=== PATIENT | male | born 1965 | race Caucasian/White ===

== ENCOUNTER 2023-03-14 08:37 | Outpatient (OUT) | payer OTHER, SELFPAY ==
--- NOTE | 2023-03-14 09:05 | PM.CN ---
Consult Note: HPI Data of Consult Patient: known to practice within the last 3 years Consult date: 03/14/23 Requesting Physician: TONIO PAUL NP Primary Care Provider: Shaikh Anupam MD Consult Narrative Narrative: Patient is here for f/u of chronic right lumbar and right leg pain. Pain worse with walking or stairs. Pain does radiate to right leg at times. Previous lumbar fusion. He has seen pain management previously and had injections that did not benefit him. He would like medication management. He was taking tramadol, but feels it is not working for him and upsets his stomach. He has had percocet previously thyat helped. We can stop tramadol and start percocet. He has narcan at home . No new sensorimotor sx or bowel or bladder issues. Medication regimen assists patient to better complete ADLs. . OARRS reviewed. cc:: CC: TONIO PAUL NP Review of Systems ROS Status of ROS 10 or more systems reviewed and unremarkable except as noted in history and below Musculoskeletal Reports: back pain Exam Constitutional Documenting provider has reviewed patient's vital signs: yes Common normals: no apparent distress, average body habitus, oriented x3, no limitations, healthy appearing, alert and well nourished General appearance: cooperative, comfortable and well developed Orientation/consciousness: Yes awake, Yes oriented to person, Yes oriented to place and Yes oriented to time HENGA Common normals: normocephalic and moist oral mucous membranes Respiratory Common normals: normal respiratory effort, no retractions and no use of accessory muscles Effort & inspection: able to speak in complete sentences and symmetric chest movement Back & Pelvis Lumbar spine/lower back: normal to inspection, ROM limited, pain with ROM, paraspinal muscle tenderness and paraspinal muscle spasm Other: positive facet load pain right muscle strength 5/5 bilat LE with intact sensation Extremity Common normals: normal to inspection, full ROM, normal capillary refill and no pedal edema Assessment and Plan Assessment and Plan (1) Lumbar radiculopathy: (2) Muscle spasm: (3) Lumbar spondylosis: Plan stop tramadol start percocet
== END 2023-03-14 08:38 | disposition home or self-care (01) ==
PROVIDERS: PCP Internal Medicine; Visit Provider Nurse Practitioner
DX: M47.26 Other spondylosis with radiculopathy, lumbar region (principal); M62.838 Other muscle spasm
CPT/HCPCS: G0463

== ENCOUNTER 2023-06-11 09:50 | Outpatient (OUT) | payer OTHER, SELFPAY ==
--- NOTE | 2023-06-11 10:25 | PM.CN ---
Consult Note: HPI Data of Consult Patient: known to practice within the last 3 years Requesting Physician: Aida Montero NP Primary Care Provider: Shaikh Anupam MD Consult Narrative Reason for consult: f/u Narrative: Boby Lovelace a pleasant 58 year old male presents for evaluation and management of low back pain. Today rating pain 3/10 ache without radiculopathy. hx of lumbar fusion at l4-5 Unforunately patient continues to have low back pain unresponsive to medications and PT/HEP. Patient SANJU today 53%, worse from previous 42% and 31%. Patient would like to discuss medication regimen today. cc:: CC: Aida Montero NP Review of Systems ROS Status of ROS 10 or more systems reviewed and unremarkable except as noted in history and below Musculoskeletal Reports: back pain Meds Home Medications and Allergies Home Medications Medication Instructions Recorded Confirmed Type oxycodone-acetaminophen 5 mg-325 1 tab PO TID PRN pain #90 tabs 03/14/23 Rx mg tablet (Percocet) oxycodone-acetaminophen 5 mg-325 1 tab PO TID PRN pain #90 tabs 04/15/23 Rx mg tablet (Percocet) oxycodone-acetaminophen 5 mg-325 1 tab PO TID PRN pain #90 tabs 05/15/23 Rx mg tablet (Percocet) Exam Constitutional Documenting provider has reviewed patient's vital signs: yes Common normals: no apparent distress, oriented x3, healthy appearing, alert and well nourished General appearance: cooperative Orientation/consciousness: Yes awake, Yes oriented to person, Yes oriented to place and Yes oriented to time [facility] Common normals: normocephalic, hearing grossly normal bilaterally and moist oral mucous membranes Head and scalp: normocephalic Eye Common normals: PERRL Pupil: PERRL Neck & C-Spine Common normals: full ROM General: normal visual inspection Chest Common normals: inspection of chest normal Respiratory Common normals: normal respiratory effort, no retractions and no use of accessory muscles Effort & inspection: able to speak in complete sentences and symmetric chest movement Back & Pelvis Lumbar spine/lower back: normal to inspection, ROM limited, pain with ROM, paraspinal muscle tenderness and paraspinal muscle spasm Other: positive facet load pain right muscle strength 5/5 bilat LE with intact sensation Extremity Common normals: normal to inspection, full ROM, normal capillary refill and no pedal edema Neuro Common normals: oriented x3, CN's II-XII intact bilaterally, moves all extremities, no focal motor deficits, no sensory deficits noted and deep tendon reflexes 2+ bilaterally Sensorium/orientation: alert Motor exam: strength 5/5 throughout and no movement abnormalities noted Psych Common normals: mental status grossly normal, thought process normal, cooperative, affect normal, speech normal and activity/motor behavior normal Speech: normal speech Thought process: normal thought process Results Additional Findings Additional findings: I have checked an OARRS report on this patient today and there are no aberrancies noted in the prescribing history.?? A drug screen was completed and reviewed within the last year, and if there has not been a drug screen completed we ordered one today to monitor higher risk, state monitored pain medication use. As part of providing excellent, safe, comprehensive care, the following was completed at our patient's visit: 1. A medication reconciliation and review to ensure accurate knowledge of current/active medications, including asking our patients to inform us about any [id number] medications or herbal remedies/nutritional supplements/alternative remedies. 2. A review to specifically ensure our patients have had annual screening for: elevated body mass index (BMI), tobacco use, screening for depression, and screening for unhealthy alcohol use. When screening is concerning, patients are provided with education and the specific recommendation to discuss the concerning health issue and treatment options with their primary care provider. Assessment and Plan Assessment and Plan (1) Lumbar spondylosis: (2) Muscle spasm: (3) Chronic prescription opiate use: Assessment and Plan: Patients functional ability continues to worsen despite opioid therapy. Discussed weaning down on medications at todays visit. Plan stop mobic, patient has been using with ibuprofen TID. has hx of GERD and on prilosec decrease percocet 5/325 to BID-TID 80 tablets per month narcan previously discussed and prescribed educated on facet blocks and RFA, will think about these procedures f/u 2 months
== END 2023-06-11 09:51 | disposition home or self-care (01) ==
PROVIDERS: PCP Internal Medicine; Visit Provider Nurse Practitioner
DX: M47.816 Spondylosis without myelopathy or radiculopathy, lumbar region (principal); M62.838 Other muscle spasm; Z79.891 Long term (current) use of opiate analgesic
CPT/HCPCS: G0463

== ENCOUNTER 2023-08-14 10:05 | Outpatient (OUT) | payer OTHER, SELFPAY ==
--- NOTE | 2023-08-14 10:29 | P.CN_ITS ---
Consult Note: HPI Data of Consult Patient: known to practice within the last 3 years Requesting Physician: Aida Montero NP Primary Care Provider: Shaikh Anupam MD Consult Narrative Reason for consult: f/u Narrative: Boby Lovelace a pleasant 58 year old male presents for evaluation and management of low back pain. Today rating pain 3/10 ache without radiculopathy. hx of lumbar fusion at l4-5 Unfortunately patient continues to have low back pain unresponsive to medications and PT/HEP. Patient SANJU today 27% improved from previous 53%. Patient would like to discuss medication regimen today. cc:: CC: Aida Montero NP Review of Systems 2 ROS Status of ROS 10 or more systems reviewed and unremark able except as noted in history and below Musculoskeletal Reports: back pain Meds Home Medications and Allergies Home Medications Medication Instructions Recorded Confirmed Type oxycodone-acetaminophen 5 mg-325 1 tab PO TID PRN pain #90 tabs 03/14/23 Rx mg tablet (Percocet) oxycodone-acetaminophen 5 mg-325 1 tab PO TID PRN pain #90 tabs 04/15/23 Rx mg tablet (Percocet) oxycodone-acetaminophen 5 mg-325 1 tab PO TID PRN pain #90 tabs 05/15/23 Rx mg tablet (Percocet) atorvastatin 80 mg tablet 80 mg PO DAILY 06/11/23 06/11/23 History baclofen 10 mg tablet 10 mg PO TID 06/11/23 06/11/23 History dulaglutide 4.5 mg/0.5 mL 4.5 mg subcut QWEEK 06/11/23 06/11/23 History subcutaneous pen injector (Trulicity) ezetimibe 10 mg tablet 10 mg PO DAILY 06/11/23 06/11/23 History gabapentin 600 mg tablet 600 mg PO TID 06/11/23 06/11/23 History ibuprofen 800 mg tablet 800 mg PO TID 06/11/23 06/11/23 History insulin degludec 200 unit/mL (3 200 unit subcut DAILY 06/11/23 06/11/23 History mL) subcutaneous pen (Tresiba FlexTouch U-200 insulin) oxycodone-acetaminophen 5 mg-325 1 tab PO TID PRN pain 11/08/23 11/08/23 History mg tablet (Percocet) oxycodone-acetaminophen 5 mg-325 1 tab PO TID PRN pain #80 tabs 06/11/23 Rx mg tablet (Percocet) oxycodone-acetaminophen 5 mg-325 1 tab PO TID PRN pain #80 tabs 07/07/23 Rx mg tablet (Percocet) Allergies Allergy/AdvReac Type Severity Reaction Status Date / Time No Known Drug Allergies Allergy Verified 06/11/23 10:58 Exam Constitutional Documenting provider has reviewed patient's vital signs: yes Common normals: no apparent distress, oriented x3, healthy appearing, alert and well nourished General appearance: cooperative Orientation/consciousness: Yes awake, Yes oriented to person, Yes oriented to place and Yes oriented to time HENMT Common normals: normocephalic, hearing grossly normal bilaterally and moist oral mucous membranes Head and scalp: normocephalic Eye Common normals: PERRL Pupil: PERRL Neck & C-Spine Common normals: full ROM General: normal visual inspection Chest Common normals: inspection of chest normal Respiratory Common normals: normal respiratory effort, no retractions and no use of accessory muscles Effort & inspection: able to speak in complete sentences and symmetric chest movement Back & Pelvis Lumbar spine/lower back: normal to inspection, ROM limited, pain with ROM, paraspinal muscle tenderness and paraspinal muscle spasm Other: positive facet load pain right muscle strength 5/5 bilat LE with intact sensation Extremity Common normals: normal to inspection, full ROM, normal capillary refill and no pedal edema Neuro Common normals: oriented x3, CN's II-XII intact bilaterally, moves all extremities, no focal motor deficits, no sensory deficits noted and deep tendon reflexes 2+ bilaterally Sensorium/orientation: alert Motor exam: strength 5/5 throughout and no movement abnormalities noted Psych Common normals: mental status grossly normal, thought process normal, cooperative, affect normal, speech normal and activity/motor behavior normal Speech: normal speech Thought process: normal thought process Results Additional Findings Additional findings: I have checked an OARRS report on this patient today and there are no aberrancies noted in the prescribing history.?? A drug screen was completed and reviewed within the last year, and if there has not been a drug screen completed we ordered one today to monitor higher risk, state monitored pain medication use. As part of providing excellent, safe, comprehensive care, the following was completed at our patient's visit: 1. A medication reconciliation and review to ensure accurate knowledge of current/active medications, including asking our patients to inform us about any [id number] medications or herbal remedies/nutritional supplements/alternative remedies. 2. A review to specifically ensure our patients have had annual screening for: elevated body mass index (BMI), tobacco use, screening for depression, and screening for unhealthy alcohol use. When screening is concerning, patients are provided with education and the specific recommendation to discuss the concerning health issue and treatment options with their primary care provider. Assessment and Plan Assessment and Plan (1) Lumbar spondylosis: (2) Muscle spasm: (3) Chronic prescription opiate use: Assessment and Plan: I feel these medications are improving the patient's quality of life and allow them to tolerate activities of daily living as well as participate in recreational activity.? The patient does not report intolerable side effects. The patient is NOT opioid naive and non-pharmacologic and non-opioid treatment has failed to significantly relieve the patient's pain and improve functionality. The patient has a diagnosis that is related to a somatic or visceral pain etiology. ? ?? I reviewed with the patient the potential risks and side effects with the use of? opioid medications including but not limited to respiratory depression,? sedation, and even . I verified the patient has access to naloxone should? these effects occur. I advised the patient to avoid the use of any other? sedation substances including alcohol, THC, and benzodiazepines while? taking opioid medications due to the risk of compounding side effects and? detrimental outcomes. I reviewed the OPERATIONS MANAGER ASSISTANT, pain treatment agreement, urine? drug screen, and opioid start talking forms. The patient was advised to let? their family know they had Naloxone in case they would need to administer? the medication.? ?? A drug screen was completed within the last year, and no aberrancies were noted regarding their use of controlled substances. The patient understands they are subject to the terms and conditions of the pain contract that they have signed. ? ?? I have checked an OARRS report on this patient today and there are no aberrancies noted in the prescribing history.? Plan continue percocet 5/325 to BID-TID 80 tablets per month, SANJU significantly improved now 27% narcan previously discussed and prescribed educated on facet blocks and RFA at previous visit, declining f/u 3 months
== END 2023-08-14 10:06 | disposition home or self-care (01) ==
LOC: PM 10:05
PROVIDERS: PCP Internal Medicine; Visit Provider Nurse Practitioner
DX: E78.49 Other hyperlipidemia (principal); I10 Essential (primary) hypertension; E11.9 Type 2 diabetes mellitus without complications; M47.816 Spondylosis without myelopathy or radiculopathy, lumbar region; M62.838 Other muscle spasm; Z79.891 Long term (current) use of opiate analgesic
CPT/HCPCS: 36415; 80053; 80061; 82043; 82570; 83036; 85025; G0463

== ENCOUNTER 2023-08-14 10:43 | Outpatient (OUT) | payer OTHER, SELFPAY ==
--- OUTSIDE RECORDS SUMMARY | 2023-08-14 10:53 | XMS_ITS | CCD ---
Author Name Unknown Address [address] [facility] [address] [place] [address] Organization [facility] Care Team Providers Care [employer] Attendant Name Role Phone LAKSHMIPATHY ., NARENDRANATH Admitting Savita vailable LAKSHMIPATHY ., NARENDRANATH Attending Savita vailable FAWWAD, WHATLEY H Primary Care Unavailable LAKSHMIPATHY ., NARENDRANATH Consulting Savita vailable FAWWAD, WHATLEY H Primary Care Unavailable HALKER ., TONIO Attending Unavailable HALKER ., TONIO Admitting Unavailable LAKSHMIPATHY ., NARENDRANATH Consulting Savita vailable HALKER ., TONIO Admitting Unavailable FAWWAD, WHATLEY H Primary Care Unavailable HALKER ., TONIO Attending Unavailable FAWWAD, WHATLEY H Admitting Unavailable FAWWAD, WHATLEY H Attending Unavailable FAWWAD, WHATLEY H Consulting Unavailable FAWWAD, WHATLEY H Primary Care Unavailable LAKSHMIPATHY ., NARENDRANATH Admitting Savita vailable LAKSHMIPATHY ., NARENDRANATH Attending Savita vailable FAWWAD, WHATLEY H Primary Care Unavailable DR LUIS ARMANDO ZAYAS Consulting Unavailable LAKSHMIPATHY ., NARENDRANATH Consulting Savita vailable BEN ZUNIGA Consulting Unavailable FAWWAD, WHATLEY H Admitting Unavailable FAWWAD, WHATLEY H Attending Unavailable FAWWAD, WHATLEY H Primary Care Unavailable FAWWAD, WHATLEY H Consulting Unavailable LAKSHMIPATHY ., NARENDRANATH Admitting Savita vailable DR LUIS ARMANDO ZAYAS Consulting Unavailable FAWWAD, WHATLEY H Primary Care Unavailable LAKSHMIPATHY ., NARENDRANATH Attending Savita vailable LAKSHMIPATHY ., NARENDRANATH Consulting Savita vailable FAWWAD, WHATLEY Attending Unavailable Problems Active Problems Problem Classification Problem Date Documented Da te Episodic/Chronic Diabetes mellitus without complication (4 sources) Type 2 diabetes mellitus without complications; Translations: [TYPE 2 DM WITHOUT COMPLICATIONS] Onset: 11-11-2022 Chronic Disorders of lipid metabolism (1 source) Hyperlipidemia, unspecified; Translations: [HYPERLIPIDEMIA UNSPECIFIED] Onset: 11-17-2022 Chronic Other nervous system disorders (1 source) Other chronic pain; Translations: [OTHER CHRONIC PAIN] Onset: 11-09-2022 Chronic Other screening for suspected conditions (not mental disorders or infectious disease) (4 sources) Other specified abnormal findings of blood chemistry; Translations: [OTH SPEC ABNORMAL FINDINGS BLD CHEM] Onset: 11-19-2022 Episodic Spondylosis; intervertebral disc disorders; other back problems (6 sources) Spondylosis without myelopathy or radiculopathy, lumbar region; Translations: [Postlaminectomy syndrome, not elsewhere classified] Onset: 11-11-2022 Chronic Unclassified (2 sources) LOW BACK PAIN, UNSPECIFIED; Translations: [LOW BACK PAIN, UNSPECIFIED] Onset: 12-12-2022 Past or Other Problems Problem Classification Problem Date Documented Da te Episodic/Chronic Unclassified (1 source) LOW BACK PAIN, UNSPECIFIED; Translations: [LOW BACK PAIN, UNSPECIFIED] Onset: 12-06-2022 Results Test Name Value Interpretation Reference Range Facility MRI LSPINE WO W CONon 2022 MRI LSMIDWAY WO W CON EXAMINATION: MRI LSMIDWAY WO W CON HISTORY: Post-laminectomy syndrome ; chronic lumbar and bilateral leg pain COMPARISON: XR L-spine 11/11/2022 TECHNIQUE: Axial T1 and T2; Sagittal T1, T2, and STIR sequences. Images were performed before and after the administration of ml intravenous Dotarem contrast. FINDINGS: For the purposes of numbering, sagittal T2 image # 7 extends from the T11-T12 vertebral body superiorly to the S3 level inferiorly. PARASPINAL AREA: Normal with no visible mass. BONES: Posterior mechanical fusion L4-L5. CORD/CAUDA EQUINA: Normal caliber, contour, and signal intensity. LUMBAR DISC LEVELS: 12-L1: No significant disc/facet abnormality, spinal stenosis, or foraminal stenosis. L1-L2: No significant disc/facet abnormality, spinal stenosis, or foraminal stenosis. L2-L3: Early degenerative disc disease is present without focal protrusion or neural impingement. L3-L4: Early degenerative disc disease is present without focal protrusion or neural impingement. L4-L5: Moderate right, mild left foramen narrowing. No significant central canal narrowing. Intervertebral disc spacer with mild disc height reduction. Moderate left, mild right degenerative facet arthropathy. Posterior mechanical fusion L4-L5. L5-S1: Moderate right, mild-moderate left foramen narrowing. No significant central canal narrowing. Mild diffuse disc bulging without disc height reduction. Moderate degenerative facet arthropathy. IMPRESSION: 1. Posterior mechanical fusion L4-L5 and intervertebral disc spacer at L4-L5. 2. Moderate narrowing of the right neural foramen at L4-L5 and L5-S1. Mild or slightly greater left foramen narrowing at both levels. No significant central canal narrowing. Electronically authenticated by: LUIS ARMANDO ZAYAS Date: 2022-11-19 14:15 Normal [facility] US SINGLE QUAD RT UPPERon US SINGLE QUAD RT UPPER EXAM: US SINGLE QUAD RT UPPER HISTORY: . Blood chemistry abnormal . COMPARISON: None. TECHNIQUE: Grayscale and color imaging was performed FINDINGS: The pancreas is grossly unremarkable. The liver is normal in size. No masses are noted. Color-flow is noted in the portal and hepatic veins. The gallbladder appears normal with no stones or sludge identified. No gallbladder wall thickening is noted. Common bile duct measures 2 mm. Right kidney measures 9.5 x 5 x 5.8 cm. Color-flow is noted. No solid renal cortical masses or hydronephrosis is noted. No fluid is noted in the right upper quadrant. IMPRESSION: Normal ultrasound of the right upper quadrant. Electronically authenticated by: BEN ZUNIGA Date: 2022-11-19 09:51 Normal [facility] CBC AUTO DIFFon 11-11-2022 BASO # 0.0 103/ul Normal 0.0-0.1 [facility] Comment on above: Performed By: #### C BC #### [facility] [address] [address] [address] Irving Hale Basophils/100 WBC (Bld) 0.5 % Normal 0.2-2.0 [facility] Comment on above: Performed By: #### C BC #### [facility] [address] [address] [address] Irving Hale EO # 0.1 103/ul Normal 0.0-0.7 [facility] Comment on above: Performed By: #### C BC #### [facility] [address] [place] [address] Dr. Irving Hale Eosinophils/100 WBC (Bld) 1.9 % Normal 0.9-7.0 [facility] Comment on above: Performed By: #### C BC #### [facility] [address] [place] [address] Dr. Irving Hale Erythrocyte distribution width (RBC) [Ratio] 13.4 % Normal 11.0-15.0 [facility] Comment on above: Performed By: #### C BC #### [facility] [address] [place] [address] Dr. Irving Hale Hematocrit (Bld) [Volume fraction] 40.6 % Critically low 42.0-54.0 [facility] Comment on above: Performed By: #### C BC #### [facility] [address] [place] [address] Dr. Irving Hale Hemoglobin (Bld) [Mass/Vol] 13.6 g/dL Critically low 14.0-18.0 [facility] Comment on above: Performed By: #### C BC #### [facility] [address] [place] [address] Dr. Irving Hale IG # 0.01 10e3/ul Normal 0.00-0.03 [facility] Comment on above: Performed By: #### C BC #### [facility] [address] [place] [address] Dr. Irving Hale IG % 0.2 % Normal 0.0-0.5 [facility] Comment on above: Performed By: #### C BC #### [facility] [address] [place] [address] Dr. Irving Hale LYMPH # 2.1 103/ul Normal 1.2-3.8 [facility] Comment on above: Performed By: #### C BC #### [facility] [address] [place] [address] Dr. Irving Hale Lymphocytes/100 WBC (Bld) 32.9 % Normal 20.5-60.0 [facility] Comment on above: Performed By: #### C BC #### [facility] [address] [place] [address] Dr. Irving Hale MANUAL DIFF REQ NO Normal [facility] Comment on above: Performed By: #### C BC #### [facility] [address] [place] [address] Dr. Irving Hale MCH (RBC) [Entitic mass] 28.2 pg Normal 25.9-34.0 [facility] Comment on above: Performed By: #### C BC #### [facility] [address] [place] [address] Dr. Irving Hale MCHC (RBC) [Mass/Vol] 33.5 g/dL Normal 29.9-35.2 [facility] Comment on above: Performed By: #### C BC #### [facility] [address] [place] [address] Dr. Irving Hale MCV (RBC) [Entitic vol] 84.1 fL Normal 80.0-94.0 [facility] Comment on above: Performed By: #### C BC #### [facility] [address] [place] [address] Dr. Irving Hale MONO # 0.6 103/ul Normal 0.3-0.8 [facility] Comment on above: Performed By: #### C BC #### [facility] [address] [place] [address] Dr. Irving Hale Monocytes/100 WBC (Bld) 9.3 % Normal 1.7-12.0 [facility] Comment on above: Performed By: #### C BC #### [facility] [address] [place] [address] Dr. Irving Hale NEUT # 3.4 103/ul Normal 1.4-6.5 [facility] Comment on above: Performed By: #### C BC #### [facility] [address] [place] [address] Dr. Irving Hale Neutrophils/100 WBC (Bld) 55.2 % Normal 43.0-75.0 [facility] Comment on above: Performed By: #### C BC #### [facility] [address] [place] [address] Dr. Irving Hale Platelet mean volume (Bld) [Entitic vol] 9.1 fL Critically low 9.5-13.5 [facility] Comment on above: Performed By: #### C BC #### [facility] [address] [address] [address] Irving Hale PLT 302 103/ul Normal 150-450 [facility] Comment on above: Performed By: #### C BC #### [facility] [address] [place] [address] Dr. Irving Hale RBC 4.83 106/ul Normal 4.70-6.10 [facility] Comment on above: Performed By: #### C BC #### [facility] [address] [place] [address] Dr. Irving Hale WBC 6.2 103/ul Normal 4.0-11.0 [facility] Comment on above: Performed By: #### C BC #### [facility] [address] [place] [address] Dr. Irving Hale GLYCOHEMOGLOBIN A1Con 2022 ADA RECOMMENDATION SEE BELOW Normal [facility] Comment on above: Result Comment: ADA RECOMMENDED LIMIT 4.0 - 6.0 ADA THERAPEUTIC TARGET < 7.0 ACTION SUGGESTED > 7.0 Performed By: #### A 1C #### [facility] [address] [place] [address] Dr. Irving Hale Glucose [Mass/Vol] 143 mg/dL Normal [facility] Comment on above: Performed By: #### A 1C #### [facility] [address] [place] [address] Dr. Irving Hale HbA1c (Bld) [Mass fraction] 6.6 % Critically high 4.5-6.2 [facility] Comment on above: Performed By: #### A 1C #### [facility] [address] [place] [address] Dr. Irving Hale LIPID PROFILEon 11-11-2022 CHOL-HDL RATIO NORM SEE BELOW Normal [facility] Comment on above: Result Comment: 3.3 - 4.4 LOW RISK 4.4 - 7.1 AVERAGE RISK 7.1 - 11.0 MODERATE RISK >11.0 HIGH RISK Performed By: #### C MP, LIPID #### [facility] [address] [address] [address] Irving Hale Cholesterol [Mass/Vol] 124 mg/dL Normal <=200 [facility] Comment on above: Performed By: #### C MP, LIPID #### [facility] [address] [address] [address] Irving Hale Cholesterol in HDL [Mass/Vol] 41 mg/dL Normal 40-60 [facility] Comment on above: Performed By: #### C MP, LIPID #### [facility] [address] [address] [address] Irving Hale Cholesterol in LDL [Mass/Vol] 66.4 mg/dL Normal [facility] Comment on above: Performed By: #### C MP, LIPID #### [facility] [address] [address] [address] Irving Hale Cholesterol.total/Cho lesterol in HDL [Mass ratio] 3.0 {ratio} Normal [facility] Comment on above: Performed By: #### C MP, LIPID #### [facility] [address] [address] [address] Irving Hale HDL NORMAL > or = 60 mg/dl - LO W CARDIOVASCULAR RISK <40 mg/dl - HIGH CARDIOVASCULAR RISK Normal [facility] Comment on above: Performed By: #### C MP, LIPID #### [facility] [address] [address] [address] Irving Hale LDL CALC NORMAL SEE BELOW Normal [facility] Comment on above: Result Comment: <100 mg/dl OPTIMAL 100 - 129 mg/dl NEAR OR ABOVE OPTIMAL 130 - 159 mg/dl BORDERLINE HIGH 160 - 189 mg/dl HIGH >190 mg/dl VERY HIGH Performed By: #### C MP, LIPID #### [facility] [address] [address] [address] Irving Hale Triglyceride [Mass/Vol] 83 mg/dL Normal <=150 [facility] Comment on above: Performed By: #### C MP, LIPID #### [facility] [address] [address] [address] Irving Hale VLDL CALC 16.6 mg/dL Normal [facility] Comment on above: Performed By: #### C MP, LIPID #### [facility] [address] [address] [address] Irving Hale MICROALB CREAT RATIO RANDOMo n 11-11-2022 mALB <1.3 Normal <=30.0 [facility] Comment on above: Performed By: #### M CRR #### [facility] [address] [place] [address] Dr. Irving Hale MALB CR RATIO 8.4 mg/g Normal 0.0-29.9 [facility] Comment on above: Performed By: #### M CRR #### [facility] [address] [address] [address] Irving Hale MALB CR RATIO RANGE SEE BELOW Normal [facility] Comment on above: Result Comment: NO M ICROALBUMINURIA 0-29 MG/G CLINICAL MICROALBUMINURIA 30-300 MG/G MACROALBUMINURIA >300 MG/G Performed By: #### M CRR #### [facility] [address] [place] [address] Dr. Irving Hale URINE CREAT 155.10 mg/dL Normal 20.00-300.00 [facility] Comment on above: Performed By: #### M CRR #### [facility] [address] [place] [address] Dr. Irving Hale PROF 14(COMP METB)on 023 Albumin [Mass/Vol] 3.9 g/dL Normal 3.4-5.0 [facility] Comment on above: Performed By: #### C MP, LIPID #### [facility] [address] [place] [address] Dr. Irving Hale Albumin/Globulin [Mass ratio] 1.0 {ratio} Normal [facility] Comment on above: Performed By: #### C MP, LIPID #### [facility] [address] [address] [address] Irving Hale ALP [Catalytic activity/Vol] 96 U/L Normal 46-116 [facility] Comment on above: Performed By: #### C MP, LIPID #### [facility] [address] [address] [address] Irving Hale ALT [Catalytic activity/Vol] 95 U/L Critically high 16-63 [facility] Comment on above: Performed By: #### C MP, LIPID #### [facility] [address] [address] [address] Irving Hale Anion gap [Moles/Vol] 11.5 mmol/L Normal [facility] Comment on above: Performed By: #### C MP, LIPID #### [facility] [address] [place] [address] Dr. Irving Hale AST [Catalytic activity/Vol] 39 U/L Critically high 15-37 [facility] Comment on above: Performed By: #### C MP, LIPID #### [facility] [address] [place] [address] Dr. Irving Hale Bilirubin [Mass/Vol] 0.4 mg/dL Normal 0.2-1.0 [facility] Comment on above: Performed By: #### C MP, LIPID #### [facility] [address] [place] [address] Dr. Irving Hale Calcium [Mass/Vol] 10.4 mg/dL Critically high 8.5-10.1 [facility] Comment on above: Performed By: #### C MP, LIPID #### [facility] [address] [place] [address] Dr. Irving Hale Chloride [Moles/Vol] 103 mmol/L Normal 98-107 [facility] Comment on above: Performed By: #### C MP, LIPID #### [facility] [address] [address] [address] Irving Hale CO2 [Moles/Vol] 30.0 mmol/L Normal 21.0-32.0 [facility] Comment on above: Performed By: #### C MP, LIPID #### [facility] [address] [address] [address] Irving Hale Creatinine [Mass/Vol] 1.04 mg/dL Normal 0.70-1.30 [facility] Comment on above: Performed By: #### C MP, LIPID #### [facility] [address] [place] [address] Dr. Irving Hale EGFR-AF SWAZI >60 Normal >=60 [facility] Comment on above: Performed By: #### C MP, LIPID #### [facility] [address] [address] [address] Irving Hale EGFR-NON AF SWAZI >60 Normal >=60 [facility] Comment on above: Performed By: #### C MP, LIPID #### [facility] [address] [place] [address] Dr. Irving Hale Globulin (S) [Mass/Vol] 3.9 g/dL Normal [facility] Comment on above: Performed By: #### C MP, LIPID #### [facility] [address] [place] [address] Dr. Irving Hale Glucose [Mass/Vol] 123 mg/dL Critically high 74-106 [facility] Comment on above: Performed By: #### C MP, LIPID #### [facility] [address] [place] [address] Dr. Irving Hale Potassium [Moles/Vol] 4.5 mmol/L Normal 3.5-5.1 [facility] Comment on above: Performed By: #### C MP, LIPID #### [facility] [address] [address] [address] Irving Hale Protein [Mass/Vol] 7.8 g/dL Normal 6.4-8.2 [facility] Comment on above: Performed By: #### C MP, LIPID #### [facility] [address] [place] [address] Dr. Irving Hale Sodium [Moles/Vol] 140 mmol/L Normal 136-145 [facility] Comment on above: Performed By: #### C MP, LIPID #### [facility] [address] [address] [address] Irving Hale Urea nitrogen [Mass/Vol] 23.0 mg/dL Critically high 7.0-18.0 [facility] Comment on above: Performed By: #### C MP, LIPID #### [facility] [address] [address] [address] Irving Hale Urea nitrogen/Creatinine [Mass ratio] 22.1 mg/mg Normal [facility] Comment on above: Performed By: #### C MP, LIPID #### [facility] [address] [place], [place] [address] Dr. Irving Hale XR LSPINE MIN 4 VIEWSon 11-02 XR LSPINE MIN 4 VIEWS EXAMINATION: XR LSPINE MIN 4 VIEWS HISTORY: Post-laminectomy syndrome ; chronic low back pain radiating into right leg COMPARISON: No relevant comparison available. FINDINGS: BONES: Posterior mechanical fusion via bilateral pedicle screws and rods; no appreciable hardware fracture or loosening. No bone fracture spondylolisthesis. No change in alignment during flexion and extension. DISC SPACES: Moderate narrowing L4-L5, L5-S1. PARASPINOUS: Negative. No paraspinous abnormality is seen. OTHER: Negative. IMPRESSION: 1. L4-L5 posterior mechanical fusion without evidence of hardware failure. No change in alignment during flexion and extension. 2. No appreciable posterior decompression on today's radiographs. 3. Moderate degenerative disc disease L4-L5, L5-S1. Electronically authenticated by: LUIS ARMANDO ZAYAS Date: 2022-11-11 15:14 Normal [facility] Encounters Encounter Date Encounter Type Care Provider Facility Start: 07-23-2023 End: 07-23-2023 ambulatory SHAIKH ASTRID Not Available Start: 03-06-2023 ambulatory TONIO PAUL . Facili ty:[facility] Start: 12-06-2022 End: 12-07-2022 ambulatory SHAIKH Андрей RESENDIZ Facility:[facility] Start: 11-19-2022 End: 11-20-2022 ambulatory BEN ZUNIGA Facility:[facility] Start: 11-11-2022 End: 11-12-2022 ambulatory LYNNE MARTINI . Facility:[facility] Start: 11-05-2022 End: 11-06-2022 ambulatory LYNNE MARTINI . Facility: Payers Date Payer Category Payer Unknown [id number] 1965 Unknown [id number] 2.16.84 [id number] 1965 Unknown [id number] 2.16.84 [id number] 1965 Unknown [id number] 2.16.84 [id number] 1965 Unknown [id number] 2.16.84 [id number] 1965 Unknown [id number] 2.16.84 [id number] 1965 Unknown [id number] 2.16.84 [id number] 1965 Unknown [id number] 2.16.84 [id number] 1965 Unknown [id number] Consultation note 11-05-2022 Note Date & Type Note Facility 11-05-2022 Note CONSULTATION CONSULTATION DATE: 11/05/2022 TO: Dr. Resendiz CHIEF COMPLAINT: Includes bilateral lower back pain, worse on the right side. HISTORY OF PRESENT ILLNESS: Review of systems, past medical/surgical history were obtained and documented on the health questionnaire and is available upon request. Patient is a poor historian. He reports being followed by a physician some place in [place]. He is unsure of the physician's name, but apparently the physician does prescribe him his oxycodone. He does not have the physician's name, telephone number or address available immediately. Nevertheless, he reports the pain is generally increased with activity such as standing, walking and performing transitioning maneuvers. He feels most comfortable in the semi-recumbent position. He rates it 5-7/10 and describes it as sharp. He denies any change in bowel and bladder habits or new sensory motor changes in his lower extremities. EXAM: His examination is notable for the patient having no clinical radiculopathy or myelopathy involving his lower extremities. He did have pain with lumbar facet loading maneuvers, possibly at L5-S1. He had a fair amount of myofascial spasm of the lumbar paravertebral muscles. This was fair at best. It was mainly mild myofascial spasm, worse on the right side than the left side. He had nothing to suggest SI joint discomfort, but he did have some dysesthesia and hyperesthesia along the distribution of the lateral cutaneous branch of the iliohypogastric nerve occurring bilaterally, appeared to be more significant on the right than the left side. IMPRESSION: Our impression is patient with chronic pain secondary to post laminectomy syndrome. We have no information regarding the patient. We have informed him we cannot prescribe opioid medication until we can determine who he gets the medications from and where he gets the medications from. He is unable to provide any of this information. PLAN: We will obtain urine toxicology screen at today's visit. I have placed him on baclofen 10 mg pills, 1-2 pills up to t.i.d. p.r.n., given 120 pills to last him one month's time. I have also recommended aquatic therapy and to proceed with lumbar spine films, flexion/extension based, to evaluate the integrity of his fusion construct, as well as a lumbosacral MRI with and without contrast. He agrees to our outlined plan. We will await information regarding his physician in [place] and he is scheduled to return to our office in four weeks' time. As part of providing excellent, safe, comprehensive care, the following was completed at our patient's visit: 1. A medication reconciliation and review to ensure accurate knowledge of current/active medications, including asking our patients to inform us about any [id number] medications or herbal remedies/nutritional supplements/alternative remedies. 2. A review to specifically ensure our patients have had annual screening for: elevated body mass index (BMI, see intake chart for exact total), tobacco use, screening for depression, and screening for unhealthy alcohol use. When screening is concerning, patients are provided with education and the specific recommendation to discuss the concerning health issue and treatment options with their primary care provider. [facility] Summary Purpose Family History No Family History Records FoundNo Family History Records Found Advance Directives No Advanced Directives Records FoundNo Advanced Directives Records Found Additional Source Comments (unrecognized sect ion and content) No Status Records FoundNo Status Records Found INFORMATION SOURCE (unrecogn ized section and content) DATE CREATED AUTHOR 12/13/2022 [facility] DATE CREATED AUTHOR GLENN PHILLIP 07/24/2023 [facility] d[facility] Specialists EPIC FOR RECORDS PERTAINING TO PATIENTS WHO ARE OR HAVE BEEN ENROLLED IN A CHEMICAL DEPENDENCY/SUBSTANCEABUSE PROGRAM, SOME INFORMATION MAY BE OMITTED. This clinical summary was aggregated from multiple sources. Caution should be exercised in using it in the provision of clinical care. This summary normalizes information from multiple sources, and as a consequence, information in this document may materially change the coding, format and clinical context of patient data. In addition, data may be omitted in some cases. CLINICAL DECISIONS SHOULD BE BASED ON THE PRIMARY CLINICAL RECORDS. [facility] [employer] provides no warranty or guarantee of the accuracy or completeness of information in this document.
[2023-08-14 11:16] LABS: Basophils Absolute Auto 0.1 10^3/uL (0.0-0.1); Basophils Percent Auto 0.6 % (0.2-2.0); Eosinophils Absolute Auto 0.2 10^3/uL (0.0-0.7); Eosinophils Percent Auto 2.7 % (0.9-7.0); Hematocrit 41.2 % (42.0-54.0); Hemoglobin 13.6 g/dL (14.0-18.0); Immature Granulocytes Abs Auto 0.01 10^3/uL (0.00-0.03); Immature Granulocytes Pct Auto 0.1 % (0.0-0.5); Lymphocytes Absolute Auto 2.7 10^3/uL (1.2-3.8); Lymphocytes Percent Auto 34.1 % (20.5-60.0); Mean Corpuscular Hemoglobin 27.9 pg (25.9-34.0); Mean Corpuscular Volume 84.4 fL (80.0-94.0); Mean Platelet Volume 8.9 fL (9.5-13.5); Monocytes Absolute Auto 0.8 10^3/uL (0.3-0.8); Monocytes Percent Auto 9.8 % (1.7-12.0); Neutrophils Absolute Auto 4.2 10^3/uL (1.4-6.5); Neutrophils Percent Auto 52.7 % (43.0-75.0); Platelet Count 296 10^3/uL (150-450); Red Blood Count 4.88 10^6/uL (4.70-6.10); Red Cell Distribution Width 13.2 % (11.0-15.0)
[2023-08-14 11:33] LABS: Creatinine Urine Random 190.78 mg/dL (20.00-300.00); Microalbum Creatinine Ratio Ur 6.8 mg/g (0.0-29.9); Microalbumin Urine Random <1.3 mg/dL (<=30.0)
[2023-08-14 11:41] LABS: Estimated Average Glucose 154 mg/dL
[2023-08-14 12:09] LABS: Alanine Aminotransferase 68 U/L (16-63); Albumin Level 3.8 g/dL (3.4-5.0); Alkaline Phosphatase 101 U/L (46-116); Anion Gap 7.1; Aspartate Amino Transferase 32 U/L (15-37); BUN Creatinine Ratio 13.7; Bilirubin Total 0.4 mg/dL (0.2-1.0); Calcium 10.3 mg/dL (8.5-10.1); Carbon Dioxide 31.9 mmol/L (21.0-32.0); Chloride 103 mmol/L (98-107); Chol HDL Ratio 2.7; Cholesterol 107 mg/dL (<=200); Estimated GFR (African America >60 (>=60); Estimated GFR (Non-African Ame >60 (>=60); Globulin 3.7 g/dL; Glucose 113 mg/dL (74-106); HDL Cholesterol 40 mg/dL (40-60); Sodium 138 mmol/L (136-145); Total Protein 7.5 g/dL (6.4-8.2)
[2023-08-14 13:15] LABS: Triglycerides 99 mg/dL (<=150); VLDL CHOLESTEROL 19.8 mg/dL
== END 2023-08-14 10:44 | disposition home or self-care (01) ==
PROVIDERS: PCP Internal Medicine; Visit Provider Internal Medicine
DX: E78.49 Other hyperlipidemia (principal); I10 Essential (primary) hypertension; E11.9 Type 2 diabetes mellitus without complications
CPT/HCPCS: 36415; 80053; 80061; 82043; 82570; 83036; 85025

== ENCOUNTER 2023-11-13 09:37 | Outpatient (OUT) | payer OTHER, SELFPAY ==
--- OUTSIDE RECORDS SUMMARY | 2023-11-13 09:59 | XMS_ITS | CCD ---
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 Role Phone LAKSHMIPATHY ., NARENDRANATH Admitting [...] vailable FAWWAD, WHATLEY H Primary Care Unavailable ZIDR LUIS ARMANDO JACKSON Consulting Unavailable LAKSHMIPATHY ., NARENDRANATH Consulting Savita [...] Consulting Savita vailable FAWWAD, WHATLEY Attending Unavailable FAWWAD, WHATLEY Attending Unavailable Problems Active Problems [...] Name Value Interpretation Reference Range Facility MRI LSMARJORIE WO W CONon 2022 MRI [place] WO W CON EXAMINATION: MRI LSPINE WO W CON HISTORY: Post-laminectomy syndrome ; [...] ARMANDO ZAYAS Date: 2022-11-19 14:15 Normal [facility] US SINGLE QUAD RT UPPERon US [...] BEN ZUNIGA Date: 2022-11-19 09:51 Normal [facility] CBC AUTO DIFFon 11-11-2022 BASO # 0.0 103/ul Normal 0.0-0.1 [facility] Comment on above: Performed By: #### C BC #### [facility] [address] [address] [address] Irving Hale Basophils/100 WBC (Bld) 0.5 % Normal 0.2-2.0 [facility] Comment on above: Performed By: #### C BC #### [facility] [address] [address] [address] Irving Hale EO # 0.1 103/ul Normal 0.0-0.7 [facility] Comment on above: Performed By: #### C BC #### [facility] [address] [place] [address] Dr. Irving Hale Eosinophils/100 WBC (Bld) 1.9 % Normal 0.9-7.0 [facility] Comment on above: Performed By: #### C BC #### [facility] [address] [place] [address] Dr. Irving Hale Erythrocyte distribution width (RBC) [Ratio] 13.4 % Normal 11.0-15.0 [facility] Comment on above: Performed By: #### C BC #### [facility] [address] [place] [address] Dr. Irving Hale Hematocrit (Bld) [Volume fraction] 40.6 % Critically low 42.0-54.0 [facility] Comment on above: Performed By: #### C BC #### [facility] [address] [place] [address] Dr. Irving Hale Hemoglobin (Bld) [Mass/Vol] 13.6 g/dL Critically low 14.0-18.0 [facility] Comment on above: Performed By: #### C BC #### [facility] [address] [place] [address] Dr. Irving Hale IG # 0.01 10e3/ul Normal 0.00-0.03 [facility] Comment on above: Performed By: #### C BC #### [facility] [address] [place] [address] Dr. Irving Hale IG % 0.2 % Normal 0.0-0.5 [facility] Comment on above: Performed By: #### C BC #### [facility] [address] [place] [address] Dr. Irving Hale LYMPH # 2.1 103/ul Normal 1.2-3.8 [facility] Comment on above: Performed By: #### C BC #### [facility] [address] [place] [address] Dr. Irving Hale Lymphocytes/100 WBC (Bld) 32.9 % Normal 20.5-60.0 [facility] Comment on above: Performed By: #### C BC #### [facility] [address] [place] [address] Dr. Irving Hale MANUAL DIFF REQ NO Normal [facility] Comment on above: Performed By: #### C BC #### [facility] [address] [place] [address] Dr. Irving Hale MCH (RBC) [Entitic mass] 28.2 pg Normal 25.9-34.0 [facility] Comment on above: Performed By: #### C BC #### [facility] [address] [place] [address] Dr. Irving Hale MCHC (RBC) [Mass/Vol] 33.5 g/dL Normal 29.9-35.2 [facility] Comment on above: Performed By: #### C BC #### [facility] [address] [place] [address] Dr. Irving Hale MCV (RBC) [Entitic vol] 84.1 fL Normal 80.0-94.0 [facility] Comment on above: Performed By: #### C BC #### [facility] [address] [place] [address] Dr. Irving Hale MONO # 0.6 103/ul Normal 0.3-0.8 [facility] Comment on above: Performed By: #### C BC #### [facility] [address] [place] [address] Dr. Irving Hale Monocytes/100 WBC (Bld) 9.3 % Normal 1.7-12.0 [facility] Comment on above: Performed By: #### C BC #### [facility] [address] [place] [address] Dr. Irving Hale NEUT # 3.4 103/ul Normal 1.4-6.5 [facility] Comment on above: Performed By: #### C BC #### [facility] [address] [place] [address] Dr. Irving Hale Neutrophils/100 WBC (Bld) 55.2 % Normal 43.0-75.0 [facility] Comment on above: Performed By: #### C BC #### [facility] [address] [address] [address] Irving Hale Platelet mean volume (Bld) [Entitic vol] 9.1 fL Critically low 9.5-13.5 [facility] Comment on above: Performed By: #### C BC #### [facility] [address] [address] [address] Irving Hale PLT 302 103/ul Normal 150-450 [facility] Comment on above: Performed By: #### C BC #### [facility] [address] [address] [address] Irving Hale RBC 4.83 106/ul Normal 4.70-6.10 [facility] Comment on above: Performed By: #### C BC #### [facility] [address] [place] [address] Dr. Irving Hale WBC 6.2 103/ul Normal 4.0-11.0 [facility] Comment on above: Performed By: #### C BC #### [facility] [address] [address] [address] Irving Hale GLYCOHEMOGLOBIN A1Con 2022 ADA RECOMMENDATION SEE BELOW Normal [facility] Comment on above: Result Comment: ADA RECOMMENDED LIMIT 4.0 - 6.0 ADA THERAPEUTIC TARGET < 7.0 ACTION SUGGESTED > 7.0 Performed By: #### A 1C #### [facility] [address] [place] [address] Dr. Irving Hale Glucose [Mass/Vol] 143 mg/dL Normal [facility] Comment on above: Performed By: #### A 1C #### [facility] [address] [address] [address] Irving Hale HbA1c (Bld) [Mass fraction] 6.6 % Critically high 4.5-6.2 [facility] Comment on above: Performed By: #### A 1C #### [facility] [address] [place] [address] Dr. Irving Hale LIPID PROFILEon 11-11-2022 CHOL-HDL RATIO NORM SEE BELOW Normal [facility] Comment on above: Result Comment: 3.3 - 4.4 LOW RISK 4.4 - 7.1 AVERAGE RISK 7.1 - 11.0 MODERATE RISK >11.0 HIGH RISK Performed By: #### C MP, LIPID #### [facility] [address] [address] [address] Irving Hale Cholesterol [Mass/Vol] 124 mg/dL Normal <=200 [facility] Comment on above: Performed By: #### C MP, LIPID #### [facility] [address] [address] [address] Irving Hale Cholesterol in HDL [Mass/Vol] 41 mg/dL Normal 40-60 [facility] Comment on above: Performed By: #### C MP, LIPID #### [facility] [address] [address] [address] Irving Hale Cholesterol in LDL [Mass/Vol] 66.4 mg/dL Normal [facility] Comment on above: Performed By: #### C MP, LIPID #### [facility] [address] [address] [address] Irving Hale Cholesterol.total/Cho lesterol in HDL [Mass ratio] 3.0 {ratio} Normal [facility] Comment on above: Performed By: #### C MP, LIPID #### [facility] [address] [address] [address] Irving Hale HDL NORMAL > or = 60 mg/dl - LO W CARDIOVASCULAR RISK <40 mg/dl - HIGH CARDIOVASCULAR RISK Normal [facility] Comment on above: Performed By: #### C MP, LIPID #### [facility] [address] [address] [address] Irving Hale LDL CALC NORMAL SEE BELOW Normal [facility] Comment on above: Result Comment: <100 mg/dl OPTIMAL 100 - 129 mg/dl NEAR OR ABOVE OPTIMAL 130 - 159 mg/dl BORDERLINE HIGH 160 - 189 mg/dl HIGH >190 mg/dl VERY HIGH Performed By: #### C MP, LIPID #### [facility] [address] [address] [address] Irving Hale Triglyceride [Mass/Vol] 83 mg/dL Normal <=150 [facility] Comment on above: Performed By: #### C MP, LIPID #### [facility] [address] [address] [address] Irving Hale VLDL CALC 16.6 mg/dL Normal [facility] Comment on above: Performed By: #### C MP, LIPID #### [facility] [address] [place] [address] Dr. Irving Hale MICROALB CREAT RATIO RANDOMo n 11-11-2022 mALB <1.3 Normal <=30.0 [facility] Comment on above: Performed By: #### M CRR #### [facility] [address] [place] [address] Dr. Irving PHILLIPS CR RATIO 8.4 mg/g Normal 0.0-29.9 [facility] Comment on above: Performed By: #### M CRR #### [facility] [address] [place] [address] Dr. Irving Hale MALB CR RATIO RANGE SEE BELOW Normal [facility] Comment on above: Result Comment: NO M ICROALBUMINURIA 0-29 MG/G CLINICAL MICROALBUMINURIA 30-300 MG/G MACROALBUMINURIA >300 MG/G Performed By: #### M CRR #### [facility] [address] [place] [address] Dr. Irving Hale URINE CREAT 155.10 mg/dL Normal 20.00-300.00 [facility] Comment on above: Performed By: #### M CRR #### [facility] [address] [address] [address] Irving Hale PROF 14(COMP METB)on 023 Albumin [Mass/Vol] 3.9 g/dL Normal 3.4-5.0 [facility] Comment on above: Performed By: #### C MP, LIPID #### [facility] [address] [place] [address] Dr. Irving Hale Albumin/Globulin [Mass ratio] 1.0 {ratio} Normal [facility] Comment on above: Performed By: #### C MP, LIPID #### [facility] [address] [address] [address] Irving Hale ALP [Catalytic activity/Vol] 96 U/L Normal 46-116 [facility] Comment on above: Performed By: #### C MP, LIPID #### [facility] [address] [address] [address] Irving Hale ALT [Catalytic activity/Vol] 95 U/L Critically high 16-63 [facility] Comment on above: Performed By: #### C MP, LIPID #### [facility] [address] [address] [address] Irving Hale Anion gap [Moles/Vol] 11.5 mmol/L Normal [facility] Comment on above: Performed By: #### C MP, LIPID #### [facility] [address] [address] [address] Irving Hale AST [Catalytic activity/Vol] 39 U/L Critically high 15-37 [facility] Comment on above: Performed By: #### C MP, LIPID #### [facility] [address] [address] [address] Irving Hale Bilirubin [Mass/Vol] 0.4 mg/dL Normal 0.2-1.0 [facility] Comment on above: Performed By: #### C MP, LIPID #### [facility] [address] [address] [address] Irving Hale Calcium [Mass/Vol] 10.4 mg/dL Critically high 8.5-10.1 [facility] Comment on above: Performed By: #### C MP, LIPID #### [facility] [address] [address] [address] Irving Hale Chloride [Moles/Vol] 103 mmol/L Normal 98-107 [facility] Comment on above: Performed By: #### C MP, LIPID #### [facility] [address] [address] [address] Irving Hale CO2 [Moles/Vol] 30.0 mmol/L Normal 21.0-32.0 [facility] Comment on above: Performed By: #### C MP, LIPID #### [facility] [address] [address] [address] Irving Hale Creatinine [Mass/Vol] 1.04 mg/dL Normal 0.70-1.30 [facility] Comment on above: Performed By: #### C MP, LIPID #### [facility] [address] [address] [address] Irving Hale EGFR-AF SAUDI ARABIAN >60 Normal >=60 [facility] Comment on above: Performed By: #### C MP, LIPID #### [facility] [address] [address] [address] Irving Hale EGFR-NON AF SAUDI ARABIAN >60 Normal >=60 [facility] Comment on above: Performed By: #### C MP, LIPID #### [facility] [address] [place] [address] Dr. Irving Hale Globulin (S) [Mass/Vol] 3.9 g/dL Normal [facility] Comment on above: Performed By: #### C MP, LIPID #### [facility] [address] [place] [address] Dr. Irving Hale Glucose [Mass/Vol] 123 mg/dL Critically high 74-106 [facility] Comment on above: Performed By: #### C MP, LIPID #### [facility] [address] [place] [address] Dr. Irving Hale Potassium [Moles/Vol] 4.5 mmol/L Normal 3.5-5.1 [facility] Comment on above: Performed By: #### C MP, LIPID #### [facility] [address] [place] [address] Dr. Irving Hale Protein [Mass/Vol] 7.8 g/dL Normal 6.4-8.2 [facility] Comment on above: Performed By: #### C MP, LIPID #### [facility] [address] [place] [address] Dr. Irving Hale Sodium [Moles/Vol] 140 mmol/L Normal 136-145 [facility] Comment on above: Performed By: #### C MP, LIPID #### [facility] [address] [place], [place] [id number] Dr. Irving Hale Urea nitrogen [Mass/Vol] 23.0 mg/dL Critically high 7.0-18.0 [facility] Comment on above: Performed By: #### C MP, LIPID #### [facility] [address] [address] [address] Irving Hale Urea nitrogen/Creatinine [Mass ratio] 22.1 mg/mg Normal [facility] Comment on above: Performed By: #### C MP, LIPID #### [facility] [address] [address] [address] Irving Hale XR LSPINE MIN 4 [...] ARMANDO ZAYAS Date: 2022-11-11 15:14 Normal [facility] Encounters Encounter Date Encounter Type Care Provider Facility Start: 10-23-2023 End: 10-23-2023 ambulatory SHAIKH ASTRID Not Available Start: 07-23-2023 End: 07-23-2023 ambulatory SHAIKH ASTRID Not Available Start: 03-06-2023 ambulatory TONIO PAUL . Facili ty:[facility] Start: 12-06-2022 End: 12-07-2022 ambulatory SHAIKH Андрей RESENDIZ Facility:[facility] Start: 11-19-2022 End: 11-20-2022 ambulatory BEN ZUNIGA Facility:[facility] Start: 11-11-2022 End: 11-12-2022 ambulatory LYNNE MARTINI . Facility:[facility] Start: 11-05-2022 End: 11-06-2022 ambulatory LYNNE MARTINI . Facility:[facility] Payers Date Payer Category Payer Unknown [id number] 1965 Unknown [id number] 2.16.84 [id number] 1965 Unknown [id number] 2.16.84 [id number] 1965 Unknown [id number] 2.16.84 [id number] 1965 Unknown [id number] 2.16.84 [id number] 1965 Unknown [id number] 2.16.84 [id number] 1965 Unknown [id number] 2.16.84 [id number] 1965 Unknown [id number] 2.16.84 [id number] 1965 Unknown [id number] 2.16.84 [id number] 1965 Unknown [id number] Consultation note 11-05-2022 Note Date & Type [...] followed by a physician some place in [place]. He is unsure of the physician's name, [...] will await information regarding his physician in [place] and he is scheduled to return to our office in four weeks' time. As part of providing excellent, safe, comprehensive care, the following was completed at our patient's visit: 1. A medication reconciliation and review to ensure accurate knowledge of current/active medications, including asking our patients to inform us about any nweo-zyo-[id number] medications or herbal remedies/nutritional supplements/alternative remedies. 2. [...] options with their primary care provider. [facility] Summary Purpose Family History No Family History Records FoundNo Family History Records Found Advance Directives No Advanced Directives Records FoundNo Advanced Directives Records Found Additional Source Comments (unrecognized sect ion and content) No Status Records FoundNo Status Records Found INFORMATION SOURCE (unrecogn ized section and content) DATE CREATED AUTHOR 12/13/2022 [facility] DATE CREATED AUTHOR AUTHOR'S ORGANIZ ATION 10/24/2023 [facility] Specialists EPIC FOR RECORDS PERTAINING TO [...] BE BASED ON THE PRIMARY CLINICAL RECORDS. [employer] provides no warranty or guarantee of the accuracy or completeness of information in this document.
--- NOTE | 2023-11-13 10:01 | P.CN_ITS ---
Consult Note: HPI Data of Consult Patient: known to practice within the last 3 years Requesting Physician: Aida Montero NP Primary Care Provider: Shaikh Anupam MD Consult Narrative Reason for consult: f/u Narrative: Boby Lovelace a pleasant 58 year old male presents for evaluation and management of low back pain. Today rating pain 3/10 stabbing/ache without radiculopathy, increasing to moderate to severe spontaneously. hx of lumbar fusion at l4-5 Unfortunately patient continues to have low back pain unresponsive to conservative medications and PT/HEP. Patient SANJU today 50%, previously 27%. Patient does find significant improvement in low back pain with percocet 5-325mg TID PRN, patient denies side effects. cc:: CC: Aida Montero NP Review of Systems ROS Status of ROS 10 or more systems reviewed and unremark able except as noted in history and below Musculoskeletal Reports: back pain Meds Home Medications and Allergies Home Medications ?Medication ?Instructions ?Recorded ?Confirmed ?Type oxycodone-acetaminophen 5 mg-325 1 tab PO TID PRN pain #90 tabs 03/14/23 Rx mg tablet (Percocet) oxycodone-acetaminophen 5 mg-325 1 tab PO TID PRN pain #90 tabs 04/15/23 Rx mg tablet (Percocet) oxycodone-acetaminophen 5 mg-325 1 tab PO TID PRN pain #90 tabs 05/15/23 Rx mg tablet (Percocet) atorvastatin 80 mg tablet 80 mg PO DAILY 06/11/23 06/11/23 History baclofen 10 mg tablet 10 mg PO TID 06/11/23 06/11/23 History dulaglutide 4.5 mg/0.5 mL 4.5 mg subcut QWEEK 06/11/23 06/11/23 History subcutaneous pen injector (Trulicity) ezetimibe 10 mg tablet 10 mg PO DAILY 06/11/23 06/11/23 History gabapentin 600 mg tablet 600 mg PO TID 06/11/23 06/11/23 History ibuprofen 800 mg tablet 800 mg PO TID 06/11/23 06/11/23 History insulin degludec 200 unit/mL (3 200 unit subcut DAILY 06/11/23 06/11/23 History mL) subcutaneous pen (Tresiba FlexTouch U-200 insulin) oxycodone-acetaminophen 5 mg-325 1 tab PO TID PRN pain 06/11/23 06/11/23 History mg tablet (Percocet) oxycodone-acetaminophen 5 mg-325 1 tab PO TID PRN pain #80 tabs 06/11/23 Rx mg tablet (Percocet) oxycodone-acetaminophen 5 mg-325 1 tab PO TID PRN pain #80 tabs 07/07/23 Rx mg tablet (Percocet) oxycodone-acetaminophen 5 mg-325 1 tab PO TID PRN pain #80 tabs 08/14/23 Rx mg tablet (Percocet) oxycodone-acetaminophen 5 mg-325 1 tab PO TID PRN pain #80 tabs 09/10/23 Rx mg tablet (Percocet) oxycodone-acetaminophen 5 mg-325 1 tab PO TID PRN pain #80 tabs 09/11/23 Rx mg tablet (Percocet) oxycodone-acetaminophen 5 mg-325 1 tab PO TID PRN pain #80 tabs 10/06/23 Rx mg tablet (Percocet) Allergies Allergy/AdvReac Type Severity Reaction Status Date / Time No Known Drug Allergies Allergy Verified 06/11/23 10:58 Exam Constitutional Documenting provider has reviewed patient's vital signs: yes Common normals: no apparent distress, oriented x3, healthy appearing, alert and well nourished General appearance: cooperative Orientation/consciousness: Yes awake, Yes oriented to person, Yes oriented to place and Yes oriented to time [facility] Common normals: normocephalic, hearing grossly normal bilaterally and moist oral mucous membranes Head and scalp: normocephalic Eye Common normals: PERRL Pupil: PERRL Neck & C-Spine Common normals: full ROM General: normal visual inspection Chest Common normals: inspection of chest normal Respiratory Common normals: normal respiratory effort, no retractions and no use of accessory muscles Effort & inspection: able to speak in complete sentences and symmetric chest movement Back & Pelvis Lumbar spine/lower back: normal to inspection, ROM limited, pain with ROM, paraspinal muscle tenderness and paraspinal muscle spasm Other: positive facet load pain right muscle strength 5/5 bilat LE with intact sensation Extremity Common normals: normal to inspection, full ROM, normal capillary refill and no pedal edema Neuro Common normals: oriented x3, CN's II-XII intact bilaterally, moves all extremities, no focal motor deficits, no sensory deficits noted and deep tendon reflexes 2+ bilaterally Sensorium/orientation: alert Motor exam: strength 5/5 throughout and no movement abnormalities noted Psych Common normals: mental status grossly normal, thought process normal, cooperative, affect normal, speech normal and activity/motor behavior normal Speech: normal speech Thought process: normal thought process Results Additional Findings Additional findings: If on a controlled substance or opioids, I have checked an [place]AR[place] report on this patient and there are no aberrancies noted in the prescribing history.??If on a controlled substance or opioid a drug screen was completed and reviewed within the last year, and if there has not been a drug screen completed we ordered one today to monitor higher risk, state monitored pain medication use. As part of providing excellent, safe, comprehensive care, the following was completed at our patient's visit: 1. A medication reconciliation and review to ensure accurate knowledge of current/active medications, including asking our patients to inform us about any [id number] medications or herbal remedies/nutritional supplements/alternative remedies. 2. A review to specifically ensure our patients have had annual screening for screening for depression, screening for tobacco use, and screening for unhealthy alcohol use. For concerning screenings had a discussion with the patient, provided patient education, and recommended follow-up with primary care provider when appropriate. If patient noted with a risk of falling, they received education on strength, gait, and balance training to prevent future risk of falling. Assessment and Plan Assessment and Plan (1) Lumbar spondylosis: (2) Muscle spasm: (3) Chronic prescription opiate use: Assessment and Plan: I feel these medications are improving the patient's quality of life and allow them to tolerate activities of daily living as well as participate in recreational activity.? The patient does not report intolerable side effects. The patient is NOT opioid naive and non-pharmacologic and non-opioid treatment has failed to significantly relieve the patient's pain and improve functionality. The patient has a diagnosis that is related to a somatic or visceral pain etiology. ? ?? I reviewed with the patient the potential risks and side effects with the use of? opioid medications including but not limited to respiratory depression,? sedation, and even . I verified the patient has access to naloxone should? these effects occur. I advised the patient to avoid the use of any other? sedation substances including alcohol, THC, and benzodiazepines while? taking opioid medications due to the risk of compounding side effects and? detrimental outcomes. I reviewed the [employer], pain treatment agreement, urine? drug screen, and opioid start talking forms. The patient was advised to let? their family know they had Naloxone in case they would need to administer? the medication.? ?? A drug screen was completed within the last year, and no aberrancies were noted regarding their use of controlled substances. The patient understands they are subject to the terms and conditions of the pain contract that they have signed. ? ?? I have checked an OAR[place] report on this patient today and there are no aberrancies noted in the prescribing history.? Plan update UDS today continue percocet 5/325 to BID-TID 80 tablets per month narcan previously discussed and prescribed educated on facet blocks and RFA at previous visit, declining at this time as pain is well controlled with medication regimen f/u 3 months
== END 2023-11-13 09:38 | disposition home or self-care (01) ==
PROVIDERS: PCP Internal Medicine; Visit Provider Nurse Practitioner
DX: E11.9 Type 2 diabetes mellitus without complications (principal); M47.816 Spondylosis without myelopathy or radiculopathy, lumbar region; M62.838 Other muscle spasm; Z79.891 Long term (current) use of opiate analgesic
CPT/HCPCS: 36415; 83036; G0463

== ENCOUNTER 2023-11-13 10:13 | Outpatient (OUT) | payer OTHER, SELFPAY ==
[2023-11-13 11:36] LABS: Estimated Average Glucose 134 mg/dL; Glycohemoglobin A1C 6.3 % (4.5-6.2)
== END 2023-11-13 10:14 | disposition home or self-care (01) ==
LOC: LAB 10:16
PROVIDERS: PCP Internal Medicine; Visit Provider Internal Medicine
DX: E11.9 Type 2 diabetes mellitus without complications (principal)
CPT/HCPCS: 36415; 83036

== ENCOUNTER 2024-02-12 10:01 | Outpatient (OUT) | payer OTHER, SELFPAY ==
--- NOTE | 2024-02-12 10:07 | PM.CN ---
Consult Note: HPI Data of Consult Patient: known to practice within the last 3 years Requesting Physician: Aida Montero NP Primary Care Provider: Shaikh Anupam MD Consult Narrative Reason for consult: f/u Narrative: Boby Lovelace a pleasant 58 year old male presents for evaluation and management of low back pain. Today rating pain 3/10 stabbing/ache without radiculopathy, increasing to moderate to severe spontaneously. hx of lumbar fusion at l4-5 Unfortunately patient continues to have low back pain unresponsive to conservative medications and PT/HEP. Patient SANJU today 38%, previously 50%. Patient does find significant improvement in low back pain with percocet 5-325mg TID PRN, patient denies side effects. Utilizes baclofen 10mg TID PRN with benefit cc:: CC: Aida Montero NP Review of Systems ROS Status of ROS 10 or more systems reviewed and unremarkable except as noted in history and below Musculoskeletal Reports: back pain Meds Home Medications and Allergies Home Medications ?Medication ?Instructions ?Recorded ?Confirmed ?Type atorvastatin 80 mg tablet 80 mg PO DAILY 06/11/23 06/11/23 History baclofen 10 mg tablet 10 mg PO TID 06/11/23 06/11/23 History dulaglutide 4.5 mg/0.5 mL 4.5 mg subcut QWEEK 06/11/23 06/11/23 History subcutaneous pen injector (Trulicity) ezetimibe 10 mg tablet 10 mg PO DAILY 06/11/23 06/11/23 History gabapentin 600 mg tablet 600 mg PO TID 06/11/23 06/11/23 History ibuprofen 800 mg tablet 800 mg PO TID 06/11/23 06/11/23 History insulin degludec 200 unit/mL (3 200 unit subcut DAILY 06/11/23 06/11/23 History mL) subcutaneous pen (Tresiba FlexTouch U-200 insulin) oxycodone-acetaminophen 5 mg-325 1 tab PO TID PRN pain #80 tabs 11/13/23 Rx mg tablet (Percocet) oxycodone-acetaminophen 5 mg-325 1 tab PO TID PRN pain #80 tabs 12/08/23 Rx mg tablet (Percocet) oxycodone-acetaminophen 5 mg-325 1 tab PO TID PRN pain #80 tabs 01/06/24 Rx mg tablet (Percocet) oxycodone-acetaminophen 5 mg-325 1 tab PO TID PRN pain #80 tabs 02/03/24 Rx mg tablet (Percocet) Allergies Allergy/AdvReac Type Severity Reaction Status Date / Time No Known Drug Allergies Allergy Verified 06/11/23 10:58 Exam Constitutional Documenting provider has reviewed patient's vital signs: yes Common normals: no apparent distress, oriented x3, healthy appearing, alert and well nourished General appearance: cooperative Orientation/consciousness: Yes awake, Yes oriented to person, Yes oriented to place and Yes oriented to time [facility] Common normals: normocephalic, hearing grossly normal bilaterally and moist oral mucous membranes Head and scalp: normocephalic Eye Common normals: PERRL Pupil: PERRL Neck & C-Spine Common normals: full ROM General: normal visual inspection Chest Common normals: inspection of chest normal Respiratory Common normals: normal respiratory effort, no retractions and no use of accessory muscles Effort & inspection: able to speak in complete sentences and symmetric chest movement Back & Pelvis Lumbar spine/lower back: normal to inspection, ROM limited, pain with ROM, paraspinal muscle tenderness and paraspinal muscle spasm Other: positive facet load pain right muscle strength 5/5 bilat LE with intact sensation Extremity Common normals: normal to inspection, full ROM, normal capillary refill and no pedal edema Neuro Common normals: oriented x3, CN's II-XII intact bilaterally, moves all extremities, no focal motor deficits, no sensory deficits noted and deep tendon reflexes 2+ bilaterally Sensorium/orientation: alert Motor exam: strength 5/5 throughout and no movement abnormalities noted Psych Common normals: mental status grossly normal, thought process normal, cooperative, affect normal, speech normal and activity/motor behavior normal Speech: normal speech Thought process: normal thought process Results Additional Findings Additional findings: If on a controlled substance or opioids, I have checked an [place]AR[place] report on this patient and there are no aberrancies noted in the prescribing history.??If on a controlled substance or opioid a drug screen was completed and reviewed within the last year, and if there has not been a drug screen completed we ordered one today to monitor higher risk, state monitored pain medication use. As part of providing excellent, safe, comprehensive care, the following was completed at our patient's visit: 1. A medication reconciliation and review to ensure accurate knowledge of current/active medications, including asking our patients to inform us about any [id number] medications or herbal remedies/nutritional supplements/alternative remedies. 2. A review to specifically ensure our patients have had annual screening for screening for depression, screening for tobacco use, and screening for unhealthy alcohol use. For concerning screenings had a discussion with the patient, provided patient education, and recommended follow-up with primary care provider when appropriate. If patient noted with a risk of falling, they received education on strength, gait, and balance training to prevent future risk of falling. Assessment and Plan Assessment and Plan (1) Lumbar spondylosis: (2) Muscle spasm: (3) Chronic prescription opiate use: Assessment and Plan: I feel these medications are improving the patient's quality of life and allow them to tolerate activities of daily living as well as participate in recreational activity.? The patient does not report intolerable side effects. The patient is NOT opioid naive and non-pharmacologic and non-opioid treatment has failed to significantly relieve the patient's pain and improve functionality. The patient has a diagnosis that is related to a somatic or visceral pain etiology. ? ?? I reviewed with the patient the potential risks and side effects with the use of? opioid medications including but not limited to respiratory depression,? sedation, and even . I verified the patient has access to naloxone should? these effects occur. I advised the patient to avoid the use of any other? sedation substances including alcohol, THC, and benzodiazepines while? taking opioid medications due to the risk of compounding side effects and? detrimental outcomes. I reviewed the [employer], pain treatment agreement, urine? drug screen, and opioid start talking forms. The patient was advised to let? their family know they had Naloxone in case they would need to administer? the medication.? ?? A drug screen was completed within the last year, and no aberrancies were noted regarding their use of controlled substances. The patient understands they are subject to the terms and conditions of the pain contract that they have signed. ? ?? I have checked an [place]ARRS report on this patient today and there are no aberrancies noted in the prescribing history.? Plan continue percocet 5/325 to BID-TID 80 tablets per month narcan previously discussed and prescribed educated on facet blocks and RFA at previous visit, declining at this time as pain is well controlled with medication regimen f/u 3 months, sooner if needed
== END 2024-02-12 10:02 | disposition home or self-care (01) ==
LOC: PM 10:01
PROVIDERS: PCP Internal Medicine; Visit Provider Nurse Practitioner
DX: M47.816 Spondylosis without myelopathy or radiculopathy, lumbar region (principal); M62.838 Other muscle spasm; Z79.899 Other long term (current) drug therapy
CPT/HCPCS: G0463

== ENCOUNTER 2024-02-16 14:37 | Outpatient (OUT) | payer OTHER, SELFPAY ==
[2024-02-16 16:18] LABS: Estimated Average Glucose 143 mg/dL; Glycohemoglobin A1C 6.6 % (4.5-6.2)
[2024-02-16 16:28] LABS: Basophils Percent Auto 0.5 % (0.2-2.0); Eosinophils Absolute Auto 0.2 10^3/uL (0.0-0.7); Eosinophils Percent Auto 2.2 % (0.9-7.0); Hemoglobin 12.9 g/dL (14.0-18.0); Immature Granulocytes Abs Auto 0.01 10^3/uL (0.00-0.03); Immature Granulocytes Pct Auto 0.1 % (0.0-0.5); Lymphocytes Absolute Auto 2.4 10^3/uL (1.2-3.8); Lymphocytes Percent Auto 32.1 % (20.5-60.0); Mean Corpuscular HGB Conc 33.1 g/dL (29.9-35.2); Mean Corpuscular Hemoglobin 27.8 pg (25.9-34.0); Mean Corpuscular Volume 84.1 fL (80.0-94.0); Mean Platelet Volume 9.7 fL (9.5-13.5); Monocytes Absolute Auto 0.8 10^3/uL (0.3-0.8); Monocytes Percent Auto 10.1 % (1.7-12.0); Neutrophils Absolute Auto 4.1 10^3/uL (1.4-6.5); Platelet Count 298 10^3/uL (150-450); Red Blood Count 4.64 10^6/uL (4.70-6.10); Red Cell Distribution Width 13.2 % (11.0-15.0); White Blood Count 7.4 10^3/uL (4.0-11.0)
[2024-02-16 16:39] LABS: Alanine Aminotransferase 49 U/L (16-63); Albumin Globulin Ratio 1.1; Albumin Level 3.7 g/dL (3.4-5.0); Alkaline Phosphatase 93 U/L (46-116); Anion Gap 9.6; Aspartate Amino Transferase 18 U/L (15-37); BUN Creatinine Ratio 20.8; Bilirubin Total 0.3 mg/dL (0.2-1.0); Calcium 10.3 mg/dL (8.5-10.1); Carbon Dioxide 30.6 mmol/L (21.0-32.0); Chloride 103 mmol/L (98-107); Cholesterol 124 mg/dL (<=200); Estimated GFR (African America >60 (>=60); Estimated GFR (Non-African Ame >60 (>=60); Globulin 3.5 g/dL; Glucose 112 mg/dL (74-106); HDL Cholesterol 42 mg/dL (40-60); LDL Cholesterol Calculated 52.8 mg/dL; Potassium 4.2 mmol/L (3.5-5.1); Sodium 139 mmol/L (136-145); Total Protein 7.2 g/dL (6.4-8.2); Triglycerides 146 mg/dL (<=150); VLDL CHOLESTEROL 29.2 mg/dL
== END 2024-02-16 14:38 | disposition home or self-care (01) ==
LOC: LAB 14:38
PROVIDERS: PCP Internal Medicine; Visit Provider Internal Medicine
DX: E78.49 Other hyperlipidemia (principal); E11.9 Type 2 diabetes mellitus without complications; Z79.4 Long term (current) use of insulin
CPT/HCPCS: 36415; 80053; 80061; 83036; 85025

== ENCOUNTER 2024-05-12 09:25 | Outpatient (OUT) | payer OTHER, SELFPAY ==
--- OUTSIDE RECORDS SUMMARY | 2024-05-12 09:35 | XMS_ITS | CCD ---
Author Organization [facility] Care Team Providers Care Security And Compliance Analyst Name Role Phone LAKSHMIPATHY ., NARENDRANATH Admitting Savita vailable LAKSHMIPATHY ., NARENDRANATH Attending Savita vailable FAWWAD, SANTANA H Primary Care Unavailable LAKSHMIPATHY ., NARENDRANATH Consulting Savita vailable FAWWAD, SANTANA H Primary Care Unavailable HALKER ., TONIO Attending Unavailable HALKER ., TONIO Admitting Unavailable LAKSHMIPATHY ., NARENDRANATH Consulting Savita vailable HALKER ., TONIO Admitting Unavailable FAWWAD, SANTANA H Primary Care Unavailable HALKER ., TONIO Attending Unavailable FAWWAD, SANTANA H Admitting Unavailable FAWWAD, SANTANA H Attending Unavailable FAWWAD, SANTANA H Consulting Unavailable FAWWAD, SANTANA H Primary Care Unavailable LAKSHMIPATHY ., NARENDRANATH Admitting Savita vailable LAKSHMIPATHY ., NARENDRANATH Attending Savita vailable FAWWAD, SANTANA H Primary Care Unavailable DR LUIS ARMANDO ZAYAS Consulting Unavailable LAKSHMIPATHY ., NARENDRANATH Consulting Savita vailable BEN ZUNIGA Consulting Unavailable FAWWAD, SANTANA H Admitting Unavailable FAWWAD, SANTANA H Attending Unavailable FAWWAD, SANTANA H Primary Care Unavailable FAWWAD, SANTANA H Consulting Unavailable LAKSHMIPATHY ., NARENDRANATH Admitting Savita vailable DR LUIS ARMANDO ZAYAS Consulting Unavailable FAWWAD, SANTANA H Primary Care Unavailable LAKSHMIPATHY ., NARENDRANATH Attending Savita vailable LAKSHMIPATHY ., NARENDRANATH Consulting Savita vailable Anupam BAIN, Santana Unavailable Buddy Harvey MD Primary Care Provider Nicole Robb NP Unavailable SHAIKH BO Attending Unavailable SHAIKH BO Attending Unavailable SHAIKH BO Attending Unavailable NICOLE ROBB Attending Unavailabl e Allergies Allergy Classification Reported Allergen(s) Allergy Type Date of Onset Reaction(s) Facility (3 sources) Penicillins Propensity to adverse reactions 3 Rash [facility] Medications Current Medications Medication Drug Class(es) Dates Sig (Normalized) Sig (Original) acetaminophen 325 mg / oxyCODONE hydrochloride 5 mg oral tablet (3 sources) Opioid Agonist take 1 tablet by mouth every eight hours as needed for pain oxyCODONE-acetaminoph en (Percocet) 5-325 MG tablet Take 1 tablet by mouth every 8 (eight) hours if needed for severe pain Active atorvastatin 80 mg oral tablet (3 sources) HMG-CoA Reductase Inhibitor Start: 01-26-2024 End: 07-24-2024 take 1 tablet by mouth once daily atorvastatin (Lipitor) 80 MG tablet Indications: Other hyperlipidemia (CMS/[facility]) Take 1 tablet (80 mg) by mouth Daily 90 tablet 1 01/26/2024 07/24/2024 Active dulaglutide (Trulicity) 4.5 MG/0.5ML solution pen-injector (3 sources) Start: 03-04-2024 End: 08-19-2024 inject 4.5 mg by subcutaneous injection every week dulaglutide (Trulicity) 4.5 MG/0.5ML solution pen-injector Indications: Type 2 diabetes mellitus without complication, without long-term current use of insulin (CMS/[facility]) Inject 4.5 mg under the skin 1 (one) time per week 6 mL 1 03/04/2024 08/19/2024 Active esomeprazole 20 mg delayed release oral capsule (3 sources) Proton Pump Inhibitor Start: 01-26-2024 End: 07-24-2024 take 1 capsule by mouth before mealtime esomeprazole (NexIUM) [address] capsule Indications: Gastroesophageal reflux disease without esophagitis Take 1 capsule (20 mg) by mouth in the morning. Take before meals. 90 capsule 1 01/26/2024 07/24/2024 Active ezetimibe 10 mg oral tablet (3 sources) Dietary Cholesterol Absorption Inhibitor Start: 01-26-2024 End: 07-24-2024 take 1 tablet by mouth once daily ezetimibe (Zetia) 10 MG tablet Indications: Other hyperlipidemia (CMS/HCC) Take 1 tablet (10 mg) by mouth Daily 90 tablet 1 01/26/2024 07/24/2024 Active ibuprofen 600 mg oral tablet (3 sources) Nonsteroidal Anti-inflammatory Drug Start: 04-12-2024 take 1 tablet by mouth in the morning, then take 1 tablet by mouth in the evening, then take 1 tablet by mouth at bedtime ibuprofen 600 MG tablet Indications: Chronic right-sided low back pain with right-sided sciatica Take 1 tablet (600 mg) by mouth in the morning and 1 tablet (600 mg) in the evening and 1 tablet (600 mg) before bedtime. 90 tablet 04/12/2024 Active 3 ml insulin degludec 200 unt/ml pen injector (3 sources) Insulin Analog Start: 10-23-2023 insulin degludec (Tresiba FlexTouch) 200 UNIT/ML injection Indications: Type 2 diabetes mellitus without complication, without long-term current use of insulin (CMS/HCC) Inject 36 Units under the skin at bedtime 16.2 mL 1 10/23/2023 Active Completed/Discontinued Medications Medication Drug Class(es) Dates Sig (Normalized) Sig (Original) 0.5 ml dulaglutide 3 mg/ml auto-injector (3 sources) GLP-1 Receptor Agonist Start: 01-26-2024 End: 05-04-2024 inject 1.5 mg by subcutaneous injection every week dulaglutide (Trulicity) 1.5 MG/0.5ML solution pen-injector Indications: Type 2 diabetes mellitus without complication, without long-term current use of insulin (CMS/HCC) Inject 1.5 mg under the skin 1 (one) time per week 12 pen 01/26/2024 05/04/2024 Discontinued (Therapy completed) Problems Active Problems Problem Classification Problem Date Documented Da te Episodic/Chronic Diabetes mellitus without complication (9 sources) Type 2 diabetes mellitus without complications; Translations: [Type 2 diabetes mellitus without complication] Onset: 11-11-2022 Chronic Disorders of lipid metabolism (6 sources) Hyperlipidemia, unspecified; Translations: [Hyperlipidemia] Onset: 11-17-2022 07-23-2023 Chronic Other nervous system disorders (1 source) Other chronic pain; Translations: [OTHER CHRONIC PAIN] Onset: 11-09-2022 Chronic Other nervous system disorders (3 sources) Chronic pain syndrome; Translations: [Chronic pain syndrome] Onset: 10-23-2023 10-23-2023 Chronic Other skin disorders (2 sources) Disorder of pigmentation, unspecified; Translations: [Dyschromia, unspecified] 05-04-2024 Episodic Spondylosis; intervertebral disc disorders; other back problems (12 sources) Spondylosis without myelopathy or radiculopathy, lumbar region; Translations: [Postlaminectomy syndrome, not elsewhere classified] Onset: 07-21-2013 Chronic Unclassified (2 sources) LOW BACK PAIN, UNSPECIFIED; Translations: [LOW BACK PAIN, UNSPECIFIED] Onset: 12-12-2022 Past or Other Problems Problem Classification Problem Date Documented Da te Episodic/Chronic Essential hypertension (6 sources) Essential hypertension; Translations: [Essential (primary) hypertension] Onset: 07-23-2023 Resolved: 07-23-2023 07-23-2023 Chronic Mood disorders (3 sources) Mood disorders Onset: 07-23-2023 07-23-2023 Other screening for suspected conditions (not mental disorders or infectious disease) (7 sources) Other specified abnormal findings of blood chemistry; Translations: [Patient encounter status] Onset: 11-19-2022 Episodic Spondylosis; intervertebral disc disorders; other back problems (6 sources) Chronic low back pain; Translations: [Lumbago with sciatica, right side] Onset: 07-23-2023 07-23-2023 Episodic Unclassified (1 source) LOW BACK PAIN, UNSPECIFIED; Translations: [LOW BACK PAIN, UNSPECIFIED] Onset: 12-06-2022 Results Test Name Value Interpretation Reference Range Facility MRI LSPINE WO W CONon 2022 MRI LSPINE WO W CON EXAMINATION: MRI LSPINE WO [...] ARMANDO ZAYAS Date: 2022-11-19 14:15 Normal [facility] US SINGLE QUAD RT UPPERon US [...] BEN ZUNIGA Date: 2022-11-19 09:51 Normal [facility] CBC AUTO DIFFon 11-11-2022 BASO # 0.0 103/ul Normal 0.0-0.1 [facility] Comment on above: Performed By: #### C BC #### [facility] [address] [address] [address] Irving Hale Basophils/100 WBC (Bld) 0.5 % Normal 0.2-2.0 [facility] Comment on above: Performed By: #### C BC #### [facility] [address] [place] [address] Dr. Irving Hale EO # 0.1 103/ul Normal 0.0-0.7 [facility] Comment on above: Performed By: #### C BC #### [facility] [address] [place] [address] Dr. Irving Hale Eosinophils/100 WBC (Bld) 1.9 % Normal 0.9-7.0 [facility] Comment on above: Performed By: #### C BC #### [facility] [address] [place] [address] Dr. Irving Hale Erythrocyte distribution width (RBC) [Ratio] 13.4 % Normal 11.0-15.0 [facility] Comment on above: Performed By: #### C BC #### [facility] [address] [place] [address] Dr. Irving Hale Hematocrit (Bld) [Volume fraction] 40.6 % Critically low 42.0-54.0 [facility] Comment on above: Performed By: #### C BC #### [facility] [address] [place] [address] Dr. Irving Hale Hemoglobin (Bld) [Mass/Vol] 13.6 g/dL Critically low 14.0-18.0 [facility] Comment on above: Performed By: #### C BC #### [facility] [address] [place] [address] Dr. Irving Hale IG # 0.01 10e3/ul Normal 0.00-0.03 [facility] Comment on above: Performed By: #### C BC #### [facility] [address] [place] [address] Dr. Irving Hale IG % 0.2 % Normal 0.0-0.5 [facility] Comment on above: Performed By: #### C BC #### [facility] [address] [place] [address] Dr. Irving Hale LYMPH # 2.1 103/ul Normal 1.2-3.8 [facility] Comment on above: Performed By: #### C BC #### [facility] [address] [place] [address] Dr. Irving Hale Lymphocytes/100 WBC (Bld) 32.9 % Normal 20.5-60.0 [facility] Comment on above: Performed By: #### C BC #### [facility] [address] [place] [address] Dr. Irving Hale MANUAL DIFF REQ NO Normal [facility] Comment on above: Performed By: #### C BC #### [facility] [address] [place] [address] Dr. Irving Hale MCH (RBC) [Entitic mass] 28.2 pg Normal 25.9-34.0 [facility] Comment on above: Performed By: #### C BC #### [facility] [address] [place] [address] Dr. Irving Hale MCHC (RBC) [Mass/Vol] 33.5 g/dL Normal 29.9-35.2 [facility] Comment on above: Performed By: #### C BC #### [facility] [address] [place] [address] Dr. Irving Hale MCV (RBC) [Entitic vol] 84.1 fL Normal 80.0-94.0 [facility] Comment on above: Performed By: #### C BC #### [facility] [address] [place] [address] Dr. Irving Hale MONO # 0.6 103/ul Normal 0.3-0.8 [facility] Comment on above: Performed By: #### C BC #### [facility] [address] [place] [address] Dr. Irving Hale Monocytes/100 WBC (Bld) 9.3 % Normal 1.7-12.0 [facility] Comment on above: Performed By: #### C BC #### [facility] [address] [address] [address] Irving Hale NEUT # 3.4 103/ul Normal 1.4-6.5 [facility] Comment on above: Performed By: #### C BC #### [facility] [address] [place] [address] Dr. Irving Hale Neutrophils/100 WBC (Bld) 55.2 % Normal 43.0-75.0 [facility] Comment on above: Performed By: #### C BC #### [facility] [address] [place] [address] Dr. Irving Hale Platelet mean volume (Bld) [Entitic vol] 9.1 fL Critically low 9.5-13.5 [facility] Comment on above: Performed By: #### C BC #### [facility] [address] [place] [address] Dr. Irving Hale PLT 302 103/ul Normal 150-450 [facility] Comment on above: Performed By: #### C BC #### [facility] [address] [place] [address] Dr. Irving Hale RBC 4.83 106/ul Normal 4.70-6.10 [facility] Comment on above: Performed By: #### C BC #### [facility] [address] [place] [address] Dr. Irving Hale WBC 6.2 103/ul Normal 4.0-11.0 [facility] Comment on above: Performed By: #### C BC #### [facility] [address] [place] [address] Dr. Irving Hale GLYCOHEMOGLOBIN A1Con 2022 ADA RECOMMENDATION SEE BELOW Normal [facility] Comment on above: Result Comment: ADA RECOMMENDED LIMIT 4.0 - 6.0 ADA THERAPEUTIC TARGET < 7.0 ACTION SUGGESTED > 7.0 Performed By: #### A 1C #### [facility] [address] [place] [address] Dr. Irving Hale Glucose [Mass/Vol] 143 mg/dL Normal [facility] Comment on above: Performed By: #### A 1C #### [facility] [address] [address] [address] Irving Hale HbA1c (Bld) [Mass fraction] 6.6 % Critically high 4.5-6.2 [facility] Comment on above: Performed By: #### A 1C #### [facility] [address] [place] [address] Dr. Irving Hale LIPID PROFILEon 11-11-2022 CHOL-HDL RATIO NORM SEE BELOW Normal [facility] Comment on above: Result Comment: 3.3 - 4.4 LOW RISK 4.4 - 7.1 AVERAGE RISK 7.1 - 11.0 MODERATE RISK >11.0 HIGH RISK Performed By: #### C MP, LIPID #### [facility] [address] [place] [address] Dr. Irving Hale Cholesterol [Mass/Vol] 124 mg/dL Normal <=200 [facility] Comment on above: Performed By: #### C MP, LIPID #### [facility] [address] [place] [address] Dr. Irving Hale Cholesterol in HDL [Mass/Vol] 41 mg/dL Normal 40-60 [facility] Comment on above: Performed By: #### C MP, LIPID #### [facility] [address] [place] [address] Dr. Irving Hale Cholesterol in LDL [Mass/Vol] 66.4 mg/dL Normal [facility] Comment on above: Performed By: #### C MP, LIPID #### [facility] [address] [place] [address] Dr. Irving Hale Cholesterol.total/Cho lesterol in HDL [Mass ratio] 3.0 {ratio} Normal [facility] Comment on above: Performed By: #### C MP, LIPID #### [facility] [address] [place] [address] Dr. Irving Hale HDL NORMAL > or = 60 mg/dl - LO W CARDIOVASCULAR RISK <40 mg/dl - HIGH CARDIOVASCULAR RISK Normal [facility] Comment on above: Performed By: #### C MP, LIPID #### [facility] [address] [address] [address] Irving Hale LDL CALC NORMAL SEE BELOW Normal [facility] Comment on above: Result Comment: <100 mg/dl OPTIMAL 100 - 129 mg/dl NEAR OR ABOVE OPTIMAL 130 - 159 mg/dl BORDERLINE HIGH 160 - 189 mg/dl HIGH >190 mg/dl VERY HIGH Performed By: #### C MP, LIPID #### [facility] [address] [address] [address] Irving Hale Triglyceride [Mass/Vol] 83 mg/dL Normal <=150 [facility] Comment on above: Performed By: #### C MP, LIPID #### [facility] [address] [address] [address] Irving Hale VLDL CALC 16.6 mg/dL Normal [facility] Comment on above: Performed By: #### C MP, LIPID #### [facility] [address] [place] [address] Dr. Irving Hale MICROALB CREAT RATIO RANDOMo n 11-11-2022 mALB <1.3 Normal <=30.0 [facility] Comment on above: Performed By: #### M CRR #### [facility] [address] [address] [address] Irving PHILLIPS CR RATIO 8.4 mg/g Normal 0.0-29.9 [facility] Comment on above: Performed By: #### M CRR #### [facility] [address] [place] [address] Dr. Irving Hale MALB CR RATIO RANGE SEE BELOW Normal [facility] Comment on above: Result Comment: NO M ICROALBUMINURIA 0-29 MG/G CLINICAL MICROALBUMINURIA 30-300 MG/G MACROALBUMINURIA >300 MG/G Performed By: #### M CRR #### [facility] [address] [place] [address] Dr. Irving Hale URINE CREAT 155.10 mg/dL Normal 20.00-300.[address] [facility] Comment on above: Performed By: #### M CRR #### [facility] [address] [place] [address] Dr. Irving Hale PROF 14(COMP METB)on 023 Albumin [Mass/Vol] 3.9 g/dL Normal 3.4-5.0 [facility] Comment on above: Performed By: #### C MP, LIPID #### [facility] [address] [place] [address] Dr. Irving Hale Albumin/Globulin [Mass ratio] 1.0 {ratio} Normal [facility] Comment on above: Performed By: #### C MP, LIPID #### [facility] [address] [address] [address] Irving Hale ALP [Catalytic activity/Vol] 96 U/L Normal 46-116 [facility] Comment on above: Performed By: #### C MP, LIPID #### [facility] [address] [place] [address] Dr. Irving Hale ALT [Catalytic activity/Vol] 95 U/L Critically high 16-63 [facility] Comment on above: Performed By: #### C MP, LIPID #### [facility] [address] [place] [address] Dr. Irving Hale Anion gap [Moles/Vol] 11.5 mmol/L Normal [facility] Comment on above: Performed By: #### C MP, LIPID #### [facility] [address] [place] [address] Dr. Irving Hale AST [Catalytic activity/Vol] 39 U/L Critically high 15-37 [facility] Comment on above: Performed By: #### C MP, LIPID #### [facility] [address] [address] [address] Irving Hale Bilirubin [Mass/Vol] 0.4 mg/dL Normal 0.2-1.0 [facility] Comment on above: Performed By: #### C MP, LIPID #### [facility] [address] [address] [address] Irving Hale Calcium [Mass/Vol] 10.4 mg/dL Critically high 8.5-10.1 [facility] Comment on above: Performed By: #### C MP, LIPID #### [facility] [address] [address] [address] Irving Hale Chloride [Moles/Vol] 103 mmol/L Normal 98-107 [facility] Comment on above: Performed By: #### C MP, LIPID #### [facility] [address] [place] [address] Dr. Irving Hale CO2 [Moles/Vol] 30.0 mmol/L Normal 21.0-32.0 [facility] Comment on above: Performed By: #### C MP, LIPID #### [facility] [address] [place] [address] Dr. Irving Hale Creatinine [Mass/Vol] 1.04 mg/dL Normal 0.70-1.30 [facility] Comment on above: Performed By: #### C MP, LIPID #### [facility] [address] [place] [address] Dr. Irving Hale EGFR-AF BARBADIAN >60 Normal >=60 [facility] Comment on above: Performed By: #### C MP, LIPID #### [facility] [address] [place] [address] Dr. Irving Hale EGFR-NON AF BARBADIAN >60 Normal >=60 [facility] Comment on above: Performed By: #### C MP, LIPID #### [facility] [address] [place] [address] Dr. Irving Hale Globulin (S) [Mass/Vol] 3.9 g/dL Normal [facility] Comment on above: Performed By: #### C MP, LIPID #### [facility] [address] [place] [address] Dr. Irving Hale Glucose [Mass/Vol] 123 mg/dL Critically high 74-[address] [facility] Comment on above: Performed By: #### C MP, LIPID #### [facility] [address] [place] [address] Dr. Irving Hale Potassium [Moles/Vol] 4.5 mmol/L Normal 3.5-5.1 [facility] Comment on above: Performed By: #### C MP, LIPID #### [facility] [address] [place] [address] Dr. Irving Hale Protein [Mass/Vol] 7.8 g/dL Normal 6.4-8.2 [facility] Comment on above: Performed By: #### C MP, LIPID #### [facility] [address] [address] [address] Irving Hale Sodium [Moles/Vol] 140 mmol/L Normal 136-145 [facility] Comment on above: Performed By: #### C MP, LIPID #### [facility] [address] [address] [address] Irving Hale Urea nitrogen [Mass/Vol] 23.0 mg/dL Critically high 7.0-18.0 [facility] Comment on above: Performed By: #### C MP, LIPID #### [facility] [address] [place] [address] Dr. Irving Hale Urea nitrogen/Creatinine [Mass ratio] 22.1 mg/mg Normal [facility] Comment on above: Performed By: #### C MP, LIPID #### [facility] [address] [place] [address] Dr. Irving Hale XR LSPINE MIN 4 [...] LUIS ARMANDO ZAYAS Date: 2022-11-11 15:14 Normal [facility] Vital Signs Date Time Vital Sign Value Performing Clinician Mathieu bynum 05-04-2024 08:54-0400 Body height 172.7 cm Nicole Robb NP Work Phone: [facility] 05-04-2024 08:54-0400 Body mass index (BMI) [Ratio] 27.55 kg/m2 Nicole Vidalpatrick SURGICAL TECH Work Phone: [facility] 05-04-2024 08:54-0400 Body temperature 97.5 [degF] Nicole Vidalpatrick SURGICAL TECH Work Phone: [facility] 05-04-2024 08:54-0400 Body weight 82.19 kg Nicole Vidalpatrick SURGICAL TECH Work Phone: [facility] 05-04-2024 08:54-0400 Diastolic blood pressure 68 mm[Hg] Nicole Vidalpatrick SURGICAL TECH Work Phone: [facility] 05-04-2024 08:54-0400 Heart rate 67 /min Nicole Vidalpatrick SURGICAL TECH Work Phone: [facility] 05-04-2024 08:54-0400 Respiratory rate 16 /min Nicole Vidalpatrick SURGICAL TECH Work Phone: [facility] 05-04-2024 08:54-0400 SaO2% (BldA) [Mass fraction] 94 % Nicole Vidalpatrick SURGICAL TECH Work Phone: [facility] 05-04-2024 08:54-0400 Systolic blood pressure 118 mm[Hg] Nicole Vidalpatrick SURGICAL TECH Work Phone: [facility] Healthcare Encounters Encounter Date Encounter Type Care Provider Facility Start: 05-04-2024 End: 05-04-2024 Bamboo flowsheet Nicole Weinsteinzpatrick SURGICAL TECH Work Phone: [facility] Start: 05-04-2024 End: 05-04-2024 Bamboo flowsheet Nicole Weinsteinzpatrick SURGICAL TECH Work Phone: [facility] Start: 05-04-2024 End: 05-04-2024 Office outpatient visit 15 minutes Nicole Duboistrick SURGICAL TECH Work Phone: [facility] Comment on above: Type 2 diabetes clemente itus without complication, with long-term current use of insulin (CMS/HCC) (Primary Dx); Other hyperlipidemia (CMS/HCC); Pigmented skin lesion of uncertain behavior of head Start: 05-04-2024 End: 05-04-2024 ambulatory NICOLE ROBB Not Available Start: 01-26-2024 End: 01-26-2024 ambulatory SANTANA FAWWAD Not Available Start: 10-23-2023 End: 10-23-2023 ambulatory SANTANA FAWWAD Not Available Start: 07-23-2023 Patient encounter procedure Kaylie kinney Cezar SURGICAL TECH Work Phone: [facility] Start: 07-23-2023 End: 07-23-2023 ambulatory SANTANA FAWWAD Not Available Start: 03-06-2023 ambulatory TONIO APUL . Facili ty:[facility] Start: 12-06-2022 End: 12-07-2022 ambulatory SHAIKH Андрей FAMarkellWANithya Facility:[facility] Start: 11-19-2022 End: 11-20-2022 ambulatory BEN ZUNIGA Facility:[facility] Start: 11-11-2022 End: 11-12-2022 ambulatory NARENDRANATH LAKSHMIPATHY . Facility:[facility] Start: 11-05-2022 End: 11-06-2022 ambulatory NARENDRANATH LAKSHMIPATHY . Facility: Procedures Date Procedure Procedure Detail Performing Clinician Start: 08-04-2022 Colonoscopy Nicole coronado SURGICAL TECH Work Phone: Plan of Treatment Date Care Activity Detail Author Start: 08-04-2032 Screening for malign ant neoplasm of colon [facility] Start: 08-25-2026 Screening for malign ant neoplasm of colon FIT-DNA [facility] Start: 08-25-2024 Hemoglobin A1c measurement Diabetes: Hemoglobin A1C [facility] Start: 08-14-2024 Urine screening for protein Diabetes: Urine Protein Screening [facility] Start: 08-10-2024 End: 08-10-2024 Patient encounter procedure 08/10/2024 9:30 AM EST Office Visit [facility] [address] [phone] Nicole Robb NP [address] [place] [address] [facility] Start: 08-04-2024 End: 05-04-2025 CBC W Auto Differential panel - Blood CBC and differential Lab Routine Type 2 diabetes mellitus without complication, with long-term current use of insulin ([facility]) Expected: 08/04/2024 (Approximate), Expires: 05/04/2025 [facility] Comment on above: Expected: 08/04/2024 (Approximate), Expires: 05/04/2025 Start: 08-04-2024 End: 05-04-2025 Comprehensive metabolic 2000 panel - Serum or Plasma Comprehensive metabolic panel Lab Routine Type 2 diabetes mellitus without complication, with long-term current use of insulin ([facility]) Expected: 08/04/2024 (Approximate), Expires: 05/04/2025 [facility] Comment on above: Expected: 08/04/2024 (Approximate), Expires: 05/04/2025 Start: 08-04-2024 End: 05-04-2025 Hemoglobin A1c/Hemoglobin.total in Blood Hemoglobin A1c Lab Routine Type 2 diabetes mellitus without complication, with long-term current use of insulin ([facility]) Expected: 08/04/2024 (Approximate), Expires: 05/04/2025 [facility] Work Phone: Comment on above: Expected: 08/04/2024 (Approximate), Expires: 05/04/2025 Start: 07-23-2024 Medicare Annual Well ness (AWV) Medicare Annual Wellness (AWV) [facility] Start: 05-04-2024 End: 05-04-2024 Patient encounter procedure 05/04/2024 9:00 AM EDT Office Visit [facility] [address] [place] [id number] Nicole Robb NP [address] [place] [address] Arrived [facility] Comment on above: Arrived Start: 04-04-2024 Influenza vaccination Influenza Vacc ine (#1) [facility] Start: 1975 Glaucoma screening Diabetes: R etinopathy Screening [facility] Start: 1965 Screening for malign ant neoplasm of colon [facility] Payers Date Payer Category Payer Unknown [employer] [id number] 2022-Present [address] [place] [address] [id number] 2020 Unknown [id number] 1965 Unknown [id number] 1965 Unknown [id number] 1965 Unknown [id number] 1965 Unknown [id number] 1965 Unknown [id number] 1965 Unknown [id number] 1965 Unknown [id number] 1965 Unknown [id number] 9 1965 Unknown [id number] 9 1965 Unknown [id number] 9 1965 Unknown [id number] 9 Social History Date Type Detail Facility Start: 07-23-2023 Tobacco smoking status NHIS Never smoked tobacco [facility] Start: 07-23-2023 Tobacco use and exposure Smokeless tobacco non-user [facility] Start: 01-26-2024 End: 05-04-2024 Alcoholic beverage intake Ex-drinker (finding) [facility] Start: 01-26-2024 End: 05-04-2024 History of Social function [facility] Start: 01-26-2024 End: 05-04-2024 Tobacco use panel [facility] Start: 07-23-2023 Alcohol Comment OCCASSIONALLY [facility] Start: 1965 Sex assigned at Not on file [facility] NEGATED: Highlighted rowStart: NINF History of tobacco use Passive smoker [facility] Medical Equipment Procedure Code Equipment Code Equipment Origin al Text Equipment Identifier Dates Inject 1 each un liza the skin Daily [id number] Start: 01-26-2024 End: 07-24-2024 History of Present illness Narrative 05-04-2024 Nicole Robb NP - 05/04/2024 4:31 PM Jackson Robb, BASILIO - 05/04/2024 4:31 PM Jackson Robb, BASILIO - 05/04/2024 9:00 AM EDT Note Date & Type Note Facility 05-04-2024 History of Presen t illness Narrative Associated Problem(s): Other hyperlipidemia (CMS/HCC) Currently taking Atorvastatin 80mg Most recent Lipid Panel done 02/2024- WNL Denies any myalgias. Continue current regimen. Associated Problem(s): Type 2 diabetes mellitus without complication, with long-term current use of insulin (CMS/HCC) Most recent labs: hemoglobin A1C 6.6% Average FSBS range from 115-118 No episode of hypoglycemia No medication adverse effects reported by the patient. Patient educated on lifestyle modifications, dietary restrictions, signs and symptoms of hypoglycemia/hyperglycemia and importance of eating regular consistent meals. Stressed upon importance of checking blood glucose at home and bring blood glucose log to appointments. All questions, concerns answered and addressed. Encouraged to call office if persistent hypoglycemia/hyperglycemia on home glucose monitoring noted. DM Eye Exam: never done- Referral sent today Images from the original note were not included. Subjective Patient ID: Nicholas Lovelace is a 59 y.o. male who presents for Follow-up and Back Pain. Specialists: Pain Management: HPI DMII: Most recent labs: hemoglobin A1C 6.6% Average FSBS range from 115-118 No episode of hypoglycemia No medication adverse effects reported by the patient. Patient educated on lifestyle modifications, dietary restrictions, signs and symptoms of hypoglycemia/hyperglycemia and importance of eating regular consistent meals. Stressed upon importance of checking blood glucose at home and bring blood glucose log to appointments. All questions, concerns answered and addressed. Encouraged to call office if persistent hypoglycemia/hyperglycemia on home glucose monitoring noted. DM Eye Exam: never done- Referral sent today HLD: Currently taking Atorvastatin 80mg Most recent Lipid Panel 02/2024 -WNL Denies any myalgias. Continue current regimen. Component Ref Range & Units 2 mo ago (02/16/24) 2 mo ago (02/16/24) 2 mo ago (02/16/24) 8 mo ago (08/14/23) 8 mo ago (08/14/23) 8 mo ago (08/14/23) 8 mo ago (08/14/23) TRIGLYCERIDES <=150 mg/dL 146 139 R 32.1 R 99 VC, CM 138 R 34.1 R 190.78 R CHOLESTEROL <=200 mg/dL 124 4.2 R 0.1 R 107 4.0 R 0.1 R HDL CHOLESTEROL 40 - 60 mg/dL 42 9.6 R 4.1 R 40 CM 7.1 R 4.2 R Comment: > or =60 mg/dl - LOW CARDIOVASCULAR RISK <40 mg/dl - HIGH CARDIOVASCULAR RISK LDL CHOLESTEROL CALCULATED mg/dL 52.8 112 High R 2.4 R 48.0 VC, CM 113 High R 2.7 R Comment: <100 mg/dl OPTIMAL 100-129 mg/dl NEAR OR ABOVE OPTIMAL 130-159 mg/dl BORDERLINE HIGH 160-189 mg/dl HIGH >190 mg/dl VERY HIGH VLDL CHOLESTEROL mg/dL 29.2 0.3 R 0.8 R 19.8 VC, CM 0.4 R 0.8 R CHOL HDL RATIO 3.0 18 R 0.01 R 2.7 CM 32 R 0.01 R Comment: 3.3 - 4.4 LOW RISK 4.4 - 7.1 AVERAGE RISK 7.1 - 11.0 MODERATE RISK >11.0 HIGH RISK ALANINE AMINOTRANSFERASE 49 R 68 High R ALKALINE PHOSPHATASE 93 R 101 R TOTAL PROTEIN 7.2 R 7.5 R ALBUMIN LEVEL 3.7 R 3.8 R ALBUMIN GLOBULIN RATIO 1.1 1.0 Resulting Agency [facility] Review of Systems Constitutional: Negative for activity change, appetite change, chills, diaphoresis, fatigue, fever and unexpected weight change. HENT: Negative for congestion, ear pain, rhinorrhea, sinus pressure, sinus pain, sneezing, sore throat, trouble swallowing and voice change. Eyes: Negative for visual disturbance. Respiratory: Negative for cough, chest tightness, shortness of breath and wheezing. Cardiovascular: Negative for chest pain, palpitations and leg swelling. Gastrointestinal: Negative for abdominal distention, abdominal pain, blood in stool, constipation, diarrhea and vomiting. Genitourinary: Negative for decreased urine volume, dysuria, flank pain, frequency, hematuria and urgency. Musculoskeletal: Negative for arthralgias, gait problem, joint swelling and myalgias. Skin: Negative for rash. Lesion of unknown behavior noted to forehead Neurological: Negative for dizziness, tremors, syncope, weakness, light-headedness and headaches. Psychiatric/Behavioral: Negative for decreased concentration and suicidal ideas. The patient is not nervous/anxious. Hematological: Does not bruise/bleed easily. Endocrine: Negative for cold intolerance, heat intolerance, polydipsia, polyphagia and polyuria. Objective Physical Exam Vitals reviewed. Constitutional: Appearance: Normal appearance. HENT: Head: Normocephalic and atraumatic. Right Ear: Tympanic membrane normal. Left Ear: Tympanic membrane normal. Nose: Nose normal. Mouth/Throat: Mouth: Mucous membranes are moist. Pharynx: Oropharynx is clear. Eyes: Pupils: Pupils are equal, round, and reactive to light. Cardiovascular: Rate and Rhythm: Normal rate and regular rhythm. Pulses: Normal pulses. Heart sounds: Normal heart sounds. Pulmonary: Effort: Pulmonary effort is normal. Breath sounds: Normal breath sounds. Abdominal: General: Abdomen is flat. Bowel sounds are normal. Palpations: Abdomen is soft. Musculoskeletal: General: Normal range of motion. Cervical back: Normal range of motion. Skin: General: Skin is warm and dry. Capillary Refill: Capillary refill takes less than 2 seconds. Neurological: General: No focal deficit present. Mental Status: He is alert and oriented to person, place, and time. Psychiatric: Mood and Affect: Mood normal. Behavior: Behavior normal. Assessment/Plan Problem List Items Addressed This Visit Other hyperlipidemia ([facility]) Currently taking Atorvastatin 80mg Most recent Lipid Panel done 02/2024- WNL Denies any myalgias. Continue current regimen. Type 2 diabetes mellitus without complication, with long-term current use of insulin ([facility]) - Primary Most recent labs: hemoglobin A1C 6.6% Average FSBS range from 115-118 No episode of hypoglycemia No medication adverse effects reported by the patient. Patient educated on lifestyle modifications, dietary restrictions, signs and symptoms of hypoglycemia/hyperglycemia and importance of eating regular consistent meals. Stressed upon importance of checking blood glucose at home and bring blood glucose log to appointments. All questions, concerns answered and addressed. Encouraged to call office if persistent hypoglycemia/hyperglycemia on home glucose monitoring noted. DM Eye Exam: never done- Referral sent today Relevant Orders Ambulatory referral to Ophthalmology Hemoglobin A1c Comprehensive metabolic panel CBC and differential Other Visit Diagnoses Pigmented skin lesion of uncertain behavior of head Relevant Orders Ambulatory referral to Dermatology documented in this encounter [facility] Instructions 05-04-2024 Patient Instructions Note Date & Type Note Facility 05-04-2024 Instructions Nicole Robb NP - 05/04/2024 9:00 AM EDT Repeat labs in 3 months Education: Check blood sugars daily, notify if <70 or >200. Take medications (pills or insulin) as directed. Monitor for s/s of hypoglycemia (sweaty, dizziness, nausea, vomiting, or shakiness). Watch for increase in thirst, urination, or appetite. Inspect feet frequently monitoring for open wounds , and also recommend yearly eye exam. Pt should attempt to remain as physically active as chronic conditions allow, as well as trying to follow a diet low in carbohydrates, and simple sugars. Referral sent to Dermatology- they will call you! documented in this encounter [facility] Consultation note 11-05-2022 Note Date & Type Note Facility 11-05-2022 Note CONSULTATION CONSULTATION DATE: 11/05/2022 TO: Dr. Bo CHIEF COMPLAINT: Includes bilateral lower back pain, worse on the right side. HISTORY OF PRESENT ILLNESS: Review of systems, past medical/surgical history were obtained and documented on the health questionnaire and is available upon request. Patient is a poor historian. He reports being followed by a physician some place in [place]. He is unsure of the physician's name, [...] will await information regarding his physician in [place] and he is scheduled to return to our office in four weeks' time. As part of providing excellent, safe, comprehensive care, the following was completed at our patient's visit: 1. A medication reconciliation and review to ensure accurate knowledge of current/active medications, including asking our patients to inform us about any wkkx-exy-hthgoid medications or herbal remedies/nutritional supplements/alternative remedies. 2. [...] options with their primary care provider. [facility] Evaluation note Note Date & Type Note Facility Evaluation note Diagnosis Type 2 diabetes mellitus without complication, with long-term current use of insulin (CMS/HCC)- Primary Other hyperlipidemia (CMS/HCC) Pigmented skin lesion of uncertain behavior of head documented in this encounter [facility] Reason for referral (narrative) Consultation (Routine) - Pending Review Note Date & Type Note Facility Reason for referral (narrati ve) Specialty Diagnoses / Procedures Referred By Stuart t Referred To Contact Dermatology Diagnoses Pigmented skin lesion of uncertain behavior of head Procedures NE OFFICE/OUTPATIENT NEW HIGH MDM 60 MINUTES Nicole Robb, BASILIO [address] [place] [address] Opal Zhong, DECK ENGINE OPERATOR-CURING MACHINE OPERATOR [address] [place] [address] Referral ID Status Reason Start Date Expiration Date Visits Requested Visits Authorized [id number] Pending Review Specialty Services Required 05/04/2024 10/31/2024 1 1 * Consultation (Routine) - Authorized Specialty Diagnoses / Procedures Referred By Stuart zamora Referred To Contact Ophthalmology Diagnoses Type 2 diabetes mellitus without complication, with long-term current use of insulin ([facility]) Procedures NE OFFICE/OUTPATIENT NEW HIGH MDM 60 MINUTES Nicole Robb NP [address] [place] [address] Maggie Shukla MD [address] [place] [address] Referral ID Status Reason Start Date Expiration Date Visits Requested Visits Authorized [id number] Authorized Specialty Services Required 05/04/2024 10/31/2024 1 1 [facility] Summary Purpose Family History No Family History Records FoundNo Family History Records Found Advance Directives No Advanced Directives Records FoundNo Advanced Directives Records Found Additional Source Comments (unrecognized sect ion and content) No Status Records FoundNo Status Records Found INFORMATION SOURCE (unrecogn ized section and content) DATE CREATED AUTHOR 12/13/2022 [facility] DATE CREATED AUTHOR AUTHOR'S ORGANIZ ATION 05/05/2024 [facility] dical Specialists EPIC Care Teams (unrecognized sec tion and content) Security And Compliance Analyst Relationship Specialty Start Date End Date Shaikh Bo MD [address] [place] [address] PCP - Devoted 08/04/22 Buddy Harvey MD [address] [place] [address] PCP - General Family Medicine 03/16/24 Nicole Robb NP [address] [place] [phone] Nurse Practitioner Family Medicine 03/16/24 Security And Compliance Analyst Relationship Specialty Start Date End Date Shaikh Bo MD [address] [place] [address] PCP - Devoted 08/04/22 Buddy Harvey MD [address] [place] [address] PCP - General Family Medicine 03/16/24 Nicole Robb NP [address] [place] [address] Nurse Practitioner Family Medicine 03/16/24 Reason for Visit (unrecogniz ed section and content) Reason Comments Follow-up Back Pain FOR RECORDS PERTAINING TO PATIENTS WHO ARE [...] BE BASED ON THE PRIMARY CLINICAL RECORDS. Mobile Messenger [facility]. provides no warranty or guarantee of the accuracy or completeness of information in this document.
--- NOTE | 2024-05-12 09:45 | PM.CN ---
Consult Note: HPI Data of Consult Patient: known to practice within the last 3 years Requesting Physician: Aida Montero NP Primary Care Provider: Shaikh Anupam MD Consult Narrative Reason for consult: f/u Narrative: Boby Lovelace a pleasant 58 year old male presents for evaluation and management of low back pain. Today rating pain 3/10 stabbing/ache without radiculopathy, increasing to moderate to severe spontaneously. hx of lumbar fusion at l4-5 Unfortunately patient continues to have low back pain unresponsive to conservative medications and PT/HEP. Patient SANJU today 54%. Patient does find significant improvement in low back pain with percocet 5-325mg TID PRN, as well as gabapentin 600mg TID, patient denies side effects. Utilizes baclofen 10mg TID PRN with benefit. Patient reports pain is well controlled with current medication regimen cc:: CC: Aida Montero NP Review of Systems ROS Status of ROS 10 or more systems reviewed and unremarkable except as noted in history and below Musculoskeletal Reports: back pain Meds Home Medications and Allergies Home Medications ?Medication ?Instructions ?Recorded ?Confirmed ?Type atorvastatin 80 mg tablet 80 mg PO DAILY 06/11/23 06/11/23 History baclofen 10 mg tablet 10 mg PO TID 06/11/23 06/11/23 History dulaglutide 4.5 mg/0.5 mL 4.5 mg subcut QWEEK 06/11/23 06/11/23 History subcutaneous pen injector (Trulicity) ezetimibe 10 mg tablet 10 mg PO DAILY 06/11/23 06/11/23 History gabapentin 600 mg tablet 600 mg PO TID 06/11/23 06/11/23 History ibuprofen 800 mg tablet 800 mg PO TID 06/11/23 06/11/23 History insulin degludec 200 unit/mL (3 200 unit subcut DAILY 06/11/23 06/11/23 History mL) subcutaneous pen (Tresiba FlexTouch U-200 insulin) oxycodone-acetaminophen 5 mg-325 1 tab PO TID PRN pain #90 tabs 03/08/24 Rx mg tablet (Percocet) oxycodone-acetaminophen 5 mg-325 See Rx Instructions .Route 04/06/24 Rx mg tablet (Percocet) .COMPLEX PRN pain #80 tabs oxycodone-acetaminophen 5 mg-325 1 tab PO TID PRN pain #80 tabs 05/06/24 Rx mg tablet (Percocet) Allergies Allergy/AdvReac Type Severity Reaction Status Date / Time No Known Drug Allergies Allergy Verified 06/11/23 10:58 Exam Constitutional Documenting provider has reviewed patient's vital signs: yes Common normals: no apparent distress, oriented x3, healthy appearing, alert and well nourished General appearance: cooperative Orientation/consciousness: Yes awake, Yes oriented to person, Yes oriented to place and Yes oriented to time HENMT Common normals: normocephalic, hearing grossly normal bilaterally and moist oral mucous membranes Head and scalp: normocephalic Eye Common normals: PERRL Pupil: PERRL Neck & C-Spine Common normals: full ROM General: normal visual inspection Chest Common normals: inspection of chest normal Respiratory Common normals: normal respiratory effort, no retractions and no use of accessory muscles Effort & inspection: able to speak in complete sentences and symmetric chest movement Back & Pelvis Lumbar spine/lower back: normal to inspection, ROM limited, pain with ROM, paraspinal muscle tenderness and paraspinal muscle spasm Other: positive facet load pain right muscle strength 5/5 bilat LE with intact sensation Extremity Common normals: normal to inspection, full ROM, normal capillary refill and no pedal edema Neuro Common normals: oriented x3, CN's II-XII intact bilaterally, moves all extremities, no focal motor deficits, no sensory deficits noted and deep tendon reflexes 2+ bilaterally Sensorium/orientation: alert Motor exam: strength 5/5 throughout and no movement abnormalities noted Psych Common normals: mental status grossly normal, thought process normal, cooperative, affect normal, speech normal and activity/motor behavior normal Speech: normal speech Thought process: normal thought process Results Additional Findings Additional findings: If on a controlled substance or opioids, I have checked an [place]AR[place] report on this patient and there are no aberrancies noted in the prescribing history.??If on a controlled substance or opioid a drug screen was completed and reviewed within the last year, and if there has not been a drug screen completed we ordered one today to monitor higher risk, state monitored pain medication use. As part of providing excellent, safe, comprehensive care, the following was completed at our patient's visit: 1. A medication reconciliation and review to ensure accurate knowledge of current/active medications, including asking our patients to inform us about any gbjs-lgd-whxsety medications or herbal remedies/nutritional supplements/alternative remedies. 2. A review to specifically ensure our patients have had annual screening for screening for depression, screening for tobacco use, and screening for unhealthy alcohol use. For concerning screenings had a discussion with the patient, provided patient education, and recommended follow-up with primary care provider when appropriate. If patient noted with a risk of falling, they received education on strength, gait, and balance training to prevent future risk of falling. Assessment and Plan Assessment and Plan (1) Lumbar spondylosis: (2) Muscle spasm: (3) Chronic prescription opiate use: Assessment and Plan: I feel these medications are improving the patient's quality of life and allow them to tolerate activities of daily living as well as participate in recreational activity.? The patient does not report intolerable side effects. The patient is NOT opioid naive and non-pharmacologic and non-opioid treatment has failed to significantly relieve the patient's pain and improve functionality. The patient has a diagnosis that is related to a somatic or visceral pain etiology. ? ?? I reviewed with the patient the potential risks and side effects with the use of? opioid medications including but not limited to respiratory depression,? sedation, and even . I verified the patient has access to naloxone should? these effects occur. I advised the patient to avoid the use of any other? sedation substances including alcohol, THC, and benzodiazepines while? taking opioid medications due to the risk of compounding side effects and? detrimental outcomes. I reviewed the BOILERMAKER MECHANIC, pain treatment agreement, urine? drug screen, and opioid start talking forms. The patient was advised to let? their family know they had Naloxone in case they would need to administer? the medication.? ?? A drug screen was completed within the last year, and no aberrancies were noted regarding their use of controlled substances. The patient understands they are subject to the terms and conditions of the pain contract that they have signed. ? ?? I have checked an OARRS report on this patient today and there are no aberrancies noted in the prescribing history.? Plan continue percocet 5/325 to BID-TID PRN moderate to severe pain 80 tablets per month continue gabapentin 600mg TID continue baclofen 10mg TID PRN pain/spasms narcan discussed and prescribed, METAL PICKLING EQUIPMENT OPERATOR reviewed and signed, UDS today educated on facet blocks and RFA at previous visits, declining at this time as pain is well controlled with medication regimen f/u 3 months, sooner if needed
== END 2024-05-12 09:26 | disposition home or self-care (01) ==
LOC: PM 09:25
PROVIDERS: PCP Internal Medicine; Visit Provider Nurse Practitioner
DX: M47.816 Spondylosis without myelopathy or radiculopathy, lumbar region (principal); M62.838 Other muscle spasm; Z79.891 Long term (current) use of opiate analgesic
CPT/HCPCS: G0463

== ENCOUNTER 2024-08-02 09:54 | Outpatient (OUT) | payer OTHER, SELFPAY ==
--- OUTSIDE RECORDS SUMMARY | 2024-08-02 10:11 | XMS_ITS | CCD ---
Author Organization [facility] Care Team Providers Care Acid Tank Cleaner Name Role Phone LAKSHMIPATHY ., NARENDRANATH Admitting [...] SHAIKH BO Attending Unavailable NICOLE ROBB Attending UnavailShaikh Boggs MD Unavailable Allergies Allergy Classification Reported Allergen(s) Allergy Type Date of Onset Reaction(s) Facility (8 sources) Penicillins Propensity to adverse reactions 3 Rash [facility] Medications Current Medications Medication Drug Class(es) Dates Sig (Normalized) Sig (Original) acetaminophen 325 mg / oxyCODONE hydrochloride 5 mg oral tablet (8 sources) Opioid Agonist take 1 tablet by mouth every eight hours as needed for pain oxyCODONE-acetaminoph en (Percocet) 5-325 MG tablet Take 1 tablet by mouth every 8 (eight) hours if needed for severe pain Active atorvastatin 80 mg oral tablet (8 sources) HMG-CoA Reductase Inhibitor Start: 01-26-2024 End: 07-24-2024 take 1 tablet by mouth once daily atorvastatin (Lipitor) 80 MG tablet Indications: Other hyperlipidemia (CMS/HCC) Take 1 tablet (80 mg) by mouth Daily 90 tablet 1 01/26/2024 07/24/2024 Active Dulaglutide (Trulicity) 4.5 MG/0.5ML solution auto-injector (4 sources) Start: 05-24-2024 End: 11-08-2024 inject 4.5 mg by subcutaneous injection every week Dulaglutide (Trulicity) 4.5 MG/0.5ML solution auto-injector Indications: Type 2 diabetes mellitus without complication, without long-term current use of insulin (CMS/HCC) Inject 4.5 mg under the skin 1 (one) time per week 6 mL 1 05/24/2024 11/08/2024 Active esomeprazole 20 mg delayed release oral capsule (8 sources) Proton Pump Inhibitor Start: 01-26-2024 End: 07-24-2024 take 1 capsule by mouth before mealtime esomeprazole (NexIUM) [address] capsule Indications: Gastroesophageal reflux disease without esophagitis Take 1 capsule (20 mg) by mouth in the morning. Take before meals. 90 capsule 1 01/26/2024 07/24/2024 Active ezetimibe 10 mg oral tablet (8 sources) Dietary Cholesterol Absorption Inhibitor Start: 01-26-2024 End: 07-24-2024 take 1 tablet by mouth once daily ezetimibe (Zetia) 10 MG tablet Indications: Other hyperlipidemia (CMS/HCC) Take 1 tablet (10 mg) by mouth Daily 90 tablet 1 01/26/2024 07/24/2024 Active ibuprofen 600 mg oral tablet (11 sources) Nonsteroidal Anti-inflammatory Drug Start: 07-14-2024 take 1 tablet by mouth in the [...] tablet (600 mg) before bedtime. 90 tablet 07/14/2024 Active Start: 04-12-2024 End: 07-14-2024 take 1 tablet by mouth in the [...] tablet (600 mg) before bedtime. 90 tablet 05/24/2024 07/14/2024 Discontinued (Reorder) Start: 02-03-2024 End: 04-09-2024 take 1 tablet by mouth in the morning, then take 1 tablet by mouth in the evening, then take 1 tablet by mouth at bedtime ibuprofen 800 MG tablet Indications: Chronic right-sided low back pain with right-sided sciatica TAKE 1 TABLET BY MOUTH IN THE MORNING then ONE TABLET BY MOUTH IN THE EVENING, then ONE TABLET BY MOUTH BEFORE bedtime 90 tablet 02/03/2024 04/09/2024 Discontinued (Reorder) 3 ml insulin degludec 200 unt/ml pen injector (10 sources) Insulin Analog Start: 10-23-2023 End: 12-11-2024 inject 36 [IU] by subcutaneous injection at bedtime Tresiba FlexTouch 200 UNIT/ML injection Indications: Type 2 diabetes mellitus without complication, without long-term current use of insulin (CMS/HCC) INJECT 36 UNITS SUBCUTANEOUSLY (UNDER THE SKIN) AT BEDTIME 18 mL 1 06/14/2024 Active Completed/Discontinued Medications Medication Drug Class(es) Dates Sig (Normalized) Sig (Original) 0.5 ml dulaglutide 3 mg/ml auto-injector (4 sources) GLP-1 Receptor Agonist Start: 01-26-2024 End: 05-04-2024 inject 1.5 mg by subcutaneous injection every week dulaglutide (Trulicity) 1.5 MG/0.5ML solution pen-injector Indications: Type 2 diabetes mellitus without complication, without long-term current use of insulin (CMS/HCC) Inject 1.5 mg under the skin 1 (one) time per week 12 pen 01/26/2024 05/04/2024 Discontinued (Therapy completed) dulaglutide (Trulicity) 4.5 MG/0.5ML solution pen-injector (5 sources) Start: 03-04-2024 End: 05-24-2024 inject 4.5 mg by subcutaneous injection every week dulaglutide (Trulicity) 4.5 MG/0.5ML solution pen-injector Indications: Type 2 diabetes mellitus without complication, without long-term current use of insulin (CMS/HCC) Inject 4.5 mg under the skin 1 (one) time per week 6 mL 1 03/04/2024 05/24/2024 Discontinued (Reorder) Start: 03-04-2024 End: 08-19-2024 inject 4.5 mg by subcutaneous injection every week dulaglutide (Trulicity) 4.5 MG/0.5ML solution pen-injector Indications: Type 2 diabetes mellitus without complication, without long-term current use of insulin (CMS/HCC) Inject 4.5 mg under the skin 1 (one) time per week 6 mL 1 03/04/2024 08/19/2024 Active Problems Active Problems Problem Classification Problem Date Documented Da te Episodic/Chronic Diabetes mellitus without complication (18 sources) Type 2 diabetes mellitus without complications; Translations: [Type 2 diabetes mellitus without complication] Onset: 11-11-2022 Chronic Disorders of lipid metabolism (11 sources) Hyperlipidemia, unspecified; Translations: [Hyperlipidemia] Onset: 11-17-2022 07-23-2023 Chronic Other nervous system disorders (1 source) Other chronic pain; Translations: [OTHER CHRONIC PAIN] Onset: 11-09-2022 Chronic Other nervous system disorders (8 sources) Chronic pain syndrome; Translations: [Chronic pain syndrome] Onset: 10-23-2023 10-23-2023 Chronic Other skin disorders (2 sources) Disorder of pigmentation, unspecified; Translations: [Dyschromia, unspecified] 05-04-2024 Episodic Spondylosis; intervertebral disc disorders; other back problems (20 sources) Spondylosis without myelopathy or radiculopathy, lumbar region; Translations: [Postlaminectomy syndrome, not elsewhere classified] Onset: 07-21-2013 Chronic Spondylosis; intervertebral disc disorders; other back problems (19 sources) Chronic low back pain; Translations: [Lumbago with sciatica, right side] Onset: 07-23-2023 07-23-2023 Episodic Unclassified (2 sources) LOW BACK PAIN, UNSPECIFIED; Translations: [LOW BACK PAIN, UNSPECIFIED] Onset: 12-12-2022 Past or Other Problems Problem Classification Problem Date Documented Da te Episodic/Chronic Essential hypertension (16 sources) Essential hypertension; Translations: [Essential (primary) hypertension] Onset: 07-23-2023 Resolved: 07-23-2023 07-23-2023 Chronic Mood disorders (8 sources) Mood disorders Onset: 07-23-2023 07-23-2023 Other screening for suspected conditions (not mental disorders or infectious disease) (12 sources) Other specified abnormal findings of blood chemistry; Translations: [Patient encounter status] Onset: 11-19-2022 Episodic Unclassified (1 source) LOW BACK PAIN, [...] ARMANDO ZAYAS Date: 2022-11-19 14:15 Normal [facility] US SINGLE QUAD RT UPPERon US SINGLE [...] BEN ZUNIGA Date: 2022-11-19 09:51 Normal [facility] CBC AUTO DIFFon 11-11-2022 BASO # 0.0 103/ul Normal 0.0-0.1 [facility] Comment on above: Performed By: #### C BC #### [facility] [address] [place] [address] Dr. Irving Hale Basophils/100 WBC (Bld) 0.5 % Normal 0.2-2.0 [facility] Comment on above: Performed By: #### C BC #### [facility] [address] [place] [address] Dr. Irving Hale EO # 0.1 103/ul Normal 0.0-0.7 [facility] Comment on above: Performed By: #### C BC #### [facility] [address] [place] [address] Dr. Irving Hale Eosinophils/100 WBC (Bld) 1.9 % Normal 0.9-7.0 [facility] Comment on above: Performed By: #### C BC #### [facility] [address] [place] [address] Dr. Irving Hale Erythrocyte distribution width (RBC) [Ratio] 13.4 % Normal 11.0-15.0 [facility] Comment on above: Performed By: #### C BC #### [facility] [address] [place] [address] Dr. Irving Hale Hematocrit (Bld) [Volume fraction] 40.6 % Critically low 42.0-54.0 [facility] Comment on above: Performed By: #### C BC #### [facility] [address] [place] [address] Dr. Irving Hale Hemoglobin (Bld) [Mass/Vol] 13.6 g/dL Critically low 14.0-18.0 [facility] Comment on above: Performed By: #### C BC #### [facility] [address] [place] [address] Dr. Irving Hale IG # 0.01 10e3/ul Normal 0.00-0.03 [facility] Comment on above: Performed By: #### C BC #### [facility] [address] [place] [address] Dr. Irving Hale IG % 0.2 % Normal 0.0-0.5 [facility] Comment on above: Performed By: #### C BC #### [facility] [address] [place] [address] Dr. Irving Hale LYMPH # 2.1 103/ul Normal 1.2-3.8 [facility] Comment on above: Performed By: #### C BC #### [facility] [address] [place] [address] Dr. Irving Hale Lymphocytes/100 WBC (Bld) 32.9 % Normal 20.5-60.0 [facility] Comment on above: Performed By: #### C BC #### [facility] [address] [place] [address] Dr. Irving Hale MANUAL DIFF REQ NO Normal [facility] Comment on above: Performed By: #### C BC #### [facility] [address] [place] [address] Dr. Irving Hale MCH (RBC) [Entitic mass] 28.2 pg Normal 25.9-34.0 [facility] Comment on above: Performed By: #### C BC #### [facility] [address] [place] [address] Dr. Irving Hale MCHC (RBC) [Mass/Vol] 33.5 g/dL Normal 29.9-35.2 [facility] Comment on above: Performed By: #### C BC #### [facility] [address] [place] [address] Dr. Irving Hale MCV (RBC) [Entitic vol] 84.1 fL Normal 80.0-94.0 [facility] Comment on above: Performed By: #### C BC #### [facility] [address] [place] [address] Dr. Irving Hale MONO # 0.6 103/ul Normal 0.3-0.8 [facility] Comment on above: Performed By: #### C BC #### [facility] [address] [place] [address] Dr. Irving Hale Monocytes/100 WBC (Bld) 9.3 % Normal 1.7-12.0 [facility] Comment on above: Performed By: #### C BC #### [facility] [address] [address] [address] Irving Hale NEUT # 3.4 103/ul Normal 1.4-6.5 [facility] Comment on above: Performed By: #### C BC #### [facility] [address] [address] [address] Irving Hale Neutrophils/100 WBC (Bld) 55.2 % Normal 43.0-75.0 [facility] Comment on above: Performed By: #### C BC #### [facility] [address] [address] [address] Irving Hale Platelet mean volume (Bld) [Entitic vol] 9.1 fL Critically low 9.5-13.5 [facility] Comment on above: Performed By: #### C BC #### [facility] [address] [address] [address] Irving Hale PLT 302 103/ul Normal 150-450 [facility] Comment on above: Performed By: #### C BC #### [facility] [address] [address] [address] Irving Hale RBC 4.83 106/ul Normal 4.70-6.10 [facility] Comment on above: Performed By: #### C BC #### [facility] [address] [address] [address] Irving Hale WBC 6.2 103/ul Normal 4.0-11.0 [facility] Comment on above: Performed By: #### C BC #### [facility] [address] [place] [address] Dr. Irving Hale GLYCOHEMOGLOBIN A1Con 2022 ADA RECOMMENDATION SEE BELOW Normal [facility] Comment on above: Result Comment: ADA RECOMMENDED LIMIT 4.0 - 6.0 ADA THERAPEUTIC TARGET < 7.0 ACTION SUGGESTED > 7.0 Performed By: #### A 1C #### [facility] [address] [place] [address] Dr. Irving Hale Glucose [Mass/Vol] 143 mg/dL Normal [facility] Comment on above: Performed By: #### A 1C #### [facility] [address] [address] [address] Irving Hale HbA1c (Bld) [Mass fraction] 6.6 % Critically high 4.5-6.2 [facility] Comment on above: Performed By: #### A 1C #### [facility] [address] [address] [address] Irving Hale LIPID PROFILEon 11-11-2022 CHOL-HDL RATIO NORM SEE BELOW Normal [facility] Comment on above: Result Comment: 3.3 - 4.4 LOW RISK 4.4 - 7.1 AVERAGE RISK 7.1 - 11.0 MODERATE RISK >11.0 HIGH RISK Performed By: #### C MP, LIPID #### [facility] [address] [address] [address] Irving Hale Cholesterol [Mass/Vol] 124 mg/dL Normal <=200 [facility] Comment on above: Performed By: #### C MP, LIPID #### [facility] [address] [address] [address] Irving Hale Cholesterol in HDL [Mass/Vol] 41 mg/dL Normal 40-60 [facility] Comment on above: Performed By: #### C MP, LIPID #### [facility] [address] [address] [address] Irving Hale Cholesterol in LDL [Mass/Vol] 66.4 mg/dL Normal [facility] Comment on above: Performed By: #### C MP, LIPID #### [facility] [address] [address] [address] Irving Hale Cholesterol.total/Cho lesterol in HDL [Mass ratio] 3.0 {ratio} Normal [facility] Comment on above: Performed By: #### C MP, LIPID #### [facility] [address] [address] [address] Irving Hale HDL NORMAL > or = 60 mg/dl - LO W CARDIOVASCULAR RISK <40 mg/dl - HIGH CARDIOVASCULAR RISK Normal [facility] Comment on above: Performed By: #### C MP, LIPID #### [facility] [address] [address] [address] Irving Hale LDL CALC NORMAL SEE BELOW Normal [facility] Comment on above: Result Comment: <100 mg/dl OPTIMAL 100 - 129 mg/dl NEAR OR ABOVE OPTIMAL 130 - 159 mg/dl BORDERLINE HIGH 160 - 189 mg/dl HIGH >190 mg/dl VERY HIGH Performed By: #### C MP, LIPID #### [facility] [address] [address] [address] Irving Hale Triglyceride [Mass/Vol] 83 mg/dL Normal <=150 [facility] Comment on above: Performed By: #### C MP, LIPID #### [facility] [address] [address] [address] Irving Hale VLDL CALC 16.6 mg/dL Normal [facility] Comment on above: Performed By: #### C MP, LIPID #### [facility] [address] [address] [address] Irving Hale MICROALB CREAT RATIO RANDOMo n 11-11-2022 mALB <1.3 Normal <=30.0 [facility] Comment on above: Performed By: #### M CRR #### [facility] [address] [address] [address] Irving PHILLIPS CR RATIO 8.4 mg/g Normal 0.0-29.9 [facility] Comment on above: Performed By: #### M CRR #### [facility] [address] [address] [address] Irving Hale MALEduard CR RATIO RANGE SEE BELOW Normal [facility] Comment on above: Result Comment: NO M ICROALBUMINURIA 0-29 MG/G CLINICAL MICROALBUMINURIA 30-300 MG/G MACROALBUMINURIA >300 MG/G Performed By: #### M CRR #### [facility] [address] [address] [address] Irving Hale URINE CREAT 155.10 mg/dL Normal 20.00-300.00 [facility] Comment on above: Performed By: #### M CRR #### [facility] [address] [address] [address] Irving Hale PROF 14(COMP METB)on 023 Albumin [Mass/Vol] 3.9 g/dL Normal 3.4-5.0 [facility] Comment on above: Performed By: #### C MP, LIPID #### [facility] [address] [place] [address] Dr. Irving Hale Albumin/Globulin [Mass ratio] 1.0 {ratio} Normal [facility] Comment on above: Performed By: #### C MP, LIPID #### [facility] [address] [address] [address] Irving Hale ALP [Catalytic activity/Vol] 96 U/L Normal 46-116 [facility] Comment on above: Performed By: #### C MP, LIPID #### [facility] [address] [place] [address] Dr. Irving Hale ALT [Catalytic activity/Vol] 95 U/L Critically high 16-63 [facility] Comment on above: Performed By: #### C MP, LIPID #### [facility] [address] [place] [address] Dr. Irving Hale Anion gap [Moles/Vol] 11.5 mmol/L Normal [facility] Comment on above: Performed By: #### C MP, LIPID #### [facility] [address] [place] [address] Dr. Irving Hale AST [Catalytic activity/Vol] 39 U/L Critically high 15-37 [facility] Comment on above: Performed By: #### C MP, LIPID #### [facility] [address] [address] [address] Irving Hale Bilirubin [Mass/Vol] 0.4 mg/dL Normal 0.2-1.0 [facility] Comment on above: Performed By: #### C MP, LIPID #### [facility] [address] [address] [address] Irving Hlae Calcium [Mass/Vol] 10.4 mg/dL Critically high 8.5-10.1 [facility] Comment on above: Performed By: #### C MP, LIPID #### [facility] [address] [address] [address] Irving Hale Chloride [Moles/Vol] 103 mmol/L Normal 98-107 [facility] Comment on above: Performed By: #### C MP, LIPID #### [facility] [address] [place] [address] Dr. Irving Hale CO2 [Moles/Vol] 30.0 mmol/L Normal 21.0-32.0 [facility] Comment on above: Performed By: #### C MP, LIPID #### [facility] [address] [place] [address] Dr. Irving Hale Creatinine [Mass/Vol] 1.04 mg/dL Normal 0.70-1.30 [facility] Comment on above: Performed By: #### C MP, LIPID #### [facility] [address] [place] [address] Dr. Irving Hale EGFR-AF ESTONIAN >60 Normal >=60 [facility] Comment on above: Performed By: #### C MP, LIPID #### [facility] [address] [place] [address] Dr. Irving Hale EGFR-NON AF ESTONIAN >60 Normal >=60 [facility] Comment on above: Performed By: #### C MP, LIPID #### [facility] [address] [place] [address] Dr. Irving Hale Globulin (S) [Mass/Vol] 3.9 g/dL Normal [facility] Comment on above: Performed By: #### C MP, LIPID #### [facility] [address] [place] [address] Dr. Irving Hale Glucose [Mass/Vol] 123 mg/dL Critically high 74-106 [facility] Comment on above: Performed By: #### C MP, LIPID #### [facility] [address] [place] [address] Dr. Irving Hale Potassium [Moles/Vol] 4.5 mmol/L Normal 3.5-5.1 [facility] Comment on above: Performed By: #### C MP, LIPID #### [facility] [address] [place] [address] Dr. Irving Hale Protein [Mass/Vol] 7.8 g/dL Normal 6.4-8.2 [facility] Comment on above: Performed By: #### C MP, LIPID #### [facility] [address] [address] [address] Irving Hale Sodium [Moles/Vol] 140 mmol/L Normal 136-145 [facility] Comment on above: Performed By: #### C MP, LIPID #### [facility] [address] [address] [address] Irving Hale Urea nitrogen [Mass/Vol] 23.0 mg/dL Critically high 7.0-18.0 [facility] Comment on above: Performed By: #### C MP, LIPID #### [facility] [address] [place] [address] Dr. Irving Hale Urea nitrogen/Creatinine [Mass ratio] 22.1 mg/mg Normal [facility] Comment on above: Performed By: #### C MP, LIPID #### [facility] [address] [place] [address] Dr. Irving Hale XR LSPINE MIN 4 [...] LUIS ARMANDO ZAYAS Date: 2022-11-11 15:14 Normal [facility] Vital Signs Date Time Vital Sign Value Performing Clinician Mathieu bynum 05-04-2024 08:54-0400 Body height 172.7 cm Nicole Robb NP Work Phone: [facility] 05-04-2024 08:54-0400 Body mass index (BMI) [Ratio] 27.55 kg/m2 Nicole Duboistrick WATER SUPERVISOR Work Phone: [facility] 05-04-2024 08:54-0400 Body temperature 97.5 [degF] Nicole Duboistrick WATER SUPERVISOR Work Phone: [facility] 05-04-2024 08:54-0400 Body weight 82.19 kg Nicole Duboistrick WATER SUPERVISOR Work Phone: [facility] 05-04-2024 08:54-0400 Diastolic blood pressure 68 mm[Hg] Nicole Vidalpatrick WATER SUPERVISOR Work Phone: [facility] 05-04-2024 08:54-0400 Heart rate 67 /min Nicole Vidalpatrick WATER SUPERVISOR Work Phone: [facility] 05-04-2024 08:54-0400 Respiratory rate 16 /min Nicole Duboistrick WATER SUPERVISOR Work Phone: [facility] 05-04-2024 08:54-0400 SaO2% (BldA) [Mass fraction] 94 % Nicole Duboistrick WATER SUPERVISOR Work Phone: [facility] 05-04-2024 08:54-0400 Systolic blood pressure 118 mm[Hg] Nicole Vidalpatrick WATER SUPERVISOR Work Phone: [facility] Healthcare Encounters Encounter Date Encounter Type Care Provider Facility Start: 07-14-2024 End: 07-14-2024 Refill Adilia Butcher MA [facility] Comment on above: Chronic right-sided low back pain with right-sided sciatica Start: 06-14-2024 End: 06-14-2024 Refill Adilia Butcher MA [facility] Comment on above: Type 2 diabetes clemente itus without complication, without long- term current use of insulin ([facility]) Start: 06-14-2024 End: 06-14-2024 Refill Nicole Chavesk WATER SUPERVISOR Work Phone: [facility] Comment on above: Type 2 diabetes clemente itus without complication, without long- term current use of insulin (CMS/HCC) Start: 05-24-2024 End: 05-24-2024 Refill [facility] Comment on above: Type 2 diabetes clemente itus without complication, without long- term current use of insulin (CMS/HCC); Chronic right-sided low back pain with right-sided sciatica Start: 05-04-2024 End: 05-04-2024 Bamboo flowsheet Nicole Robb WATER SUPERVISOR Work Phone: [facility] Start: 05-04-2024 End: 05-04-2024 Bamboo flowsheet Nicole Robb WATER SUPERVISOR Work Phone: [facility] Start: 05-04-2024 End: 05-04-2024 Office outpatient visit 15 minutes Nicole Robb WATER SUPERVISOR Work Phone: [facility] Comment on above: Type 2 diabetes clemente itus without complication, with long-term current use of insulin ([facility]) (Primary Dx); Other hyperlipidemia ([facility]); Pigmented skin lesion of uncertain behavior of head Start: 05-04-2024 End: 05-04-2024 ambulatory NICOLE ROBB Not Available Start: 04-09-2024 End: 04-12-2024 Refill Nicole Robb WATER SUPERVISOR Work Phone: [facility] Comment on above: Chronic right-sided low back pain with right-sided sciatica Start: 01-26-2024 End: 01-26-2024 ambulatory SANTANA FAWWAD Not Available Start: 10-23-2023 End: 10-23-2023 ambulatory SANTANA FAWWAD Not Available Start: 07-23-2023 Patient encounter procedure Kaylie Robb WATER SUPERVISOR Work Phone: [facility] Start: 07-23-2023 End: 07-23-2023 ambulatory SANTANA FAWWAD Not Available Start: 03-06-2023 ambulatory TONIO PAUL . Facili ty:[facility] Start: 12-06-2022 End: 12-07-2022 ambulatory SHAIKH Андрей BO Facility:[facility] Start: 11-19-2022 End: 11-20-2022 ambulatory BEN ZUNIGA Facility:[facility] Start: 11-11-2022 End: 11-12-2022 ambulatory LYNNE MARTINI . Facility:[facility] Start: 11-05-2022 End: 11-06-2022 ambulatory VICTORIANOENDLUCIEN LANIERPATHY . Facility:[facility] Procedures Date Procedure Procedure Detail Performing Clinician Start: 08-04-2022 Colonoscopy Nicole coronado NP Work Phone: Plan of Treatment Date Care Activity Detail Author Start: 08-04-2032 Screening for malign ant neoplasm of colon [facility] Start: 08-25-2026 Screening for malign ant neoplasm of colon FIT-DNA [facility] Start: 08-25-2024 Hemoglobin A1c measurement Diabetes: Hemoglobin A1C [facility] Start: 08-14-2024 Urine screening for protein Diabetes: Urine Protein Screening [facility] Start: 08-10-2024 End: 08-10-2024 Patient encounter procedure 08/10/2024 9:30 AM EST Office Visit [facility] [address] [place] [address] Nicole Robb, BASILIO [address] [place] [address] [facility] Start: 08-04-2024 End: 05-04-2025 CBC W Auto Differential panel - Blood CBC and differential Lab Routine Type 2 diabetes mellitus without complication, with long-term current use of insulin ([facility]/HCC) Expected: 08/04/2024 (Approximate), Expires: 05/04/2025 [facility] Comment on above: Expected: 08/04/2024 (Approximate), Expires: 05/04/2025 Start: 08-04-2024 End: 05-04-2025 Comprehensive metabolic 2000 panel - Serum or Plasma Comprehensive metabolic panel Lab Routine Type 2 diabetes mellitus without complication, with long-term current use of insulin (CMS/HCC) Expected: 08/04/2024 (Approximate), Expires: 05/04/2025 [facility] Comment on above: Expected: 08/04/2024 (Approximate), Expires: 05/04/2025 Start: 08-04-2024 End: 05-04-2025 Hemoglobin A1c/Hemoglobin.total in Blood Hemoglobin A1c Lab Routine Type 2 diabetes mellitus without complication, with long-term current use of insulin ([facility]) Expected: 08/04/2024 (Approximate), Expires: 05/04/2025 [facility] Work Phone: Comment on above: Expected: 08/04/2024 (Approximate), Expires: 05/04/2025 Start: 07-23-2024 Medicare Annual Well ness (AWV) Medicare Annual Wellness (AWV) [facility] Start: 05-04-2024 End: 05-04-2024 Patient encounter procedure [facility] Comment on above: Arrived Start: 04-04-2024 Influenza vaccination Influenza Vacc ine (#1) [facility] Start: 1975 Glaucoma screening Diabetes: R etinopathy Screening [facility] Start: 1965 Screening for malign ant neoplasm of colon [facility] Payers Date Payer Category Payer Medicare (Managed Care) [employer] [id number] 2022 Unknown [id number] 2022-Present [address] [place] [address] [id number] 2020 Unknown [id number] 1965 Unknown [id number] .2.593 1965 Unknown [id number] [id number] .2.593 1965 Unknown [id number] 2.16.840.1.881963.3.579 .2.593 1965 Unknown [id number] 2.16.840.1.352187.3.579 .2.593 1965 Unknown [id number] 2.16.840.1.953755.3.579 .2.593 1965 Unknown [id number] 2.16.840.1.710577.3.579 .2.593 1965 Unknown [id number] 2.16.840.1.180895.3.579 .2.593 1965 Unknown [id number] 2.16.840.1.381070.3.579 .2.1259 1965 Unknown [id number] 2.16.840.1.165541.3.579 .2.1259 1965 Unknown [id number] [id number] .2.1259 1965 Unknown [id number] [id number] .2.1259 Social History Date Type Detail Facility Start: 07-23-2023 Tobacco smoking status [facility] Never smoked tobacco [facility] Start: 07-23-2023 Tobacco use and exposure Smokeless tobacco non-user [facility] Start: 01-26-2024 End: 05-04-2024 Alcoholic beverage intake Ex-drinker (finding) [facility] Start: 01-26-2024 End: 05-04-2024 History of Social function [facility] Start: 01-26-2024 End: 05-04-2024 Tobacco use panel [facility] Start: 07-23-2023 Alcohol Comment [facility]ASSIONALLY [facility] Start: 1965 Sex assigned at Not on file [facility] NEGATED: Highlighted rowStart: NINF History of tobacco use Passive smoker [facility] Medical Equipment Procedure Code Equipment Code Equipment Origin al Text Equipment Identifier Dates Inject 1 each un liza the skin Daily [id number] Start: 01-26-2024 End: 07-24-2024 Clinical Notes 11-05-2022 to 07-14-2024 Telephone Encounter - Adilia Butcher MA - 07/14/2024 11:31 AM ESTTelephone Encounter - Adilia Butcher MA - 07/14/2024 11:31 AM ESTTelephone Encounter - Adilia Butcher MA - 06/14/2024 7:51 AM EST Note Date & Type Note Facility 07-14-2024 Telephone encount er Note CLAU:05/04/2024 NOV:08/10/2024 [facility] 07-14-2024 Miscellaneous Notes Formattin g of this note might be different from the original. CLAU:05/04/2024 NOV:08/10/2024 documented in this encounter [facility] 06-14-2024 Telephone encount er Note CLAU:05/04/2024 NOV:08/10/2024 [facility] 06-14-2024 Miscellaneous Notes Formattin g of this note might be different from the original. CLAU:05/04/2024 NOV:08/10/2024 documented in this encounter [facility] 05-04-2024 History of Presen t illness Narrative Associated Problem(s): Other hyperlipidemia (CMS/HCC) Currently taking Atorvastatin 80mg Most recent Lipid Panel done 02/2024- WNL Denies any myalgias. Continue current regimen. Associated Problem(s): Type 2 diabetes mellitus without complication, with long-term current use of insulin ([facility]) Most recent labs: hemoglobin A1C 6.6% Average [...] ALBUMIN GLOBULIN RATIO 1.1 1.0 Resulting Agency [facility] Review of Systems Constitutional: Negative for activity [...] List Items Addressed This Visit Other hyperlipidemia (CMS/HCC) Currently taking Atorvastatin 80mg Most recent Lipid Panel done 02/2024- WNL Denies any myalgias. Continue current regimen. Type 2 diabetes mellitus without complication, with long-term current use of insulin (CMS/[facility]) - Primary Most recent labs: hemoglobin A1C [...] referral to Dermatology documented in this encounter [facility] 05-04-2024 Instructions Nicole Robb NP - 05/04/2024 [...] will call you! documented in this encounter [facility] 11-05-2022 Note CONSULTATION CONSULTATION DATE: 11/05/2022 TO: Dr. Bo CHIEF COMPLAINT: Includes bilateral lower back pain, worse on the right side. HISTORY OF PRESENT ILLNESS: Review of systems, past medical/surgical history were obtained and documented on the health questionnaire and is available upon request. Patient is a poor historian. He reports being followed by a physician some place in [place]. He is unsure of the physician's name, [...] will await information regarding his physician in [place] and he is scheduled to return to our office in four weeks' time. As part of providing excellent, safe, comprehensive care, the following was completed at our patient's visit: 1. A medication reconciliation and review to ensure accurate knowledge of current/active medications, including asking our patients to inform us about any [id number] medications or herbal remedies/nutritional supplements/alternative remedies. 2. [...] options with their primary care provider. [facility] [place] Evaluation note Diagnosis Type 2 diabetes mellitus without complication, with long-term current use of insulin (CMS/HCC)- Primary Other hyperlipidemia (CMS/HCC) Pigmented skin lesion of uncertain behavior of head [facility] Diagnosis Encounter for screening for malignant neoplasm of colon- Primary Primary hypertension (CMS/HCC) Unspecified essential hypertension Chronic right-sided low back pain with right-sided sciatica Other hyperlipidemia (CMS/HCC) Type 2 diabetes mellitus without complication, without long-term current use of insulin (CMS/HCC) Type 2 diabetes mellitus without complication, without long-term current use of insulin (CMS/HCC)- Primary Other hyperlipidemia (CMS/HCC) Chronic right-sided low back pain with right-sided sciatica Type 2 diabetes mellitus without complication, with long-term current use of insulin (CMS/HCC)- Primary Other hyperlipidemia (CMS/HCC) Type 2 diabetes mellitus without complication, without long-term current use of insulin (CMS/HCC) Gastroesophageal reflux disease without esophagitis Esophageal reflux Type 2 diabetes mellitus without complication, with long-term current use of insulin (CMS/HCC)- Primary Other hyperlipidemia (CMS/HCC) Pigmented skin lesion of uncertain behavior of head Type 2 diabetes mellitus without complication, without long-term current use of insulin (CMS/HCC) Chronic right-sided low back pain with right-sided sciatica documented in this encounter [facility]* Diagnosis Encounter for screening for malignant neoplasm of colon- Primary Primary hypertension (CMS/HCC) Unspecified essential hypertension Chronic right-sided low back pain with right-sided sciatica Other hyperlipidemia (CMS/HCC) Type 2 diabetes mellitus without complication, without long-term current use of insulin (CMS/HCC) Type 2 diabetes mellitus without complication, without long-term current use of insulin (CMS/HCC)- Primary Other hyperlipidemia (CMS/HCC) Chronic right-sided low back pain with right-sided sciatica Type 2 diabetes mellitus without complication, with long-term current use of insulin (CMS/HCC)- Primary Other hyperlipidemia (CMS/HCC) Type 2 diabetes mellitus without complication, without long-term current use of insulin (CMS/HCC) Gastroesophageal reflux disease without esophagitis Esophageal reflux Type 2 diabetes mellitus without complication, with long-term current use of insulin (CMS/HCC)- Primary Other hyperlipidemia (CMS/HCC) Pigmented skin lesion of uncertain behavior of head Type 2 diabetes mellitus without complication, without long-term current use of insulin (CMS/HCC) documented in this encounter [facility]* Diagnosis Encounter for screening for malignant neoplasm of colon- Primary Primary hypertension (CMS/HCC) Unspecified essential hypertension Chronic right-sided low back pain with right-sided sciatica Other hyperlipidemia (CMS/HCC) Type 2 diabetes mellitus without complication, without long-term current use of insulin (CMS/HCC) Type 2 diabetes mellitus without complication, without long-term current use of insulin (CMS/HCC)- Primary Other hyperlipidemia (CMS/HCC) Chronic right-sided low back pain with right-sided sciatica Type 2 diabetes mellitus without complication, with long-term current use of insulin (CMS/HCC)- Primary Other hyperlipidemia (CMS/HCC) Type 2 diabetes mellitus without complication, without long-term current use of insulin (CMS/HCC) Gastroesophageal reflux disease without esophagitis Esophageal reflux Type 2 diabetes mellitus without complication, with long-term current use of insulin (CMS/HCC)- Primary Other hyperlipidemia (CMS/HCC) Pigmented skin lesion of uncertain behavior of head Type 2 diabetes mellitus without complication, without long-term current use of insulin (CMS/HCC) documented in this encounter [facility]* Diagnosis Encounter for screening for malignant neoplasm of colon- Primary Primary hypertension (CMS/HCC) Unspecified essential hypertension Chronic right-sided low back pain with right-sided sciatica Other hyperlipidemia (CMS/HCC) Type 2 diabetes mellitus without complication, without long-term current use of insulin (CMS/HCC) Type 2 diabetes mellitus without complication, without long-term current use of insulin (CMS/HCC)- Primary Other hyperlipidemia (CMS/HCC) Chronic right-sided low back pain with right-sided sciatica Type 2 diabetes mellitus without complication, with long-term current use of insulin (CMS/HCC)- Primary Other hyperlipidemia (CMS/HCC) Type 2 diabetes mellitus without complication, without long-term current use of insulin (CMS/HCC) Gastroesophageal reflux disease without esophagitis Esophageal reflux Type 2 diabetes mellitus without complication, with long-term current use of insulin (CMS/HCC)- Primary Other hyperlipidemia (CMS/HCC) Pigmented skin lesion of uncertain behavior of head Chronic right-sided low back pain with right-sided sciatica documented in this encounter [facility]* Diagnosis Chronic right-sided low back pain with right-sided sciatica documented in this encounter [facility] HealthcareReason for referral (narrative)* Consultation (Routine) - Pending Review Specialty Diagnoses / Procedures Referred By Stuart zamora Referred To Contact Dermatology Diagnoses Pigmented skin lesion of uncertain behavior of head Procedures AL OFFICE/OUTPATIENT [facility] 60 MINUTES Nicole Robb, BASILIO [address] [place] [address] Opal Zhong, AFFILIATE MARKETING SPECIALIST-FURNACE COOLER [address] [place] [address] Referral ID Status Reason Start Date Expiration Date Visits Requested Visits Authorized [id number] Pending Review Specialty Services Required 05/04/2024 10/31/2024 1 1 * Consultation (Routine) - Authorized Specialty Diagnoses / Procedures Referred By Stuart zamora Referred To Contact Ophthalmology Diagnoses Type 2 diabetes mellitus without complication, with long-term current use of insulin ([facility]) Procedures AL OFFICE/OUTPATIENT NEW HIGH MDM 60 MINUTES Nicole Robb NP [address] [place] [address] Maggie Shukla MD [address] [place] [address] Referral ID Status Reason Start Date Expiration Date Visits Requested Visits Authorized [id number] Authorized Specialty Services Required 05/04/2024 10/31/2024 1 1 [facility] Summary Purpose Family History No Family History Records FoundNo Family History Records Found Advance Directives No Advanced Directives Records FoundNo Advanced Directives Records Found Additional Source Comments (unrecognized sect ion and content) No Status Records FoundNo Status Records Found INFORMATION SOURCE (unrecogn ized section and content) DATE CREATED AUTHOR 12/13/2022 [facility] DATE CREATED AUTHOR AUTHOR'S ORGANIZ ATION 05/05/2024 [facility] d[facility] Special[facility] EPIC Care Teams (unrecognized sec tion and content) Acid Tank Cleaner Relationship Specialty Start Date End Date Shaikh Bo MD [address] [place] [address] PCP - Devoted 08/04/22 Buddy Harvey MD [address] [place] [address] PCP - General Family Medicine 03/16/24 Nicole Robb NP [address] [place] [address] Nurse Practitioner Family Medicine 03/16/24 Acid Tank Cleaner Relationship Specialty Start Date End Date Shaikh Bo MD [address] [place] [address] PCP - Devoted 08/04/22 Buddy Harvey MD [address] [place] [address] PCP - General Family Medicine 03/16/24 Nicole Robb NP [address] [place] [address] Nurse Practitioner Family Medicine 03/16/24 Acid Tank Cleaner Relationship Specialty Start Date End Date Shaikh Bo MD [address] [place] [address] PCP - Devoted 08/04/22 Buddy Harvey MD [address] [place] [address] PCP - General Family Medicine 03/16/24 Nicole Robb NP [address] [place] [address] Nurse Practitioner Family Medicine 03/16/24 Acid Tank Cleaner Relationship Specialty Start Date End Date Shaikh Bo MD [address] [place] [address] PCP - Devoted 08/04/22 08/03/24 Buddy Harvey MD [address] [place] [address] PCP - General Family Medicine 03/16/24 Nicole Robb NP [address] [place] [address] Nurse Practitioner Family Medicine 03/16/24 Acid Tank Cleaner Relationship Specialty Start Date End Date Shaikh Bo MD [address] [place] [address] PCP - Devoted 08/04/22 08/03/24 Buddy Harvey MD [address] [place] [address] PCP - General Family Medicine 03/16/24 Nicole Robb NP [address] [place] [address] Nurse Practitioner Family Medicine 03/16/24 Acid Tank Cleaner Relationship Specialty Start Date End Date Shaikh Bo MD [address] [place] [address] PCP - Devoted 08/04/22 Buddy Harvey MD [address] [place] [address] PCP - General Family Medicine 03/16/24 Nicole Robb NP [address] [place] [address] Nurse Practitioner Family Medicine 03/16/24 Reason for Visit (unrecogniz ed section and content) Reason Comments Follow-up Back Pain Reason Onset Date Comments Med Refill 05/24/2024 Reason Onset Date Comments Med Refill 06/14/2024 Reason Comments Med Change Request Reason Onset Date Comments Med Refill 07/14/2024 Reason Onset Date Comments Med Refill 04/09/2024 FOR RECORDS PERTAINING TO PATIENTS WHO ARE [...] BE BASED ON THE PRIMARY CLINICAL RECORDS. [facility] [employer] provides no warranty or guarantee of the accuracy or completeness of information in this document.
[2024-08-02 10:30] LABS: Basophils Absolute Auto 0.1 10^3/uL (0.0-0.1); Basophils Percent Auto 0.7 % (0.2-2.0); Eosinophils Absolute Auto 0.2 10^3/uL (0.0-0.7); Eosinophils Percent Auto 2.8 % (0.9-7.0); Hemoglobin 13.7 g/dL (14.0-18.0); Immature Granulocytes Abs Auto 0.02 10^3/uL (0.00-0.03); Immature Granulocytes Pct Auto 0.3 % (0.0-0.5); Lymphocytes Absolute Auto 2.6 10^3/uL (1.2-3.8); Lymphocytes Percent Auto 34.4 % (20.5-60.0); Mean Corpuscular HGB Conc 33.4 g/dL (29.9-35.2); Mean Corpuscular Hemoglobin 28.4 pg (25.9-34.0); Mean Corpuscular Volume 85.1 fL (80.0-94.0); Mean Platelet Volume 9.2 fL (9.5-13.5); Monocytes Absolute Auto 0.6 10^3/uL (0.3-0.8); Monocytes Percent Auto 7.9 % (1.7-12.0); Neutrophils Absolute Auto 4.1 10^3/uL (1.4-6.5); Neutrophils Percent Auto 53.9 % (43.0-75.0); Platelet Count 306 10^3/uL (150-450); Red Blood Count 4.82 10^6/uL (4.70-6.10); White Blood Count 7.6 10^3/uL (4.0-11.0)
[2024-08-02 11:05] LABS: Estimated Average Glucose 137 mg/dL; Glycohemoglobin A1C 6.4 % (4.5-6.2)
[2024-08-02 11:06] LABS: Alanine Aminotransferase 43 U/L (16-63); Albumin Globulin Ratio 1.1; Albumin Level 3.8 g/dL (3.4-5.0); Alkaline Phosphatase 92 U/L (46-116); Anion Gap 11.9; Aspartate Amino Transferase 21 U/L (15-37); BUN Creatinine Ratio 16.5; Bilirubin Total 0.4 mg/dL (0.2-1.0); Calcium 9.9 mg/dL (8.5-10.1); Carbon Dioxide 29.2 mmol/L (21.0-32.0); Chloride 103 mmol/L (98-107); Estimated GFR (African America >60 (>=60 mL/min/1.73m^2); Estimated GFR (Non-African Ame >60 (>=60 mL/min/1.73m^2); Globulin 3.5 g/dL; Glucose 119 mg/dL (74-106); Potassium 4.1 mmol/L (3.5-5.1); Sodium 140 mmol/L (136-145); Total Protein 7.3 g/dL (6.4-8.2)
== END 2024-08-02 09:55 | disposition home or self-care (01) ==
LOC: LAB 09:56
DX: E11.9 Type 2 diabetes mellitus without complications (principal); Z79.4 Long term (current) use of insulin
CPT/HCPCS: 36415; 80053; 83036; 85025

== ENCOUNTER 2024-08-12 09:45 | Outpatient (OUT) | payer MEDICARE, MEDICAID, SELFPAY ==
--- NOTE | 2024-08-12 10:12 | P.CN_ITS ---
Consult Note: HPI Data of Consult Patient: known to practice within the last 3 years Requesting Physician: Aida Montero NP Primary Care Provider: KELLY GODOY Consult Narrative Reason for consult: f/u Narrative: Boby Lovelace a pleasant 58 year old male presents for evaluation and management of low back pain. Today rating pain 3/10 stabbing/ache without radiculopathy, increasing to moderate to severe spontaneously. hx of lumbar fusion at l4-5 Unfortunately patient continues to have low back pain unresponsive to conservative medications and PT/HEP. Patient SANJU today 54%. Patient does find significant improvement in low back pain with percocet 5-325mg TID PRN, as well as gabapentin 600mg TID, patient denies side effects. Utilizes baclofen 10mg TID PRN with benefit. Patient reports pain is well controlled with current medication regimen cc:: CC: Aida Montero NP Review of Systems ROS Status of ROS 10 or more systems reviewed and unremark able except as noted in history and below Musculoskeletal Reports: back pain Meds Home Medications and Allergies Home Medications ?Medication ?Instructions ?Recorded ?Confirmed ?Type atorvastatin 80 mg tablet 80 mg PO DAILY 06/11/23 06/11/23 History baclofen 10 mg tablet 10 mg PO TID 06/11/23 06/11/23 History dulaglutide 4.5 mg/0.5 mL 4.5 mg subcut QWEEK 06/11/23 06/11/23 History subcutaneous pen injector (Trulicity) ezetimibe 10 mg tablet 10 mg PO DAILY 06/11/23 06/11/23 History gabapentin 600 mg tablet 600 mg PO TID 06/11/23 06/11/23 History ibuprofen 800 mg tablet 800 mg PO TID 06/11/23 06/11/23 History insulin degludec 200 unit/mL (3 200 unit subcut DAILY 06/11/23 06/11/23 History mL) subcutaneous pen (Tresiba FlexTouch U-200 insulin) oxycodone-acetaminophen 5 mg-325 1 tab PO TID PRN pain #90 tabs 03/08/24 Rx mg tablet (Percocet) oxycodone-acetaminophen 5 mg-325 See Rx Instructions .Route 04/06/24 Rx mg tablet (Percocet) .COMPLEX PRN pain #80 tabs oxycodone-acetaminophen 5 mg-325 1 tab PO TID PRN pain #80 tabs 05/06/24 Rx mg tablet (Percocet) oxycodone-acetaminophen 5 mg-325 See Rx Instructions .Route 06/08/24 Rx mg tablet (Percocet) .COMPLEX PRN pain #80 tabs oxycodone-acetaminophen 5 mg-325 1 tab PO TID PRN pain #80 tabs 06/09/24 Rx mg tablet (Percocet) oxycodone-acetaminophen 5 mg-325 1 tab PO TID PRN pain #80 tabs 07/07/24 Rx mg tablet (Percocet) oxycodone-acetaminophen 5 mg-325 1 tab PO TID PRN pain #80 tabs 08/05/24 Rx mg tablet (Percocet) Allergies Allergy/AdvReac Type Severity Reaction Status Date / Time No Known Drug Allergies Allergy Verified 06/11/23 10:58 Exam Constitutional Documenting provider has reviewed patient's vital signs: yes Common normals: no apparent distress, oriented x3, healthy appearing, alert and well nourished General appearance: cooperative Orientation/consciousness: Yes awake, Yes oriented to person, Yes oriented to place and Yes oriented to time HENMT Common normals: normocephalic, hearing grossly normal bilaterally and moist oral mucous membranes Head and scalp: normocephalic Eye Common normals: PERRL Pupil: PERRL Neck & C-Spine Common normals: full ROM General: normal visual inspection Chest Common normals: inspection of chest normal Respiratory Common normals: normal respiratory effort, no retractions and no use of accessory muscles Effort & inspection: able to speak in complete sentences and symmetric chest movement Back & Pelvis Lumbar spine/lower back: normal to inspection, ROM limited, pain with ROM, paraspinal muscle tenderness and paraspinal muscle spasm Other: positive facet load pain right muscle strength 5/5 bilat LE with intact sensation Extremity Common normals: normal to inspection, full ROM, normal capillary refill and no pedal edema Neuro Common normals: oriented x3, CN's II-XII intact bilaterally, moves all extremities, no focal motor deficits, no sensory deficits noted and deep tendon reflexes 2+ bilaterally Sensorium/orientation: alert Motor exam: strength 5/5 throughout and no movement abnormalities noted Psych Common normals: mental status grossly normal, thought process normal, cooperative, affect normal, speech normal and activity/motor behavior normal Speech: normal speech Thought process: normal thought process Results Additional Findings Additional findings: If on a controlled substance or opioids, I have checked an [place] report on this patient and there are no aberrancies noted in the prescribing history.??If on a controlled substance or opioid a drug screen was completed and reviewed within the last year, and if there has not been a drug screen completed we ordered one today to monitor higher risk, state monitored pain medication use. As part of providing excellent, safe, comprehensive care, the following was completed at our patient's visit: 1. A medication reconciliation and review to ensure accurate knowledge of current/active medications, including asking our patients to inform us about any [id number]-lfm-[id number] medications or herbal remedies/nutritional supplements/alternative remedies. 2. A review to specifically ensure our patients have had annual screening for screening for depression, screening for tobacco use, and screening for unhealthy alcohol use. For concerning screenings had a discussion with the patient, provid ed patient education, and recommended follow-up with primary care provider when appropriate. If patient noted with a risk of falling, they received education on strength, gait, and balance training to prevent future risk of falling. Assessment and Plan Assessment and Plan (1) Lumbar spondylosis: (2) Muscle spasm: (3) Chronic prescription opiate use: Assessment and Plan: I feel these medications are improving the patient's quality of life and allow them to tolerate activities of daily living as well as participate in recreational activity.? The patient does not report intolerable side effects. The patient is NOT opioid naive and non-pharmacologic and non-opioid treatment has failed to significantly relieve the patient's pain and improve functionality. The patient has a diagnosis that is related to a somatic or visceral pain etiology. ? ?? I reviewed with the patient the potential risks and side effects with the use of? opioid medications including but not limited to respiratory depression,? sedation, and even . I verified the patient has access to naloxone should? these effects occur. I advised the patient to avoid the use of any other? sedation substances including alcohol, THC, and benzodiazepines while? taking opioid medications due to the risk of compounding side effects and? detrimental outcomes. I reviewed the [employer], pain treatment agreement, urine? drug screen, and opioid start talking forms. The patient was advised to let? their family know they had Naloxone in case they would need to administer? the medication.? ?? A drug screen was completed within the last year, and no aberrancies were noted regarding their use of controlled substances. The patient understands they are subject to the terms and conditions of the pain contract that they have signed. ? ?? I have checked an [place] report on this patient today and there are no aberrancies noted in the prescribing history.? Plan decrease percocet 5/325 to BID-TID PRN moderate to severe pain 75 tablets per month continue gabapentin 600mg TID continue baclofen 10mg TID PRN pain/spasms narcan discussed and prescribed, [employer] reviewed and signed, UDS today educated on facet blocks and RFA at previous visits, declining at this time as pain is well controlled with medication regimen f/u 3 months, sooner if needed
== END 2024-08-12 09:46 | disposition home or self-care (01) ==
PROVIDERS: Visit Provider Nurse Practitioner
DX: M47.816 Spondylosis without myelopathy or radiculopathy, lumbar region (principal); M62.838 Other muscle spasm; Z79.891 Long term (current) use of opiate analgesic
CPT/HCPCS: G0463

== ENCOUNTER 2024-11-11 09:23 | Outpatient (OUT) | payer MEDICARE, MEDICAID, SELFPAY ==
--- OUTSIDE RECORDS SUMMARY | 2024-11-11 09:46 | XMS_ITS | CCD ---
Author Organization [facility] Care Team Providers Care Powder Line Repairer Name Role Phone LAKSHMIPATHY ., NARENDRANATH Admitting [...] Unavailable Buddy Harvey MD Primary Care Provider [phone] Cezar ROLL SLICING MACHINE TENDER, Nicole Unavailable [phone] Shaikh Bo MD Unavailable Cezar ROLL SLICING MACHINE TENDER, Nicole Unavailable [phone] SHAIKH BO Attending Unavailable NICOLE ROBB Attending NICOLE Hidalgo Attending DO Perez Attending Unavailable Allergies Allergy Classification Reported Allergen(s) Allergy Type Date of Onset Reaction(s) Facility (16 sources) Penicillins Propensity to adverse reactions 3 Rash [facility] Medications Current Medications Medication Drug Class(es) Dates Sig (Normalized) Sig (Original) acetaminophen 325 mg / oxyCODONE hydrochloride 5 mg oral tablet (16 sources) Opioid Agonist take 1 tablet by mouth every eight hours as needed for pain oxyCODONE-acetaminop hen (Percocet) 5-325 MG tablet Take 1 tablet by mouth every 8 (eight) hours if needed for severe pain Active atorvastatin 80 mg oral tablet (18 sources) HMG-CoA Reductase Inhibitor Start: 01-26-2024 End: 02-07-2025 take 1 tablet by mouth at bedtime atorvastatin (Lipitor) 80 MG tablet Indications: Other hyperlipidemia Take 1 tablet (80 mg) by mouth at bedtime 90 tablet 1 11/09/2024 02/07/2025 Active baclofen 10 mg oral tablet (3 sources) gamma-Aminobutyr ic Acid-ergic Agonist Start: 08-12-2024 take 1 tablet by mouth in the morning, then take 1 tablet by mouth in the evening, then take 1 tablet by mouth at bedtime baclofen (Lioresal) 10 MG tablet Take 10 mg by mouth in the morning and 10 mg in the evening and 10 mg before bedtime. 08/12/2024 Active Dulaglutide (Trulicity) 4.5 MG/0.5ML solution auto-injector (19 sources) Start: 11-09-2024 End: 11-09-2024 inject 4.5 mg by subcutaneous injection every week Dulaglutide (Trulicity) 4.5 MG/0.5ML solution auto-injector Indications: Type 2 diabetes mellitus without complication, without long-term current use of insulin Inject 4.5 mg under the skin 1 (one) time per week 6 mL 1 11/09/2024 11/09/2024 Discontinued (Reorder) Start: 11-09-2024 End: 02-01-2025 inject 4.5 mg by subcutaneous injection every week Dulaglutide (Trulicity) 4.5 MG/0.5ML solution auto-injector Indications: Type 2 diabetes mellitus without complication, with long-term current use of insulin Inject 4.5 mg under the skin 1 (one) time per week 6 mL 1 11/09/2024 02/01/2025 Active Start: 08-10-2024 End: 11-09-2024 inject 4.5 mg by subcutaneous injection every week Dulaglutide (Trulicity) 4.5 MG/0.5ML solution auto-injector Indications: Type 2 diabetes mellitus without complication, without long-term current use of insulin Inject 4.5 mg under the skin 1 (one) time per week 6 mL 1 08/10/2024 11/09/2024 Discontinued (Reorder) Start: 08-10-2024 End: 01-25-2025 inject 4.5 mg by subcutaneous injection every week Dulaglutide (Trulicity) 4.5 MG/0.5ML solution auto-injector Indications: Type 2 diabetes mellitus without complication, without long-term current use of insulin Inject 4.5 mg under the skin 1 (one) time per week 6 mL 1 08/10/2024 01/25/2025 Active Start: 08-10-2024 End: 01-25-2025 inject 4.5 mg by subcutaneous injection every week Dulaglutide (Trulicity) 4.5 MG/0.5ML solution auto-injector Indications: Type 2 diabetes mellitus without complication, without long-term current use of insulin (CMS/HCC) Inject 4.5 mg under the skin 1 (one) time per week 6 mL 1 08/10/2024 01/25/2025 Active Start: 08-09-2024 End: 08-10-2024 inject 4.5 mg by subcutaneous injection every week Dulaglutide (Trulicity) 4.5 MG/0.5ML solution auto-injector Indications: Type 2 diabetes mellitus without complication, without long-term current use of insulin (CMS/HCC) Inject 4.5 mg under the skin 1 (one) time per week 6 mL 1 08/09/2024 08/10/2024 Discontinued (Reorder) Start: 08-09-2024 End: 01-24-2025 inject 4.5 mg by subcutaneous injection every week Dulaglutide (Trulicity) 4.5 MG/0.5ML solution auto-injector Indications: Type 2 diabetes mellitus without complication, without long-term current use of insulin (CMS/HCC) Inject 4.5 mg under the skin 1 (one) time per week 6 mL 1 08/09/2024 01/24/2025 Active Start: 05-24-2024 End: 08-06-2024 inject 4.5 mg by subcutaneous injection every week Dulaglutide (Trulicity) 4.5 MG/0.5ML solution auto-injector Indications: Type 2 diabetes mellitus without complication, without long-term current use of insulin (CMS/HCC) Inject 4.5 mg under the skin 1 (one) time per week 6 mL 1 05/24/2024 08/06/2024 Discontinued (Reorder) Start: 05-24-2024 End: 11-08-2024 inject 4.5 mg by subcutaneous injection every week Dulaglutide (Trulicity) 4.5 MG/0.5ML solution auto-injector Indications: Type 2 diabetes mellitus without complication, without long-term current use of insulin (CMS/HCC) Inject 4.5 mg under the skin 1 (one) time per week 6 mL 1 05/24/2024 11/08/2024 Active esomeprazole 20 mg delayed release oral capsule (18 sources) Proton Pump Inhibitor Start: 01-26-2024 End: 02-07-2025 take 1 capsule by mouth before mealtime esomeprazole (NexIUM) [address] capsule Indications: Gastroesophageal reflux disease without esophagitis Take 1 capsule (20 mg) by mouth in the morning. Take before meals. 90 capsule 1 11/09/2024 02/07/2025 Active ezetimibe 10 mg oral tablet (18 sources) Dietary Cholesterol Absorption Inhibitor Start: 01-26-2024 End: 05-08-2025 take 1 tablet by mouth once daily ezetimibe (Zetia) 10 MG tablet Indications: Other hyperlipidemia Take 1 tablet (10 mg) by mouth Daily 90 tablet 1 11/09/2024 05/08/2025 Active ibuprofen 600 mg oral tablet (20 sources) Nonsteroidal Anti-inflammatory Drug Start: 04-12-2024 End: 02-07-2025 take 1 tablet by mouth every eight hours for pain ibuprofen 600 MG tablet Indications: Chronic right-sided low back pain with right-sided sciatica Take 1 tablet (600 mg) by mouth every 8 (eight) hours if needed for mild pain Take with food 270 tablet 1 11/09/2024 02/07/2025 Active Start: 02-03-2024 End: 04-09-2024 take 1 tablet [...] ml insulin degludec 200 unt/ml pen injector (18 sources) Insulin Analog Start: 10-23-2023 End: 12-11-2024 inject 36 [IU] by subcutaneous injection at bedtime Tresiba FlexTouch 200 UNIT/ML injection Indications: Type 2 diabetes mellitus without complication, without long-term current use of insulin INJECT 36 UNITS SUBCUTANEOUSLY (UNDER THE SKIN) AT BEDTIME 18 mL 1 06/14/2024 Active polyethylene glycol 3350 89089 mg powder for oral solution (2 sources) Osmotic Laxative Start: 08-10-2024 End: 08-20-2024 take 17 g by mouth once daily polyethylene glycol, PEG, 3350 (Miralax) 17 g packet Indications: Drug-induced constipation Take 17 g by mouth Daily for 10 days 10 each 08/10/2024 08/20/2024 Active Completed/Discontinued Medications Medication Drug Class(es) Dates [...] Classification Problem Date Documented Da te Episodic/Chronic Deficiency and other anemia (5 sources) Nutritional anemia; Translations: [Nutritional anemia, unspecified] Onset: 5 11-09-2024 Episodic Diabetes mellitus without complication (20 sources) Type 2 diabetes mellitus without complications; Translations: [Type 2 diabetes mellitus without complication] Onset: 3 Chronic Disorders of lipid metabolism (20 sources) Hyperlipidemia, unspecified; Translations: [Hyperlipidemia] Onset: 3 Resolved: 5 07-23-2023 Chronic Esophageal disorders (2 sources) Gastroesophageal reflux disease without esophagitis; Translations: [Gastro-esophageal reflux disease without esophagitis] 11-09-2024 Chronic Other gastrointestinal disorders (2 sources) Drug-induced constipation; Translations: [Drug induced constipation] 08-10-2024 Episodic Other gastrointestinal disorders (7 sources) Constipation; Translations: [Constipation, unspecified] Onset: 5 08-10-2024 Episodic Other nervous system disorders (1 source) Other chronic pain; Translations: [OTHER CHRONIC PAIN] Onset: 3 Chronic Other nervous system disorders (20 sources) Chronic pain syndrome; Translations: [Chronic pain syndrome] Onset: 4 10-23-2023 Chronic Other nutritional; endocrine; and metabolic disorders (5 sources) Hypercalcemia; Translations: [Hypercalcemia] Onset: 5 11-09-2024 Chronic Other screening for suspected conditions (not mental disorders or infectious disease) (20 sources) Other specified abnormal findings of blood chemistry; Translations: [Patient encounter status] Onset: 3 Episodic Other skin disorders (2 sources) Disorder of pigmentation, unspecified; Translations: [Dyschromia, unspecified] 05-04-2024 Episodic Spondylosis; intervertebral disc disorders; other back problems (20 sources) Spondylosis without myelopathy or radiculopathy, lumbar region; Translations: [Postlaminectomy syndrome, not elsewhere classified] Onset: 3 Chronic Spondylosis; intervertebral disc disorders; other back problems (20 sources) Chronic low back pain; Translations: [Lumbago with sciatica, right side] Onset: 3 07-23-2023 Episodic Unclassified (2 sources) LOW BACK PAIN, UNSPECIFIED; Translations: [LOW BACK PAIN, UNSPECIFIED] Onset: 3 Past or Other Problems Problem Classification Problem Date Documented Da te Episodic/Chronic Essential hypertension (20 sources) Essential hypertension; Translations: [Essential (primary) hypertension] Onset: 07-23-2023 Resolved: 07-23-2023 07-23-2023 Chronic Mood disorders (16 sources) Mood disorders Onset: 07-23-2023 07-23-2023 Unclassified (1 source) LOW BACK PAIN, UNSPECIFIED; Translations: [LOW BACK PAIN, UNSPECIFIED] Onset: 12-06-2022 Results Test Name Value Interpretation Reference Range Facility ALL CBC WITH AUTO DIFFon BASOPHILS ABSOLUTE AUTO 0.1 [facility] Basophils/100 WBC (Bld) 0.7 % 0.2 - 2.0 % [facility] Eosinophils/100 WBC (Bld) 2.8 % 0.9 - 7.0 % [facility] Erythrocyte distribution width (RBC) [Ratio] 13 % 11.0 - 15.0 % [facility] Hematocrit (Bld) [Volume fraction] 41 % Low 42.0 - 54.0 % [facility] Hemoglobin (Bld) [Mass/Vol] 13.7 g/dL Low 14.0 - 18.0 g/dL [facility] IMMATURE GRANULOCYTES ABS AUTO 0.02 [facility] Immature granulocytes/100 WBC (Bld) 0.3 % 0.0 - 0.5 % [facility] Interpretation and review of laboratory results Abnormal [facility] LYMPHOCYTES ABSOLUTE AUTO 2.6 [facility] Lymphocytes/100 WBC (Bld) 34.4 % 20.5 - 60.0 % [facility] MCH (RBC) [Entitic mass] 28.4 pg 25.9 - 34.0 pg [facility] MCHC (RBC) [Mass/Vol] 33.4 g/dL 29.9 - 35.2 g/dL [facility] MCV (RBC) [Entitic vol] 85.1 fL 80.0 - 94.0 fL [facility] MONOCYTES ABSOLUTE AUTO 0.6 [facility] Monocytes/100 WBC (Bld) 7.9 % 1.7 - 12.0 % [facility] NEUTROPHILS ABSOLUTE AUTO 4.1 [facility] Neutrophils/100 WBC (Bld) 53.9 % 43.0 - 75.0 % [facility] Platelet mean volume (Bld) [Entitic vol] 9.2 fL Low 9.5 - 13.5 fL [facility] EO # 0.2 [facility] PLT 306 [facility] RBC 4.82 [facility] WBC 7.6 [facility] CONon 2022 MRI [facility] CON EXAMINATION: MRI [facility] CON HISTORY: Post-laminectomy syndrome ; chronic lumbar [...] ARMANDO ZAYAS Date: 2022-11-19 14:15 Normal [facility] US SINGLE QUAD RT UPPERon US [...] BEN ZUNIGA Date: 2022-11-19 09:51 Normal [facility] CBC AUTO DIFFon 11-11-2022 BASO # 0.0 103/ul Normal 0.0-0.[address] [facility] Comment on above: Performed By: #### C BC #### [facility] [address] [place] [address] Dr. Irving Hale Basophils/100 WBC (Bld) 0.5 % Normal 0.2-2.[address] [facility] Comment on above: Performed By: #### C BC #### [facility] [address] [place] [address] Dr. Irving Hale EO # 0.1 103/ul Normal 0.0-0.[address] [facility] Comment on above: Performed By: #### C BC #### [facility] [address] [place] [address] Dr. Irving Hale Eosinophils/100 WBC (Bld) 1.9 % Normal 0.9-7.[address] [facility] Comment on above: Performed By: #### C BC #### [facility] [address] [place] [address] Dr. Irving Hale Erythrocyte distribution width (RBC) [Ratio] 13.4 % Normal 11.0-15.[address] [facility] Comment on above: Performed By: #### C BC #### [facility] [address] [place] [address] Dr. Irving Hale Hematocrit (Bld) [Volume fraction] 40.6 % Critically low 42.0-54.[address] [facility] Comment on above: Performed By: #### C BC #### [facility] [address] [place] [address] Dr. Irving Hale Hemoglobin (Bld) [Mass/Vol] 13.6 g/dL Critically low 14.0-18.[address] [facility] Comment on above: Performed By: #### C BC #### [facility] [address] [place] [address] Dr. Irving Hale IG # 0.01 10e3/ul Normal 0.00-0.[address] [facility] Comment on above: Performed By: #### C BC #### [facility] [address] [place] [address] Dr. Irving Hale IG % 0.2 % Normal 0.0-0.[address] [facility] Comment on above: Performed By: #### C BC #### [facility] [address] [place] [address] Dr. Irving Hale LYMPH # 2.1 103/ul Normal 1.2-3.[address] [facility] Comment on above: Performed By: #### C BC #### [facility] [address] [place] [address] Dr. Irving Hale Lymphocytes/100 WBC (Bld) 32.9 % Normal 20.5-60.[address] [facility] Comment on above: Performed By: #### C BC #### [facility] [address] [place] [address] Dr. Irving Hale MANUAL DIFF REQ NO Normal [facility] Comment on above: Performed By: #### C BC #### [facility] [address] [place] [address] Dr. Irving Hale MCH (RBC) [Entitic mass] 28.2 pg Normal 25.9-34.[address] [facility] Comment on above: Performed By: #### C BC #### [facility] [address] [place] [address] Dr. Irving Hale MCHC (RBC) [Mass/Vol] 33.5 g/dL Normal 29.9-35.[address] [facility] Comment on above: Performed By: #### C BC #### [facility] [address] [place] [address] Dr. Irving Hale MCV (RBC) [Entitic vol] 84.1 fL Normal 80.0-94.[address] [facility] Comment on above: Performed By: #### C BC #### [facility] [address] [place] [address] Dr. Irving Hale MONO # 0.6 103/ul Normal 0.3-0.[address] [facility] Comment on above: Performed By: #### C BC #### [facility] [address] [place] [address] Dr. Irving Hale Monocytes/100 WBC (Bld) 9.3 % Normal 1.7-12.[address] [facility] Comment on above: Performed By: #### C BC #### [facility] [address] [place] [address] Dr. Irving Hale NEUT # 3.4 103/ul Normal 1.4-6.5 [facility] Comment on above: Performed By: #### C BC #### [facility] [address] [address] [address] Irving Hale Neutrophils/100 WBC (Bld) 55.2 % Normal 43.0-75.[address] [facility] Comment on above: Performed By: #### C BC #### [facility] [address] [address] [address] Irving Hale Platelet mean volume (Bld) [Entitic vol] 9.1 fL Critically low 9.5-13.[address] [facility] Comment on above: Performed By: #### C BC #### [facility] [address] [address] [address] Irving Hale PLT 302 103/ul Normal 150-450 [facility] Comment on above: Performed By: #### C BC #### [facility] [address] [place] [address] Dr. Irving Hale RBC 4.83 106/ul Normal 4.70-6.[address] [facility] Comment on above: Performed By: #### C BC #### [facility] [address] [address] [address] Irving Hale WBC 6.2 103/ul Normal 4.0-11.[address] [facility] Comment on above: Performed By: #### C BC #### [facility] [address] [address] [address] Irving Hale GLYCOHEMOGLOBIN A1Con 2022 ADA RECOMMENDATION SEE BELOW Normal [facility] Comment on above: Result Comment: ADA RECOMMENDED LIMIT 4.0 - 6.0 ADA THERAPEUTIC TARGET < 7.0 ACTION SUGGESTED > 7.0 Performed By: #### A 1C #### [facility] [address] [address] [address] Irving Hale Glucose [Mass/Vol] 143 mg/dL Normal [facility] Comment on above: Performed By: #### A 1C #### [facility] [address] [place] [address] Dr. Irving Hale HbA1c (Bld) [Mass fraction] 6.6 % Critically high 4.5-6.2 [facility] Comment on above: Performed By: #### A 1C #### [facility] [address] [address] [address] Irving Hale LIPID PROFILEon 11-11-2022 CHOL-HDL RATIO NORM SEE BELOW Normal [facility] Comment on above: Result Comment: 3.3 - 4.4 LOW RISK 4.4 - 7.1 AVERAGE RISK 7.1 - 11.0 MODERATE RISK >11.0 HIGH RISK Performed By: #### C MP, LIPID #### [facility] [address] [address] [address] Irving Hale Cholesterol [Mass/Vol] 124 mg/dL Normal <=[address] [facility] Comment on above: Performed By: #### C MP, LIPID #### [facility] [address] [address] [address] Irving Hale Cholesterol in HDL [Mass/Vol] 41 mg/dL Normal 40-[address] [facility] Comment on above: Performed By: #### C MP, LIPID #### [facility] [address] [address] [address] Irving Hale Cholesterol in LDL [Mass/Vol] 66.4 mg/dL Normal [facility] Comment on above: Performed By: #### C MP, LIPID #### [facility] [address] [address] [address] Irving Hale Cholesterol.total/Ch olesterol in HDL [Mass ratio] 3.0 {ratio} Normal [facility] Comment on above: Performed By: #### C MP, LIPID #### [facility] [address] [address] [address] Irving Hale HDL NORMAL > or = 60 mg/dl - LO W CARDIOVASCULAR RISK <40 mg/dl - HIGH CARDIOVASCULAR RISK Normal [facility] Comment on above: Performed By: #### C MP, LIPID #### [facility] [address] [address] [address] Irving Hale LDL CALC NORMAL SEE BELOW Normal [facility] Comment on above: Result Comment: <100 mg/dl OPTIMAL 100 - 129 mg/dl NEAR OR ABOVE OPTIMAL 130 - 159 mg/dl BORDERLINE HIGH 160 - 189 mg/dl HIGH >190 mg/dl VERY HIGH Performed By: #### C MP, LIPID #### [facility] [address] [place] [address] Dr. Irving Hale Triglyceride [Mass/Vol] 83 mg/dL Normal <=[address] [facility] Comment on above: Performed By: #### C MP, LIPID #### [facility] [address] [address] [address] Irving Hale VLDL CALC 16.6 mg/dL Normal [facility] Comment on above: Performed By: #### C MP, LIPID #### [facility] [address] [place] [address] Dr. Irving Hale MICROALB CREAT RATIO RANDOMo n 11-11-2022 mALB <1.3 Normal <=30.[address] [facility] Comment on above: Performed By: #### M CRR #### [facility] [address] [place] [address] Dr. Irving PHILLIPS CR RATIO 8.4 mg/g Normal 0.0-29.9 [facility] Comment on above: Performed By: #### M CRR #### [facility] [address] [place] [address] Dr. Irving Hale MALEduard CR RATIO RANGE SEE BELOW Normal [facility] Comment on above: Result Comment: NO M ICROALBUMINURIA 0-29 MG/G CLINICAL MICROALBUMINURIA 30-300 MG/G MACROALBUMINURIA >300 MG/G Performed By: #### M CRR #### [facility] [address] [place] [address] Dr. Irving Hale URINE CREAT 155.10 mg/dL Normal 20.00-300.00 [facility] Comment on above: Performed By: #### M CRR #### [facility] [address] [place] [address] Dr. Irving Hale PROF 14(COMP METB)on 023 Albumin [Mass/Vol] 3.9 g/dL Normal 3.4-5.0 [facility] Comment on above: Performed By: #### C MP, LIPID #### [facility] [address] [address] [address] Irving Hale Albumin/Globulin [Mass ratio] 1.0 {ratio} Normal [facility] Comment on above: Performed By: #### C MP, LIPID #### [facility] [address] [address] [address] Irving Hale ALP [Catalytic activity/Vol] 96 U/L Normal 46-[address] [facility] Comment on above: Performed By: #### C MP, LIPID #### [facility] [address] [address] [address] Irving Hale ALT [Catalytic activity/Vol] 95 U/L Critically high 16-[address] [facility] Comment on above: Performed By: #### C MP, LIPID #### [facility] [address] [place] [address] Dr. Irving Hale Anion gap [Moles/Vol] 11.5 mmol/L Normal [facility] Comment on above: Performed By: #### C MP, LIPID #### [facility] [address] [place] [address] Dr. Irving Hale AST [Catalytic activity/Vol] 39 U/L Critically high 15-[address] [facility] Comment on above: Performed By: #### C MP, LIPID #### [facility] [address] [place] [address] Dr. Irving Hale Bilirubin [Mass/Vol] 0.4 mg/dL Normal 0.2-1.[address] [facility] Comment on above: Performed By: #### C MP, LIPID #### [facility] [address] [address] [address] Irving Hale Calcium [Mass/Vol] 10.4 mg/dL Critically high 8.5-10.1 [facility] Comment on above: Performed By: #### C MP, LIPID #### [facility] [address] [place] [address] Dr. Irving Hale Chloride [Moles/Vol] 103 mmol/L Normal 98-[address] [facility] Comment on above: Performed By: #### C MP, LIPID #### [facility] [address] [address] [address] Irving Hale CO2 [Moles/Vol] 30.0 mmol/L Normal 21.0-32.0 [facility] Comment on above: Performed By: #### C MP, LIPID #### [facility] [address] [address] [address] Irving Hale Creatinine [Mass/Vol] 1.04 mg/dL Normal 0.70-1.[address] [facility] Comment on above: Performed By: #### C MP, LIPID #### [facility] [address] [address] [address] Irving Hale EGFR-AF JAPANESE >60 Normal >=60 [facility] Comment on above: Performed By: #### C MP, LIPID #### [facility] [address] [place] [address] Dr. Irving Hale EGFR-NON AF JAPANESE >60 Normal >=[address] [facility] Comment on above: Performed By: #### C MP, LIPID #### [facility] [address] [place] [address] Dr. Irving Hale Globulin (S) [Mass/Vol] 3.9 g/dL Normal [facility] Comment on above: Performed By: #### C MP, LIPID #### [facility] [address] [place] [address] Dr. Irving Hale Glucose [Mass/Vol] 123 mg/dL Critically high 74-106 [facility] Comment on above: Performed By: #### C MP, LIPID #### [facility] [address] [place] [address] Dr. Irving Hale Potassium [Moles/Vol] 4.5 mmol/L Normal 3.5-5.[address] [facility] Comment on above: Performed By: #### C MP, LIPID #### [facility] [address] [address] [address] Irving Hale Protein [Mass/Vol] 7.8 g/dL Normal 6.4-8.2 [facility] Comment on above: Performed By: #### C MP, LIPID #### [facility] [address] [address] [address] Irving Hale Sodium [Moles/Vol] 140 mmol/L Normal 136-145 [facility] Comment on above: Performed By: #### C MP, LIPID #### [facility] [address] [address] [address] Irving Hale Urea nitrogen [Mass/Vol] 23.0 mg/dL Critically high 7.0-18.[address] [facility] Comment on above: Performed By: #### C MP, LIPID #### [facility] [address] [address] [address] Irving Hale Urea nitrogen/Creatinine [Mass ratio] 22.1 mg/mg Normal [facility] Comment on above: Performed By: #### C MP, LIPID #### [facility] [address] [place] [address] Dr. Irving Hale XR LSPINE MIN 4 [...] LUIS ARMANDO ZAYAS Date: 2022-11-11 15:[address] [facility] Vital Signs Date Time Vital Sign Value Performing Clinician Mathieu bynum 11-09-2024 10:05-0400 Body mass index (BMI) [Ratio] 27.34 kg/m2 Do Solis NP Work Phone: [facility] 11-09-2024 10:05-0400 Body temperature 98.1 [degF] Do Solis NP Work Phone: [facility] 11-09-2024 10:05-0400 Body weight 81.56 kg Do Aichholz ROLL SLICING MACHINE TENDER Work Phone: [facility] 11-09-2024 10:05-0400 Diastolic blood pressure 70 mm[Hg] Do Aichholz ROLL SLICING MACHINE TENDER Work Phone: [facility] 11-09-2024 10:05-0400 Heart rate 93 /min Do Aichholz ROLL SLICING MACHINE TENDER Work Phone: [facility] 11-09-2024 10:05-0400 Respiratory rate 18 /min Do Aichholz ROLL SLICING MACHINE TENDER Work Phone: [facility] 11-09-2024 10:05-0400 SaO2% (BldA) [Mass fraction] 97 % Do Remihholz ROLL SLICING MACHINE TENDER Work Phone: [facility] 11-09-2024 10:05-0400 Systolic blood pressure 108 mm[Hg] Do Aichholz ROLL SLICING MACHINE TENDER Work Phone: [facility] 08-10-2024 09:13-0500 Body mass index (BMI) [Ratio] 27.13 kg/m2 Nicole Robb ROLL SLICING MACHINE TENDER Work Phone: [facility] 08-10-2024 09:13-0500 Body weight 80.92 kg Nicole Robb ROLL SLICING MACHINE TENDER Work Phone: [facility] 08-10-2024 09:13-0500 Diastolic blood pressure 62 mm[Hg] Nicole Robb ROLL SLICING MACHINE TENDER Work Phone: [facility] 08-10-2024 09:13-0500 Heart rate 74 /min Nicole Robb ROLL SLICING MACHINE TENDER Work Phone: [facility] 08-10-2024 09:13-0500 Respiratory rate 16 /min Nicole Robb ROLL SLICING MACHINE TENDER Work Phone: [facility] 08-10-2024 09:13-0500 SaO2% (BldA) [Mass fraction] 95 % Nicole Robb ROLL SLICING MACHINE TENDER Work Phone: [facility] 08-10-2024 09:13-0500 Systolic blood pressure 110 mm[Hg] Nicole Robb ROLL SLICING MACHINE TENDER Work Phone: [facility] 05-04-2024 08:54-0400 Body height 172.7 cm Nicole Robb ROLL SLICING MACHINE TENDER Work Phone: [facility] 05-04-2024 08:54-0400 Body mass index (BMI) [Ratio] 27.55 kg/m2 Nicole Robb ROLL SLICING MACHINE TENDER Work Phone: [facility] 05-04-2024 08:54-0400 Body temperature 97.5 [degF] Nicole Robb ROLL SLICING MACHINE TENDER Work Phone: [facility] 05-04-2024 08:54-0400 Body weight 82.19 kg Nicole Robb ROLL SLICING MACHINE TENDER Work Phone: [facility] 05-04-2024 08:54-0400 Diastolic blood pressure 68 mm[Hg] Nicole Robb ROLL SLICING MACHINE TENDER Work Phone: [facility] 05-04-2024 08:54-0400 Heart rate 67 /min Nicole Robb ROLL SLICING MACHINE TENDER Work Phone: [facility] 05-04-2024 08:54-0400 Respiratory rate 16 /min Nicole Robb ROLL SLICING MACHINE TENDER Work Phone: [facility] 05-04-2024 08:54-0400 SaO2% (BldA) [Mass fraction] 94 % Nicole Robb ROLL SLICING MACHINE TENDER Work Phone: [facility] 05-04-2024 08:54-0400 Systolic blood pressure 118 mm[Hg] Nicole Robb ROLL SLICING MACHINE TENDER Work Phone: [facility] Healthcare Encounters Encounter Date Encounter Type Care Provider Facility Start: 11-09-2024 End: 11-09-2024 Angel Luis Solis ROLL SLICING MACHINE TENDER Work Phone: [facility] Start: 11-09-2024 End: 11-09-2024 Bamboo flowsheet Do Remityflex ROLL SLICING MACHINE TENDER Work Phone: [facility] Start: 11-09-2024 End: 11-09-2024 Office outpatient visit 25 minutes Do Remityflex ROLL SLICING MACHINE TENDER Work Phone: [facility] Comment on above: Type 2 diabetes clemente itus without complication, with long-term current use of insulin (Primary Dx); Chronic pain syndrome; Constipation, unspecified constipation type; Mixed hyperlipidemia (CMS/HCC); Screening for prostate cancer; Hypercalcemia; Anemia associated with nutritional deficiency; Other hyperlipidemia; Type 2 diabetes mellitus without complication, without long-term current use of insulin; Gastroesophageal reflux disease without esophagitis; Chronic right-sided low back pain with right-sided sciatica Start: 11-09-2024 End: 11-09-2024 ambulatory DO NILSON Not Available Start: 08-10-2024 End: 08-10-2024 Bamboo flowsheet Nicole Robb ROLL SLICING MACHINE TENDER Work Phone: [facility] Start: 08-10-2024 End: 08-10-2024 Bamboo flowsheet Nicole Robb ROLL SLICING MACHINE TENDER Work Phone: [facility] Start: 08-10-2024 End: 08-10-2024 Office outpatient visit 15 minutes Nicole Duboistrick ROLL SLICING MACHINE TENDER Work Phone: [facility] Comment on above: Type 2 diabetes clemente itus without complication, with long-term current use of insulin (CMS/HCC) (Primary Dx); Chronic pain syndrome; Drug-induced constipation; Type 2 diabetes mellitus without complication, without long-term current use of insulin (CMS/HCC) Start: 08-10-2024 End: 08-10-2024 ambulatory NICOLE ROBB Not Available Start: 08-06-2024 End: 08-09-2024 Refill Nicole Robb ROLL SLICING MACHINE TENDER Work Phone: [facility] Comment on above: Type 2 diabetes clemente itus without complication, without long- term current use of insulin ([facility]) Start: 08-02-2024 End: 08-02-2024 Clinisync Result Encounter Nicole Weinsteinzpatrick ROLL SLICING MACHINE TENDER Work Phone: [facility] External Department Unsolicited Start: 08-02-2024 End: 08-02-2024 Clinisync Result Encounter Nicole Robb ROLL SLICING MACHINE TENDER Work Phone: [facility] External Department Unsolicited Start: 07-14-2024 End: 07-14-2024 Refill Adilia Butcher MA [facility] Comment on above: Chronic right-sided low back pain with right-sided sciatica Start: 06-14-2024 End: 06-14-2024 Refill Adilia Butcher MA [facility] Comment on above: Type 2 diabetes clemente itus without complication, without long- term current use of insulin ([facility]) Start: 06-14-2024 End: 06-14-2024 Refill Nicole Chavesk ROLL SLICING MACHINE TENDER Work Phone: [facility] Comment on above: Type 2 diabetes clemente itus without complication, without long- term current use of insulin ([facility]) Start: 05-24-2024 End: 05-24-2024 Refill Mendy Brink [facility] Comment on above: Type 2 diabetes clemente itus without complication, without long- term current use of insulin ([facility]); Chronic right-sided low back pain with right-sided sciatica Start: 05-04-2024 End: 05-04-2024 Bamboo flowsheet Nicole Robb ROLL SLICING MACHINE TENDER Work Phone: [facility] Start: 05-04-2024 End: 05-04-2024 Bamboo flowsheet Nicole Robb ROLL SLICING MACHINE TENDER Work Phone: [facility] Start: 05-04-2024 End: 05-04-2024 Office outpatient visit 15 minutes Nicole Robb ROLL SLICING MACHINE TENDER Work Phone: [facility] Comment on above: Type 2 diabetes clemente itus without complication, with long-term current use of insulin (CMS/HCC) (Primary Dx); Other hyperlipidemia (CMS/HCC); Pigmented skin lesion of uncertain behavior of head Start: 05-04-2024 End: 05-04-2024 ambulatory NICOLE ROBB Not Available Start: 04-09-2024 End: 04-12-2024 Refill Nicole Robb ROLL SLICING MACHINE TENDER Work Phone: [facility] Comment on above: Chronic right-sided low back pain with right-sided sciatica Start: 01-26-2024 End: 01-26-2024 ambulatory SHAIKH ANUPAM Not Available Start: 07-23-2023 Patient encounter procedure Nicole Robb ROLL SLICING MACHINE TENDER Work Phone: [facility] Healthcare Start: 03-06-2023 ambulatory TONIO PAUL . Facili ty:[facility]1 Start: 12-06-2022 End: 12-07-2022 ambulatory SHAIKH Ty BO Facility:[facility] Start: 11-19-2022 End: 11-20-2022 ambulatory BEN ZUNIGA Facility:[facility] Start: 11-11-2022 End: 11-12-2022 ambulatory NARENDRANATH LAKSHMIPATHY . Facility:[facility] Start: 11-05-2022 End: 11-06-2022 ambulatory NARENDRANATH LAKSHMIPATHY . Facility: Procedures Date Procedure Procedure Detail Performing Clinician Start: 08-02-2024 ALL CBC WITH AUTO DIFF Nicole Robb ROLL SLICING MACHINE TENDER Work Phone: Start: 08-04-2022 Colonoscopy Nicole coronado ROLL SLICING MACHINE TENDER Work Phone: Plan of Treatment Date Care Activity Detail Author Start: 08-04-2032 Screening for malign ant neoplasm of colon [facility] Healthcare Start: 08-25-2026 Screening for malign ant neoplasm of colon [facility] Start: 12-23-2024 End: 12-23-2024 Patient encounter procedure 12/23/2024 10:00 AM EDT Office Visit [facility] [address] [place] [address] Do Solis, ROLL SLICING MACHINE TENDER [address] [place] [address] [facility] Start: 11-09-2024 End: 11-09-2025 25-hydroxyvitamin D3 [Mass/volume] in Serum or Plasma Vitamin D 25 hydroxy Lab Routine Hypercalcemia Expected: 11/09/2024 (Approximate), Expires: 11/09/2025 [facility] Comment on above: Expected: 11/09/2024 (Approximate), Expires: 11/09/2025 Start: 11-09-2024 End: 11-09-2025 CBC W Auto Differential panel - Blood CBC and differential Lab Routine Type 2 diabetes mellitus without complication, with long-term current use of insulin Expected: 11/09/2024 (Approximate), Expires: 11/09/2025 [facility] Comment on above: Expected: 11/09/2024 (Approximate), Expires: 11/09/2025 Start: 11-09-2024 End: 11-09-2025 Cobalamin (Vitamin B12) [Mass/volume] in Serum or Plasma Vitamin B12 Lab Routine Anemia associated with nutritional deficiency Expected: 11/09/2024 (Approximate), Expires: 11/09/2025 [facility] Comment on above: Expected: 11/09/2024 (Approximate), Expires: 11/09/2025 Start: 11-09-2024 End: 11-09-2025 Comprehensive metabolic 2000 panel - Serum or Plasma Comprehensive metabolic panel Lab Routine Type 2 diabetes mellitus without complication, with long-term current use of insulin Mixed hyperlipidemia ([facility]/HCC) Expected: 11/09/2024 (Approximate), Expires: 11/09/2025 [facility] Comment on above: Expected: 11/09/2024 (Approximate), Expires: 11/09/2025 Start: 11-09-2024 End: 11-09-2025 Ferritin [Mass/volume] in Serum or Plasma Ferritin Lab Routine Anemia associated with nutritional deficiency Expected: 11/09/2024 (Approximate), Expires: 11/09/2025 [facility] Comment on above: Expected: 11/09/2024 (Approximate), Expires: 11/09/2025 Start: 11-09-2024 End: 11-09-2025 Iron + transferrin + TIBC Iron + transferrin + TIBC Lab Routine Anemia associated with nutritional deficiency Expected: 11/09/2024 (Approximate), Expires: 11/09/2025 [facility] Comment on above: Expected: 11/09/2024 (Approximate), Expires: 11/09/2025 Start: 11-09-2024 End: 11-09-2025 Lipid 1996 panel - Serum or Plasma Lipid panel Lab Routine Mixed hyperlipidemia (CMS/HCC) Expected: 11/09/2024 (Approximate), Expires: 11/09/2025 [facility] Work Phone: Comment on above: Expected: 11/09/2024 (Approximate), Expires: 11/09/2025 Start: 11-09-2024 End: 11-09-2025 Microalbumin/Creatinine panel in random Urine Microalbumin / creatinine, urine ratio Lab Routine Type 2 diabetes mellitus without complication, with long-term current use of insulin Expected: 11/09/2024 (Approximate), Expires: 11/09/2025 [facility] Comment on above: Expected: 11/09/2024 (Approximate), Expires: 11/09/2025 Start: 11-09-2024 End: 11-09-2025 Parathyrin.intact [Mass/volume] in Serum or Plasma PTH, intact Lab Routine Hypercalcemia Expected: 11/09/2024 (Approximate), Expires: 11/09/2025 [facility] Comment on above: Expected: 11/09/2024 (Approximate), Expires: 11/09/2025 Start: 11-09-2024 End: 11-09-2025 Prostate specific Ag [Mass/volume] in Serum or Plasma PSA Lab Routine Screening for prostate cancer Expected: 11/09/2024 (Approximate), Expires: 11/09/2025 [facility] Comment on above: Expected: 11/09/2024 (Approximate), Expires: 11/09/2025 Start: 11-09-2024 End: 11-09-2025 Urinalysis complete panel - Urine Urinalysis with reflex microscopic (clean catch) Lab Routine Type 2 diabetes mellitus without complication, with long-term current use of insulin Expected: 11/09/2024 (Approximate), Expires: 11/09/2025 [facility] Comment on above: Expected: 11/09/2024 (Approximate), Expires: 11/09/2025 Start: 11-09-2024 End: 11-09-2024 Patient encounter procedure [facility] Comment on above: Chronic pain syndrom e (Primary Dx); Constipation, unspecified constipation type; Type 2 diabetes mellitus without complication, with long-term current use of insulin; Mixed hyperlipidemia ([facility]); Screening for prostate cancer; Hypercalcemia; Anemia associated with nutritional deficiency Start: 10-05-2024 Influenza vaccination Influenza Vacc ine (#1) [facility] Comment on above: Postponed from 04/04 (Patient Refused) Start: 08-25-2024 Hemoglobin A1c measurement Diabetes: Hemoglobin A1C [facility] Start: 08-14-2024 Urine screening for protein Diabetes: Urine Protein Screening [facility] Start: 08-10-2024 End: 08-10-2024 Patient encounter procedure [facility] Comment on above: Arrived Start: 08-04-2024 End: 05-04-2025 CBC W Auto Differential panel - Blood CBC and differential Lab Routine Type 2 diabetes mellitus without complication, with long-term current use of insulin ([facility]) Expected: 08/04/2024 (Approximate), Expires: 05/04/2025 [facility] Comment on above: Expected: 08/04/2024 (Approximate), Expires: 05/04/2025 Start: 08-04-2024 End: 05-04-2025 Comprehensive metabolic 2000 panel - Serum or Plasma Comprehensive metabolic panel Lab Routine Type 2 diabetes mellitus without complication, with long-term current use of insulin ([facility]) Expected: 08/04/2024 (Approximate), Expires: 05/04/2025 [facility] Comment on above: Expected: 08/04/2024 (Approximate), Expires: 05/04/2025 Start: 08-04-2024 End: 05-04-2025 Hemoglobin A1c/Hemoglobin.total in Blood Hemoglobin A1c Lab Routine Type 2 diabetes mellitus without complication, with long-term current use of insulin ([facility]) Expected: 08/04/2024 (Approximate), Expires: 05/04/2025 [facility] Work Phone: Comment on above: Expected: 08/04/2024 (Approximate), Expires: 05/04/2025 Start: 07-23-2024 Medicare Annual Well ness (AWV) Medicare Annual Wellness (AWV) [facility] Start: 05-04-2024 End: 05-04-2024 Patient encounter procedure [facility] Comment on above: Arrived Start: 04-04-2024 Influenza vaccination Influenza Vacc ine (#1) [facility] Start: 1975 Glaucoma screening Diabetes: R etinopathy Screening [facility] Start: 1965 Screening for malign ant neoplasm of colon [facility] Immunizations Immunization Date Immunization Notes Care Provider Armando rubin 08-10-2024 influenza, seasonal, injectable Do Solis ROLL SLICING MACHINE TENDER Work Phone: [facility] Payers Date Payer Category Payer Medicare MEDICARE [id number] 2024 Medicare [id number] 2022 Medicaid [place]ICAID [place] [id number] 2022 Medicaid [id number] 2022 Medicare (Managed Care) [id number]. [id number] 2022 Unknown Apto D [employer] [id number] 2022-Present [address] [place] [address] [id number] 2020 Unknown [id number] 1965 Unknown [id number] 593 1965 Unknown [id number]. 593 1965 Unknown [id number]. 593 1965 Unknown [id number]. 593 1965 Unknown [id number]. 593 1965 Unknown [id number]. 593 1965 Unknown [id number]. 593 1965 Unknown [id number]. 1259 1965 Unknown [id number]. 1259 1965 Unknown [id number]. 1259 1965 Unknown [id number] 1259 Social History Date Type Detail Facility Start: 07-23-2023 Tobacco smoking status NHIS Never smoked tobacco [facility] Start: 07-23-2023 Tobacco use and exposure Smokeless tobacco non-user [facility] Start: 01-26-2024 End: 11-09-2024 Alcoholic beverage intake Ex-drinker (finding) [facility] Start: 01-26-2024 End: 11-09-2024 History of Social function [facility] Start: 01-26-2024 End: 11-09-2024 Tobacco use panel [facility] Start: 07-23-2023 Alcohol Comment OCCASSIONALLY [facility] Start: 1965 Sex assigned at Not on file [facility] NEGATED: Highlighted rowStart: NINF History of tobacco use Passive smoker [facility] Medical Equipment Procedure Code Equipment Code Equipment Origin al Text Equipment Identifier Dates [id number] Start: 01-26-2024 End: 07-24-2024 Clinical Notes 11-05-2022 to 11-09-2024 Do Solis, BASILIO - 11/09/2024 10:00 AM Yosvany Solis, ROLL SLICING MACHINE TENDER - 11/09/2024 6:39 AM EDFelipa Solis, ROLL SLICING MACHINE TENDER - 11/09/2024 6:38 AM EDFelipa Solis, ROLL SLICING MACHINE TENDER - 11/09/2024 6:35 AM EDTPatient Instructions Note Date & Type Note Facility 11-09-2024 History of Presen t illness Narrative Images from the original note were not included. , Nicholas Lovelace is a 59 y.o. male presents with chief complaint of Diabetes HPI: Diabetes He presents for his follow-up diabetic visit. He has type 2 diabetes mellitus. There are no hypoglycemic associated symptoms. Pertinent negatives for hypoglycemia include no dizziness, nervousness/anxiousness, seizures or tremors. Associated symptoms include polyuria and weakness (occ legs). Pertinent negatives for diabetes include no foot paresthesias, no polydipsia and no polyphagia. There are no hypoglycemic complications. Symptoms are stable. Pertinent negatives for diabetic complications include no CVA, heart disease, nephropathy or peripheral neuropathy. Risk factors for coronary artery disease include dyslipidemia, diabetes mellitus, hypertension and sedentary lifestyle. Current diabetic treatment includes insulin injections (trulicity). He is compliant with treatment most of the time. He is following a diabetic diet. He participates in exercise intermittently. His overall blood glucose range is 110-130 mg/dl. He does not see a kraft digester operator.Eye exam is not current. Back Pain This is a chronic problem. The current episode started more than 1 year ago. The problem occurs daily. The problem has been waxing and waning since onset. The pain is present in the lumbar spine. The quality of the pain is described as aching (sharp). Radiates to: occ radiation to the legs. The symptoms are aggravated by sitting, standing and twisting. Stiffness is present At night. Associated symptoms include weakness (occ legs). Pertinent negatives include no bladder incontinence, bowel incontinence, dysuria, leg pain (occ) or paresthesias. Risk factors include sedentary lifestyle. He has tried NSAIDs and muscle relaxant (pain meds) for the symptoms. The treatment provided mild relief. SUBJECTIVE: MEDICATIONS: Current Outpatient Medications Medication Instructions atorvastatin (LIPITOR) 80 mg, Oral, Daily B-D UF III MINI PEN NEEDLES 31G X 5 MM [facility] USE DIRECTED DAILY baclofen (LIORESAL) 10 mg, 3 times daily esomeprazole (NEXIUM) 20 mg, Oral, Daily before breakfast ezetimibe (ZETIA) 10 mg, Oral, Daily ibuprofen 600 mg, Oral, 3 times daily oxyCODONE-acetaminophen (Percocet) 5-325 MG tablet 1 tablet, Every 8 hours PRN Tresiba FlexTouch 200 UNIT/ML injection INJECT 36 UNITS SUBCUTANEOUSLY (UNDER THE SKIN) AT BEDTIME Trulicity 4.5 mg, Subcutaneous, Weekly ALLERGIES: Allergies Allergen Reactions Penicillins Rash REVIEW OF SYMPTOMS: Review of Systems Constitutional: Negative for activity change, appetite change and unexpected weight change. HENT: Negative for ear pain, nosebleeds, sneezing, trouble swallowing and voice change. Eyes: Negative for pain, discharge and visual disturbance. Respiratory: Negative for apnea, chest tightness and wheezing. Cardiovascular: Negative for leg swelling. Gastrointestinal: Negative for abdominal distention, blood in stool, bowel incontinence, constipation and diarrhea. Genitourinary: Negative for bladder incontinence, decreased urine volume, difficulty urinating, dysuria and hematuria. Musculoskeletal: Positive for back pain. Skin: Negative for color change. Neurological: Positive for weakness (occ legs). Negative for dizziness, tremors, seizures and paresthesias. Psychiatric/Behavioral: Negative for agitation, decreased concentration, hallucinations, self-injury and suicidal ideas. The patient is not nervous/anxious. Hematological: Negative for adenopathy. Does not bruise/bleed easily. Endocrine: Positive for polyuria. Negative for cold intolerance, heat intolerance, polydipsia and polyphagia. Allergic/Immunologic: Negative for environmental allergies and food allergies. PAST MEDICAL HISTORY Past Medical History: Diagnosis Date Abnormal liver function test Back pain Chronic low back pain DM II (diabetes mellitus, type II), controlled (CMS/HCC) Hypercalcemia Hyperlipidemia (CMS/HCC) Past Surgical History: Procedure Laterality Date BACK SURGERY 2014 CARPAL TUNNEL RELEASE Bilateral family history includes Cancer in his father; Diabetes in his mother. OBJECTIVE: Visit Vitals BP 108/70 (BP Location: Left arm, Patient Position: Sitting, BP Cuff Size: Adult long) Pulse 93 Temp 98.1 F (Temporal) Resp 18 Wt 179 lb 12.8 oz SpO2 97% BMI 27.34 kg/m Smoking Status Never BSA 1.98 m Physical Exam Vitals and nursing note reviewed. Constitutional: Appearance: Normal appearance. He is not ill-appearing or diaphoretic. HENT: Head: Normocephalic. Right Ear: External ear normal. Left Ear: External ear normal. Ears: Comments: Excessive cerumen bilat, removed with currette Nose: Nose normal. Mouth/Throat: Mouth: Mucous membranes are moist. Pharynx: Oropharynx is clear. No oropharyngeal exudate or posterior oropharyngeal erythema. Eyes: Extraocular Movements: Extraocular movements intact. Conjunctiva/sclera: Conjunctivae normal. Neck: Vascular: No carotid bruit. Cardiovascular: Rate and Rhythm: Normal rate and regular rhythm. Pulses: Normal pulses. Heart sounds: Normal heart sounds. Pulmonary: Effort: Pulmonary effort is normal. Breath sounds: No wheezing. Abdominal: General: Bowel sounds are normal. There is no distension. Palpations: Abdomen is soft. Tenderness: There is no abdominal tenderness. There is no guarding. Musculoskeletal: Cervical back: Neck supple. Right lower leg: No edema. Left lower leg: No edema. Comments: SLR: + X2 right , - X2 left MMT 5/5 bilat LE DTR's 1+ bilat patellar/achilles No acute tenderness Decreased ROM lumbar spine Lymphadenopathy: Cervical: No cervical adenopathy. Skin: General: Skin is warm and dry. Capillary Refill: Capillary refill takes 2 to 3 seconds. Neurological: General: No focal deficit present. Mental Status: He is alert. Psychiatric: Mood and Affect: Mood normal. Behavior: Behavior normal. Thought Content: Thought content normal. Judgment: Judgment normal. ASSESSMENT AND PLAN: No follow-ups on file. Problem List Items Addressed This Visit Chronic right-sided low back pain with right-sided sciatica Relevant Medications ibuprofen 600 MG tablet Type 2 diabetes mellitus without complication, with long-term current use of insulin Check blood sugars daily, notify if <70 [...] diet low in carbohydrates, and simple sugars. Current meds: trulicity, and tresiba, zetia, statin a1c Relevant Medications Dulaglutide (Trulicity) 4.5 MG/0.5ML solution auto-injector Other Relevant Orders CBC and differential Comprehensive metabolic panel Urinalysis with reflex microscopic (clean catch) Microalbumin / creatinine, urine ratio POCT glycosylated hemoglobin (Hb A1C) docked device Chronic pain syndrome - Primary Does see pain mgmt for this Low back Takes pain meds, nsaids, Constipation At last appt in 08/28, recommended to start on miralax Mixed hyperlipidemia (CMS/HCC) On statin, and zetia Check labs yearly and prn dose changes Relevant Orders Lipid panel Comprehensive metabolic panel Screening for prostate cancer Relevant Orders PSA Hypercalcemia Check vit d and PTH Relevant Orders PTH, intact Vitamin D 25 hydroxy Anemia associated with nutritional deficiency Check labs Relevant Orders Iron + transferrin + TIBC Ferritin Vitamin B12 Other Visit Diagnoses Other hyperlipidemia Relevant Medications atorvastatin (Lipitor) 80 MG tablet ezetimibe (Zetia) 10 MG tablet Type 2 diabetes mellitus without complication, without long-term current use of insulin Relevant Medications Dulaglutide (Trulicity) 4.5 MG/0.5ML solution auto-injector Gastroesophageal reflux disease without esophagitis Relevant Medications esomeprazole (NexIUM) [address] capsule Associated Problem(s): Anemia associated with nutritional deficiency Check labs Associated Problem(s): Hypercalcemia Check vit d and PTH Associated Problem(s): Mixed hyperlipidemia (CMS/HCC) On statin, and zetia Check labs yearly and prn dose changes Associated Problem(s): Type 2 diabetes mellitus without complication, with long-term current use of insulin Check blood sugars daily, notify if <70 [...] diet low in carbohydrates, and simple sugars. Current meds: trulicity, and tresiba, zetia, statin a1c Associated Problem(s): Constipation At last appt in 08/28, recommended to start on miralax resolved Associated Problem(s): Chronic pain syndrome Does see pain mgmt for this Low back Takes pain meds, nsaids, MR documented in this encounter [facility] 11-09-2024 Instructions Do Solis NP - 11/09/2024 10:00 AM EDT Please get labs completed, 8 hours fasting I would like you to call an eye doctor to get a diabetic eye exam Schedule a medicare wellness examination documented in this encounter [facility] 08-10-2024 History of Presen t illness Narrative Associated Problem(s): Constipation Pt reports intermittent constipation, denies blood in stool, or abdominal pain. Is on opioids from PM for chronic pain, likely related to opoid use. Pt reports very limited water intake, but states he drinks tea frequently. Recommended increasing fluids, fiber, and prescribed Miralax to be used PRN. Images from the original note were not included. Subjective Patient ID: Nicholas Lovelace is a 59 y.o. male who presents for Diabetes. HPI DMII: Most recent labs: hemoglobin A1C 6.4% 07/2024 Average FSBS range from 110-118 No episode of hypoglycemia No medication adverse [...] home glucose monitoring noted. DM Eye Exam: 05/04/2024 HLD: Currently taking Atorvastatin 80mg Most recent Lipid Panel 02/2024 -WNL Denies any myalgias. Continue current regimen. Component Ref Range & Units 5 mo ago (02/16/24) 5 mo ago (02/16/24) 5 mo ago (02/16/24) 12 mo ago (08/14/23) 12 mo ago (08/14/23) 12 mo ago (08/14/23) 12 mo ago (08/14/23) TRIGLYCERIDES <=150 mg/dL 146 [...] ALBUMIN GLOBULIN RATIO 1.1 1.0 Resulting Agency [facility] Review of Systems Constitutional: Negative for activity [...] swelling and myalgias. Skin: Negative for rash. Neurological: Negative for dizziness, tremors, syncope, weakness, light-headedness and headaches. Psychiatric/Behavioral: Negative for decreased concentration and suicidal ideas. The patient is not nervous/anxious. Hematological: Does not bruise/bleed easily. Endocrine: Negative for cold intolerance, heat intolerance, polydipsia, polyphagia and polyuria. Objective Physical Exam Vitals reviewed. Constitutional: Appearance: Normal appearance. HENT: Right Ear: Tympanic membrane normal. Left Ear: [...] sounds are normal. Palpations: Abdomen is soft. Skin: Capillary Refill: Capillary refill takes less than 2 seconds. Neurological: Mental Status: He is alert and oriented to person, place, and time. Assessment/Plan Problem List Items Addressed This Visit Type 2 diabetes mellitus without complication, with long-term current use of insulin ([facility]) - Primary Most recent labs: hemoglobin A1C 6.4% 07/2024 Average FSBS range from 110-118 No episode of hypoglycemia No medication adverse [...] home glucose monitoring noted. DM Eye Exam: 05/04/2024 Relevant Medications Dulaglutide (Trulicity) 4.5 MG/0.5ML solution auto-injector Chronic pain syndrome Follows with Pain Management- [facility]. Pt currently taking oxycodone 5-325mg. Feels symptoms are well controlled on current regimen. Continue current regimen as directed by PM. Constipation Pt reports intermittent constipation, denies blood in stool, or abdominal pain. Is on opioids from PM for chronic pain, likely related to opoid use. Pt reports very limited water intake, but states he drinks tea frequently. Recommended increasing fluids, fiber, and prescribed Miralax to be used PRN. Relevant Medications polyethylene glycol, PEG, 3350 (Miralax) 17 g packet Other Visit Diagnoses Type 2 diabetes mellitus without complication, without long-term current use of insulin (CMS/HCC) Relevant Medications Dulaglutide (Trulicity) 4.5 MG/0.5ML solution auto-injector Associated Problem(s): Chronic pain syndrome Follows with Pain Management- [facility]. Pt currently taking oxycodone 5-325mg. Feels symptoms are well controlled on current regimen. Continue current regimen as directed by PM. Associated Problem(s): Type 2 diabetes mellitus without complication, with long-term current use of insulin (CMS/[facility]) Most recent labs: hemoglobin A1C 6.4% 07/2024 Average FSBS range from 110-118 No episode of hypoglycemia No medication adverse [...] home glucose monitoring noted. DM Eye Exam: 05/04/2024 Associated Problem(s): Other hyperlipidemia (CMS/HCC) Currently taking Atorvastatin 80mg Most recent Lipid Panel done 02/2024- WNL Denies any myalgias. Continue current regimen. documented in this encounter [facility] 08-10-2024 Instructions Nicole Robb NP - 08/10/2024 9:30 AM EST Diet: Eat three meals per day. Breakfast, lunch, and dinner. Avoid snacking. Avoid eating after 5/6 pm. Daily protein GOAL 35% of your intake; 30g per meal. Daily calorie GOAL 1,800-2,000 per day. Increase water intake; GOAL 64-80oz of water per day. Exercise: Increase activity. GOAL 30 minutes, 5 days per week. START SLOW. Start with 5 minutes, 5 days per week. Then increase to 10 days, 5 days per week. Continue to increase until you reach the goal. Increase steps; GOAL 10,000 steps per day. Be sure to get adequate sleep; GOAL 6-8 hours of sleep per night. Try using Miralax to help relieve constipation. documented in this encounter [facility] 07-14-2024 Telephone encount er Note CLAU:05/04/2024 NOV:08/10/2024 [facility] 07-14-2024 Miscellaneous Notes Formattin g of this note might be different from the original. CLAU:05/04/2024 NOV:08/10/2024 documented in this encounter [facility] 06-14-2024 Telephone encount er Note CLAU:05/04/2024 NOV:08/10/2024 [facility] 06-14-2024 Miscellaneous Notes Formattin g of this note might be different from the original. CLAU:05/04/2024 NOV:08/10/2024 documented in this encounter [facility] 05-04-2024 History of Presen t illness Narrative Associated Problem(s): Other hyperlipidemia (CMS/HCC) Currently taking Atorvastatin 80mg Most recent Lipid Panel done 02/2024- WNL Denies any myalgias. Continue current regimen. Associated Problem(s): Type 2 diabetes mellitus without complication, with long-term current use of insulin (CMS/[facility]) Most recent labs: hemoglobin A1C 6.6% Average [...] ALBUMIN GLOBULIN RATIO 1.1 1.0 Resulting Agency [facility] Review of Systems Constitutional: Negative for activity [...] List Items Addressed This Visit Other hyperlipidemia (CMS/[facility]) Currently taking Atorvastatin 80mg Most recent Lipid Panel done 02/2024- WNL Denies any myalgias. Continue current regimen. Type 2 diabetes mellitus without complication, with long-term current use of insulin ([facility]) - Primary Most recent labs: hemoglobin [...] referral to Dermatology documented in this encounter [facility] 05-04-2024 Instructions Nicole Robb NP - 05/04/2024 [...] will call you! documented in this encounter [facility] 11-05-2022 Note CONSULTATION CONSULTATION DATE: 11/05/2022 TO: Dr. Bo CHIEF COMPLAINT: Includes bilateral lower back pain, worse on the right side. HISTORY OF PRESENT ILLNESS: Review of systems, past medical/surgical history were obtained and documented on the health questionnaire and is available upon request. Patient is a poor historian. He reports being followed by a physician some place in [place]. He is unsure of the physician's name, [...] will await information regarding his physician in [place] and he is scheduled to return to our office in four weeks' time. As part of providing excellent, safe, comprehensive care, the following was completed at our patient's visit: 1. A medication reconciliation and review to ensure accurate knowledge of current/active medications, including asking our patients to inform us about any [id number] medications or herbal remedies/nutritional supplements/alternative remedies. 2. [...] options with their primary care provider. [facility] Evaluation note Diagnosis Type 2 diabetes mellitus [...] with right-sided sciatica documented in this encounter [facility]* Diagnosis Encounter for screening [...] of insulin (CMS/HCC) documented in this encounter [facility]* Diagnosis Encounter for screening [...] of insulin (CMS/HCC) documented in this encounter [facility]* Diagnosis Encounter for screening for [...] with right-sided sciatica documented in this encounter [facility]* Diagnosis Chronic right-sided low back pain with right-sided sciatica documented in this encounter [facility]* Diagnosis Encounter for screening for [...] of insulin (CMS/HCC) documented in this encounter [facility]* Diagnosis Encounter for screening [...] head Type 2 diabetes mellitus without complication, with long-term current use of insulin (CMS/HCC)- Primary Chronic pain syndrome Drug-induced constipation Other constipation Type 2 diabetes mellitus without complication, without long-term current use of insulin (CMS/HCC) documented in this encounter [facility]* Diagnosis Encounter for screening for malignant neoplasm of colon- Primary Primary hypertension (CMS/HCC) Unspecified essential hypertension Chronic right-sided low back pain with right-sided sciatica Other hyperlipidemia Type 2 diabetes mellitus without complication, without long-term current use of insulin Type 2 diabetes mellitus without complication, without long-term current use of insulin- Primary Other hyperlipidemia Chronic right-sided low back pain with right-sided sciatica Type 2 diabetes mellitus without complication, with long-term current use of insulin- Primary Other hyperlipidemia Type 2 diabetes mellitus without complication, without long-term current use of insulin Gastroesophageal reflux disease without esophagitis Esophageal reflux Type 2 diabetes mellitus without complication, with long-term current use of insulin- Primary Other hyperlipidemia Pigmented skin lesion of uncertain behavior of head Type 2 diabetes mellitus without complication, with long-term current use of insulin- Primary Chronic pain syndrome Drug-induced constipation Other constipation Type 2 diabetes mellitus without complication, without long-term current use of insulin Need for immunization against influenza Need for prophylactic vaccination and inoculation against influenza Type 2 diabetes mellitus without complication, with long-term current use of insulin- Primary Chronic pain syndrome Constipation, unspecified constipation type Mixed hyperlipidemia (CMS/HCC) Mixed hyperlipidemia Screening for prostate cancer Special screening for malignant neoplasm of prostate Hypercalcemia Anemia associated with nutritional deficiency Unspecified deficiency anemia Other hyperlipidemia Type 2 diabetes mellitus without complication, without long-term current use of insulin Gastroesophageal reflux disease without esophagitis Esophageal reflux Chronic right-sided low back pain with right-sided sciatica [facility] Consultation (Routine) - Pending Review Specialty Diagnoses / Procedures Referred By Stuart zamora Referred To Contact Dermatology Diagnoses Pigmented skin lesion of uncertain behavior of head Procedures [place] OFFICE/OUTPATIENT NEW HIGH MDM 60 MINUTES Nicole Robb NP [address] [facility] [place] [address] Opal Zhong, 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 [address] [place] [address] Referral ID Status Reason Start Date Expiration Date Visits Requested Visits Authorized [id number] Pending Review Specialty Services Required 05/04/2024 10/31/2024 1 1 * Consultation (Routine) - Authorized Specialty Diagnoses / Procedures Referred By Stuart zamora Referred To Contact Ophthalmology Diagnoses Type 2 diabetes mellitus without complication, with long-term current use of insulin (CMS/HCC) Procedures [place] OFFICE/OUTPATIENT NEW HIGH MDM 60 MINUTES Nicole Robb NP [address] [place] [address] Maggie Shukla MD [address] [place] [address] Referral ID Status Reason Start Date Expiration Date Visits Requested Visits Authorized [id number] Authorized Specialty Services Required 05/04/2024 10/31/2024 1 1 [facility] Summary Purpose Family History No Family History Records FoundNo Family History Records Found Advance Directives No Advanced Directives Records FoundNo Advanced Directives Records Found Additional Source Comments (unrecognized sect ion and content) No Status Records FoundNo Status Records Found INFORMATION SOURCE (unrecogn ized section and content) DATE CREATED AUTHOR 12/13/2022 [facility] DATE CREATED AUTHOR AUTHOR'S ORGANIZ ATION 11/10/2024 [facility] dical Specialists EPIC Care Teams (unrecognized sec tion and content) Powder Line Repairer Relationship Specialty Start Date End Date Shaikh Bo MD [address] [place] [address] PCP - Devoted 08/04/22 Buddy Harvey MD [address] [facility] [phone] PCP - General Family Medicine 03/16/24 Nicole Robb NP [address] [place] [address] Nurse Practitioner Family Medicine 03/16/24 Powder Line Repairer Relationship Specialty Start Date End Date Shaikh Bo MD [address] [place] [phone] PCP - [employer] 08/04/22 Buddy Harvey MD [address] [place] [phone] PCP - General Family Medicine 03/16/24 Nicole Robb NP [address] [place] [address] Nurse Practitioner Family Medicine 03/16/24 Powder Line Repairer Relationship Specialty Start Date End Date Shaikh oB MD [address] [place] [phone] PCP - [facility] 08/04/22 Buddy Harvey MD [address] [place] [address] PCP - General Family Medicine 03/16/24 Nicole Robb NP [address] [place] [address] Nurse Practitioner Family Medicine 03/16/24 Powder Line Repairer Relationship Specialty Start Date End Date Shaikh Bo MD [address] [place] [phone] PCP - [facility] 08/04/22 08/03/24 Buddy Harvey MD [address] [place] [phone] PCP - General Family Medicine 03/16/24 Nicole Robb NP [address] [place] [address] Nurse Practitioner Family Medicine 03/16/24 Powder Line Repairer Relationship Specialty Start Date End Date Shaikh Bo MD [address] [place] [phone] PCP - [employer] 08/04/22 08/03/24 Buddy Harvey MD [address] [place] [phone] PCP - General Family Medicine 03/16/24 Nicole Robb NP [address] [place] [address] Nurse Practitioner Family Medicine 03/16/24 Powder Line Repairer Relationship Specialty Start Date End Date Shaikh Bo MD [address] [place] [phone] PCP - [facility] 08/04/22 Buddy Harvey MD [address] [place] [phone] PCP - General Family Medicine 03/16/24 Nicole Robb NP [address] [place] [address] Nurse Practitioner Family Medicine 03/16/24 Powder Line Repairer Relationship Specialty Start Date End Date Shaikh Bo MD [address] [place] [phone] PCP - [facility] 08/04/22 08/03/24 Buddy Harvey MD [address] [place] [phone] PCP - General Family Medicine 03/16/24 Nicole Robb NP [address] [place] [address] Nurse Practitioner Family Medicine 03/16/24 Powder Line Repairer Relationship Specialty Start Date End Date Buddy Harvey MD [address] [place] [phone] PCP - General Family Medicine 03/16/24 Nicole Robb NP [address] [place] [phone] Nurse Practitioner Family Medicine 03/16/24 Powder Line Repairer Relationship Specialty Start Date End Date Buddy Harvey MD [address] [place] [phone] PCP - General Family Medicine 03/16/24 Nicole Robb NP [address] [place] [address] Nurse Practitioner Family Medicine 03/16/24 Powder Line Repairer Relationship Specialty Start Date End Date Buddy Harvey MD [address] [place] [phone] PCP - General Family Medicine 03/16/24 Nicole Robb NP [address] [place] [address] Nurse Practitioner Family Medicine 03/16/24 Powder Line Repairer Relationship Specialty Start Date End Date Buddy Harvey MD [address] [place] [address] PCP - General [facility] 03/16/24 Nicole Robb NP [address] [place] [address] Nurse Practitioner [facility] 03/16/24 Powder Line Repairer Relationship Specialty Start Date End Date Buddy Harvey MD [address] [place] [address] PCP - General [facility] 03/16/24 Nicole Robb NP [address] [place] [address] Nurse Practitioner Family [facility] 03/16/24 Reason for Visit (unrecogniz ed section and content) Reason Comments Follow-up Back Pain Reason Onset Date Comments Med Refill 05/24/2024 Reason Onset Date Comments Med Refill 06/14/2024 Reason Comments Med Change Request Reason Onset Date Comments Med Refill 07/14/2024 Reason Onset Date Comments Med Refill 04/09/2024 Reason Onset Date Comments Med Refill 08/06/2024 Reason Comments Diabetes FOR RECORDS PERTAINING TO PATIENTS WHO ARE [...] BE BASED ON THE PRIMARY CLINICAL RECORDS. Ecelles [facility]. provides no warranty or guarantee of the accuracy or completeness of information in this document.
--- NOTE | 2024-11-11 09:57 | P.CN_ITS ---
Consult Note: HPI Data of Consult Patient: known to practice within the last 3 years Requesting Physician: Aida Montero NP Primary Care Provider: KELLY GODOY Consult Narrative Reason for consult: f/u Narrative: Boby Lovelace a pleasant 58 year old male presents for evaluation and management of low back pain. Today rating pain 3/10 stabbing/ache without radiculopathy, increasing to moderate to severe spontaneously. hx of lumbar fusion at l4-5 Unfortunately patient continues to have low back pain unresponsive to conservative medications and PT/HEP. Patient SANJU today 50%. Patient does find significant improvement in low back pain with percocet 5-325mg TID PRN, as well as gabapentin 600mg TID, patient denies side effects. Utilizes baclofen 10mg TID PRN with benefit. Patient reports pain is well controlled with current medication regimen cc:: CC: Aida Montero NP Review of Systems ROS Status of ROS 10 or more systems reviewed and unremark able except as noted in history and below Musculoskeletal Reports: back pain; Denies: extremity pain Meds Home Medications and Allergies Home Medications ?Medication ?Instructions ?Recorded ?Confirmed ?Type atorvastatin 80 mg tablet 80 mg PO DAILY 06/11/23 06/11/23 History baclofen 10 mg tablet 10 mg PO TID 06/11/23 06/11/23 History dulaglutide 4.5 mg/0.5 mL 4.5 mg subcut QWEEK 06/11/23 06/11/23 History subcutaneous pen injector (Trulicity) ezetimibe 10 mg tablet 10 mg PO DAILY 06/11/23 06/11/23 History gabapentin 600 mg tablet 600 mg PO TID 06/11/23 06/11/23 History ibuprofen 800 mg tablet 800 mg PO TID 06/11/23 06/11/23 History insulin degludec 200 unit/mL (3 200 unit subcut DAILY 06/11/23 06/11/23 History mL) subcutaneous pen (Tresiba FlexTouch U-200 insulin) oxycodone-acetaminophen 5 mg-325 1 tab PO TID PRN pain #90 tabs 03/08/24 Rx mg tablet (Percocet) baclofen 10 mg tablet 10 mg PO TID PRN muscle spasm #90 08/12/24 Rx tabs oxycodone-acetaminophen 5 mg-325 See Rx Instructions .Route 09/06/24 Rx mg tablet (Percocet) .COMPLEX PRN pain #75 tabs oxycodone-acetaminophen 5 mg-325 See Rx Instructions .Route 10/05/24 Rx mg tablet (Percocet) .COMPLEX PRN pain #75 tabs oxycodone-acetaminophen 5 mg-325 See Rx Instructions .Route 11/11/24 Rx mg tablet (Percocet) .COMPLEX PRN pain #75 tabs Allergies Allergy/AdvReac Type Severity Reaction Status Date / Time No Known Drug Allergies Allergy Verified 06/11/23 10:58 Exam Constitutional Documenting provider has reviewed patient's vital signs: yes Common normals: no apparent distress, oriented x3, healthy appearing, alert and well nourished General appearance: cooperative Orientation/consciousness: Yes awake, Yes oriented to person, Yes oriented to place and Yes oriented to time HENMT Common normals: normocephalic, hearing grossly normal bilaterally and moist oral mucous membranes Head and scalp: normocephalic Eye Common normals: PERRL Pupil: PERRL Neck & C-Spine Common normals: full ROM General: normal visual inspection Chest Common normals: inspection of chest normal Respiratory Common normals: normal respiratory effort, no retractions and no use of accessory muscles Effort & inspection: able to speak in complete sentences and symmetric chest movement Back & Pelvis Lumbar spine/lower back: normal to inspection, ROM limited, pain with ROM, lumbar spinal tenderness Lumbar spinal tenderness location: L3 and L5, paraspinal muscle tenderness and paraspinal muscle spasm Other: positive facet load pain right>left muscle strength 5/5 bilat LE with intact sensation Extremity Common normals: normal to inspection, full ROM, normal capillary refill and no pedal edema Neuro Common normals: oriented x3, CN's II-XII intact bilaterally, moves all extremities, no focal motor deficits, no sensory deficits noted and deep tendon reflexes 2+ bilaterally Sensorium/orientation: alert Motor exam: strength 5/5 throughout and no movement abnormalities noted Psych Common normals: mental status grossly normal, thought process normal, cooperative, affect normal, speech normal and activity/motor behavior normal Speech: normal speech Thought process: normal thought process Results Additional Findings Additional findings: If on a controlled substance or opioids, I have checked an [place] report on this patient and there are no aberrancies noted in the prescribing history.??If on a controlled substance or opioid a drug screen was completed and reviewed within the last year, and if there has not been a drug screen completed we ordered one today to monitor higher risk, state monitored pain medication use. As part of providing excellent, safe, comprehensive care, the following was completed at our patient's visit: 1. A medication reconciliation and review to ensure accurate knowledge of current/active medications, including asking our patients to inform us about any [id number] medications or herbal remedies/nutritional supplements/alternative remedies. 2. A review to specifically ensure our patients have had annual screening for screening for depression, screening for tobacco use, and screening for unhealthy alcohol use. For concerning screenings had a discussion with the patient, provided patient education, and recommended follow-up with primary care provider when appropriate. If patient noted with a risk of falling, they received education on strength, gait, and balance training to prevent future risk of falling. Assessment and Plan Assessment and Plan (1) Lumbar spondylosis: (2) Muscle spasm: (3) Chronic prescription opiate use: Assessment and Plan: I feel these medications are improving the patient's quality of life and allow them to tolerate activities of daily living as well as participate in recreational activity.? The patient does not report intolerable side effects. The patient is NOT opioid naive and non-pharmacologic and non-opioid treatment has failed to significantly relieve the patient's pain and improve functionality. The patient has a diagnosis that is related to a somatic or visceral pain etiology. ? ?? I reviewed with the patient the potential risks and side effects with the use of? opioid medications including but not limited to respiratory depression,? sedation, and even . I verified the patient has access to naloxone should? these effects occur. I advised the patient to avoid the use of any other? sedation substances including alcohol, THC, and benzodiazepines while? taking opioid medications due to the risk of compounding side effects and? detrimental outcomes. I reviewed the [employer], pain treatment agreement, urine? drug screen, and opioid start talking forms. The patient was advised to let? their family know they had Naloxone in case they would need to administer? the medication.? ?? A drug screen was completed within the last year, and no aberrancies were noted regarding their use of controlled substances. The patient understands they are subject to the terms and conditions of the pain contract that they have signed. ? ?? I have checked an [place] report on this patient today and there are no aberrancies noted in the prescribing history.? Plan continue percocet 5/325 to BID-TID PRN moderate to severe pain 75 tablets per month continue gabapentin 600mg TID continue baclofen 10mg TID PRN pain/spasms narcan discussed and prescribed previously educated on facet blocks and RFA again today, declining as pain is well controlled f/u 3 months, sooner if needed
== END 2024-11-11 09:24 | disposition home or self-care (01) ==
LOC: PM 09:23
PROVIDERS: Visit Provider Nurse Practitioner
DX: M47.816 Spondylosis without myelopathy or radiculopathy, lumbar region (principal); M62.838 Other muscle spasm; Z79.891 Long term (current) use of opiate analgesic
CPT/HCPCS: G0463

== ENCOUNTER 2024-12-14 10:01 | Outpatient (OUT) | payer MEDICARE, MEDICAID, SELFPAY ==
--- OUTSIDE RECORDS SUMMARY | 2024-12-14 10:24 | XMS_ITS | CCD ---
Author Organization [facility] Care Team Providers Care Community Theater Actor Name Role Phone LAKSHMIPATHY ., NARENDRANATH Admitting [...] Unavailable Buddy Harvey MD Primary Care Provider [phone] [employer] RETURN CHECKER, Nicole Unavailable Shaikh Bo MD Unavailable [employer] RETURN CHECKER, Nicole Unavailable SHAIKH BO Attending Unavailable NICOLE ROBB [...] mL 1 06/14/2024 Active polyethylene glycol 3350 56044 mg powder for oral solution (2 sources) [...] 41 % Low 42.0 - 54.0 % [facility] Hemoglobin (Bld) [Mass/Vol] 13.7 g/dL Low 14.0 - 18.0 g/dL [facility] IMMATURE GRANULOCYTES ABS AUTO 0.02 [facility] Immature granulocytes/100 WBC (Bld) 0.3 % 0.0 - 0.5 % [facility] Interpretation and review of laboratory results Abnormal [facility] LYMPHOCYTES ABSOLUTE AUTO 2.6 [facility] Lymphocytes/100 WBC (Bld) 34.4 % 20.5 - 60.0 % [facility] MCH (RBC) [Entitic mass] 28.4 pg 25.9 - 34.0 pg [facility] MCHC (RBC) [Mass/Vol] 33.4 g/dL 29.9 - 35.2 g/dL [facility] MCV (RBC) [Entitic vol] 85.1 fL 80.0 - 94.0 fL [facility] MONOCYTES ABSOLUTE AUTO 0.6 [facility] Monocytes/100 WBC (Bld) 7.9 % 1.7 - 12.0 % [facility] NEUTROPHILS ABSOLUTE AUTO 4.1 [facility] Neutrophils/100 WBC (Bld) 53.9 % 43.0 - 75.0 % [facility] Platelet mean volume (Bld) [Entitic vol] 9.2 fL Low 9.5 - 13.5 fL [facility] EO # 0.2 [facility] PLT 306 [facility] RBC 4.82 [facility] WBC 7.6 [facility] 2022 [facility] EXAMINATION: [facility] HISTORY: Post-laminectomy syndrome ; chronic lumbar [...] ARMANDO ZAYAS Date: 2022-11-19 14:15 Normal [facility] US SINGLE QUAD RT UPPERon US SINGLE [...] BEN ZUNIGA Date: 2022-11-19 09:51 Normal [facility] CBC AUTO DIFFon 11-11-2022 BASO # 0.0 103/ul Normal 0.0-0.1 [facility] Comment on above: Performed By: #### C BC #### [facility] [address] [place] [address] Dr. Irving Hale Basophils/100 WBC (Bld) 0.5 % Normal 0.2-2.0 [facility] Comment on above: Performed By: #### C BC #### [facility] [address] [place] [address] Dr. Irving Hale EO # 0.1 103/ul Normal 0.0-0.7 [facility] Comment on above: Performed By: #### C BC #### [facility] [address] [place] [address] Dr. Irving Hale Eosinophils/100 WBC (Bld) 1.9 % Normal 0.9-7.0 [facility] Comment on above: Performed By: #### C BC #### [facility] [address] [place] [address] Dr. Irving Hale Erythrocyte distribution width (RBC) [Ratio] 13.4 % Normal 11.0-15.0 [facility] Comment on above: Performed By: #### C BC #### [facility] [address] [place] [address] Dr. Irving Hale Hematocrit (Bld) [Volume fraction] 40.6 % Critically low 42.0-54.0 [facility] Comment on above: Performed By: #### C BC #### [facility] [address] [place] [address] Dr. Irving Hale Hemoglobin (Bld) [Mass/Vol] 13.6 g/dL Critically low 14.0-18.0 [facility] Comment on above: Performed By: #### C BC #### [facility] [address] [place] [address] Dr. Irving Hale IG # 0.01 10e3/ul Normal 0.00-0.03 [facility] Comment on above: Performed By: #### C BC #### [facility] [address] [place] [address] Dr. Irving Hale IG % 0.2 % Normal 0.0-0.5 [facility] Comment on above: Performed By: #### C BC #### [facility] [address] [place] [address] Dr. Irving Hale LYMPH # 2.1 103/ul Normal 1.2-3.8 [facility] Comment on above: Performed By: #### C BC #### [facility] [address] [place] [address] Dr. Irving Hale Lymphocytes/100 WBC (Bld) 32.9 % Normal 20.5-60.0 [facility] Comment on above: Performed By: #### C BC #### [facility] [address] [place] [address] Dr. Irving Hale MANUAL DIFF REQ NO Normal [facility] Comment on above: Performed By: #### C BC #### [facility] [address] [place] [address] Dr. Irving Hale MCH (RBC) [Entitic mass] 28.2 pg Normal 25.9-34.0 [facility] Comment on above: Performed By: #### C BC #### [facility] [address] [place] [address] Dr. Irving Hale MCHC (RBC) [Mass/Vol] 33.5 g/dL Normal 29.9-35.2 [facility] Comment on above: Performed By: #### C BC #### [facility] [address] [place] [address] Dr. Irving Hale MCV (RBC) [Entitic vol] 84.1 fL Normal 80.0-94.0 [facility] Comment on above: Performed By: #### C BC #### [facility] [address] [place] [address] Dr. Irving Hale MONO # 0.6 103/ul Normal 0.3-0.8 [facility] Comment on above: Performed By: #### C BC #### [facility] [address] [place] [address] Dr. Irving Hale Monocytes/100 WBC (Bld) 9.3 % Normal 1.7-12.0 [facility] Comment on above: Performed By: #### C BC #### [facility] [address] [place] [address] Dr. Irving Hale NEUT # 3.4 103/ul Normal 1.4-6.5 [facility] Comment on above: Performed By: #### C BC #### [facility] [address] [address] [address] Irving Hale Neutrophils/100 WBC (Bld) 55.2 % Normal 43.0-75.0 [facility] Comment on above: Performed By: #### C BC #### [facility] [address] [address] [address] Irving Hale Platelet mean volume (Bld) [Entitic vol] 9.1 fL Critically low 9.5-13.5 [facility] Comment on above: Performed By: #### C BC #### [facility] [address] [address] [address] Irving aHle PLT 302 103/ul Normal 150-450 [facility] Comment on above: Performed By: #### C BC #### [facility] [address] [place] [address] Dr. Irving Hale RBC 4.83 106/ul Normal 4.70-6.10 [facility] Comment on above: Performed By: #### C BC #### [facility] [address] [address] [address] Irving Hale WBC 6.2 103/ul Normal 4.0-11.0 [facility] Comment on above: Performed By: #### C BC #### [facility] [address] [address] [address] Irving Hale GLYCOHEMOGLOBIN A1Con 2022 ADA RECOMMENDATION SEE BELOW Normal [facility] Comment on above: Result Comment: ADA RECOMMENDED LIMIT 4.0 - 6.0 ADA THERAPEUTIC TARGET < 7.0 ACTION SUGGESTED > 7.0 Performed By: #### A 1C #### [facility] [address] [address] [address] Irving Hale Glucose [Mass/Vol] 143 mg/dL Normal [facility] Comment on above: Performed By: #### A 1C #### [facility] [address] [place] [address] Dr. Irving Hale HbA1c (Bld) [Mass fraction] 6.6 % Critically high 4.5-6.2 [facility] Comment on above: Performed By: #### A 1C #### [facility] [address] [address] [address] Irving Hale LIPID PROFILEon 11-11-2022 CHOL-HDL RATIO NORM SEE BELOW Normal [facility] Comment on above: Result Comment: 3.3 - 4.4 LOW RISK 4.4 - 7.1 AVERAGE RISK 7.1 - 11.0 MODERATE RISK >11.0 HIGH RISK Performed By: #### C MP, LIPID #### [facility] [address] [address] [address] Irvign Hale Cholesterol [Mass/Vol] 124 mg/dL Normal <=200 [facility] Comment on above: Performed By: #### C MP, LIPID #### [facility] [address] [address] [address] Irving Hale Cholesterol in HDL [Mass/Vol] 41 mg/dL Normal 40-60 [facility] Comment on above: Performed By: #### C MP, LIPID #### [facility] [address] [address] [address] Irving Hale Cholesterol in LDL [Mass/Vol] 66.4 mg/dL Normal [facility] Comment on above: Performed By: #### C MP, LIPID #### [facility] [address] [address] [address] Irving Hale Cholesterol.total/Ch olesterol in HDL [Mass ratio] 3.0 {ratio} Normal [facility] Comment on above: Performed By: #### C MP, LIPID #### [facility] [address] [address] [address] Irving Hale HDL NORMAL > or = 60 mg/dl - LO W CARDIOVASCULAR RISK <40 mg/dl - HIGH CARDIOVASCULAR RISK Normal [facility] Comment on above: Performed By: #### C MP, LIPID #### [facility] [address] [address] [address] Irving Hale LDL CALC NORMAL SEE BELOW Normal [facility] Comment on above: Result Comment: <100 mg/dl OPTIMAL 100 - 129 mg/dl NEAR OR ABOVE OPTIMAL 130 - 159 mg/dl BORDERLINE HIGH 160 - 189 mg/dl HIGH >190 mg/dl VERY HIGH Performed By: #### C MP, LIPID #### [facility] [address] [place] [address] Dr. Irving Hale Triglyceride [Mass/Vol] 83 mg/dL Normal <=150 [facility] Comment on above: Performed By: #### C MP, LIPID #### [facility] [address] [address] [address] Irving Hale VLDL CALC 16.6 mg/dL Normal [facility] Comment on above: Performed By: #### C MP, LIPID #### [facility] [address] [place] [address] Dr. Irving Hale MICROALB CREAT RATIO RANDOMo n 11-11-2022 mALB <1.3 Normal <=30.0 [facility] Comment on above: Performed By: #### M CRR #### [facility] [address] [place] [address] Dr. Irving PHILLIPS CR RATIO 8.4 mg/g Normal 0.0-29.9 [place] Comment on above: Performed By: #### M CRR #### [facility] [address] [place] [address] Dr. Irving Hale MALEduard CR RATIO RANGE SEE BELOW Normal [facility] Comment on above: Result Comment: NO M ICROALBUMINURIA 0-29 MG/G CLINICAL MICROALBUMINURIA 30-300 MG/G MACROALBUMINURIA >300 MG/G Performed By: #### M CRR #### [facility] [address] [place] [address] Dr. Irving Hale URINE CREAT 155.10 mg/dL Normal 20.00-300.00 [facility] Comment on above: Performed By: #### M CRR #### [facility] [address] [place] [address] Dr. Irving Hale PROF 14(COMP METB)on 023 Albumin [Mass/Vol] 3.9 g/dL Normal 3.4-5.[address] [facility] Comment on above: Performed By: #### C MP, LIPID #### [facility] [address] [address] [address] Irving Hale Albumin/Globulin [Mass ratio] 1.0 {ratio} Normal [facility] Comment on above: Performed By: #### C MP, LIPID #### [facility] [address] [address] [address] Irving Hale ALP [Catalytic activity/Vol] 96 U/L Normal 46-116 [facility] Comment on above: Performed By: #### C MP, LIPID #### [facility] [address] [address] [address] Irving Hale ALT [Catalytic activity/Vol] 95 U/L Critically high 16-63 [facility] Comment on above: Performed By: #### C MP, LIPID #### [facility] [address] [place] [address] Dr. Irving Hale Anion gap [Moles/Vol] 11.5 mmol/L Normal [facility] Comment on above: Performed By: #### C MP, LIPID #### [facility] [address] [place] [address] Dr. Irving Hale AST [Catalytic activity/Vol] 39 U/L Critically high 15-37 [facility] Comment on above: Performed By: #### C MP, LIPID #### [facility] [address] [place] [address] Dr. Irving Hale Bilirubin [Mass/Vol] 0.4 mg/dL Normal 0.2-1.0 [facility] Comment on above: Performed By: #### C MP, LIPID #### [facility] [address] [address] [address] Irving Hale Calcium [Mass/Vol] 10.4 mg/dL Critically high 8.5-10.1 [facility] Comment on above: Performed By: #### C MP, LIPID #### [facility] [address] [place] [address] Dr. Irving Hale Chloride [Moles/Vol] 103 mmol/L Normal 98-107 [facility] Comment on above: Performed By: #### C MP, LIPID #### [facility] [address] [address] [address] Irving Hale CO2 [Moles/Vol] 30.0 mmol/L Normal 21.0-32.0 [facility] Comment on above: Performed By: #### C MP, LIPID #### [facility] [address] [address] [address] Irving Hale Creatinine [Mass/Vol] 1.04 mg/dL Normal 0.70-1.30 [facility] Comment on above: Performed By: #### C MP, LIPID #### [facility] [address] [address] [address] Irving Hale EGFR-AF CZECH >60 Normal >=60 [facility] Comment on above: Performed By: #### C MP, LIPID #### [facility] [address] [place] [address] Dr. Irving Hale EGFR-NON AF CZECH >60 Normal >=60 [facility] Comment on above: Performed By: #### C MP, LIPID #### [facility] [address] [place] [address] Dr. Irving Hale Globulin (S) [Mass/Vol] 3.9 g/dL Normal [facility] Comment on above: Performed By: #### C MP, LIPID #### [facility] [address] [place] [address] Dr. Irving Hale Glucose [Mass/Vol] 123 mg/dL Critically high 74-106 [facility] Comment on above: Performed By: #### C MP, LIPID #### [facility] [address] [place] [address] Dr. Irving Hale Potassium [Moles/Vol] 4.5 mmol/L Normal 3.5-5.1 [facility] Comment on above: Performed By: #### C MP, LIPID #### [facility] [address] [address] [address] Irving Hale Protein [Mass/Vol] 7.8 g/dL Normal 6.4-8.2 [facility] Comment on above: Performed By: #### C MP, LIPID #### [facility] [address] [address] [address] Irving Hale Sodium [Moles/Vol] 140 mmol/L Normal 136-[address] [facility] Comment on above: Performed By: #### C MP, LIPID #### [facility] [address] [address] [address] Irving Hale Urea nitrogen [Mass/Vol] 23.0 mg/dL Critically high 7.0-18.0 [facility] Comment on above: Performed By: #### C MP, LIPID #### [facility] [address] [address] [address] Irving Hale Urea nitrogen/Creatinine [Mass ratio] 22.1 mg/mg Normal [facility] Comment on above: Performed By: #### C MP, LIPID #### [facility] [address] [place] [address] Dr. Irving Hale XR LSPINE MIN 4 [...] LUIS ARMANDO ZAYAS Date: 2022-11-11 15:14 Normal [facility] Vital Signs Date Time Vital Sign Value Performing Clinician Mathieu bynum 11-09-2024 10:05-0400 Body mass index (BMI) [Ratio] 27.34 kg/m2 Do Solis NP Work Phone: [facility] 11-09-2024 10:05-0400 Body temperature 98.1 [degF] Do Solis NP Work Phone: [facility] 11-09-2024 10:05-0400 Body weight 81.56 kg Do Aichholz RETURN CHECKER Work Phone: [facility] 11-09-2024 10:05-0400 Diastolic blood pressure 70 mm[Hg] Do Aichholz RETURN CHECKER Work Phone: [facility] 11-09-2024 10:05-0400 Heart rate 93 /min Do Aichholz RETURN CHECKER Work Phone: [facility] 11-09-2024 10:05-0400 Respiratory rate 18 /min Do Aichholz RETURN CHECKER Work Phone: [facility] 11-09-2024 10:05-0400 SaO2% (BldA) [Mass fraction] 97 % Do Remihholz RETURN CHECKER Work Phone: [facility] 11-09-2024 10:05-0400 Systolic blood pressure 108 mm[Hg] Do Aichholz RETURN CHECKER Work Phone: [facility] 08-10-2024 09:13-0500 Body mass index (BMI) [Ratio] 27.13 kg/m2 Nicole Robb RETURN CHECKER Work Phone: [facility] 08-10-2024 09:13-0500 Body weight 80.92 kg Nicole Robb RETURN CHECKER Work Phone: [facility] 08-10-2024 09:13-0500 Diastolic blood pressure 62 mm[Hg] Nicole Robb RETURN CHECKER Work Phone: [facility] 08-10-2024 09:13-0500 Heart rate 74 /min Nicole Robb RETURN CHECKER Work Phone: [facility] 08-10-2024 09:13-0500 Respiratory rate 16 /min Nicole Robb RETURN CHECKER Work Phone: [facility] 08-10-2024 09:13-0500 SaO2% (BldA) [Mass fraction] 95 % Nicole Robb RETURN CHECKER Work Phone: [facility] 08-10-2024 09:13-0500 Systolic blood pressure 110 mm[Hg] Nicole Robb RETURN CHECKER Work Phone: [facility] 05-04-2024 08:54-0400 Body height 172.7 cm Nicole Robb RETURN CHECKER Work Phone: [facility] 05-04-2024 08:54-0400 Body mass index (BMI) [Ratio] 27.55 kg/m2 Nicole Robb RETURN CHECKER Work Phone: [facility] 05-04-2024 08:54-0400 Body temperature 97.5 [degF] Nicole Robb RETURN CHECKER Work Phone: [facility] 05-04-2024 08:54-0400 Body weight 82.19 kg Nicole Robb RETURN CHECKER Work Phone: [facility] 05-04-2024 08:54-0400 Diastolic blood pressure 68 mm[Hg] Nicole Robb RETURN CHECKER Work Phone: [facility] 05-04-2024 08:54-0400 Heart rate 67 /min Nicole Robb RETURN CHECKER Work Phone: [facility] 05-04-2024 08:54-0400 Respiratory rate 16 /min Nicole Robb RETURN CHECKER Work Phone: [facility] 05-04-2024 08:54-0400 SaO2% (BldA) [Mass fraction] 94 % Nicole Robb RETURN CHECKER Work Phone: [facility] 05-04-2024 08:54-0400 Systolic blood pressure 118 mm[Hg] Nicole Robb RETURN CHECKER Work Phone: [facility] Healthcare Encounters Encounter Date Encounter Type Care Provider Facility Start: 11-09-2024 End: 11-09-2024 Angel Luis Solis RETURN CHECKER Work Phone: [facility] Start: 11-09-2024 End: 11-09-2024 Bamboo flowsheet Do Remityflex RETURN CHECKER Work Phone: [facility] Start: 11-09-2024 End: 11-09-2024 Office outpatient visit 25 minutes Do Remityflex RETURN CHECKER Work Phone: [facility] Comment on above: Type 2 [...] 08-10-2024 End: 08-10-2024 Bamboo flowsheet Nicole Robb RETURN CHECKER Work Phone: [facility] Start: 08-10-2024 End: 08-10-2024 Bamboo flowsheet Nicole Robb RETURN CHECKER Work Phone: [facility] Start: 08-10-2024 End: 08-10-2024 Office outpatient visit 15 minutes Nicole Duboistrick RETURN CHECKER Work Phone: [facility] Comment on above: Type 2 diabetes clemente itus without complication, with long-term current use of insulin (CMS/HCC) (Primary Dx); Chronic pain syndrome; Drug-induced constipation; Type 2 diabetes mellitus without complication, without long-term current use of insulin (CMS/HCC) Start: 08-10-2024 End: 08-10-2024 ambulatory NICOLE ROBB Not Available Start: 08-06-2024 End: 08-09-2024 Refill Nicole Robb RETURN CHECKER Work Phone: [facility] Comment on above: Type 2 diabetes clemente itus without complication, without long- term current use of insulin ([facility]) Start: 08-02-2024 End: 08-02-2024 [facility] Result Encounter Nicole Weinsteinzpatrick RETURN CHECKER Work Phone: [facility] External Department Unsolicited Start: 08-02-2024 End: 08-02-2024 [facility] Result Encounter Nicole Robb RETURN CHECKER Work Phone: [facility] External Department Unsolicited Start: 07-14-2024 End: 07-14-2024 Refill Adilia Butcher MA [facility] Comment on above: Chronic right-sided low back pain with right-sided sciatica Start: 06-14-2024 End: 06-14-2024 Refill Adilia Butcher MA [facility] Comment on above: Type 2 diabetes clemente itus without complication, without long- term current use of insulin ([facility]) Start: 06-14-2024 End: 06-14-2024 Refill Nicole Chavesk RETURN CHECKER Work Phone: [facility] Comment on above: Type 2 diabetes clemente itus without complication, without long- term current use of insulin ([facility]) Start: 05-24-2024 End: 05-24-2024 Refill Mendy Brink [facility] Comment on above: Type 2 diabetes clemente itus without complication, without long- term current use of insulin ([facility]); Chronic right-sided low back pain with right-sided sciatica Start: 05-04-2024 End: 05-04-2024 Bamboo flowsheet Nicole Robb RETURN CHECKER Work Phone: [facility] Start: 05-04-2024 End: 05-04-2024 Bamboo flowsheet Nicole Robb RETURN CHECKER Work Phone: [facility] Start: 05-04-2024 End: 05-04-2024 Office outpatient visit 15 minutes Nicole Robb RETURN CHECKER Work Phone: [facility] Comment on above: Type 2 diabetes clemente itus without complication, with long-term current use of insulin (CMS/HCC) (Primary Dx); Other hyperlipidemia (CMS/HCC); Pigmented skin lesion of uncertain behavior of head Start: 05-04-2024 End: 05-04-2024 ambulatory NICOLE ROBB Not Available Start: 04-09-2024 End: 04-12-2024 Refill Nicole Robb RETURN CHECKER Work Phone: [facility] Comment on above: Chronic right-sided low back pain with right-sided sciatica Start: 01-26-2024 End: 01-26-2024 ambulatory SHAIKH ANUPAM Not Available Start: 07-23-2023 Patient encounter procedure Nicole Robb RETURN CHECKER Work Phone: [facility] Start: 03-06-2023 ambulatory TONIO PAUL . Facili ty:[facility] Start: 12-06-2022 End: 12-07-2022 ambulatory SHAIKH Ty BO Facility:[facility] Start: 11-19-2022 End: 11-20-2022 ambulatory BEN ZUNIGA Facility:[facility] Start: 11-11-2022 End: 11-12-2022 ambulatory NARENDRANATH LAKSHMIPATHY . Facility:[facility] Start: 11-05-2022 End: 11-06-2022 ambulatory NARENDRANATH LAKSHMIPATHY . Facility: Procedures Date Procedure Procedure Detail Performing Clinician Start: 08-02-2024 ALL CBC WITH AUTO DIFF Nciole Robb RETURN CHECKER Work Phone: Start: 08-04-2022 Colonoscopy Nicole coronado RETURN CHECKER Work Phone: Plan of Treatment Date Care Activity Detail Author Start: 08-04-2032 Screening for malign ant neoplasm of colon [facility] Start: 08-25-2026 Screening for malign ant neoplasm of colon [facility] Start: 12-23-2024 End: 12-23-2024 Patient encounter procedure 12/23/2024 10:00 AM EDT Office Visit [facility] [address] [place] [address] Do Solis, RETURN CHECKER [address] [place] [address] [facility] Start: 11-09-2024 End: 11-09-2025 25-hydroxyvitamin D3 [Mass/volume] in Serum or Plasma Vitamin D 25 hydroxy Lab Routine Hypercalcemia Expected: 11/09/2024 (Approximate), Expires: 11/09/2025 [facility] Comment on above: Expected: 11/09/2024 (Approximate), Expires: 11/09/2025 Start: 11-09-2024 End: 11-09-2025 CBC W Auto Differential panel - Blood CBC and differential Lab Routine Type 2 diabetes mellitus without complication, with long-term current use of insulin Expected: 11/09/2024 (Approximate), Expires: 11/09/2025 [facility] Comment on above: Expected: 11/09/2024 (Approximate), Expires: 11/09/2025 Start: 11-09-2024 End: 11-09-2025 Cobalamin (Vitamin B12) [Mass/volume] in Serum or Plasma Vitamin B12 Lab Routine Anemia associated with nutritional deficiency Expected: 11/09/2024 (Approximate), Expires: 11/09/2025 [facility] Comment on above: Expected: 11/09/2024 (Approximate), Expires: 11/09/2025 Start: 11-09-2024 End: 11-09-2025 Comprehensive metabolic 2000 panel - Serum or Plasma Comprehensive metabolic panel Lab Routine Type 2 diabetes mellitus without complication, with long-term current use of insulin Mixed hyperlipidemia ([facility]/HCC) Expected: 11/09/2024 (Approximate), Expires: 11/09/2025 [facility] Comment on above: Expected: 11/09/2024 (Approximate), Expires: 11/09/2025 Start: 11-09-2024 End: 11-09-2025 Ferritin [Mass/volume] in Serum or Plasma Ferritin Lab Routine Anemia associated with nutritional deficiency Expected: 11/09/2024 (Approximate), Expires: 11/09/2025 [facility] Comment on above: Expected: 11/09/2024 (Approximate), Expires: 11/09/2025 Start: 11-09-2024 End: 11-09-2025 Iron + transferrin + TIBC Iron + transferrin + TIBC Lab Routine Anemia associated with nutritional deficiency Expected: 11/09/2024 (Approximate), Expires: 11/09/2025 [facility] Comment on above: Expected: 11/09/2024 (Approximate), Expires: 11/09/2025 Start: 11-09-2024 End: 11-09-2025 Lipid 1996 panel - Serum or Plasma Lipid panel Lab Routine Mixed hyperlipidemia (CMS/HCC) Expected: 11/09/2024 (Approximate), Expires: 11/09/2025 [facility] Work Phone: Comment on above: Expected: 11/09/2024 (Approximate), Expires: 11/09/2025 Start: 11-09-2024 End: 11-09-2025 Microalbumin/Creatinine panel in random Urine Microalbumin / creatinine, urine ratio Lab Routine Type 2 diabetes mellitus without complication, with long-term current use of insulin Expected: 11/09/2024 (Approximate), Expires: 11/09/2025 [facility] Comment on above: Expected: 11/09/2024 (Approximate), Expires: 11/09/2025 Start: 11-09-2024 End: 11-09-2025 Parathyrin.intact [Mass/volume] in Serum or Plasma PTH, intact Lab Routine Hypercalcemia Expected: 11/09/2024 (Approximate), Expires: 11/09/2025 [facility] Comment on above: Expected: 11/09/2024 (Approximate), Expires: 11/09/2025 Start: 11-09-2024 End: 11-09-2025 Prostate specific Ag [Mass/volume] in Serum or Plasma PSA Lab Routine Screening for prostate cancer Expected: 11/09/2024 (Approximate), Expires: 11/09/2025 [facility] Comment on above: Expected: 11/09/2024 (Approximate), Expires: 11/09/2025 Start: 11-09-2024 End: 11-09-2025 Urinalysis complete panel - Urine Urinalysis with reflex microscopic (clean catch) Lab Routine Type 2 diabetes mellitus without complication, with long-term current use of insulin Expected: 11/09/2024 (Approximate), Expires: 11/09/2025 [facility] Comment on above: Expected: 11/09/2024 (Approximate), Expires: 11/09/2025 Start: 11-09-2024 End: 11-09-2024 Patient encounter procedure [facility] Comment on above: Chronic pain syndrom e (Primary Dx); Constipation, unspecified constipation type; Type 2 diabetes mellitus without complication, with long-term current use of insulin; Mixed hyperlipidemia ([facility]); Screening for prostate cancer; Hypercalcemia; Anemia associated with nutritional deficiency Start: 10-05-2024 Influenza vaccination Influenza Vacc ine (#1) [facility] Comment on above: Postponed from 04/04 (Patient Refused) Start: 08-25-2024 Hemoglobin A1c measurement Diabetes: Hemoglobin A1C [facility] Start: 08-14-2024 Urine screening for protein Diabetes: Urine Protein Screening [facility] Start: 08-10-2024 End: 08-10-2024 Patient encounter procedure [facility] Comment on above: Arrived Start: 08-04-2024 End: 05-04-2025 CBC W Auto Differential panel - Blood CBC and differential Lab Routine Type 2 diabetes mellitus without complication, with long-term current use of insulin ([facility]) Expected: 08/04/2024 (Approximate), Expires: 05/04/2025 [facility] Comment on above: Expected: 08/04/2024 (Approximate), Expires: 05/04/2025 Start: 08-04-2024 End: 05-04-2025 Comprehensive metabolic 2000 panel - Serum or Plasma Comprehensive metabolic panel Lab Routine Type 2 diabetes mellitus without complication, with long-term current use of insulin ([facility]) Expected: 08/04/2024 (Approximate), Expires: 05/04/2025 [facility] Comment on above: Expected: 08/04/2024 (Approximate), Expires: 05/04/2025 Start: 08-04-2024 End: 05-04-2025 Hemoglobin A1c/Hemoglobin.total in Blood Hemoglobin A1c Lab Routine Type 2 diabetes mellitus without complication, with long-term current use of insulin ([facility]) Expected: 08/04/2024 (Approximate), Expires: 05/04/2025 [facility] [...] rubin 08-10-2024 influenza, seasonal, injectable Do [employer] RETURN CHECKER Work Phone: [facility] Payers Date Payer Category Payer Medicare MEDICARE [id number] 2024 Medicare [id number] 2022 Medicaid [place]ICAID [place] [id number] 2022 Medicaid [id number] 2022 Medicare (Managed Care) 1.2. [id number] 2022 Unknown Retail Info D [id number] 2022-Present [address] [place] [address] [id number] 2020 Unknown [id number] 1965 Unknown [id number] 2.16.840.1.891938.3.579.2. 593 1965 Unknown [id number] 2.16.840.1.714690.3.579.2. 593 1965 Unknown [id number] 2.16.840.1.033177.3.579.2. 593 1965 Unknown [id number] 2.16.840.1.167359.3.579.2. 593 1965 Unknown [id number] 2.16.840.1.402352.3.579.2. 593 1965 Unknown [id number] 2.16.840.1.799137.3.579.2. 593 1965 Unknown [id number] 2.16.840.1.560986.3.579.2. 593 1965 Unknown [id number] 2.16.840.1.165841.3.579.2. 1259 1965 Unknown [id number] 2.16.840.1.531532.3.579.2. 1259 1965 Unknown [id number] 2.16.840.1.795007.3.579.2. 1259 1965 Unknown [id number] 2.16.840.1.637928.3.579.2. 1259 Social History Date Type Detail Facility [...] Equipment Origin al Text Equipment Identifier Dates [id number] Start: 01-26-2024 End: 07-24-2024 Clinical Notes 11-05-2022 to 11-09-2024 Do Solis, BASILIO - 11/09/2024 10:00 AM Yosvany Solis, RETURN CHECKER - 11/09/2024 6:39 AM EDFelipa Solis, RETURN CHECKER - 11/09/2024 6:38 AM EDFelipa Solis, RETURN CHECKER - 11/09/2024 6:35 AM EDTPatient Instructions Note [...] 110-130 mg/dl. He does not see a risk compliance analyst.Eye exam is not current. Back Pain This [...] MINI PEN NEEDLES 31G X 5 MM [facility] [place] DAILY baclofen (LIORESAL) 10 mg, [...] meds, nsaids, MR documented in this encounter [facility] 11-09-2024 Instructions Do Solis NP - 11/09/2024 10:00 AM EDT Please get labs completed, 8 hours fasting I would like you to call an eye doctor to get a diabetic eye exam Schedule a medicare wellness examination documented in this encounter [facility] 08-10-2024 History of Presen t illness [...] ALBUMIN GLOBULIN RATIO 1.1 1.0 Resulting Agency [facility] Review of Systems Constitutional: Negative for activity [...] complication, with long-term current use of insulin ([facility]) - Primary Most recent labs: hemoglobin A1C [...] Chronic pain syndrome Follows with Pain Management- [facility]. Pt currently taking oxycodone 5-325mg. Feels symptoms [...] complication, with long-term current use of insulin ([facility]) Most recent labs: hemoglobin A1C 6.4% 07/2024 [...] Continue current regimen. documented in this encounter [facility] 08-10-2024 Instructions Nicole Robb NP [...] help relieve constipation. documented in this encounter [facility] 07-14-2024 Telephone encount er Note CLAU:05/04/2024 NOV:08/10/2024 [facility] 07-14-2024 Miscellaneous Notes Formattin g of this note might be different from the original. CLAU:05/04/2024 NOV:08/10/2024 documented in this encounter [facility] 06-14-2024 Telephone encount er Note CLAU:05/04/2024 NOV:08/10/2024 [facility] 06-14-2024 Miscellaneous Notes Formattin g of this note might be different from the original. CLAU:05/04/2024 NOV:08/10/2024 documented in this encounter [facility] 05-04-2024 History of Presen t illness Narrative Associated Problem(s): Other hyperlipidemia (CMS/HCC) Currently taking Atorvastatin 80mg Most recent Lipid Panel done 02/2024- WNL Denies any myalgias. Continue current regimen. Associated Problem(s): Type 2 diabetes mellitus without complication, with long-term current use of insulin ([facility]) Most recent labs: hemoglobin A1C 6.6% Average [...] ALBUMIN GLOBULIN RATIO 1.1 1.0 Resulting Agency [facility] Review of Systems Constitutional: Negative for activity [...] List Items Addressed This Visit Other hyperlipidemia (CMS/[facility]) Currently taking Atorvastatin 80mg Most recent Lipid Panel done 02/2024- WNL Denies any myalgias. Continue current regimen. Type 2 diabetes mellitus without complication, with long-term current use of insulin ([facility]) - Primary Most recent labs: hemoglobin A1C [...] referral to Dermatology documented in this encounter [facility] 05-04-2024 Instructions Nicole Robb NP - [...] will call you! documented in this encounter [facility] 11-05-2022 Note CONSULTATION CONSULTATION DATE: 11/05/2022 TO: Dr. Bo CHIEF COMPLAINT: Includes bilateral lower back pain, worse on the right side. HISTORY OF PRESENT ILLNESS: Review of systems, past medical/surgical history were obtained and documented on the health questionnaire and is available upon request. Patient is a poor historian. He reports being followed by a physician some place in [place]. He is unsure of the physician's name, [...] will await information regarding his physician in [place] and he is scheduled to return to our office in four weeks' time. As part of providing excellent, safe, comprehensive care, the following was completed at our patient's visit: 1. A medication reconciliation and review to ensure accurate knowledge of current/active medications, including asking our patients to inform us about any [id number] medications or herbal remedies/nutritional supplements/alternative remedies. 2. [...] options with their primary care provider. [facility] Evaluation note Diagnosis Type 2 diabetes mellitus [...] with right-sided sciatica documented in this encounter [facility] HealthcareEvaluation note* Diagnosis Encounter for screening for [...] of insulin (CMS/HCC) documented in this encounter [facility] HealthcareEvaluation note* Diagnosis Encounter for screening for [...] of insulin (CMS/HCC) documented in this encounter [facility] HealthcareEvaluation note* Diagnosis Encounter for screening [...] with right-sided sciatica documented in this encounter [facility]Evaluation note* Diagnosis Chronic right-sided low back pain with right-sided sciatica documented in this encounter [facility] HealthcareEvaluation note* Diagnosis Encounter for screening [...] of insulin (CMS/HCC) documented in this encounter [facility] HealthcareEvaluation note* Diagnosis Encounter for screening for [...] of insulin (CMS/HCC) documented in this encounter [facility] HealthcareEvaluation note* Diagnosis Encounter for screening for [...] right-sided sciatica [facility] Consultation (Routine) - Pending Review Specialty Diagnoses / Procedures Referred By Stuart zamora Referred To Contact Dermatology Diagnoses Pigmented skin lesion of uncertain behavior of head Procedures CO OFFICE/OUTPATIENT NEW HIGH MDM 60 MINUTES Nicole Robb NP [address] [place] [address] Opal Zhong, SERVICE CAPTAIN-BELL STAFF [address] [place] [address] Referral ID Status Reason Start Date Expiration Date Visits Requested Visits Authorized [id number] Pending Review Specialty Services Required 05/04/2024 10/31/2024 1 1 * Consultation (Routine) - Authorized Specialty Diagnoses / Procedures Referred By Stuart zamora Referred To Contact Ophthalmology Diagnoses Type 2 diabetes mellitus without complication, with long-term current use of insulin (CMS/HCC) Procedures CO OFFICE/OUTPATIENT NEW HIGH MDM 60 MINUTES Nicole Robb NP [address] [place] [address] Maggie Shukla MD [address] [place] [address] Referral ID Status Reason Start Date Expiration Date Visits Requested Visits Authorized [id number] Authorized Specialty Services Required 05/04/2024 10/31/2024 1 [...] DATE CREATED AUTHOR AUTHOR'S ORGANIZ ATION 11/10/2024 [facility] EPIC Care Teams (unrecognized sec tion and content) Community Theater Actor Relationship Specialty Start Date End Date Shaikh Bo MD [address] [place] [address] PCP - [facility] 08/04/22 Buddy Harvey MD [address] [facility] [place] [address] PCP - General Family Medicine 03/16/24 Nicole Robb NP [address] [place] [address] Nurse Practitioner Family Medicine 03/16/24 Community Theater Actor Relationship Specialty Start Date End Date Shaikh Bo MD [address] [place] [address] PCP - [facility] 08/04/22 Buddy Harvey MD [address] [place] [address] PCP - General Family Medicine 03/16/24 Nicole Robb NP [address] [place] [address] Nurse Practitioner Family Medicine 03/16/24 Community Theater Actor Relationship Specialty Start Date End Date Shaikh Bo MD [address] [place] [address] PCP - [facility] 08/04/22 Buddy Harvey MD [address] [place] [address] PCP - General Family Medicine 03/16/24 Nicole Robb NP [address] [place] [address] Nurse Practitioner Family Medicine 03/16/24 Community Theater Actor Relationship Specialty Start Date End Date Shaikh Bo MD [address] [place] [address] PCP - [facility] 08/04/22 08/03/24 uBddy Harvey MD [address] [place] [address] PCP - General Family Medicine 03/16/24 Nicole Robb NP [address] [place] [address] Nurse Practitioner Family Medicine 03/16/24 Community Theater Actor Relationship Specialty Start Date End Date Shaikh Bo MD [address] [place] [address] PCP - [facility] 08/04/22 08/03/24 Buddy Harvey MD [address] [place] [address] PCP - General Family Medicine 03/16/24 Nicole Robb NP [address] [place] [address] Nurse Practitioner Family Medicine 03/16/24 Community Theater Actor Relationship Specialty Start Date End Date Shaikh Bo MD [address] [place] [phone] PCP - [facility] 08/04/22 Buddy Harvey MD [address] [place] [address] PCP - General Family Medicine 03/16/24 Nicole Robb NP [address] [place] [address] Nurse Practitioner Family Medicine 03/16/24 Community Theater Actor Relationship Specialty Start Date End Date Shaikh Bo MD [address] [place] [address] PCP - [facility] 08/04/22 08/03/24 Buddy Harvey MD [address] [place] [address] PCP - General Family Medicine 03/16/24 Nicole Robb NP [address] [place] [address] Nurse Practitioner Family Medicine 03/16/24 Community Theater Actor Relationship Specialty Start Date End Date Buddy Harvey MD [address] [place] [address] PCP - General Family Medicine 03/16/24 Nicole Robb NP [address] [place] [address] Nurse Practitioner Family Medicine 03/16/24 Community Theater Actor Relationship Specialty Start Date End Date Buddy Harvey MD [address] [place] [address] PCP - General Family Medicine 03/16/24 Nicole Robb NP [address] [place] [address] Nurse Practitioner Family Medicine 03/16/24 Community Theater Actor Relationship Specialty Start Date End Date Buddy Harvey MD [address] [place] [address] PCP - General Family Medicine 03/16/24 Nicole Robb NP [address] [place] [address] Nurse Practitioner Family Medicine 03/16/24 Community Theater Actor Relationship Specialty Start Date End Date Buddy Harvey MD [address] [place] [address] PCP - General [facility] 03/16/24 Nicole Robb NP [address] [place] [address] Nurse Practitioner [facility] 03/16/24 Community Theater Actor Relationship Specialty Start Date End Date Buddy Harvey MD [address] [place] [address] PCP - General [facility] 03/16/24 Nicole Robb NP [address] [place] [address] Nurse Practitioner Family [facility] 03/16/24 Reason for Visit (unrecogniz ed section [...] BE BASED ON THE PRIMARY CLINICAL RECORDS. [employer] [facility]. provides no warranty or guarantee of the accuracy or completeness of information in this document.
[2024-12-14 10:49] LABS: Estimated Average Glucose 146 mg/dL; Glycohemoglobin A1C 6.7 % (4.5-6.2)
[2024-12-14 11:00] LABS: Creatinine Urine Random 143.27 mg/dL (20.00-300.00); Microalbumin Urine Random <1.3 mg/dL (<=30.0)
[2024-12-14 11:06] LABS: Percent Iron Saturation 24.3 %
[2024-12-14 11:10] LABS: Alanine Aminotransferase 36 U/L (16-63); Albumin Globulin Ratio 1.2; Alkaline Phosphatase 97 U/L (46-116); Anion Gap 10.7; Aspartate Amino Transferase 21 U/L (15-37); BUN Creatinine Ratio 24.1; Bilirubin Total 0.5 mg/dL (0.2-1.0); Calcium 10.7 mg/dL (8.5-10.1); Carbon Dioxide 28.9 mmol/L (21.0-32.0); Chloride 105 mmol/L (98-107); Chol HDL Ratio 2.5; Cholesterol 108 mg/dL (<=200); Estimated GFR (African America >60 (>=60 mL/min/1.73m^2); Estimated GFR (Non-African Ame >60 (>=60 mL/min/1.73m^2); Globulin 3.4 g/dL; Glucose 86 mg/dL (74-106); HDL Cholesterol 43 mg/dL (40-60); LDL Cholesterol Calculated 51.2 mg/dL; Potassium 4.6 mmol/L (3.5-5.1); Sodium 140 mmol/L (136-145); Total Protein 7.4 g/dL (6.4-8.2); Triglycerides 69 mg/dL (<=150); VLDL CHOLESTEROL 13.8 mg/dL
[2024-12-14 11:11] LABS: Basophils Absolute Auto 0.1 10^3/uL (0.0-0.1); Basophils Percent Auto 0.6 % (0.2-2.0); Eosinophils Absolute Auto 0.1 10^3/uL (0.0-0.7); Eosinophils Percent Auto 0.6 % (0.9-7.0); Hematocrit 39.1 % (42.0-54.0); Hemoglobin 12.8 g/dL (14.0-18.0); Immature Granulocytes Abs Auto 0.01 10^3/uL (0.00-0.03); Immature Granulocytes Pct Auto 0.1 % (0.0-0.5); Lymphocytes Absolute Auto 1.8 10^3/uL (1.2-3.8); Lymphocytes Percent Auto 22.8 % (20.5-60.0); Mean Corpuscular HGB Conc 32.7 g/dL (29.9-35.2); Mean Corpuscular Hemoglobin 27.9 pg (25.9-34.0); Mean Corpuscular Volume 85.2 fL (80.0-94.0); Mean Platelet Volume 9.3 fL (9.5-13.5); Monocytes Absolute Auto 0.6 10^3/uL (0.3-0.8); Monocytes Percent Auto 7.3 % (1.7-12.0); Neutrophils Absolute Auto 5.4 10^3/uL (1.4-6.5); Neutrophils Percent Auto 68.6 % (43.0-75.0); Platelet Count 326 10^3/uL (150-450); Red Blood Count 4.59 10^6/uL (4.70-6.10); Red Cell Distribution Width 12.9 % (11.0-15.0); White Blood Count 7.9 10^3/uL (4.0-11.0)
[2024-12-14 11:20] LABS: Bilirubin Urine NEGATIVE (NEGATIVE); Blood Urine TRACE-I (NEGATIVE); Clarity Urine CLEAR (CLEAR); Color Urine LT. YELLOW (YELLOW); Glucose Urine UA NEGATIVE (NEGATIVE); Ketones Urine NEGATIVE (NEGATIVE); Leukocyte Esterase Urine NEGATIVE (NEGATIVE); Nitrite Urine NEGATIVE (NEGATIVE); Protein Urine NEGATIVE (NEG/TRACE); Specific Gravity Urine 1.025 (1.005-1.025); Urobilinogen Urine 0.2 EU/dL (0.2-1.0)
[2024-12-14 11:42] LABS: Urine Microscopic Indicated YES
[2024-12-14 12:48] LABS: Bacteria Urine TRACE #/HPF (NONE SEEN); Crystals Seen? None Seen #/HPF (None Seen); Mucus Urine NONE SEEN (NONE SEEN); RBC Urine 0-2 #/HPF (0-2); Squamous Epithelial Cell Urine RARE #/LPF (NONE/RARE); WBC Urine NONE SEEN #/HPF (NONE SEEN)
[2024-12-14 12:49] LABS: Cast Seen? NONE SEEN #/LPF (NONE SEEN)
[2024-12-15 04:07] LABS: Vitamin B12 373 pg/mL (232-1245)
[2024-12-15 05:07] LABS: Transferrin 263 mg/dL (177-329)
[2024-12-15 11:08] LABS: PTH, Intact 76 pg/mL (15-65)
== END 2024-12-14 10:02 | disposition home or self-care (01) ==
LOC: LAB 10:09
PROVIDERS: PCP Nurse Practitioner; Visit Provider Nurse Practitioner
DX: E78.2 Mixed hyperlipidemia (principal); E11.9 Type 2 diabetes mellitus without complications; Z79.4 Long term (current) use of insulin; Z12.5 Encounter for screening for malignant neoplasm of prostate; D53.9 Nutritional anemia, unspecified; E83.52 Hypercalcemia
CPT/HCPCS: 36415; 80053; 80061; 81001; 82043; 82306; 82570; 82607; 82728; 83036; 83540; 83550; 83970; 84466; 85025; G0103

== ENCOUNTER 2025-02-10 09:26 | Outpatient (OUT) | payer MEDICARE, MEDICAID, SELFPAY ==
--- OUTSIDE RECORDS SUMMARY | 2025-01-31 20:47 | XMS_ITS | Continuity of Care Document ---
Author Organization [facility] Address [address] [place] [address] Phone Care Team Providers Care Director Of Food And Beverage Services Name Role Phone Isidro Shipman DO Attending Provider [phone] Do Solis Primary Care Provider Care Teams Patient Care Team Team Status: Active Member Role Status Dates Do Solis Primary Care Provider Active Visit Care Team Team Status: Inactive Member Role Status Dates Isidro Shipman DO Attending Provider Active S tart: January 14, 2025 End: January 14, 2025 Do Solis Primary Care Provider Active Sta rt: January 14, 2025 End: January 14, 2025 Patient Care Team Team Status: Inactive Member Role Status Dates Do Solis Primary Care Provider Active Sta rt: January 31, 2025 End: January 31, 2025 Isidro Shipman DO Attending Provider Active S tart: January 31, 2025 End: January 31, 2025 Chief Complaint and Reason for Visit Chief Complaint Admit Date E83.52 E21.3 January 14, 2025 8:48 am hyperparathyroidism January 31, 2025 12:5 9pm Allergies, Adverse Reactions, Alerts Allergen Type Severity Reaction Last Updated Verified Status Comments Penicillins Allergy Unknown Rash January 31 1:46pm Yes Active childhood Social History Smoking Status Status Start Date End Date Date of Observa tion Never smoked tobacco (finding) January 31, 2025 1:08pm Observation Status Observation Response Date of Response Legal Sex Male (finding) Sex Assigned At Male 1965 Family History Relationship Condition Age at Onset Recorded Date/T jes mother Unknown Diabetes mellitus Unknown father Unknown Malignant neoplasm of throat Unknown brother Unknown Medications Medication Status Dose Units Route Directions Qty Days St art Date Stop Date End Date Instructions Adherence Aspirin 81 mg tablet,julius yed release (DR/EC) Active 81 MG PO Daily at bedtime January 31, 2025 12:00a m Unknown Dulaglutide (Trulicity) 4.5 mg/0.5 mL pen injector Active 4.5 MG SUBCUT .qsunday January 31, 2025 12:00a m Unknown Esomeprazol e Magnesium 20 mg capsule,del ayed release(DR/ EC) Active 20 MG PO Every morning January 31, 2025 12:00a m Unknown Ibuprofen 600 mg tablet Active 600 MG PO Every 6 hours as needed for pain January 31, 2025 12:00a m Unknown Insulin Degludec (Tresiba Flextouch U-200) 200 unit/mL (3 mL) insulin pen Active 36 UNIT SUBCUT Daily at bedtime January 31, 2025 12:00a m Unknown Oxycodone-A cetaminophe n 5-325 mg tablet Active 1 TAB PO 2-3 TIMES DAILY as needed for pain January 31, 2025 12:00a m Unknown Atorvastati n 80 mg tablet Active 80 MG PO Daily at bedtime January 31, 2025 12:00a m Unknown Ezetimibe 10 mg tablet Active 10 MG PO Daily at bedtime January 31, 2025 12:00a m Unknown Procedures Procedure Date Performed Status CT neck 4D parathyroid January 14, 2025 8:51am co mpleted Relevant Diagnostic Tests and/or Laboratory Data Laboratory Results Test Collection Date/Time Result Date/Time Result Interpretation Reference Range Result Comment Performing Site Corrected White Blood Count January 31, 2025 1:40pm January 31, 2025 1:53pm 8.4 10*3/uL 4.1-10.5 [facility] [id number] [address] [facility] [address] Uncorrect ed WBC Count January 31, 2025 1:40pm January 31, 2025 1:53pm 8.4 10*3/uL 4.1-10.5 [facility] [id number] [address] [facility] [address] Red Blood Count January 31, 2025 1:40pm January 31, 2025 1:53pm 4.44 10*6/uL 3.90-5.60 [facility] [id number] [address] [facility] [address] Hemoglobi n January 31, 2025 1:40pm January 31, 2025 1:53pm 12.5 g/dL Below low normal 13.0-17.0 [facility] [id number] [address] [facility] [address] Hematocri t January 31, 2025 1:40pm January 31, 2025 1:53pm 36.9 % Below low normal 38.8-50.0 [facility] [id number] [address] [facility] [address] Mean Corpuscul ar Volume January 31, 2025 1:40pm January 31, 2025 1:53pm 83.2 fL Below low normal 83.5-101 [facility] [id number] [address] [facility] [address] Mean Corpuscul ar Hemoglobi n January 31, 2025 1:40pm January 31, 2025 1:53pm 28.1 pg 27.5-35.2 [facility] [id number] [address] [place] [address] Mean Corpuscul ar Hemoglobi n Concent January 31, 2025 1:40pm January 31, 2025 1:53pm 33.8 g/dL 32.5-35.6 [facility] [id number] [address] [facility] [address] Red Cell Distribut ion Width January 31, 2025 1:40pm January 31, 2025 1:53pm 13.7 % 12.0-14.8 [facility] [id number] [address] [place] [address] Platelet Count January 31, 2025 1:40pm January 31, 2025 1:53pm 299 10*3/uL 150-450 [facility] [id number] [address] [place] [address] Mean Platelet Volume January 31, 2025 1:40pm January 31, 2025 1:53pm 7.2 fL 6.6-10.1 [facility] [id number] [address] [facility] [address] Neutrophi ls (%) (Auto) January 31, 2025 1:40pm January 31, 2025 1:53pm 65.2 % . [facility] [id number] [address] [facility] [address] Lymphocyt es (%) (Auto) January 31, 2025 1:40pm January 31, 2025 1:53pm 23.7 % . [facility] [id number] [address] [facility] [address] Monocytes (%) (Auto) January 31, 2025 1:40pm January 31, 2025 1:53pm 7.9 % . [facility] [id number] [address] [facility] [address] Eosinophi ls (%) (Auto) January 31, 2025 1:40pm January 31, 2025 1:53pm 2.0 % . [facility] [id number] [address] [facility] [address] Basophils (%) (Auto) January 31, 2025 1:40pm January 31, 2025 1:53pm 1.2 % . [facility] [id number] [address] [facility] [address] Nucleated RBC Relative Count (auto) January 31, 2025 1:40pm January 31, 2025 1:53pm 0.1 /100{WB C} 0-0.5 [facility] [id number] [address] [place] 4455370 Neutrophi ls # (Auto) January 31, 2025 1:40pm January 31, 2025 1:53pm 5.5 10*3/uL 1.8-7.7 [facility] [id number] [address] [facility] [address] Lymphocyt es # (Auto) January 31, 2025 1:40pm January 31, 2025 1:53pm 2.0 10*3/uL 1.00-4.8 [facility] [id number] [address] [facility] [address] Monocytes # (Auto) January 31, 2025 1:40pm January 31, 2025 1:53pm 0.7 10*3/uL 0.0-0.8 [facility] [id number] [address] [facility] [address] Eosinophi ls # (Auto) January 31, 2025 1:40pm January 31, 2025 1:53pm 0.2 10*3/uL 0.0-0.45 [facility] [id number] [address] [facility] [address] Basophils # (Auto) January 31, 2025 1:40pm January 31, 2025 1:53pm 0.1 10*3/uL 0.0-0.2 [facility] [id number] [address] [place] 4455370 Glucose Level January 31, 2025 1:40pm January 31, 2025 2:44pm 107 mg/dL Above high normal 70-100 ADA recommended reference rangeRandom Glucose Reference Range is dependent on time and content of last meal. Glucose of more than 200 mg/dL in a nonstressed, ambulatory subject supports the diagnosis of Diabetes Mellitus. [facility] [id number] [address] [place] 4455370 Blood Urea Nitrogen January 31, 2025 1:40pm January 31, 2025 2:44pm 15 mg/dL 7-25 [facility] [id number] [address] [place], [place] [address] Creatinin e January 31, 2025 1:40pm January 31, 2025 2:44pm 1.00 mg/dL 0.70-1.30 [facility] [id number] [address] [place] [address] Estimated GFR (CKD-EPI) January 31, 2025 1:40pm January 31, 2025 2:44pm > 60.0 mL/Min [facility] [id number] [address] [place], [place] [address] Sodium Level January 31, 2025 1:40pm January 31, 2025 2:44pm 139 mmol/L 136-145 [facility] [id number] [address] [place], [place] [address] Potassium Level January 31, 2025 1:40pm January 31, 2025 2:44pm 4.3 mmol/L 3.5-5.1 [facility] [id number] [address] [place], [place] [address] Chloride Level January 31, 2025 1:40pm January 31, 2025 2:44pm 108 mmol/L Above high normal 98-107 [facility] [id number] [address] [facility] [address] Carbon Dioxide Level January 31, 2025 1:40pm January 31, 2025 2:44pm 27.8 mmol/L 21.0-31.0 [facility] [id number] [address] [facility] [address] Anion Gap January 31, 2025 1:40pm January 31, 2025 2:44pm 7.5 mEq/L 6.0-15.0 [facility] [id number] [address] [facility] [address] Calcium Level January 31, 2025 1:40pm January 31, 2025 2:44pm 10.2 mg/dL 8.6-10.3 [facility] [id number] [address] [place] [address] Total Thyroxine January 31, 2025 1:40pm January 31, 2025 2:55pm 8.46 ug/dL 5.39-11.82 [facility] [id number] [address] [place] [address] Total Triiodoth yronine January 31, 2025 1:40pm January 31, 2025 4:43pm 1.22 ng/mL 0.87-1.78 [facility] [id number] [address] [place] [address] Thyroid Stimulati ng Hormone 3rd Gen January 31, 2025 1:40pm January 31, 2025 2:57pm 3.47 u[iU]/m L 0.45-5.33 [facility] [id number] [address] [facility] [address] 25-Hydrox y Vitamin D Total January 31, 2025 1:40pm January 31, 2025 4:48pm 30.0 ng/mL 30-100 VITAMIN D STATUS 25(OH)VITAMI N D RANGE (ng/mL) Deficient <20 Insufficient 20 to <30Sufficien t 30 to 100Reference : Araceli ARROYO,Amanda SOLIS, Jesse mari LAMB, et al. Evaluation,t reatment, and prevention of vitamin D deficiency; an Endocrine Society clinical practice guideline. JCEM. 2010; 96(7):1911-3 0. [facility] [id number] [address] [place] [address] Parathyro id Hormone (Intact) January 31, 2025 1:40pm January 31, 2025 2:59pm 114.4 pg/mL Above high normal 12-88 [facility] [id number] [address] [place] [address] Pharmacy Creatinin e Clearance (Chem January 31, 2025 1:40pm January 31, 2025 2:44pm N/A [facility] [id number] [address] [place] [address] Bedside Creatinin e January 14, 2025 10:22am January 14, 2025 10:31am 1.1 mg/dL 0.6-1.3 ER/ESD physician is notified/issac wn all ISTAT results.Crit ical values may be confirmed by laboratory testing ifdeemed necessary by ER attending doctor. [facility] [id number] [address] [place] [address] Bedside Estimated GFR (eGFR) January 14, 2025 10:22am January 14, 2025 10:31am > 60.0 [facility] [id number] [address] [place] [address] Diagnostic Imaging Reports Author Sary Membreno [facility] Authored January 14, 2025 12:5 9pm Report Dictated Date/Time Dictated By Status Radiology Report January 14, 2025 12:59pm Sary hughes MD completed [facility] [place] [address] [place], [place] [address] Nuclear Medicine Report Signed Patient: Nicholas Lovelace MR#: [id number] : 1965 Acct:[id number] Age/Sex: 60 / M ADM Date: 5 Loc: [place] Room: Type: [facility] Attending Dr: Isidro Shipman DO Copies to: DO Sary Shen MD~ Ordering Provider: Isidro Shipman DO Date of Service: 01/14/25 NM/NM parathyroid: E83.52 PARATHYROID SCAN CLINICAL DATA: Hypercalcemia COMPARISON: CT neck 01/14/2025 Following the intravenous administration of 23.8 mCi of technetium 99 M labeled sestamibi, anterior imaging of the neck and chest was performed at 15 minutes. Patient refused any further imaging due to back pain. Images demonstrate physiologic uptake at the salivary glands. There is uptake at both thyroid lobes with relative symmetry. The study is nondiagnostic for parathyroid adenoma given the limited available images. MT/MT parathyroid IMPRESSION: INCOMPLETE STUDY, DESCRIBED. Impression dictated by: Sary Membreno M.D. 01/14/2025 1:01 PM Dictation Location: [place] [address] Transcribed By: [facility] 01/14/25 1301 Dictated By: Sary Membreno MD 01/14/25 1259 Signed By: <Electronically signed by MD Sary Membreno in OV> 01/14/25 1301 Author Sary Membreno [facility] Authored January 14, 2025 1:01 pm Report Dictated Date/Time Dictated By Status Radiology Report January 14, 2025 1:01pm Sary gonzalez MD completed [facility] [place] [address] CT Scan Report Signed Patient: Nicholas Lovelace MR#: [id number] : 1965 Acct:[id number] Age/Sex: 60 / M ADM Date: 5 Loc: [place] Room: Type: [facility] Attending Dr: Isidro Shipman DO Copies to: Isidro Shipman DO~ Ordering Provider: Isidro Shipman DO Date of Service: 01/14/25 CT/CT neck 4D parathyroid: E83.[address] NECK WITHOUT AND WITH CONTRAST CLINICAL DATA: Hypercalcemia COMPARISON: None Spiral axial unenhanced images were obtained through the neck. Following 90 mL of Isovue-300, scans through the neck were repeated at 25 seconds and [address] exam was performed using one or more following dose reduction techniques: Automated exposure control, adjustment of the mA and/or kV according to patient size, or use of iterative reconstruction technique. The right thyroid lobe is slightly larger in craniocaudal dimension than the left. There is a 12 mm hypodense, enhancing nodule at the mid to upper pole of left thyroid lobe. There is a tiny 3 mm nodule at the inferior pole on the right that might be a colloid cyst. There is question of a small separate 7 mm enhancing nodule posterior to the inferior pole of the right thyroid. There is also question of a separate enhancing nodule posterior to the midpole on the left measuring 8 mm. Parathyroid adenoma at either or both sites is not excluded on the basis of this exam. There is no other enhancing nodularity in the field of view which is suspicious for parathyroid adenoma. There are few small shotty cervical lymph nodes. The submandibular and parotid glands appear symmetric. The epiglottis and vocal cords are within normal limits. The airway is patent along its course with normal appearance the mucosal surfaces. There is slight reversal of the normal cervical curvature as well as degenerative changes, greatest at C5-6 and C6-7. Bilateral maxillary mucosal thickening is present, greater on the right. There is a right mastoid air cell with an air-fluid level. Cerumen is present within the external auditory canals on both sides. Limited imaging through the upper chest shows no contributory findings. CT/CT neck 4D parathyroid IMPRESSION: SMALL BILATERAL THYROID NODULES, DESCRIBED. POSSIBLE TINY ENHANCING NODULAR AREAS ADJACENT TO THE POSTERIOR INFERIOR RIGHT AND MIDPOLE OF THE LEFT THYROID LOBES WHERE PARATHYROID ADENOMAS ARE NOT EXCLUDED. THERE IS PRESUMED ULTRASOUND IMAGING PERFORMED AT THE REFERRING PHYSICIAN'S OFFICE AND CORRELATION IS SUGGESTED. PATIENT DID NOT COMPLETE THE PARATHYROID SCAN FOR CORRELATION. Impression dictated by: Sary Membreno M.D. 01/14/2025 1:18 PM Dictation Location: [place] [address] Transcribed By: [facility] 01/14/25 1318 Dictated By: Sary Membreno MD 01/14/25 1301 Signed By: <Electronically signed by MD Sary Membreno in OV> 01/14/25 1318 Advance Directives Advance Directive Response Recorded Date/ Time Advance Directives No January 10 10:56am Insurance Providers Guarantor Nicholas Lovelace Address [address] [place] [id number] Contact Info. Home Phone: Payer Policy Id Subscriber's Name Subscriber Id Effectiv e Date Expiration Date Medicaid [id number] Nicholas Lovelace [id number] Surjit IrizarryDougie Dual Adv [id number] Nicholas Lovelace [id number] Encounters Encounter Location(s) Arrival/Admit Date Discharge/Depart Date Provider(s) Departed Clinical -[facility] January 14, 2025 8:48am January 14, 2025 8:49am Isidro Shipman DO Departed Clinical -Pre-Surgical Testing January 31, 2025 12:59pm January 31, 2025 1:00pm Isidro Shipman DO
--- OUTSIDE RECORDS SUMMARY | 2025-02-10 09:31 | XMS_ITS | Encounter Summary ---
Author Organization [facility] Address [address] [place] [address] Care Team Providers Care Golf Cart Attendant Name Role Phone Shaikh TAYA Bo Primary Care Provider [phone] Shaikh TAYA Bo Unavailable [phone] Shaikh TAYA Bo Primary Care Provider [phone] Buddy Harvey MD Primary Care Provider [phone] Nicole Robb COMPREHENSIVE ADVISOR Unavailable [phone] Do Solis COMPREHENSIVE ADVISOR Unavailable [phone] Isidro Shipman DO Unavailable [phone] Encounter Details Date Type Department Care Team (Late st Contact Info) Description 08/18/2023 Abstract [facility] [address] [place] [phone] Shaikh Bo MD [address] [place] [address] Social History Tobacco Use Types Packs/Day Years Used Date Smoking Tobacco: Never Passive Smoke Exposure: Never Smokeless Tobacco: Never Alcohol Use Standard Drinks/Week Comments Not Currently 0 (1 standard drink = 0.6 oz pur e alcohol) OCCASSIONALLY PHQ-2 Answer Date Recorded Patient Health Questionnaire-2 Score 0 07/23/2023 Sex and Gender Information Value Date Recorded Sex Assigned at Not on file Legal Sex Male 8:35 AM EDT Gender Identity Not on file Sexual Orientation Not on file documented as of this encounter Plan of Treatment Upcoming Encounters Date Type Department Care Team (Late Contact Info) Description 02/21/2025 2:15 PM EDT Office Visit [facility] [address] [place] [address] Isidro Shipman W, DO [address] [place] [address] 03/28/2025 9:20 AM EDT Office Visit [facility] [address] [place] [address] Do Solis, COMPREHENSIVE ADVISOR [address] [place] [address] 12/29/2025 10:30 AM EDT Office Visit [facility] [address] [place] [address] Do Solis, COMPREHENSIVE ADVISOR [address] [place] [address] documented as of this encounter Visit Diagnoses Not on filedocumented in this encounter Additional Health Concerns Assessment Noted Time PHQ-9 Depression Total Score: 1 07/23/20 23 1:00 PM EST documented as of this encounter Care Teams Golf Cart Attendant Relationship Specialty Start Date End Date Shaikh Bo MD PCP - General Internal Medicine 08/04/22 10/22/23 Shaikh Bo MD [address] [place] [address] PCP - Devoted 08/04/22 08/03/24 Shaikh Bo MD [address] [place] [phone] PCP - General Internal Medicine 10/23/23 03/15/24 Buddy Harvey MD [address] [place] [address] PCP - General Family Medicine 03/16/24 Nicole Robb NP [address] [place] [address] Nurse Practitioner Family Medicine 03/16/24 Do Solis NP [address] [place] [address] Nurse Practitioner Family Medicine 01/19/25 Isidro Shipman DO [address] [place] [address] Otolaryngology 01/19/25 documented as of this encounter
--- OUTSIDE RECORDS SUMMARY | 2025-02-10 09:31 | XMS_ITS | Encounter Summary ---
Author Organization [facility] Address [address] [place] [address] Care Team Providers Care Explosives Worker Name Role Phone Buddy Harvey MD Primary Care Provider [phone] Nicole Robb MEDICAL SCIENTIFIC LIAISON Unavailable [phone] Do Solis MEDICAL SCIENTIFIC LIAISON Unavailable [phone] Isidro Shipman DO Unavailable Encounter Details Date Type Department Care Team ([facility] Contact Info) Description 01/31/2025 External Result Encounter [facility] External Department Unsolicited Isidro Shipman, DO [address] [place] [address] Social History Tobacco Use Types Packs/Day Years Used Date Smoking Tobacco: Never Passive Smoke Exposure: Never Smokeless Tobacco: Never Alcohol Use Standard Drinks/Week Comments Not Currently 0 (1 standard drink = 0.6 oz pur e alcohol) OCCASSIONALLY PHQ-2 Answer Date Recorded Patient Health Questionnaire-2 Score 0 12/23/2024 Sex and Gender Information Value Date Recorded Sex Assigned at Not on file Legal Sex Male 8:35 AM EDT Gender Identity Not on file Sexual Orientation Not on file documented as of this encounter Plan of Treatment Upcoming Encounters Date Type Department Care Team ([facility] Contact Info) Description 02/21/2025 2:15 PM EDT Office Visit [facility] [address] [place] [address] Isidro Shipman, DO [address] [place] [address] 03/28/2025 9:20 AM EDT Office Visit [facility] [address] [place] [phone] Do Solis, MEDICAL SCIENTIFIC LIAISON [address] [place] [address] 12/29/2025 10:30 AM EDT Office Visit [facility] [address] [place] [address] Do Solis, MEDICAL SCIENTIFIC LIAISON [address] [place] [address] documented as of this encounter Procedures Procedure Name Priority Date/Time Associated Diagnosis Comments CBC WITH AUTO DIFFERENTIAL Routine 01/31/2025 1:40 PM EDT documented in this encounter Results * (ABNORMAL) CBC auto differential (01/31/2025 1:40 PM EDT) WBC 8.4 4.1 - 10.5 [CFU]/mL 01/31/2025 1:53 PM EDT [facility] UNCORRECTED WHITE BLOOD COUNT 8.4 4.1 - 10.5 10*3/uL 01/31/2025 1:53 PM EDT [facility] RBC 4.44 3.90 - 5.60 10*6/uL 01/31/2025 1:53 PM EDT [facility] HEMOGLOBIN 12.5(L) 13.0 - 17.0 g/dL 01/31/2025 1:53 PM EDT [facility] HEMATOCRIT 36.9(L) 38.8 - 50.0 % 01/31/2025 1:53 PM EDT [facility] MCV 83.2(L) 83.5 - 101 fL 01/31/2025 1:53 PM EDT [facility] MCH 28.1 27.5 - 35.2 pg 01/31/2025 1:53 PM EDT [facility] MCHC 33.8 32.5 - 35.6 g/dL 01/31/2025 1:53 PM EDT [facility] RED CELL DISTRIBUTION WIDTH, RDW 13.7 12.0 - 14.8 % 01/31/2025 1:53 PM EDT [facility] PLATELET COUNT 299 150 - 450 10*3/uL 01/31/2025 1:53 PM EDT [facility] MEAN PLATELET VOLUME, MPV 7.2 6.6 - 10.1 fL 01/31/2025 1:53 PM EDT [facility] NEUTROPHILS, % 65.2 . % 01/31/2025 1:53 PM EDT [facility] LYMPHOCYTES, % 23.7 . % 01/31/2025 1:53 PM EDT [facility] MONOCYTE/MACROPHA GE, % 7.9 . % 01/31/2025 1:53 PM EDT [facility] EOSINOPHILS, % 2.0 . % 01/31/2025 1:53 PM EDT [facility] BASOPHILS, % 1.2 . % 01/31/2025 1:53 PM EDT [facility] NRBC 0.1 0 - 0.5 /100{WBC} 01/31/2025 1:53 PM EDT [facility] NEUTROPHILS 5.5 1.8 - 7.7 10*3/uL 01/31/2025 1:53 PM EDT [facility] LYMPHOCYTES 2.0 1.00 - 4.8 10*3/uL 01/31/2025 1:53 PM EDT [facility] MONOCYTES 0.7 0.0 - 0.8 10*3/uL 01/31/2025 1:53 PM EDT [facility] EOSINOPHILS 0.2 0.0 - 0.45 10*3/uL 01/31/2025 1:53 PM EDT [facility] BASOPHILS 0.1 0.0 - 0.2 10*3/uL 01/31/2025 1:53 PM EDT [facility] Blood (Blood) 01/31/2025 1:4 0 PM EDT 01/31/2025 1:42 PM EDT us Isidro Shipman DO LAB BLOOD ORDERABLES Final Result [facility] [address] [place] [address], [facility] [address] [place] [address] documented in this encounter Visit Diagnoses Not on filedocumented in this encounter Additional Health Concerns Assessment Noted Time PHQ-9 Depression Total Score: 0 12/24/19 10:14 AM EDT documented as of this encounter Care Teams Explosives Worker Relationship Specialty Start Date End Date Buddy Harvey MD [address] [place] [phone] PCP - General Family Medicine 03/16/24 Nicole Robb NP [address] [place] [address] Nurse Practitioner Family Medicine 03/16/24 Do Solis NP [address] [place] [address] Nurse Practitioner Family Medicine 01/19/25 Isidro Shipman DO [address] [place] [address] Otolaryngology 01/19/25 documented as of this encounter
--- OUTSIDE RECORDS SUMMARY | 2025-02-10 09:31 | XMS_ITS | Encounter Summary ---
Author Organization [facility] Address [address] [place] [address] Care Team Providers Care Beef Cattle Farmer Name Role Phone Buddy Harvey MD Primary Care Provider [phone] Nicole Robb PROMOTION OFFICER Unavailable [facility] PROMOTION OFFICER Unavailable [phone] Isidro Shipman DO Unavailable Encounter Details Date Type Department Care Team ([facility] Contact Info) Description 01/14/2025 External Result Encounter [facility] External Department Unsolicited Isidro Shipman, DO [address] [place] [address] Social History Tobacco Use Types Packs/Day Years [...] Upcoming Encounters Date Type Department Care Team ([facility] Contact Info) Description 02/21/2025 2:15 PM EDT Office Visit [facility] [address] [place] [address] Isidro Shipman, DO [address] [place] [address] 03/28/2025 9:20 AM EDT Office Visit [facility] [address] [place] [address] [facility], BASILIO [address] [place] [address] 12/29/2025 10:30 AM EDT Office Visit [facility] [address] [place] [address] [facility], BASILIO [address] [place] [address] documented as of this encounter Procedures Procedure Name Priority Date/Time Associated Diagnosis Comments CT 4D PARATHYROID 01/14/2025 1:0 1 PM EDT documented in this encounter Results * CT 4D PARATHYROID (01/14/2025 1:01 PM EDT) Anatomical Region Laterality Modality Head, Neck Computed Tomogra phy 01/14/2025 1:01 PM EDT Impressions 01/14/2025 1:21 PM EDT SMALL BILATERAL THYROID NODULES, DESCRIBED. POSSIBLE TINY [...] Membreno M.D. 01/14/2025 1:18 PM Dictation Location: [place] [address] Transcribed By: [facility] 01/14/25 1318 Dictated By: Sary Membreno MD 01/14/25 1301 Signed By: <Electronically signed by MD Sary Membreno in OV> 01/14/25 1318 Narrative 01/14/2025 1:21 PM EDT [facility] Main [place] [id number] CT Scan Report Signed Patient: Nicholas Lovelace MR#: [id number] 789 : 1965 Acct:[id number] Age/Sex: 60 / M ADM Date: 01/14/25 Loc: [place] Room: Type: [facility] Attending Dr: Isidro Shipman DO Copies to: Isidro Shipman DO Ordering Provider: Isidro Shipman DO Date of [...] no contributory findings. CT/CT neck 4D parathyroid Procedure Note Radiology, Radiologist, - 01/14/2025 [facility] [place] [address] [place] [address] CT Scan Report Signed Patient: Nicholas LovelaceMR#: [id number] : 1965Acct:[id number] Age/Sex: 60 / MADM Date: 01/14/25 Loc: [place] Room:Type: [facility] Attending Dr: Isidro Shipman DO Copies to: Isidro Shipman DO Ordering Provider: Isidro Shipman DO Date of Service: 01/14/25 CT/CT neck 4D parathyroid: E83.[address] NECK WITHOUT AND WITH CONTRAST CLINICAL DATA: Hypercalcemia COMPARISON: None Spiral axial unenhanced images were obtained through the neck. Ogkpamibv70 mL of Isovue-300, scans through the neck were repeated at 25 seconds and [address] examwas performed using one or more following dose reduction techniques: Automated exposure control,adjustment of the mA and/or kV according to patient size, or use of iterative reconstructiontechnique. The right thyroid lobe is slightly larger in craniocaudal dimension thanthe left. There is a 12 mm hypodense, enhancing nodule at the mid to upper pole of left thyroid lobe.There is a tiny 3 mm nodule at the inferior pole on the right that might be a colloid cyst.There is question of a small separate 7 mm enhancing nodule posterior to the inferior pole of the rightthyroid. There is also question of a separate enhancing nodule posterior to the midpole on theleft measuring 8 mm. Parathyroid adenoma at either or both sites is not excluded on the basisof this exam. There is no other enhancing nodularity in the field of view which is suspicious forparathyroid adenoma. There are few small shotty cervical lymph nodes. The submandibular andparotid glands appear symmetric. The epiglottis and vocal cords are within normal limits. Theairway is patent along its course with normal appearance the mucosal surfaces. There is slightreversal of the normal cervical curvature as well as degenerative changes, greatest at C5-6 and C6-7.Bilateral maxillary mucosal thickening is present, greater on the right. There is a right mastoid aircell with an air-fluid level. Cerumen is present within the external auditory canals on bothsides. Limited imaging through the upper chest shows no contributory findings. CT/CT neck 4D parathyroid IMPRESSION: SMALL BILATERAL THYROID NODULES, DESCRIBED. POSSIBLE TINY ENHANCING NODULAR AREAS ADJACENT TO THE POSTERIOR INFERIORRIGHT AND MIDPOLE OF THE LEFT THYROID LOBES WHERE PARATHYROID ADENOMAS ARE NOT EXCLUDED. THERE ISPRESUMED ULTRASOUND IMAGING PERFORMED AT THE REFERRING PHYSICIAN'S OFFICE AND CORRELATION ISSUGGESTED. PATIENT DID NOT COMPLETE THE PARATHYROID SCAN FOR CORRELATION. Impression dictated by: Sary Membreno M.D. 01/14/2025 1:18 PM Dictation Location: [place] [address] Transcribed By: [facility] 01/14/25 1318 Dictated By: Sary Membreno MD 01/14/25 1301 Signed By: <Electronically signed by MD Sary Membreno in OV> 01/14/25 1318 Isidro Shipman DO IMG CT PROCEDURES Final Res ult documented in this encounter Visit Diagnoses Not on filedocumented in this encounter Additional Health Concerns Assessment Noted Time PHQ-9 Depression Total Score: 0 12/24/19 25 10:14 AM EDT documented as of this encounter Care Teams Beef Cattle Farmer Relationship Specialty Start Date End Date Buddy Harvey MD [address] [place] [address] PCP - General Family Medicine 03/16/24 Nicole Robb NP [address] [place] [address] Nurse Practitioner Family Medicine 03/16/24 [facility] NP [address] [place] [address] Nurse Practitioner Family Medicine 01/19/25 Isidro Shipman DO [address] [place] [address] Otolaryngology 01/19/25 documented as of this encounter
--- OUTSIDE RECORDS SUMMARY | 2025-02-10 09:31 | XMS_ITS | Encounter Summary ---
Author Organization [facility] Address [address] [place] [address] Care Team Providers Care Patient Office Rep Name Role Phone Buddy Harvey MD Primary Care Provider Nicole Robb RELIEF DRILLER Unavailable [phone] [facility] RELIEF DRILLER Unavailable [phone] Isidro Shipman DO Unavailable [phone] Reason for Visit * Reason Comments Med Refill Encounter Details Date Type Department Care Team (Late st Contact Info) Description 09/06/2024 Refill [facility] [address] [place] [phone] Nicole Robb NP Chronic right-sided low back pain with right-sided sciatica Social History Tobacco Use Types Packs/Day Years Used Date Smoking Tobacco: Never Passive Smoke Exposure: Never Smokeless Tobacco: Never Alcohol Use Standard Drinks/Week Comments Not Currently 0 (1 standard drink = 0.6 oz pur e alcohol) OCCASSIONALLY PHQ-2 Answer Date Recorded Patient Health Questionnaire-2 Score 0 01/26/2024 Sex and Gender Information Value Date Recorded Sex Assigned at Not on file Legal Sex Male 8:35 AM EDT Gender Identity Not on file Sexual Orientation Not on file documented as of this encounter Miscellaneous Notes * Telephone Encounter - Adilia Butcher MA - 09/20/2024 8:18 AM EST Left vm for pt * Telephone Encounter - Adilia Butcher MA - 09/14/2024 3:04 PM EST Left VM for pt Please ask pt if he is in fact taking Ibuprofen three times daily? If so, we need to consider a different medication or treatment plan for his pain, as ibuprofen is not good for his kidneys or stomach security specialist. Thank you * Telephone Encounter - Adilia Butcher MA - 09/08/2024 9:06 AM EST Left vm for pt documented in this encounter Plan of Treatment Upcoming Encounters Date Type Department Care Team (Late st Contact Info) Description 02/21/2025 2:15 PM EDT Office Visit [facility] [address] [place] [address] Isidro Shipman DO [address] [place] [address] 03/28/2025 9:20 AM EDT [facility] [address] [place] [address] [facility], BASILIO [address] [place] [address] 12/29/2025 10:30 AM EDT Office Visit [facility] [address] [place] [address] Do [facility] NP [address] [place] [address] documented as of this encounter Visit Diagnoses Diagnosis Chronic right-sided low back pain with right-sided sciatica documented in this encounter Additional Health Concerns Assessment Noted Time PHQ-9 Depression Total Score: 1 07/23/20 23 1:00 PM EST documented as of this encounter Care Teams Patient Office Rep Relationship Specialty Start Date End Date Buddy Harvey MD [address] [place] [address] PCP - General Family Medicine 03/16/24 Nicole Robb NP [address] [place] [address] Nurse Practitioner Family Medicine 03/16/24 Do [facility] NP [address] [place] [address] Nurse Practitioner Family Medicine 01/19/25 Isidro Shipman DO [address] [place] [address] Otolaryngology 01/19/25 documented as of this encounter
--- OUTSIDE RECORDS SUMMARY | 2025-02-10 09:31 | XMS_ITS | Encounter Summary ---
Author Organization [facility] Address [address] [place] [address] Care Team Providers Care Car Installations Supervisor Name Role Phone Buddy Harvey MD Primary Care Provider Nicole Robb HOP FARMER Unavailable [phone] [facility] HOP FARMER Unavailable [phone] Deonteleandro Isidro Guillaume DO Unavailable [phone] Encounter Details Date Type Department Care Team (Late st Contact Info) Description 02/07/2025 Telephone [facility] [address] [place] [address] Emiliano Pierce RN Social History Tobacco Use Types Packs/Day Years [...] encounter Miscellaneous Notes * Telephone Encounter - Emiliano Pierce RN - 02/08/2025 9:14 AM EDT Spoke with Nicholas went over patient responsibility, he will stop in to pay the $189.11 before the surgery date of 02/14/25 * Telephone Encounter - Emiliano Pierce RN - 02/07/2025 9:24 AM EDT Left a message for Nicholas to call the office, Surgery is approved with a patient responsibility of$189.11. documented in this encounter Plan of Treatment Upcoming Encounters Date Type Department Care Team (Late st Contact Info) Description 02/21/2025 2:15 PM EDT Office Visit [facility] [place] [address] [place] [address] Isidro Shipman, [address] [place] [address] 03/28/2025 9:20 AM EDT Office Visit [facility] [address] [place] [address] Do [facility] NP [address] [place] [address] 12/29/2025 10:30 AM EDT Office Visit [facility] [address] [place] [address] [facility] NP [address] [place] [address] documented as of this encounter Visit Diagnoses Not on filedocumented in this encounter Additional Health Concerns Assessment Noted Time PHQ-9 Depression Total Score: 0 12/24/19 10:14 AM EDT documented as of this encounter Care Teams Car Installations Supervisor Relationship Specialty Start Date End Date Buddy Harvey MD [address] [place] [address] PCP - General Family Medicine 03/16/24 Nicole Robb NP [address] [place] [address] Nurse Practitioner Family Medicine 03/16/24 [facility] NP [address] [facility] [place] [address] Nurse Practitioner Family Medicine 01/19/25 Isidro Shipman DO [address] [place] [address] Otolaryngology 01/19/25 documented as of this encounter
--- OUTSIDE RECORDS SUMMARY | 2025-02-10 09:31 | XMS_ITS | Encounter Summary ---
Author Organization [facility] Address [address] [place] [address] Care Team Providers Care Supplier Specialist Name Role Phone Buddy Harvey MD Primary Care Provider [phone] Nicole Robb SPOUTING INSTALLER Unavailable [phone] [facility] SPOUTING INSTALLER Unavailable [phone] Isidro Shipman DO Unavailable Encounter Details Date Type Department Care Team ([facility] Contact Info) Description 01/14/2025 External Result Encounter [facility] External Department Unsolicited Isidro Shipman, DO [address] [place] [address] Social History Tobacco Use Types Packs/Day Years [...] Upcoming Encounters Date Type Department Care Team ([facility] Contact Info) Description 02/21/2025 2:15 PM EDT Office Visit [facility] [address] [place] [address] Isidro Shipman, DO [address] [place] [address] 03/28/2025 9:20 AM EDT Office Visit [facility] [address] [place] [address] Do [facility], BSAILIO [address] [place] [address] 12/29/2025 10:30 AM EDT Office Visit [facility] [address] [place] [address] [facility], SPOUTING INSTALLER [address] [place] [address] documented as of this encounter Procedures Procedure Name Priority Date/Time Associated Diagnosis Comments NM PARATHYROID 01/14/2025 12:59 PM EDT documented in this encounter Results * NM parathyroid (01/14/2025 12:59 PM EDT) Anatomical Region Laterality Modality Head and Neck Nuclear Medicine 01/14/2025 12:5 9 PM EDT Impressions 01/14/2025 1:03 PM EDT INCOMPLETE STUDY, DESCRIBED. Impression dictated by: Sary Membreno M.D. 01/14/2025 1:01 PM Dictation Location: [place] [address] Transcribed By: [facility] 01/14/25 1301 Dictated By: Sary Membreno MD 01/14/25 1259 Signed By: <Electronically signed by MD Sary Membreno in OV> 01/14/25 1301 Narrative 01/14/2025 1:03 PM EDT [facility] [place] [address] Nuclear Medicine Report Signed Patient: Nicholas Lovelace MR#: [id number] 789 : 1965 Acct:[id number] Age/Sex: 60 / M ADM Date: 01/14/25 Loc: [place] Room: Type: [facility] Attending Dr: Isidro Shipman DO Copies to: DO Sary Shen MD Ordering Provider: Isidro Shipman DO Date of [...] parathyroid adenoma given the limited available images. [place] parathyroid Procedure Note Radiology, Radiologist, MD - 01/14/2025 [facility] [place] [address] [place] [address] Nuclear Medicine Report Signed Patient: Nicholas Lovelace#: [id number] : 1965Acct:[id number] Age/Sex: 60 / MADM Date: 01/14/25 Loc: [place] Room:Type: [facility] Attending Dr: Isidro Shipman DO Copies to: DO Sary Shen MD Ordering Provider: Isidro Shipman DO Date of Service: 01/14/25 [place] parathyroid: E83.52 PARATHYROID SCAN CLINICAL DATA: Hypercalcemia COMPARISON: CT neck 01/14/2025 Following the intravenous administration of 23.8 mCi of technetium 99 Mlabeled sestamibi, anterior imaging of the neck and chest was performed at 15 minutes. Patientrefused any further imaging due to back pain. Images demonstrate physiologic uptake at the salivary glands. There isuptake at both thyroid lobes with relative symmetry. The study is nondiagnostic for parathyroidadenoma given the limited available images. [place] parathyroid IMPRESSION: INCOMPLETE STUDY, DESCRIBED. Impression dictated by: Sary Membreno M.D. 01/14/2025 1:01 PM Dictation Location: [place] [address] Transcribed By: [facility] 01/14/25 1301 Dictated By: Sary Membreno MD 01/14/25 1259 Signed By: <Electronically signed by MD Sary Membreno in OV> 01/14/25 1301 Isidro Shipman DO IMG [place] PROCEDURES Final Res ult documented in this encounter Visit Diagnoses Not on filedocumented in this encounter Additional Health Concerns Assessment Noted Time PHQ-9 Depression Total Score: 0 12/24/19 10:14 AM EDT documented as of this encounter Care Teams Supplier Specialist Relationship Specialty Start Date End Date Buddy Harvey MD [address] [place] [address] PCP - General Family Medicine 03/16/24 Nicole Robb NP [address] [place] [address] Nurse Practitioner Family Medicine 03/16/24 Do [facility] NP [address] [place] [address] Nurse Practitioner Family Medicine 01/19/25 Isidro Shipman DO [address] [place] [address] Otolaryngology 01/19/25 documented as of this encounter
--- OUTSIDE RECORDS SUMMARY | 2025-02-10 09:31 | XMS_ITS | Data Portability ---
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 Notable findings Include degenerative disc disease at L2 3, L3 4, and L4- 5 Overall, stable since prior exam. Lab Studies/Narcotic Management: Last UDS from 12/22/18 was positive for oxycodone only and negative for metabolites and gabapentin. Will monitor closely. Will consider pill count if next UDS negative for medication/metabo lites. PDMP reviewed at today's visit. Consistent with current medication regimen. No outside prescriptions. -Physical therapy: Patient has completed a physical therapy program in the past - had 3 rounds. We discussed repeating, but he is hesitant. Will revisit at next OV. -Interventional treatment: on hold due to poorly controlled DM. BGs in high 200's and up to 500. Not on sliding scale. -Adjuvant analgesics: RF Gabapentin 300 mg TID. Continue Ibuprofen 800 mg TID prn pain, no RF needed today -Opiate management: RF Oxycodone 10 mg TID -Lifestyle Changes: Recommend regular exercise, stretching, core strengthening and Mediterranean-sty le diet. -Referral/Imaging /Other: none today -Follow up: 4 weeks [email or web address] Not available 02/16/2019 09:14:16 03/16/2019 03/16/2019 Diagnostic Studies and Imaging: MRI L-spine form 06-15-2016 showing posterolateral instrumented fusion at L4-5 with superimposed multilevel lumbar degenerative changes with varying degrees of canal and foraminal stenosis. Notable findings Include degenerative disc disease at L2 3, L3 4, and L4- 5 Overall, stable since prior exam. Lab Studies/Narcotic Management: Last UDS from 12/22/18 was positive for oxycodone only and negative for metabolites and gabapentin. Will monitor closely. Will consider pill count if next UDS negative for medication/metabo lites. PDMP reviewed at today's visit. Consistent with current medication regimen. No outside prescriptions. -Physical therapy: Patient has completed a physical therapy program in the past - had 3 rounds. We discussed repeating, but he is hesitant. Will revisit at next OV. -Interventional treatment: on hold due to poorly controlled DM. BGs in high 200's and up to 500. Not on sliding scale. -Adjuvant analgesics: RF Gabapentin 300 mg TID. RF Ibuprofen 800 mg TID prn pain -Opiate management: RF Oxycodone 10 mg TID # 90 for 30 day supply -Lifestyle Changes: Recommend regular exercise, stretching, core strengthening and Mediterranean-sty le diet. -Referral/Imaging /Other: none today -Follow up: 4 weeks [email or web address] Not available 03/16/2019 09:19:42 04/13/2019 04/13/2019 Diagnostic Studies and Imaging: MRI L-spine form 06-15-2016 showing posterolateral instrumented fusion at L4-5 with superimposed multilevel lumbar degenerative changes with varying degrees of canal and foraminal stenosis. Notable findings Include degenerative disc disease at L2 3, L3 4, and L4- 5 Overall, stable since prior exam. Lab Studies/Narcotic Management: Last UDS from 12/22/18 was positive for oxycodone only and negative for metabolites and gabapentin. Will monitor closely. Will consider pill count if next UDS negative for medication/metabo lites. Patient was selected at random to undergo UDS at today's OV. PDMP reviewed at today's visit. Consistent with current medication regimen. No outside prescriptions. -Physical therapy: Patient has completed a physical therapy program in the past - had 3 rounds. We discussed repeating, but he is hesitant. Will revisit at next OV. -Interventional treatment: on hold due to poorly controlled DM. BGs in high 200's and up to 500. Not on sliding scale. -Adjuvant analgesics: RF Gabapentin 300 mg TID. RF Ibuprofen 800 mg TID prn pain -Opiate management: RF Oxycodone 10 mg TID # 90 for 30 day supply -Lifestyle Changes: Recommend regular exercise, stretching, core strengthening and Mediterranean-sty le diet. -Referral/Imaging /Other: none today -Follow up: 4 weeks [email or web address] Not available 04/13/2019 09:27:22 05/11/2019 05/11/2019 Diagnostic Studies and Imaging: MRI L-spine form 06-15-2016 showing posterolateral instrumented fusion at L4-5 with superimposed multilevel lumbar degenerative changes with varying degrees of canal and foraminal stenosis. Notable findings Include degenerative disc disease at L2 3, L3 4, and L4- 5 Overall, stable since prior exam. Lab Studies/Narcotic Management: Last UDS from 04/13/19 was positive for oxycodone only and negative for metabolites, negative gabapentin. Last UDS from 12/22/18 was negative for metabolites. Was only + for oxycodone. Will schedule pill count. States that he sometimes skips a day depending on pain level. PDMP reviewed at today's visit. Consistent with current medication regimen. No outside prescriptions. -Physical therapy: Patient has completed a physical therapy program in the past - had 3 rounds. We discussed repeating, but he is hesitant. Will revisit at next OV. -Interventional treatment: on hold due to poorly controlled DM. BGs in high 200's and up to 500. Not on sliding scale. -Adjuvant analgesics: RF Gabapentin 300 mg TID. RF Ibuprofen 800 mg TID prn pain -Opiate management: RF Oxycodone 10 mg TID # 90 for 30 day supply -Lifestyle Changes: Recommend regular exercise, stretching, core strengthening and Mediterranean-sty le diet. -Referral/Imaging /Other: none today -Follow up: 4 weeks Not available 05/11/2019 09:27:33 06/08/2019 06/08/2019 Diagnostic Studies and Imaging: MRI L-spine form 06-15-2016 showing posterolateral instrumented fusion at L4-5 with superimposed multilevel lumbar degenerative changes with varying degrees of canal and foraminal stenosis. Notable findings Include degenerative disc disease at L2 3, L3 4, and L4- 5 Overall, stable since prior exam. Lab Studies/Narcotic Management: Last UDS from 04/13/19 was positive for oxycodone only and negative for metabolites, negative gabapentin. Last UDS from 12/22/18 was negative for metabolites. Was only + for oxycodone. He no showed for pill count - states that he had to go out of town. Will provided last RF on opioids, PDMP reviewed at today's visit. Consistent with current medication regimen. No outside prescriptions. -Physical therapy: Patient has completed a physical therapy program in the past - had 3 rounds. We discussed repeating, but he is hesitant. Will revisit at next OV. -Interventional treatment: on hold due to poorly controlled DM. BGs in high 200's and up to 500. Not on sliding scale. -Adjuvant analgesics: RF Gabapentin 300 mg TID. RF Ibuprofen 800 mg TID prn pain -Opiate management: Provided last RX for Oxycodone 10 mg TID # 84 for 28 day supply. Provided list of alternative providers. NON-OPIOID ONLY after today. -Lifestyle Changes: Recommend regular exercise, stretching, core strengthening and Mediterranean-sty le diet. -Referral/Imaging /Other: none today -Follow up: 4 weeks Not available 06/08/2019 09:53:09 Plan of Treatment Reminders Order Date Submit Date Provider Last Modified By Organization Details Last Modified Time Details Appointments None recorded. Lab None recorded. Referral None recorded. Procedures None recorded. Surgeries None recorded. Imaging None recorded. Medication Orders gabapentin 300 mg capsule 2018 019 [facility] #[id number], [address], [place], [id number], 9 09:54:07 oxycodone 10 mg tablet 2018 019 [facility] #[id number], [address], [place], [id number], 9 09:54:08 ibuprofen 800 mg tablet 2018 019 [facility] #[id number], [address], [place], [id number], 9 09:54:07 gabapentin 300 mg capsule 2018 019 [facility] #84076, [address], [place], [id number], 9 09:32:27 oxycodone 10 mg tablet 2018 019 [facility] #18883, [address], [place], [id number], 9 09:32:31 ibuprofen 800 mg tablet 2018 [facility] #03276, [address] [facility] [address], [id number], 9 09:32:27 gabapentin 300 mg capsule 2018 [facility] #04883, [address], [place], [id number], 9 09:27:50 oxycodone 10 mg tablet 2018 019 [facility] #61603, [address], [place], [id number], 9 09:27:49 ibuprofen 800 mg tablet 2018 019 [facility] #04788, [address], [place], [id number], 9 09:27:50 gabapentin 300 mg capsule 2018 019 [facility] #98050, [address], [id number], 9 09:20:51 oxycodone 10 mg tablet 2018 019 [facility] #54566, [address] [place] [address] [place], [place], [id number], 9 09:20:50 ibuprofen 800 mg tablet 2018 019 [facility] #03974, [address] [place], [id number], 9 09:20:50 gabapentin 300 mg capsule 2018 019 [facility] #02659, [address], [place], [id number], 9 09:15:00 oxycodone 10 mg tablet 2018 019 [facility] #77557, [address] , [place], [place], [id number], 9 09:15:41 Patient TargetsNo targets recorded. Patient InstructionsNo instructions recorded. Reason for Referral None Reported. Results Created Date Observation Date Name Description Value Unit Range Abnormal Flag Note LastModifiedBy Organization Detail LastModifiedTime Result Notes None recorded. Problems Name Problem SNOMED Code Status Onset Date Resolution Date Notes Provider Name and Address Organization Details Recorded Time Low back pain 632496409 Completed 201306/12/2015 SHARATH CLINE [address] [facility], [address], [place], [address] , MD [facility] 8 09:31:25 Lumbosac ral spondylo sis without myelopat hy 39589435 Completed 201206/12/2015 MD [facility] 6 08:44:28 Fibromyo sitis 39670481 Completed 201306/12/2015 THE MEDS ARE HELPING PAIN AND FUNCTION WITHOUT SIDE EFFECTS OR EVIDENCE OF ADDICTIO N/DIVERS ION. THE PATIENT WOULD LIKE TO CONTINUE PAIN MEDS WITHOUT CHANGE. OPIOIDS ARE PRESCRIB ED FOR PAIN CONTROL. THE PATIENT IS ...SEE PATIENT? S CHART FOR FULL DETAILS. MD [facility] 6 08:44:29 Disorder of trunk 705117874 Completed 201206/12/2015 MD [facility] 6 08:44:29 Lumbosac ral neuritis 57483645 Completed 201310/03/2017 SHARATH CLINE [address] [facility] [place], [address] , [place] MD - [facility] 8 09:31:35 Lumbosac ral radiculo garett 6984057 Active Yomi Koenig MD [address] [facility] [place], [address] , [place] MD - [facility] 6 09:49:45 Chronic pain syndrome 977809993 Active Evin anthony MD - [facility] 6 09:48:11 Low back pain 540337307 Completed 201305/03/2015 SHARATH CLINE [address] [facility] [place], [address] , [place] MD - [facility] 8 09:31:25 Low back pain 925083679 Completed 201310/03/2017 SHARATH CLINE [address] [facility] [place], [address] , [place] MD - [facility] 8 09:31:25 Lumbar post-roper inectomy syndrome 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 Active 2014 Yomi Koenig MD [address] [place] [address] [place], [address] , [place] MD - [facility] 6 09:46:31 Lumbar post-roper inectomy syndrome 595003241 Completed 201405/03/2015 Dina anthony MD - [facility] 6 08:44:28 Lumbosac ral spondylo sis without myelopat hy 67714407 Active 2012 Yomi Koenig MD [address] [place] [address] [place], [address] , [place] MD - [facility] 6 09:46:31 Lumbosac ral spondylo sis without myelopat hy 24702771 Completed 201305/03/2015 Dina anthony MD - [facility] 6 08:44:28 Fibromyo sitis 71860601 Completed 201305/03/2015 THE MEDS ARE HELPING PAIN AND FUNCTION WITHOUT SIDE EFFECTS OR EVIDENCE OF ADDICTIO N/DIVERS ION. THE PATIENT WOULD LIKE TO CONTINUE PAIN MEDS WITHOUT CHANGE. OPIOIDS ARE PRESCRIB ED FOR PAIN CONTROL. THE PATIENT IS ...SEE PATIENT? S CHART FOR FULL DETAILS. MD [facility] 6 08:44:29 Disorder of trunk 926048246 Completed 201405/03/2015 THE PATIENT DOES NOT APPEAR TO HAVE ANY SEDATION , CONFUSIO N OR COGNITIV E IMPAIRME NT. THE PATIENT IS NEUROLOG JETT Barriga.THE PATIENT IS REQUESTI NG PAIN MEDICATI ON.THERE IS EVIDENCE OF SELF ESCALATI ON/DIVER MILAN OF PAIN MEDICATI ON. MD [facility] 6 08:44:29 Fibromyo sitis 46927784 Active 2013 THE MEDS ARE HELPING PAIN AND FUNCTION WITHOUT SIDE EFFECTS OR EVIDENCE OF ADDICTIO N/DIVERS ION. THE PATIENT WOULD LIKE TO CONTINUE PAIN MEDS WITHOUT CHANGE. OPIOIDS ARE PRESCRIB ED FOR PAIN CONTROL. THE PATIENT IS ...SEE PATIENT? S CHART FOR FULL DETAILS. MD [facility] 6 08:44:29 Problem Notes None recorded. Procedures Surgical History Date Name Laterality Status Provider Name and Address Organization Details Recorded Time Back Surgery completed [facility] 02/02/2016 08:34:38 Carpal Tunnel Surgery completed [facility] 10/31/2017 09:09:34 Imaging Results None recorded. Procedure Notes None recorded. Medical Equipment None Reported. Allergies Allergen ID Allergen Name Allergen Category Reaction Reaction Severity Criticality Documentation Date Start Date Code Code System Note Provider Name and Address Organization Details Recorded Time Product containin g penicilli n (product) medicatio n Not available Not available Not available 05/03/20152013 13539 8001 SNOMED COMME NT: ALLER GY TYPE: SPECI FIC [facility] ; Not Available [facility] 5 07:57:07 Medications Name Sig Start Date Stop Date Status Note LastModified by Organization Details LastModified Time atorvastatin 40 mg tablet active Not Available Not Available Not Available metformin 500 mg tablet 01/19 completed Not Available Not Available Not Available Percocet 7.5 mg-325 mg tablet TAKE 1 TABLET BY ORAL ROUTE EVERY 8 HOURS NEEDED 08/05 completed Not Available Not Available Not Available ibuprofen 800 mg tablet TAKE 1 TABLET BY ORAL ROUTE 3 TIMES EVERY DAY WITH FOOD active Not Available Not Available No t Available hydrocodone 5 mg-acetamino phen 325 mg tablet 09/02 completed Not Available Not Available Not Available Neurontin 800 mg tablet TAKE 1 TABLET BY ORAL ROUTE 3 TIMES EVERY DAY 10/03 completed Not Available Not Available Not Available oxycodone 15 mg tablet TAKE 1 TABLET BY ORAL ROUTE EVERY 6 HOURS NEEDED FOR MOD-AFSHIN RE PAIN 10/03 completed Not Available Not Available Not Available Percocet 10 mg-325 mg tablet TAKE 1 TABLET BY ORAL ROUTE EVERY 6 - 8 HOURS NEEDED 09/02 completed Not Available Not Available Not Available simvastatin 20 mg tablet 01/19 completed Not Available Not Available Not Available gabapentin 300 mg capsule Take 1 capsule 3 times a day by oral route with meals for 30 days. active Not Available Not Available No t Available morphine ER 15 mg tablet,exten ded release active Not Available Not Available Not Available Novolog U-100 Insulin aspart 100 unit/mL subcutaneous solution active Not Available Not Available Not Available oxycodone 30 mg tablet TAKE 1 TABLET (30MG) BY ORAL ROUTE EVERY 6 - 8 HOURS 09/15 completed Not Available Not Available Not Available metformin ER 500 mg tablet,exten ded release 24 hr active Not Available Not Available Not Available Flexeril 10 mg tablet TAKE 1 TABLET BY ORAL ROUTE 2 TIMES EVERY DAY 01/19 completed Not Available Not Available Not Available esomeprazole magnesium 20 mg capsule,julius yed release active Not Available Not Available Not Available oxycodone 5 mg tablet Take 1 tablet every 8 hours by oral route as needed for 15 days. 01/19 completed Not Available Not Available Not Available Ultra Comfort Insulin Syringe 1 mL 30 gauge x 5/16 active Not Available Not Available Not Available ezetimibe 10 mg tablet active Not Available Not Available No t Available Levemir U-100 Insulin 100 unit/mL subcutaneous solution active Not Available Not Available Not Available oxycodone 20 mg tablet TAKE 1 TABLET (20MG) BY ORAL ROUTE EVERY 6 - 8 HOURS 09/15 completed Not Available Not Available Not Available oxycodone 10 mg tablet Take 1 tablet every 8 hours by oral route as needed for 30 days. active Not Available Not Available No t Available Easy Touch 31 gauge x 5/16 needle active Not Available Not Available Not Available pen needle, diabetic 32 gauge x 5/32 active Not Available Not Available Not Available TRUEplus Insulin 0.5 mL 31 gauge x 5/16 syringe active Not Available Not Available Not Available Victoza 2-Errol 0.6 mg/0.1 mL (18 mg/3 mL) subcutaneous pen injector active Not Available Not Available Not Available Levemir FlexTouch U-100 Insulin 100 unit/mL (3 mL) subcutaneous pen active Not Available Not Available Not Available TRUEplus Pen Needle 31 gauge x 3/16 active Not Available Not Available Not Available Shingrix (PF) 50 mcg/0.5 mL intramuscula r suspension, kit active Not Available Not Available Not Available Vitals Date Recorded Body height Body mass index (BMI) Body weight Heart rate Systolic And Diastolic Provider Name and Address Organization Details Last Updated DateTime 02/16/2019 172.72 cm 27.7 kg/m2 51031.81 g 79 /min 124/86 mm[Hg] Anel Murray [email or web address] 02/16/2019 09:02:51 Date Recorded Body height Body mass index (BMI) Body weight Heart rate Systolic And Diastolic Provider Name and Address Organization Details Last Updated DateTime 03/16/2019 172.72 cm 27.7 kg/m2 25255.81 g 69 /min 145/88 mm[Hg] Kathy Murray [email or web address] 03/16/2019 09:01:35 Date Recorded Body height Heart rate Systolic And Diastolic Provider Name and Address Organization Details Last Updated DateTime 04/13/2019 172.72 cm 76 /min 126/76 mm[Hg] Dina Anthony MD - [email or web address] 04/13/2019 09:15:56 Date Recorded Body height Body mass index (BMI) Body weight Heart rate Systolic And Diastolic Provider Name and Address Organization Details Last Updated DateTime 05/11/2019 172.72 cm 27.7 kg/m2 80584.81 g 70 /min 143/86 mm[Hg] Brandi Santizo MD - [email or web address] 05/11/2019 09:17:33 Date Recorded Body height Body mass index (BMI) Body weight Heart rate Systolic And Diastolic Provider Name and Address Organization Details Last Updated DateTime 06/08/2019 172.72 cm 27.7 kg/m2 67773.81 g 75 /min 128/82 mm[Hg] Amanda Steinberg MD - [email or web address] 06/08/2019 09:17:13 Social History Question Answer Notes LastModified by Organizat [email or web address] Details LastModified Time Tobacco Smoking Status Never Smoker Sujit anthony MD - [email or web address] 08/25/2015 09:46:25 Auto Related Injury? No Information not available 02/02/2016 Which Illicit Or Recreational Drugs Have You Used? NONE [email or web address] Information not available 02/02/2016 Education 12 [email or web address] Information no t available 02/02/2016 Pain Level. 6 [email or web address] Information n ot available 11/28/2017 What Was The Date Of Your Most Recent Tobacco Screening? 02/16/2019 Information not available 02/25/2019 Work Related Injury? No [email or web address] Information not available 02/02/2016 Sex: Unknown Functional Status Question Answer Note LastModified by Organizat ion Details LastModified Time What is your level of alcohol consumption? Occasional [email or web address] Information not available 11/13/2015 Mental Status None recorded. Family History Relationship Description Onset Age of this Age Resolved Age Notes LastModified by Organization Details LastModified Time Father Back problem [email or web address] Not avail able 05/28/2016 08:44:29 Mother Arthritis [email or web address] Not availabl e 05/28/2016 08:44:29 Medical History Condition Response Anxiety Disorder N Diabetes Y Thyroid Disease N Respiratory Hx N Arthritis N Blood Disorder N AIDS/HIV N Head Trauma/Injury N Cancer N Heart Attack N Depression N Cardiac Hx N Substance Abuse N Back Injury Y Liver Disease N Seizure or Epilespsy N Headaches N Fibromyalgia N Hypertension N Osteoporosis N Kidney Disease N Past Encounters Encounter ID Performer Location Encounter Start Date Encounter Closed Date Diagnosis/Indication Diagnosis SNOMED-CT Code Diagnosis ICD10 Code Diagnosis Note [id number] [facility] [address],[place] [address] [facility], [address] 07/21/2013 00:00:00 [id number] [facility] [address] [place], [address] 10/28/2013 00:00:00 [id number] [facility] [address] [place], [address] 11/25/2013 00:00:00 [id number] [facility] [address] [place], [address] 09/23/2013 00:00:00 [id number] [facility] [address] [place], [address] 10/07/2013 00:00:00 [id number] [facility] [address] [place], [address] 02/17/2014 00:00:00 [id number] [facility] [address] [place], [address] 10/17/2014 00:00:00 [id number] [facility] [address] [place], [address] 01/20/2014 00:00:00 [id number] [facility] [address] [place], [address] 04/14/2014 00:00:00 [id number] [facility] [address] [place], [address] 10/03/2014 00:00:00 [id number] [facility] [address] [place], [address] 12/23/2013 00:00:00 [id number] [facility] [address] [place], [address] 05/12/2014 00:00:00 [id number] [facility] [address] [place], [address] 03/17/2014 00:00:00 [id number] [facility] [address] [place] [address] 08/09/2014 00:00:00 [id number] [facility] [address] [place] [address] 06/27/2014 00:00:00 [id number] [facility] [address] [place] [address] 09/05/2014 00:00:00 [id number] Tc Leach MD [place] [address] [place] [address] 08/25/2015 09:31:46 08/25/2015 10:11:44 Low back pain 187936880 M54.5 Lumbar post-laminectomy syndrome 409797355 M96.1 Lumbosacra l spondylosis without myelopathy 29111595 M47.817 Lumbosacra l radiculopathy 9422661 M54.16 M54.17 [id number] MD Sonido Becker [place] [address],[place] [address] [place] [address] 09/22/2015 09:19:28 09/22/2015 10:18:11 Lumbar post-laminectomy syndrome 757808471 M96.1 Lumbosacra l spondylosis without myelopathy 83711426 M47.817 Lumbosacra l radiculopathy 6305972 M54.16 M54.17 Low back pain 807563944 M54.5 [id number] MIRIAM LINDSEY6 [place] [address] 10/16/2015 12:12:44 10/16/2015 13:46:24 Lumbar post-laminectomy syndrome 237242173 M96.1 Chronic pain syndrome 37 6696658 G89.4 [id number] MD Gena Leach6 [place] [address] 11/13/2015 10:15:48 11/13/2015 11:56:44 Lumbar post-laminectomy syndrome 349984258 M96.1 Lumbosacra l radiculopathy 4521608 M54.16 Chronic pain syndrome 37 9321638 G89.4 [id number] MD Gena Leach [address] [place] [address] 12/11/2015 09:37:50 12/11/2015 10:18:11 Lumbar post-laminectomy syndrome 867371405 M96.1 Lumbosacra l radiculopathy 2907889 M54.16 Low back pain 531217621 M54.5 [id number] MD Gena Leach[address] [place] [address] 01/05/2016 08:17:05 01/05/2016 09:30:38 Lumbar post-laminectomy syndrome 412238036 M96.1 Lumbosacra l radiculopathy 4327049 M54.16 Fibromyositis 75856129 M 79.1 Chronic pain syndrome 37 4971037 G89.4 [id number] MD Gena Leach[address] [place] [address] 02/02/2016 08:12:57 02/02/2016 08:49:47 Lumbar post-laminectomy syndrome 356699586 M96.1 Lumbosacra l radiculopathy 1019790 M54.16 Chronic pain syndrome 37 8315652 G89.4 [id number] MD Gena Leach[address] [place] [address] 03/01/2016 07:50:39 03/01/2016 08:25:37 Lumbar post-laminectomy syndrome 825108959 M96.1 Lumbosacra l radiculopathy 3842824 M54.16 Chronic pain syndrome 37 6689826 G89.4 [id number] MD Gena Leach [address] Michael,[address] [place] [id number] 03/29/2016 07:50:27 03/29/2016 08:41:44 Chronic pain syndrome 670306344 G89.4 Lumbar post-laminectomy syndrome 059522575 M96.1 Lumbosacra l radiculopathy 2859651 M54.16 [id number] MD Gena Leach [address] [place] [id number] 04/30/2016 08:25:32 04/30/2016 08:57:43 Chronic pain syndrome 839825409 G89.4 Lumbar post-laminectomy syndrome 274413167 M96.1 Lumbosacra l radiculopathy 7820393 M54.16 [id number] Luan Stephenson Juanis Hernandezit e Jaida ASHRAF MD 2 05/28/2016 08:17:01 05/28/2016 09:12:33 Chronic pain syndrome 087189107 G89.4 Lumbosacra l radiculopathy 6648152 M54.16 Lumbar post-laminectomy syndrome 114609831 M96.1 [id number] MD Gena Leach [address] Jaida ASHRAF MD 2 06/25/2016 08:39:03 06/25/2016 11:05:32 Lumbar post-laminectomy syndrome 116791070 M96.1 Lumbosacra l spondylosis without myelopathy 84428235 M47.817 Chronic pain syndrome 37 4022271 G89.4 [id number] MD [place] [address] 07/23/2016 08:19:02 07/23/2016 09:32:27 Chronic pain syndrome 685652049 G89.4 Lumbar post-laminectomy syndrome 739995947 M96.1 Lumbosacra l spondylosis without myelopathy 48723273 M47.817 [id number] MD [place] [address] 2 08/22/2016 09:16:16 08/22/2016 10:17:38 Chronic pain syndrome 902843870 G89.4 Lumbosacra l spondylosis without myelopathy 44532548 M47.817 Lumbar post-laminectomy syndrome 592496072 M96.1 [id number] MD Gena Leach [address] [place] [address] 09/19/2016 09:08:10 09/19/2016 09:30:37 Chronic pain syndrome 872868469 G89.4 Lumbosacra l spondylosis without myelopathy 83994269 M47.817 Lumbar post-laminectomy syndrome 030522820 M96.1 [id number] MD Gena Tadeo [address] [place] [address] 2 10/17/2016 09:38:46 10/17/2016 11:26:22 Chronic pain syndrome 846282689 G89.4 Lumbar post-laminectomy syndrome 320400584 M96.1 Lumbosacra l radiculopathy 2461347 M54.16 [id number] MD Gena Leach [address] [place] [address] 2 11/14/2016 10:31:37 11/14/2016 11:12:31 Chronic pain syndrome 508349545 G89.4 Lumbosacra l spondylosis without myelopathy 56062157 M47.817 Lumbosacral neuritis 621 62355 M54.17 Lumbosacra l radiculopathy 6352532 M54.16 Lumbar post-laminectomy syndrome 601012740 M96.1 [id number] MD Gena Leach[address] [place] [address] 12/12/2016 09:48:22 12/12/2016 10:29:54 Chronic pain syndrome 470887706 G89.4 Lumbar post-laminectomy syndrome 490637611 M96.1 Lumbosacra l spondylosis without myelopathy 67864034 M47.817 [id number] MD Gena Leach [address] [place] [id number] 01/10/2017 10:51:59 01/10/2017 11:20:09 Chronic pain syndrome 279896558 G89.4 Lumbar post-laminectomy syndrome 064721580 M96.1 Lumbosacra l radiculopathy 3951911 M54.16 Lumbosacra l spondylosis without myelopathy 12606126 M47.817 [id number] MD Gena Leach [address] [place] [address] 02/10/2017 09:32:03 02/10/2017 10:14:13 Chronic pain syndrome 379652467 G89.4 [id number] MD Gena Meraz6 Juanis Brownit e [address] [place] [address] 2 03/12/2017 09:47:59 03/12/2017 10:31:28 Chronic pain syndrome 144945336 G89.4 Lumbosacra l spondylosis without myelopathy 87598505 M47.817 Lumbar post-laminectomy syndrome 188099809 M96.1 Lumbosacra l radiculopathy 3690814 M54.16 [id number] José Rowland [address] [place] [address] 04/14/2017 12:48:09 04/14/2017 14:04:45 Lumbosacral spondylosis without myelopathy 08350997 M47.817 Chronic pain syndrome 37 9125022 G89.4 Lumbar post-laminectomy syndrome 738406176 M96.1 Lumbosacra l radiculopathy 5691814 M54.16 [id number] MD Gena Schmid [address] [place] [address] 05/14/2017 09:54:22 05/14/2017 11:11:01 Chronic pain syndrome 432799284 G89.4 Lumbosacra l spondylosis without myelopathy 82888508 M47.817 Lumbosacra l radiculopathy 7361812 M54.16 Lumbar post-laminectomy syndrome 404201056 M96.1 [id number] MD Gena Leach [address] [place] [address] 06/11/2017 12:25:13 06/11/2017 12:52:11 Chronic pain syndrome 330163867 G89.4 Lumbosacra l spondylosis without myelopathy 38014113 M47.817 Lumbosacra l radiculopathy 4866234 M54.16 Lumbar post-laminectomy syndrome 285244764 M96.1 [id number] MD Gena Leach [address] [place] [address] 07/10/2017 09:03:43 07/10/2017 09:45:50 Chronic pain syndrome 573398429 G89.4 Lumbar post-laminectomy syndrome 011471143 M96.1 Fibromyositis 22271353 M 79.1 Long-term current use of opiate analgesic drug 7919785652 65383 Z79.891 Therapeuti c drug monitoring assay 76442800 Z51.81 [id number] MD Gena Leach [address] [place] [address] 08/08/2017 09:38:11 08/08/2017 09:59:33 Lumbar post-laminectomy syndrome 663650768 M96.1 Lumbosacra l radiculopathy 0080361 M54.16 Chronic pain syndrome 37 8328752 G89.4 Lumbosacra l spondylosis without myelopathy 46555473 M47.817 Fibromyositis 36083959 M 79.1 [id number] MD Gena Leach [address] [place] [address] 09/05/2017 09:02:46 09/05/2017 09:38:48 Chronic pain syndrome 633988399 G89.4 Lumbar post-laminectomy syndrome 475337781 M96.1 Lumbosacra l radiculopathy 0508730 M54.16 Lumbosacra l spondylosis without myelopathy 58294025 M47.817 Fibromyositis 26029182 M 79.1 [id number] MD Gena Leach [address] [place] [address] 10/03/2017 09:00:33 10/03/2017 09:37:18 Chronic pain syndrome 705339335 G89.4 Lumbosacra l spondylosis without myelopathy 49093491 M47.817 Lumbosacra l radiculopathy 7723762 M54.16 Lumbar post-laminectomy syndrome 059076207 M96.1 Fibromyositis 35078353 M 79.1 [id number] MD Gena Tadeo [address] [place] [address] 2 10/31/2017 09:00:31 10/31/2017 09:12:31 Chronic pain syndrome 303032706 G89.4 Lumbar post-laminectomy syndrome 567232823 M96.1 Lumbosacra l radiculopathy 8971189 M54.16 Fibromyositis 01076796 M 79.1 Lumbosacra l spondylosis without myelopathy 23298806 M47.817 [id number] SHARATH CLINE6 [place] [address] 2 11/28/2017 08:40:52 11/28/2017 09:37:25 Chronic pain syndrome 751554854 G89.4 Lumbosacra l radiculopathy 5720822 M54.16 Lumbar post-laminectomy syndrome 038857841 M96.1 [id number] MIRIAM Buckley [address] [place] [address] 12/23/2017 09:01:58 12/23/2017 09:44:32 Lumbosacral radiculopathy 0406666 M54.17 Chronic pain syndrome 37 4355899 G89.4 Lumbar post-laminectomy syndrome 972131910 M96.1 [id number] SHARATH CLINE6 [place] [address] 2 01/21/2018 09:04:41 01/21/2018 09:37:16 Chronic pain syndrome 310597824 G89.4 Lumbosacra l radiculopathy 4604339 M54.17 Lumbar post-laminectomy syndrome 686240636 M96.1 [id number] MD Gena Tadeo [address] [place] [address] 2 02/19/2018 08:52:46 02/19/2018 10:12:25 Chronic pain syndrome 498752901 G89.4 [id number] MD Gena Leach [address] [place] [address] 2 03/20/2018 08:56:46 03/20/2018 10:06:14 Chronic pain syndrome 285087028 G89.4 Lumbar post-laminectomy syndrome 568432430 M96.1 Fibromyositis 15877802 M 79.1 Lumbosacra l spondylosis without myelopathy 96378218 M47.817 [id number] MD Gena Meraz6 [place] [address] 2 04/20/2018 08:19:44 04/20/2018 08:52:51 Chronic pain syndrome 094525662 G89.4 Lumbar post-laminectomy syndrome 928947307 M96.1 Fibromyositis 23807666 M 79.1 Lumbosacra l spondylosis without myelopathy 68736316 M47.817 [id number] Clinton Carias MD [place] [address] [facility] [address] [facility] [address] [place] [address] 05/18/2018 08:57:18 05/18/2018 09:28:47 Chronic pain syndrome 085278369 G89.4 Lumbar post-laminectomy syndrome 939911606 M96.1 Lumbosacra l spondylosis without myelopathy 60132342 M47.817 [id number] MD Gena Meraz [address] [place] [address] 2 06/15/2018 07:45:07 06/15/2018 09:14:54 Chronic pain syndrome 633665725 G89.4 Lumbosacra l radiculopathy 2647774 M54.17 Lumbar post-laminectomy syndrome 549378456 M96.1 Myofascial pain 87884008 9 M79.10 [id number] MD Gena Leach [address] MD [place] 2 07/13/2018 09:37:04 07/13/2018 10:37:30 Chronic pain syndrome 283383618 G89.4 Lumbosacra l radiculopathy 1969297 M54.17 Lumbar post-laminectomy syndrome 882016273 M96.1 Myofascial pain 70458227 9 M79.10 [id number] MD Gena Schmid [address] MD [place] 2 08/10/2018 10:01:34 08/10/2018 11:22:43 Chronic pain syndrome 294341755 G89.4 Lumbosacra l radiculopathy 1285382 M54.17 Lumbar post-laminectomy syndrome 979831617 M96.1 Myofascial pain 97590351 9 M79.10 [id number] MD Gena Leach[address] [place],[address] MD [place] 2 08/31/2018 11:04:30 08/31/2018 11:28:15 Chronic pain syndrome 869258197 G89.4 Lumbosacra l radiculopathy 2047572 M54.17 Lumbar post-laminectomy syndrome 442762868 M96.1 Myofascial pain 36168947 9 M79.10 [id number] MD Gena Tadeo [address] Jaida ASHRAF MD 2 09/29/2018 10:57:58 09/29/2018 12:19:41 Chronic pain syndrome 067722996 G89.4 Lumbosacra l radiculopathy 2925152 M54.17 Lumbar post-laminectomy syndrome 021385857 M96.1 Myofascial pain 95357394 9 M79.10 157143 MD Gena Leach[address] MD [place] 2 10/27/2018 12:26:05 10/27/2018 13:18:20 Chronic pain syndrome 354347176 G89.4 Lumbosacra l radiculopathy 3224448 M54.17 Lumbar post-laminectomy syndrome 476491069 M96.1 Myofascial pain 91657989 9 M79.10 [id number] MD Gena Leach [address] [place] 2 11/24/2018 07:49:44 11/24/2018 08:35:03 Chronic pain syndrome 410961474 G89.4 Lumbosacra l radiculopathy 1076967 M54.17 Lumbar post-laminectomy syndrome 366715617 M96.1 Myofascial pain 89746432 9 M79.10 [id number] MD Gena Leach[address] MD [place] 2 12/22/2018 12:53:40 12/22/2018 13:35:15 Chronic pain syndrome 425433537 G89.4 Lumbosacra l radiculopathy 7404319 M54.17 Lumbar post-laminectomy syndrome 275467154 M96.1 Myofascial pain 75316909 9 M79.10 [id number] MD Gena Leach [address] [place] [address] 01/19/2019 08:49:01 01/19/2019 09:28:26 Lumbosacral radiculopathy 0990957 M54.17 Chronic pain syndrome 37 5188226 G89.4 Lumbar post-laminectomy syndrome 649496305 M96.1 Myofascial pain 67707944 9 M79.10 [id number] MD Gena Leach [address] [place] [address] 02/16/2019 08:50:30 02/16/2019 09:46:07 Lumbosacral radiculopathy 8769226 M54.17 Chronic pain syndrome 37 2339259 G89.4 Lumbar post-laminectomy syndrome 248684636 M96.1 Myofascial pain 67978318 9 M79.10 [id number] MD Gena Leach[address] [place] [address] 2 03/16/2019 08:40:35 03/16/2019 09:27:26 Lumbosacral radiculopathy 8633047 M54.17 Chronic pain syndrome 37 7025884 G89.4 Lumbar post-laminectomy syndrome 656741563 M96.1 Myofascial pain 24529298 9 M79.10 [id number] MD Gena Leach6 [place] [address] 2 04/13/2019 08:34:28 04/13/2019 09:48:37 Chronic pain syndrome 663781647 G89.4 Lumbosacra l radiculopathy 0570388 M54.17 Lumbar post-laminectomy syndrome 719913897 M96.1 Myofascial pain 16003413 9 M79.10 [id number] MD Gena Leach6 [place] [address] 2 05/11/2019 08:57:59 05/11/2019 09:49:35 Chronic pain syndrome 968063946 G89.4 Lumbosacra l radiculopathy 4296199 M54.17 Lumbar post-laminectomy syndrome 539413142 M96.1 Myofascial pain 94617122 9 M79.10 [id number] MD [place] [address] 06/08/2019 08:55:03 06/08/2019 10:30:43 Chronic pain syndrome 523088432 G89.4 Lumbosacra l radiculopathy 3868110 M54.17 Lumbar post-laminectomy syndrome 472428684 M96.1 Myofascial pain 56675100 9 M79.10 Health Concerns Section Related Observation LastModified by Organization Detai ls LastModified Time None Recorded Concern Status LastModified by Organization Details LastModified Time None Recorded Advance Directives Directive None Recorded Payers Insurance Date Sequence Insurance Name Policy Number Policy Gray Covered Member ID Gray Member ID Guarantor Name 02/29/2016 2 MEDICAID-[place] Nicholas Lovelace [id number] Nicholas Lovelace 08/07/2018 MEDICAID - CLIA WAIVED/PPM LABS - (MEDICAID) Nicholas Pernell Lovelace [id number] Nicholas Lovelace 04/19/2020 [facility] - OPTIONS Nicholas [place] [id number] Nicholas Lovelace 04/20/2020 1 MEDICARE B-MD: [employer] MEDICARE - ALL OTHER [facility] Nicholasalejandra Lovelace [id number] Nicholas Lovelace 03/20/2018 2 MEDICAID- Nicholasalejandra Lovelace [id number] Nicholas Lovelace 02/01/2016 2 MEDICAID- Nicholas Pernell Lovelace [id number] Nicholas Lovelace 04/20/2020 2 MEDICAID- Nicholasemeli Lovelace [id number] Nicholas Lovelace Notes Date Note Type Note Provider Name and Address Organization Details Recorded Time 02/16/2019 text/html Pain Management F/UReported bypatient.Location :lower back bilateral; leg bilateral (left worse than right) Quality:sharp; aching; radiating Severity:same;mode rate (5-7) Duration:present for >12 months Timing:intermitten t Alleviating Factors:rest; medication Aggravating Factors:movement/p ositioning Associated Symptoms:no numbness; no tingling; no weakness Pain Relief With Current Medications:75%Not es:This patient presents for follow up. His pain level is 5-6/10. Historically patient c/o chronic axial LBP. Denies any radiation. Reports occasional subjective weakness in the LLE. Pain is worse with prolonged walking, better with sitting down. The patient denies fever, bowel or bladder changes, progressive weakness, weight loss or recent falls. Denies any changes in pain quality or distribution since last OV. Rates his pain as 5/10 today. Continues to report BGs in 150's - 200's. He is not on sliding scale. He will f/u with PCP on 02/17/19. Diagnostic Imaging Reveals: Lumbar Spine (2013): fusion L4-L5/stenosis DDD Pain is adequately controlled with improved ability to perform her ADLs on current medications without side effects. He denies any new weakness, numbness, tingling, bowel or bladder dysfunction, or recent fever or chills, recent history of falls or trauma and recent hospitalization. He requests a refill on medications. Sona anthony MD - [employer] 02/16/2019 09:14:58 03/16/2019 text/html Pain Management F/UReported bypatient.Location :lower back bilateral; leg bilateral (left worse than right) Quality:sharp; aching; radiating Severity:same;mode rate (5-7) Duration:present for >12 months Timing:intermitten t Alleviating Factors:rest; medication Aggravating Factors:movement/p ositioning Associated Symptoms:no numbness; no tingling; no weakness Pain Relief With Current Medications:75%Not es:This patient presents for follow up. His pain level is 5-6/10. Historically patient c/o chronic axial LBP. Denies any radiation. Reports occasional subjective weakness in the LLE. Pain is worse with prolonged walking, better with sitting down. The patient denies fever, bowel or bladder changes, progressive weakness, weight loss or recent falls. Denies any changes in pain quality or distribution since last OV. Rates his pain as 4/10 today. Continues to report BGs in 150's - 200's. He is not on sliding scale, but was told to split daily dose into BID. He will f/u with PCP on 02/17/19. Diagnostic Imaging Reveals: Lumbar Spine (2013): fusion L4-L5/stenosis DDD Pain is adequately controlled with improved ability to perform her ADLs on current medications without side effects. He denies any new weakness, numbness, tingling, bowel or bladder dysfunction, or recent fever or chills, recent history of falls or trauma and recent hospitalization. He requests a refill on medications. Sona anthony MD - [employer] 03/16/2019 09:20:53 04/13/2019 text/html Pain Management F/UReported bypatient.Location :lower back bilateral; leg bilateral (left worse than right) Quality:sharp; aching; radiating Severity:same;mode rate (5-7) Duration:present for >12 months Timing:intermitten t Alleviating Factors:rest; medication Aggravating Factors:movement/p ositioning Associated Symptoms:no numbness; no tingling; no weakness Pain Relief With Current Medications:75%Not es:This patient presents for follow up. His pain level is 5-6/10. Historically patient c/o chronic axial LBP. Denies any radiation. Pain is worse with prolonged walking, better with sitting down. The patient denies fever, bowel or bladder changes, progressive weakness, weight loss or recent falls. Denies any changes in pain quality or distribution since last OV. Rates his pain as 5/10 today. Continues to report BGs in 150's - 200's. He is not on sliding scale, but was told to split daily dose into BID. F/U with PCP on 05/03/19. Diagnostic Imaging Reveals: Lumbar Spine (2013): fusion L4-L5/stenosis DDD Pain is adequately controlled with improved ability to perform her ADLs on current medications without side effects. He denies any new weakness, numbness, tingling, bowel or bladder dysfunction, or recent fever or chills, recent history of falls or trauma and recent hospitalization. He requests a refill on medications. Sona anthony MD - [employer] [facility] [employer] 04/13/2019 09:27:55 05/11/2019 text/html Pain Management F/UReported bypatient.Location :lower back bilateral; leg bilateral (left worse than right) Quality:sharp; aching; radiating Severity:same;mode rate (5-7) Duration:present for >12 months Timing:intermitten t Alleviating Factors:rest; medication Aggravating Factors:movement/p ositioning Associated Symptoms:no numbness; no tingling; no weakness Pain Relief With Current Medications:75%Not es:This patient presents for follow up. His pain level is 5-6/10. Historically patient c/o chronic axial LBP. Denies any radiation. He describes his pain as achy and constant. Pain is worse with bending forward and prolonged walking. Better with rest. He has LSO, but is not using it. The patient denies fever, bowel or bladder changes, progressive weakness, weight loss or recent falls. Denies any changes in pain quality or distribution since last OV. Rates his pain as 4/10 today. Continues to report BGs in 200's. He is not on sliding scale, but was told to split daily dose into BID. He saw PCP on 05/03/19 - no changes in DM management. Diagnostic Imaging Reveals: Lumbar Spine (2013): fusion L4-L5/stenosis DDD Pain is adequately controlled with improved ability to perform her ADLs on current medications without side effects. He denies any new weakness, numbness, tingling, bowel or bladder dysfunction, or recent fever or chills, recent history of falls or trauma and recent hospitalization. He requests a refill on medications. Sona anthony MD - [employer] 05/11/2019 09:32:45 06/08/2019 text/html Pain Management F/UReported bypatient.Location :lower back bilateral; leg bilateral (left worse than right) Quality:sharp; aching; radiating Severity:same;mode rate (5-7) Duration:present for >12 months Timing:intermitten t Alleviating Factors:rest; medication Aggravating Factors:movement/p ositioning Associated Symptoms:no numbness; no tingling; no weakness Pain Relief With Current Medications:75%Not es:This patient presents for follow up. His pain level is 5-6/10. Historically patient c/o chronic axial LBP. Denies any radiation. He describes his pain as achy and constant. Pain is worse with bending forward and prolonged walking. Better with rest. He has LSO, but is not using it. The patient denies fever, bowel or bladder changes, progressive weakness, weight loss or recent falls. Denies any changes in pain quality or distribution since last OV. Rates his pain as 4/10 today. Continues to report BGs in 200's. He is not on sliding scale, but was told to split daily dose into BID. He saw PCP on 05/03/19 - no changes in DM management. He rates his pain as 4-5/10 today. Patient denies side effects of opioid treatment, including sedation, dizziness, nausea, vomiting, constipation, and hyperalgesia. Diagnostic Imaging Reveals: Lumbar Spine (2013): fusion L4-L5/stenosis DDD Pain is adequately controlled with improved ability to perform her ADLs on current medications without side effects. He denies any new weakness, numbness, tingling, bowel or bladder dysfunction, or recent fever or chills, recent history of falls or trauma and recent hospitalization. He requests a refill on medications. Sona anthony MD - [employer] 06/08/2019 09:54:10
--- OUTSIDE RECORDS SUMMARY | 2025-02-10 09:31 | XMS_ITS | Encounter Summary ---
Author Organization [facility] Address [address] [place] [address] Care Team Providers Care Dice Spotter Name Role Phone Buddy Harvey MD Primary Care Provider Nicole Robb ASSESSMENT SPECIALIST Unavailable [phone] Do Solis ASSESSMENT SPECIALIST Unavailable [phone] Isidro Shipman DO Unavailable Encounter Details Date Type Department Care Team ([facility] Contact Info) Description 01/31/2025 External Result Encounter [facility] External Department Unsolicited Isidro Shipman, DO [address] [place] [address] Social History Tobacco Use Types Packs/Day Years [...] Upcoming Encounters Date Type Department Care Team ([facility] Contact Info) Description 02/21/2025 2:15 PM EDT Office Visit [facility] [address] [place] [address] Isidro Shipman, DO [address] [place] [address] 03/28/2025 9:20 AM EDT Office Visit [facility] [address] [place] [address] Do Solis, BASILIO [address] [place] [phone] 12/29/2025 10:30 AM EDT Office Visit [facility] [address] [place] [phone] Do Solis, ASSESSMENT SPECIALIST [address] [place] [phone] documented as of this encounter Procedures Procedure Name Priority Date/Time Associated Diagnosis Comments VITAMIN D 25 HYDROXY TOTAL Routine 01/31/2025 1:40 PM EDT T3, TOTAL Routine 01/31/2025 1:40 PM EDT TSH Routine 01/31/2025 1:40 PM EDT T4 (THYROXINE), TOTAL Routine 01/31/2025 1:40 PM EDT BASIC METABOLIC PANEL Routine 01/31/2025 1:40 PM EDT documented in this encounter Results * Vitamin D 25 hydroxy Total (01/31/2025 1:40 PM EDT) VITAMIN D 25 HYDROXY TOTAL 30.0 30 - 100 ng/mL 01/31/2025 4:48 PM EDT [facility] Comment: VITAMIN D STATUS 25(OH)VITAMIN D RANGE (ng/mL) Deficient <20 Insufficient 20 to <30 Sufficient 30 to 100 Reference: Araceli MF,Amanda NC, Shaina LAMB, et al. Evaluation,treatment, and prevention of vitamin D deficiency; an Endocrine Society clinical practice guideline. JCEM. 2010; 96(7):1911-30. Other Topography unknown / Unknown 01/31/2025 1:40 PM EDT 01/31/2025 1:42 PM EDT [facility] [place] - 01/31/2025 4:48 PM EDT Comment PST Isidro Shipman DO LAB BLOOD ORDERABLES Final Result Performing Organization Address City/[facility] Co de Phone Number [facility] [address] [place] [address], [facility] [address] [place] [address] * T3 (01/31/2025 1:40 PM EDT) TRIIODOTHYRONINE (T3) TOTAL 1.22 0.87 - 1.78 ng/mL 01/31/2025 4:43 PM EDT [facility] Other Topography unknown / Unknown 01/31/2025 1:40 PM EDT 01/31/2025 1:42 PM EDT [facility] [place] - 01/31/2025 4:48 PM EDT Comment PST Isidro Shipman DO LAB BLOOD ORDERABLES Final Result Performing Organization Address [facility] Co de Phone Number [facility] [address] [place] [address], [facility] [address] [place] [address] * TSH (01/31/2025 1:40 PM EDT) THYROID STIMULATING HORMONE 3.47 0.45 - 5.33 u[iU]/mL 01/31/2025 2:57 PM EDT [facility] Other Topography unknown / Unknown 01/31/2025 1:40 PM EDT 01/31/2025 1:42 PM EDT [facility] [place] - 01/31/2025 4:48 PM EDT Comment PST Isidro Shipman DO LAB BLOOD ORDERABLES Final Result Performing Organization Address City/[facility]/ZIP Co de Phone Number [facility] [address] [place] [address], [facility] [address] [place] [address] * T4 (01/31/2025 1:40 PM EDT) Pathologist [facility] THYROXINE (T4) TOTAL 8.46 5.39 - 11.82 ug/dL 01/31/2025 2:55 PM EDT [facility] Other Topography unknown / Unknown 01/31/2025 1:40 PM EDT 01/31/2025 1:42 PM EDT Narrative [facility] - 01/31/2025 4:48 PM EDT Comment PST Isidro Shipman DO LAB BLOOD ORDERABLES Final Result [facility] [address] [place] [address], [facility] [address] [place] [phone] * (ABNORMAL) Basic metabolic panel (01/31/2025 1:40 PM EDT) [facility] Glucose 107(H) 70 - 100 mg/dL 01/31/2025 2:44 PM EDT [facility] Comment: Random Glucose Reference Range is dependent on time and content of last meal. Glucose of more than 200 mg/dL in a nonstressed, ambulatory subject supports the diagnosis of Diabetes Mellitus. ADA recommended reference range BUN 15 7 - 25 mg/dL 01/31/2025 2:44 PM EDT [facility] CREATININE 1.00 0.70 - 1.30 mg/dL 01/31/2025 2:44 PM EDT [facility] ESTIMATED GFR >60.0 01/31/2025 2:44 PM EDT [facility] Sodium 139 136 - 145 mmol/L 01/31/2025 2:44 PM EDT [facility] Potassium, Bld 4.3 3.5 - 5.1 mmol/L 01/31/2025 2:44 PM EDT [facility] Chloride 108(H) 98 - 107 mmol/L 01/31/2025 2:44 PM EDT [facility] Carbon Dioxide 27.8 21.0 - 31.0 mmol/L 01/31/2025 2:44 PM EDT [facility] Anion Gap 7.5 6.0 - 15.0 01/31/2025 2:44 PM EDT [facility] Calcium 10.2 8.6 - 10.3 mg/dL 01/31/2025 2:44 PM EDT [facility] Other Topography unknown / Unknown 01/31/2025 1:40 PM EDT 01/31/2025 1:42 PM EDT Narrative [facility] - 01/31/2025 4:48 PM EDT Comment PST Isidro Shipman DO LAB BLOOD ORDERABLES Final Result [facility] [address] [place] [address], [facility] [address] [place] [address] documented in this encounter Visit Diagnoses Not on filedocumented in this encounter Additional Health Concerns Assessment Noted Time PHQ-9 Depression Total Score: 0 12/24/19 25 10:14 AM EDT documented as of this encounter Care Teams Dice Spotter Relationship Specialty Start Date End Date Buddy Harvey MD [address] [place] [address] PCP - General Family Medicine 03/16/24 Nicole Robb NP [address] [place] [address] Nurse Practitioner Family Medicine 03/16/24 Do Solis NP [address] [place] [address] Nurse Practitioner Family Medicine 01/19/25 Isidro Shipman DO [address] [place] [address] Otolaryngology 01/19/25 documented as of this encounter
--- OUTSIDE RECORDS SUMMARY | 2025-02-10 09:31 | XMS_ITS | Clinical Summary ---
Author Organization [facility] Address [address] [place] [address] Care Team Providers Care Glaze Mixer Name Role Phone Buddy Harvey MD Primary Care Provider Nicole Robb CAD OPERATOR Unavailable [phone] Do Solis CAD OPERATOR Unavailable [phone] AnatolyIsidro morales W DO Unavailable [phone] Allergies Active Allergy Reactions Criticality Noted Date Comments Penicillins Rash Low 07/23/2023 Medications oxyCODONE-acetami nophen (Percocet) 5-325 MG tablet Take 1 tablet by mouth every 8 (eight) hours if needed for severe pain Active Tresiba FlexTouch 200 UNIT/ML injectionIndicati ons:Type 2 diabetes mellitus without complication, without long-term current use of insulin (HCC) INJECT 36 UNITS SUBCUTANEOUSLY (UNDER THE SKIN) AT BEDTIME 18 mL 1 06/14/20 24 Active baclofen (Lioresal) 10 MG tablet Take 10 mg by mouth in the morning and 10 mg in the evening and 10 mg before bedtime. 08/12/19 25 Active atorvastatin (Lipitor) 80 MG tabletIndications :Other hyperlipidemia Take 1 tablet (80 mg) by mouth at bedtime 90 tablet 1 11/10/19 25 Active esomeprazole (NexIUM) [address] capsuleIndication s:Gastroesophagea l reflux disease without esophagitis Take 1 capsule (20 mg) by mouth in the morning. Take before meals. 90 capsule 1 11/10/19 25 Active ezetimibe (Zetia) 10 MG tabletIndications :Other hyperlipidemia Take 1 tablet (10 mg) by mouth Daily 90 tablet 1 11/10/19 25 025 Active Dulaglutide (Trulicity) 4.5 MG/0.5ML solution auto-injectorIndi cations:Type 2 diabetes mellitus without complication, with long-term current use of insulin (HCC) Inject 4.5 mg under the skin 1 (one) time per week 6 mL 1 11/10/19 Active insulin pen needle (B-D UF III MINI PEN NEEDLES) 31G x 5 mm miscIndications:T ype 2 diabetes mellitus without complication, with long-term current use of insulin (HCC) Once a day injection. Use as instructed 100 each 3 12/24/19 Active aspirin (ASPIR) 81 MG EC tabletIndications :Type 2 diabetes mellitus without complication, with long-term current use of insulin (HCC) Take 1 tablet (81 mg) by mouth Daily 90 tablet 3 12/24/19 25 025 Active ibuprofen 600 MG tabletIndications :Chronic right-sided low back pain with right-sided sciatica Take 1 tablet (600 mg) by mouth every 8 (eight) hours if needed for mild pain Take with food 270 tablet 1 11/10/19 025 Active Problems Problem Noted Date Diagnosed Date Hyperparathyroidism 12/15/2024 Assessment & Plan (12/23/2024 6:34 AM EDT): Elevated calcium level 10.7 , checked PTH 76 this was on 12/14/24 Referred to ENT Mixed hyperlipidemia 11/09/2024 Assessment & Plan (11/09/2024 6:35 AM EDT): On statin, and zetia Check labs yearly and prn dose changes Screening for prostate cancer 11/09/2024 Overview (12/15/2024): 12/14/24 psa 0.60 Hypercalcemia 11/09/2024 Assessment & Plan (12/23/2024 6:36 AM EDT): Persistent elevation, and also now elevated PTH Referred to ENT Assessment & Plan (11/09/2024 6:38 AM EDT): Check vit d and PTH Anemia associated with nutritional deficiency Assessment & Plan (11/09/2024 6:39 AM EDT): Check labs Constipation 08/10/2024 Assessment & Plan (11/09/2024 10:59 AM EDT): At last appt in 08/28, recommended to start on miralax resolved Assessment & Plan (08/10/2024 9:56 AM EST): Pt reports intermittent constipation, denies blood in stool, or abdominal pain. Is on opioids from PM for chronic pain, likely related to opoid use. Pt reports very limited water intake, but states he drinks tea frequently. Recommended increasing fluids, fiber, and prescribed Miralax to be used PRN. Lumbosacral radiculopathy 10/23/2023 Chronic pain syndrome 10/23/2023 Assessment & Plan (11/09/2024 10:43 AM EDT): Does see pain mgmt for this Low back Takes pain meds, nsaids, MR Assessment & Plan (08/10/2024 9:18 AM EST): Follows with [facility] Management- [facility]. Pt currently taking oxycodone 5-325mg. Feels symptoms are well controlled on current regimen. Continue current regimen as directed by PM. Encounter for screening for malignant neoplasm o f colon 07/23/2023 Assessment & Plan (07/23/2023 3:11 PM EST): Had Colonoscopy 3 years ago that was suboptimal due to poor prep He is interested in getting Cologuard - ordered for him Chronic right-sided low back pain with right-felicity ed sciatica 07/23/2023 Assessment & Plan (10/23/2023 10:23 AM EDT): Follows Pain Clinic for it. He was previously on 10/325 percocet but was titrated down to 5/325 percocet when he established care here at . He reports he feels that lower dose does not quite take the pain away and he was feeling much better on higher dose previously prescribed. Patient educated on risks associated with daily NSAIDS use and to limit use of motrin He has an appt with pain clinic in few weeks and was asked to discuss his issue with them in his appt. Assessment & Plan (07/23/2023 3:14 PM EST): Follows Pain Clinic for it. He was previously on 10/325 percocet but was titrated down to 5/325 percocet when he established care here at . He reports he feels that lower dose does not quite take the pain away and he was feeling much better on higher dose previously prescribed. He has a follow up appointment in Aug. He is also on Ibuprofen and gabapentin. He was asked to discuss and bring this issue to his Pain Provider. Patient educated on risks associated with daily NSAIDS use and to limit use of motrin Encounter for Medicare annual wellness exam 07/05 Assessment & Plan (12/23/2024 6:33 AM EDT): Reviewed Ht/Wt/BMI Recommend eye exam yearly Recommend dental exams twice a year Balance work/leisure activities Exercises is recommended most days of the week (appropriate as chronic conditions allow) Follow up yearly and prn Assessment & Plan (07/23/2023 3:12 PM EST): Patient here for medicare wellness. No active/new complaints to offer. Reviewed medical, surgical and social hx. Ordered Cologuard for the patient. Type 2 diabetes mellitus wit hout complication, with long-term current use of insulin 07/23/2023 Assessment & Plan (12/23/2024 6:33 AM EDT): Check blood sugars daily, notify if <70 [...] Current meds: trulicity, and tresiba, zetia, statin A1c 6.7% 12/14/24 Assessment & Plan (11/09/2024 6:34 AM EDT): Check blood sugars daily, notify if <70 [...] meds: trulicity, and tresiba, zetia, statin a1c Assessment & Plan (08/10/2024 9:17 AM EST): Most recent labs: hemoglobin A1C 6.4% 07/2024 [...] glucose monitoring noted. DM Eye Exam: 05/04/2024 Assessment & Plan (05/04/2024 4:31 PM EDT): Most recent labs: hemoglobin A1C 6.6% Average [...] Eye Exam: never done- Referral sent today Assessment & Plan (01/26/2024 10:00 AM EDT): A1C 6.3 11/25 Average FSBS range from BGs consistently in an acceptable range No episode of hypoglycemia No medication adverse effects reported by the patient. C/w tresiba and trulicity -- Pt currently using 1.5 mg trulicity due to shortages. He was previously on 4.5 mg dose. Check labs before next appointment Assessment & Plan (10/23/2023 10:19 AM EDT): A1C 7.0 08/27 Average FSBS range from BGs consistently in an acceptable range No episode of hypoglycemia No medication adverse effects reported by the patient. C/w tresiba and trulicity Check labs before next appointment Assessment & Plan (07/23/2023 3:14 PM EST): Average FSBS range from BGs consistently in an acceptable range No episode of hypoglycemia No medication adverse [...] persistent hypoglycemia/hyperglycemia on home glucose monitoring noted. C/w Tresiba and Trulicity. Ordered labs - he could not get labs that were ordered last appt. Patient will make an appt for Diabetic Eye Exam Lumbar post-laminectomy syndrome 09/05/2014 Lumbosacral spondylosis without myelopathy 07/21 Resolved Problems Problem Noted Date Diagnosed Date Resolved Date Other hyperlipidemia 07/23/2023 025 Assessment & Plan (08/10/2024 9:16 AM EST): Currently taking Atorvastatin 80mg Most recent Lipid Panel done 02/2024- WNL Denies any myalgias. Continue current regimen. Assessment & Plan (05/04/2024 4:31 PM EDT): Currently taking Atorvastatin 80mg Most recent Lipid Panel done 02/2024- WNL Denies any myalgias. Continue current regimen. Assessment & Plan (01/26/2024 10:01 AM EDT): Lipid panel 08/27 -- LDL at goal C/w lipitor/zetia. Lipid panel before next apt. Assessment & Plan (10/23/2023 10:20 AM EDT): Lipid panel 08/27 -- LDL at goal C/w lipitor Assessment & Plan (07/23/2023 3:11 PM EST): On Lipitor and Zetia Check Lipid panel Primary hypertension 07/23/2023 023 Assessment & Plan (07/23/2023 3:07 PM EST): BP well controlled. On average less than 130/90. Tolerating Anti hypertensive w/o adverse effects. Denies lightheadedness, dizziness, syncope, presyncope. Patient encouraged to continue with home BP monitoring and call office if he experiences orthostatic symptoms or persistently elevated BP. Being monitored without Essential hypertension 07/23/202307/23 Encounters Date Type Department Care Team Description 02/07/2025 Telephone [facility] [address] [place] [address] Emiliano Pierce RN 01/31/2025 External Result Encounter [facility] External Department Unsolicited Isidro Shipman, DO 01/31/2025 External Result Encounter [facility] External Department Unsolicited Isidro Shipman, DO 01/31/2025 External Result Encounter [facility] External Department Unsolicited Isidro Shipman, DO 01/31/2025 External Result Encounter [facility] External Department Unsolicited Isidro Shipman, DO 01/19/2025 2:45 PM EDT Office Visit [facility] [address] [place] [address] Isidro Shipman, DO Primary hyperparathyroidism (HCC) (Primary Dx) 01/19/2025 Bamboo flowsheet [facility] [address] [place] [address] Isidro Shipman, DO 01/19/2025 Travel 01/14/2025 External Result Encounter [facility] External Department Unsolicited Isidro Shipman, DO 01/14/2025 External Result Encounter [facility] External Department Unsolicited Isidro Shipman, DO 01/14/2025 External Result Encounter [facility] External Department Unsolicited Isidro Shipman, DO 12/29/2024 2:00 PM EDT Office Visit [facility] [address] [place] [address] Isidro Shipman, DO Hypercalcemia; Hyperparathyroidism (HCC) 12/29/2024 Bamboo flowsheet [facility] [address] [place] [address] Isidro Shipman, DO 12/29/2024 Travel 12/23/2024 10:00 AM EDT Office Visit [facility] [address] [place] [address] Do Solis NP Encounter for Medicare annual wellness exam (Primary Dx); Type 2 diabetes mellitus without complication, with long-term current use of insulin (HCC); Hyperparathyroidism (HCC); Hypercalcemia 12/23/2024 Telephone [facility] [address] [place] [phone] Do Solis NP 12/23/2024 Bamboo flowsheet [facility] [address] [place] [address] Do Solis NP 12/15/2024 Orders Only [facility] [address] [place] [address] Do Solis NP Hypercalcemia (Primary Dx); Hyperparathyroidism (HCC) 12/14/2024 Clinisync Result Encounter [facility] External Department Unsolicited Do Solis NP 11/15/2024 Telephone [facility] [address] [place] [phone] Do Solis NP from Last 3 Months Immunizations Immunization Administration Dates Next Due Influenza, seasonal, injectable 08/10/2024 Family History Medical History Relation Name Comments Cancer Father Diabetes Mother Relation Name Status Comments Father Mother Social History Tobacco Use Types Packs/Day Years Used Date Smoking Tobacco: Never Passive Smoke Exposure: Never Smokeless Tobacco: Never Tobacco Cessation:Counseling Given: Not Answered Alcohol Use Standard Drinks/Week Comments Not Currently 0 (1 standard drink = 0.6 oz pur e alcohol) OCCASSIONALLY PHQ-2 Answer Date Recorded Patient Health Questionnaire-2 Score 0 12/23/2024 Sex and Gender Information Value Date Recorded Sex Assigned at Not on file Legal Sex Male 8:35 AM EDT Gender Identity Not on file Sexual Orientation Not on file Last Filed Vital Signs Vital Sign Reading Time Taken Comments Blood Pressure 108/74 12/23/2024 10:09 AM EDT Pulse 71 12/23/2024 10:09 AM EDT Temperature 36.9 C (98.5 F) 12/23/2024 10:09 AM EDT Respiratory Rate 19 12/23/2024 10:09 AM EDT Oxygen Saturation 97% 12/23/2024 10:09 AM EDT Inhaled Oxygen Concentration - - Weight 80.3 kg (177 lb) 01/19/2025 2:16 PM EDT Height 172.7 cm (5' 8 ) 01/19/2025 2:16 PM EDT Body Mass Index 26.91 01/19/2025 2:16 PM EDT Plan of Treatment Upcoming Encounters Date Type Department Care Team (Late st Contact Info) Description 02/21/2025 2:15 PM EDT Office Visit [facility] [address] [place] [address] Isidro Shipman W, DO [address] [place] [address] 03/28/2025 9:20 AM EDT Office Visit [facility] [address] [place] [phone] Do Solis NP [address] [place] [phone] 12/29/2025 10:30 AM EDT Office Visit [facility] [address] [place] [phone] Do Solis NP [address] [place] [address] Health Maintenance Due Date Last Done Comments CT Colonography 1965 FIT 1965 FOBT 1965 Sigmoidoscopy 1965 Diabetes: Retinopathy Screening 1975 Influenza Vaccine (#1) 2025 08/10/2024 Diabetes: Hemoglobin A1C 06/16/2025 025, 02/23/2024, 11/03/2023, Additional history exists Diabetes: Urine Protein Screening 12/14/2025 025, 08/14/2023 Medicare Annual Wellness (AWV) 12/23/2025 0 12/23/2024, 07/23/2023, 07/23/2023 FIT-DNA 08/25/2026 08/25/2023 Colonoscopy 08/04/2032 08/04/2022 Colorectal Cancer Screening 08/04/2032 Procedures Procedure Name Priority Date/Time Associated Diagnosis Comments VITAMIN D 25 HYDROXY TOTAL Routine 01/31/2025 1:40 PM EDT T3, TOTAL Routine 01/31/2025 1:40 PM EDT PTH, INTACT WITHOUT CALCIUM Routine 01/31/2025 1:40 PM EDT TSH Routine 01/31/2025 1:40 PM EDT T4 (THYROXINE), TOTAL Routine 01/31/2025 1:40 PM EDT BASIC METABOLIC PANEL Routine 01/31/2025 1:40 PM EDT CBC WITH AUTO DIFFERENTIAL Routine 01/31/2025 1:40 PM EDT ECG 12-LEAD 01/31/2025 1:[address] 4D PARATHYROID 01/14/2025 1:0 1 PM EDT NM PARATHYROID 01/14/2025 12:59 PM EDT ISTAT XRAY CRE Routine 01/14/2025 10:22 AM EDT HMHP PTH, INTRAOPERATIVE Routine 12/14/2024 10:18 AM EDT TRANSFERRIN Routine 12/14/2024 10:18 AM EDT VITAMIN B12 Routine 12/14/2024 10:18 AM EDT TBH VITAMIN D 25 OH Routine 12/14/2024 1 0:18 AM EDT [facility] FERRITIN Routine 12/14/2024 10:18 AM EDT SRMCOH PROSTATE SPECIFIC ANTIGEN SCRN Routine 12/14/2024 10:18 AM EDT ALL CBC WITH AUTO DIFF Routine 10:18 AM EDT ALL LIPID PROFILE (FASTING) Routine 12/14/2024 10:18 AM EDT [facility] CMP (CMP) (FOR REMOTE [facility] USE) Routine 12/14/2024 10:18 AM EDT METRO IRON AND TIBC Routine 12/14/2024 1 0:18 AM EDT MLR HEMOGLOBIN A1C Routine 12/14/2024 10 :18 AM EDT TB[facility] URINE MICROSCOPIC ONLY Routine 12/14/2024 10:11 AM EDT [facility] UA (CLEAN/CATCH) MICROSCOPIC IF INDICATE Routine 12/14/2024 10:11 AM EDT TBH MICROALB CREAT RATIO RANDOM Routine 12/14/2024 10:11 AM EDT LAB COLOGUARD COLON CANCER SCREEN Routine 08/25/2023 7:32 PM EST from Last 3 Months or Most Recently Relevant to Health Maintenance Results * (ABNORMAL) CBC auto differential (01/31/2025 [...] - 35.6 g/dL 01/31/2025 1:53 PM EDT [facility] RED CELL DISTRIBUTION WIDTH, RDW 13.7 12.0 - 14.8 % 01/31/2025 1:53 PM EDT [facility] PLATELET COUNT 299 150 - 450 10*3/uL 01/31/2025 1:53 PM EDT [facility] MEAN PLATELET VOLUME, MPV 7.2 6.6 - 10.1 fL 01/31/2025 1:53 PM EDT [facility] NEUTROPHILS, % 65.2 . % 01/31/2025 1:53 PM EDT [facility] LYMPHOCYTES, % 23.7 . % 01/31/2025 1:53 PM EDT [facility] MONOCYTE/MACROPHA GE, % 7.9 . % 01/31/2025 1:53 PM EDT [facility] EOSINOPHILS, % 2.0 . % 01/31/2025 1:53 [...] - 0.2 10*3/uL 01/31/2025 1:53 PM EDT [facility] Blood (Blood) 01/31/2025 1:4 0 PM EDT 01/31/2025 1:42 PM EDT Isidro Shipman DO LAB BLOOD ORDERABLES Final Result Performing Organization Address [facility] Co de Phone Number [facility] [address] [place] [address], [facility] [address] [place] [address] * Vitamin D 25 hydroxy Total (01/31/2025 1:40 PM EDT) VITAMIN D 25 HYDROXY TOTAL 30.0 30 - 100 ng/mL 01/31/2025 4:48 PM EDT [facility] Comment: VITAMIN D STATUS 25(OH)VITAMIN D RANGE (ng/mL) Deficient <20 Insufficient 20 to <30 Sufficient 30 to 100 Reference: Araceli MF,Amanda SOLIS, Shaina LAMB, et al. Evaluation,treatment, and prevention of vitamin D deficiency; an Endocrine Society clinical practice guideline. JCEM. 2010; 96(6):1911-30. Other Topography unknown / Unknown 01/31/2025 1:40 PM EDT 01/31/2025 1:42 PM EDT [facility] - 01/31/2025 4:48 PM EDT Comment PST Isidro Shipman DO LAB BLOOD ORDERABLES Final Result Performing Organization Address [facility]/ZIP Co de Phone Number [facility] [address] [place] [address], [facility] [address] [place] [address] * T3 (01/31/2025 1:40 PM EDT) TRIIODOTHYRONINE (T3) TOTAL 1.22 0.87 - 1.78 ng/mL 01/31/2025 4:43 PM EDT [facility] Other Topography unknown / Unknown 01/31/2025 1:40 PM EDT 01/31/2025 1:42 PM EDT [facility] - 01/31/2025 4:48 PM EDT Comment PST Isidro Shipman DO LAB BLOOD ORDERABLES Final Result Performing Organization Address [facility] Co de Phone Number [address] [address], [facility] [address] [place] [address] * TSH (01/31/2025 1:40 PM EDT) THYROID STIMULATING HORMONE 3.47 0.45 - 5.33 u[iU]/mL 01/31/2025 2:57 PM EDT [facility] Other Topography unknown / Unknown 01/31/2025 1:40 PM EDT 01/31/2025 1:42 PM EDT [facility] - 01/31/2025 4:48 PM EDT Comment PST Isidro Shipman DO LAB BLOOD ORDERABLES Final Result Performing Organization Address City/[facility]/ZIP Co de Phone Number [facility] [address] [place] [address], [facility] [address] [place] [address] * T4 (01/31/2025 1:40 PM EDT) THYROXINE (T4) TOTAL 8.46 5.39 - 11.82 ug/dL 01/31/2025 2:55 PM EDT [facility] Other Topography unknown / Unknown 01/31/2025 1:40 PM EDT 01/31/2025 1:42 PM EDT [facility] - 01/31/2025 4:48 PM EDT Comment PST Isidro Guillaume Ramonita LAB BLOOD ORDERABLES Final Result Performing Organization Address City/[facility]/ZIP Co de Phone Number [address] [address], [facility] [address] [place] [address] * (ABNORMAL) PTH, intact (01/31/2025 1:40 PM EDT) Pathologist [facility] PARATHYROID HORMONE INTACT 114.4(H) 12 - 88 pg/mL 01/31/2025 2:59 PM EDT [facility] Other Topography unknown / Unknown 01/31/2025 1:40 PM EDT 01/31/2025 1:42 PM EDT [facility] - 01/31/2025 2:59 PM EDT Comment PST Isidro Shipman DO LAB BLOOD ORDERABLES Final Result Performing Organization Address City/[facility]/ZIP Co de Phone Number [address] [address], [facility] [address] [place] [address] * (ABNORMAL) Basic metabolic panel (01/31/2025 1:40 PM EDT) Pathologist [facility] Glucose 107(H) 70 - 100 mg/dL 01/31/2025 2:44 PM EDT [facility] Comment: Random Glucose Reference Range is dependent on time and content of last meal. Glucose of more than 200 mg/dL in a nonstressed, ambulatory subject supports the diagnosis of Diabetes Mellitus. ADA recommended reference range BUN 15 7 - 25 mg/dL 01/31/2025 2:44 PM EDT [facility] CREATININE 1.00 0.70 - 1.30 mg/dL 01/31/2025 2:44 PM EDT [facility] ESTIMATED GFR >60.0 01/31/2025 2:44 PM EDT [facility] Sodium 139 136 - 145 mmol/L 01/31/2025 2:44 PM EDT [facility] Potassium, Bld 4.3 3.5 - 5.1 mmol/L 01/31/2025 2:44 PM EDT [facility] Chloride 108(H) 98 - 107 mmol/L 01/31/2025 2:44 PM EDT [facility] Carbon Dioxide 27.8 21.0 - 31.0 mmol/L 01/31/2025 2:44 PM EDT [facility] Anion Gap 7.5 6.0 - 15.0 01/31/2025 2:44 PM EDT [facility] Calcium 10.2 8.6 - 10.3 mg/dL 01/31/2025 2:44 PM EDT [facility] Other Topography unknown / Unknown 01/31/2025 1:40 PM EDT 01/31/2025 1:42 PM EDT Narrative [facility] - 01/31/2025 4:48 PM EDT Comment PST us Isidro Shipman DO LAB BLOOD ORDERABLES Final Result Performing Organization Address City/State/[facility] Co de Phone Number [facility] [address] [place] [phone], [facility] [address] [place] [phone] * ECG 12 lead (01/31/2025 1:20 PM EDT) 01/31/2025 1:20 PM EDT Narrative [facility] - 02/01/2025 5:[address] [facility] [address] [place] [address] Electrocardiograph Report Signed Patient: Nicholas Lovelace MR#: [id number] : 1965 Acct:[id number] Age/Sex: 60 / M ADM Date: 01/31/25 Loc: PS Room: Type: [facility] CLI Attending Dr: Isidro Shipman DO Ordering Provider: Isidro Shipman DO Date of Service: 01/31/25 ECG/ECG 12 lead ECG: surgery 02/14/25 Copies to: Test Reason : Blood Pressure : */* mmHG Vent. Rate : 70 BPM Atrial Rate : 70 BPM P-R Int : 192 ms QRS Dur : 82 ms QT Int : 354 ms P-R-T Axes : 32 56 61 degrees QTcB Int : 382 ms Normal sinus rhythm Normal ECG No previous ECGs available Confirmed by DEJA HINSON MD, FACC ([id number]) on 02/01/2025 5:01:21 PM Referred By: Electronically Signed By: DEJA HINSON MD, FACC Transcribed By: MUS Signed By Deja Hinson MD, FACC 02/01/25 9921 Procedure Note Deja Hinson MD - 02/01/2025 [facility] [address] [place] [address] [place] [address] Electrocardiograph Report Signed Patient: Nicholas Lovelace#: [id number] : 1965Acct:[id number] Age/Sex: 60 / MADM Date: 01/31/25 Loc: PS Room:Type: [facility] CLI Attending Dr: Isidro Shipman DO Ordering Provider: Isidro Shipman DO Date of Service: 01/31/25 ECG/ECG 12 lead ECG: surgery 02/14/25 Copies to: Test Reason : Blood Pressure : */* mmHG Vent. Rate : 70 BPM Atrial Rate : 70 BPM P-R Int : 192 ms QRS Dur : 82 ms QT Int : 354 ms P-R-T Axes : 32 56 61 degrees QTcB Int : 382 ms Normal sinus rhythm Normal ECG No previous ECGs available Confirmed by DEJA HINSON MD, FACC ([id number]) on 02/01/2025 5:01:21 PM Referred By: Electronically Signed By: DEJA HINSON MD, FACC Transcribed By: MUS Signed By Deja Hinson MD, FACC 02/01/25 1701 us Isidro Shipman DO ECG ORDERABLES Final Resul t [place] [phone], [place] * CT 4D PARATHYROID (01/14/2025 1:01 PM [...] Membreno M.D. 01/14/2025 1:18 PM Dictation Location: [place] [address] Transcribed By: [facility] 01/14/25 1318 Dictated By: Sary Membreno MD 01/14/25 1301 Signed By: <Electronically signed by MD Sary Membreno in OV> 01/14/25 1318 Narrative 01/14/2025 1:[address] [facility] Main [place] [id number] CT Scan Report Signed Patient: Nicholas Lovelace MR#: [id number] 789 : 1965 Acct:[id number] Age/Sex: 60 / M ADM Date: 01/14/25 Loc: [place] Room: Type: [facility] [address] Attending Dr: Isidro Shipman DO Copies to: [...] parathyroid Procedure Note Radiology, Radiologist, - 01/14/2025 [facility] [address] [place] [address] [place] [address] CT Scan Report Signed Patient: Nicholas Lovelace#: [id number] [id number] : 1965Acct:[id number] Age/Sex: 60 / MADM Date: 01/14/25 Loc: [place] Room:Type: [facility] [address] Attending Dr: Isidro Shipman DO Copies to: Isidro Shipman DO Ordering Provider: Isidro Shipman DO Date of Service: 01/14/25 CT/CT neck 4D parathyroid: E83.[address] NECK WITHOUT AND WITH CONTRAST CLINICAL DATA: Hypercalcemia COMPARISON: None Spiral axial unenhanced images were obtained through the neck. [id number] mL of Isovue-300, scans through the neck [...] Membreno M.D. 01/14/2025 1:18 PM Dictation Location: [place] [address] Transcribed By: [facility] 01/14/25 1318 Dictated By: Sary Membreno MD 01/14/25 1301 Signed By: <Electronically signed by MD Sary Membreno in OV> 01/14/25 1318 us Isidro W Murcek DO IMG CT PROCEDURES Final Res ult * NM parathyroid (01/14/2025 12:59 PM EDT) Anatomical Region Laterality Modality Head and Neck Nuclear Medicine 01/14/2025 12:5 9 PM EDT Impressions 01/14/2025 1:03 PM EDT INCOMPLETE STUDY, DESCRIBED. Impression dictated by: Sary Membreno M.D. 01/14/2025 1:01 PM Dictation Location: [facility] Transcribed By: [facility] 01/14/25 1301 Dictated By: Sary Membreno MD 01/14/25 1259 Signed By: <Electronically signed by MD Sary Membreno in OV> 01/14/25 1301 Narrative 01/14/2025 1:03 [place] [address] Nuclear Medicine Report Signed Patient: Nicholas Lovelaec MR#: [id number] : 1965 Acct:[id number] Age/Sex: 60 / M ADM Date: 01/14/25 Loc: [place] Room: Type: [facility] [address] Attending Dr: Isidro Shipman DO Copies to: [...] parathyroid adenoma given the limited available images. NM/NM parathyroid Procedure Note Radiology, Radiologist, - 01/14/2025 [place] [address] Nuclear Medicine Report Signed Patient: Nicholas LovelaceMR#: [id number] : 1965Acct:[id number] Age/Sex: 60 / MADM Date: 01/14/25 Loc: [place] Room:Type: [facility] Attending Dr: Isidro Shipman DO Copies to: [...] for parathyroidadenoma given the limited available images. NM/NM parathyroid IMPRESSION: INCOMPLETE STUDY, DESCRIBED. Impression dictated by: Sary Membreno M.D. 01/14/2025 1:01 PM Dictation Location: [place] [address] Transcribed By: [facility] 01/14/25 1301 Dictated By: Sary Membreno MD 01/14/25 1259 Signed By: <Electronically signed by MD Sary Membreno in OV> 01/14/25 1301 Isidro Shipman DO IMG [place] PROCEDURES Final Res ult * ISTAT XRAY CRE (01/14/2025 10:22 AM EDT) ISTAT CREATININE LEVEL 1.1 0.6 - 1.3 mg/dL 01/14/2025 10:31 AM EDT [facility] Comment: ER/ESD physician is notified/shown all ISTAT results. Critical values may be confirmed by laboratory testing if deemed necessary by ER attending doctor. ISTAT GFR >60.0 01/14/2025 10:31 AM EDT [facility] Blood (Blood) 01/14/2025 10: 22 AM EDT 01/14/2025 10:31 AM EDT Isidro Shipman DO LAB BLOOD ORDERABLES Final Result Performing Organization Address City/[facility]/ZIP Co de Phone Number [facility] [address] [place] [address], [facility] [address] [place] [address] * VITAMIN B12 (12/14/2024 10:18 AM EDT) VITAMIN B12 373 232 - 1245 pg/mL [facility] Comment: Performed at: [address] [id number] Back Joiner: Ankur Meza PhD, Phone: [phone] 12/14/2024 10:1 8 AM EDT 12/14/2024 10:22 AM EDT Narrative [facility] - 12/15/2024 4:07 AM EDT Do Solis CAD OPERATOR LAB BLOOD ORDERABLES Final Resu lt Performing Organization Address [facility] Co de Phone Number [facility] * TRANSFERRIN (12/14/2024 10:18 AM EDT) TRANSFERRIN 263 177 - 329 mg/dL [facility] Comment: Performed at: [address] [id number] Back Joiner: Ankur Meza PhD, Phone: [phone] 12/14/2024 10:1 8 AM EDT 12/14/2024 10:22 AM EDT Narrative [facility] - 12/15/2024 5:07 AM EDT Do Sol[facility] CAD OPERATOR LAB BLOOD ORDERABLES Final Resu lt Performing Organization Address City/[facility]/ZIP Co de Phone Number [facility] * [facility]H VITAMIN D 25 [place] (12/14/2024 10:18 AM EDT) VITAMIN D 36.4 ng/mL [facility] Comment: <20 ng/mL Vit D deficient 20-<30 ng/mL Vit D insufficient 30-100 ng/mL Vit D sufficient >100 ng/mL Potential Toxicity 12/14/2024 10:1 8 AM EDT 12/14/2024 10:22 AM EDT Narrative [facility] - 12/14/2024 12:01 PM EDT Do Solis NP CLINISYOK Final Result Performing Organization Address [facility] de Phone Number [facility] * SRMCOH PROSTATE SPECIFIC ANTIGEN SCRN (12/14/2024 10:18 AM EDT) PROSTATE SPECIFIC ANTIGEN SCRN 0.60 <=4.00 ng/mL TB 12/14/2024 10:1 8 AM EDT 12/14/2024 10:22 AM EDT Krista CLINISYNC - 12/14/2024 11:23 AM EDT Do Solis NP CLINISYOK Final Result Performing Organization Address [facility] Phone Number [facility] * (ABNORMAL) MLR HEMOGLOBIN A1C (12/14/2024 10:18 AM EDT) GLYCOHEMOGLOBIN A1C 6.7(H) 4.5 - 6.2 % TB Comment: ADA RECOMMENDED LIMIT 4.0 - 6.0 ADA THERAPEUTIC TARGET < 7.0 ACTION SUGGESTED > 7.0 ESTIMATED AVERAGE GLUCOSE 146 mg/dL TB 12/14/2024 10:1 8 AM EDT 12/14/2024 10:22 AM EDT Narrative CL[facility] - 12/14/2024 10:49 AM EDT Do Solis NP CLINISYOK Final Result Performing Organization Address [facility] de Phone Number [facility] * METRO IRON AND TIBC (12/14/2024 10:18 AM EDT) TB IRON 81.0 65.0 - 175.0 ug/dL TB TB TOTAL IRON BINDING CAPACITY 334.0 250.0 - 450.0 ug/dL TBH TBH PERCENT IRON SATURATION 24.3 % TBH 12/14/2024 10:1 8 AM EDT 12/14/2024 10:22 AM EDT Narrative CLIN[facility]YNC - 12/14/2024 11:09 AM EDT us Do Solis NP CLINISYNC Final Result Performing Organization Address [facility] Co de Phone Number [facility] * (ABNORMAL) HMHP PTH, INTRAOPERATIVE (12/14/2024 10:18 AM EDT) PTH, INTACT 76(A) 15 - 65 pg/mL [facility] Comment: Performed at: [facility] [address] [id number] Back Joiner: Ankur Meza PhD, Phone: [phone] 12/14/2024 10:1 8 AM EDT 12/14/2024 10:21 AM EDT Narrative CLIN[facility]YNC - 12/15/2024 11:08 AM EDT Do Solis NP CLINISYNC Final Result Performing Organization Address [facility] de Phone Number CL[facility]NC [facility] * CCF FERRITIN (12/14/2024 10:18 AM EDT) FERRITIN 260.0 26.0 - 388.0 ng/mL TBH 12/14/2024 10:1 8 AM EDT 12/14/2024 10:22 AM EDT Narrative CLINISYNC - 12/14/2024 12:01 PM EDT us Do Solis NP CLINISYNC Final Result Performing Organization Address [facility] de Phone Number CL[facility]NC [facility] * (ABNORMAL) CCF CMP (CMP) (FOR REMOTE [facility] USE) (12/14/2024 10:18 AM EDT) SODIUM 140 136 - 145 mmol/L TBH POTASSIUM 4.6 3.5 - 5.1 mmol/L TBH CHLORIDE 105 98 - 107 mmol/L TBH CARBON DIOXIDE 28.9 21.0 - 32.0 mmol/L TBH ANION GAP 10.7 TBH GLUCOSE 86 74 - 106 mg/dL TBH BLOOD UREA NITROGEN 28.0(H) 7.0 - 18.0 mg/dL TBH CREATININE 1.16 0.70 - 1.30 mg/dL TBH TBH EGFR-AF MALTESE >60 >=60 mL/min/1. 73m 2 TBH TBH EGFR-NON AF MALTESE >60 >=60 mL/min/1. 73m 2 TBH BUN CREATININE RATIO 24.1 TBH CALCIUM 10.7(H) 8.5 - 10.1 mg/dL TBH BILIRUBIN TOTAL 0.5 0.2 - 1.0 mg/dL TBH ASPARTATE AMINO TRANSFERASE 21 15 - 37 U/L TBH ALANINE AMINOTRANSFERASE 36 16 - 63 U/L TBH ALKALINE PHOSPHATASE 97 46 - 116 U/L TBH TOTAL PROTEIN 7.4 6.4 - 8.2 g/dL TBH ALBUMIN LEVEL 4.0 3.4 - 5.0 g/dL TBH GLOBULIN 3.4 g/dL TBH ALBUMIN GLOBULIN RATIO 1.2 TBH 12/14/2024 10:1 8 AM EDT 12/14/2024 10:22 AM EDT Narrative CLINISYNC - 12/14/2024 11:10 AM EDT us Do Solis NP CLINISYNC Final Result [facility] * ALL LIPID PROFILE (FASTING) (12/14/2024 10:18 AM EDT) TRIGLYCERIDES 69 <=150 mg/dL TBH CHOLESTEROL 108 <=200 mg/dL TBH HDL CHOLESTEROL 43 40 - 60 mg/dL TB[facility] Comment: > or =60 mg/dl - LOW CARDIOVASCULAR RISK <40 mg/dl - HIGH CARDIOVASCULAR RISK LDL CHOLESTEROL CALCULATED 51.2 mg/dL [facility] Comment: <100 mg/dl OPTIMAL 100-129 mg/dl NEAR OR ABOVE OPTIMAL 130-159 mg/dl BORDERLINE HIGH 160-189 mg/dl HIGH >190 mg/dl VERY HIGH VLDL CHOLESTEROL 13.8 mg/dL TBH CHOL HDL RATIO 2.5 TB Comment: 3.3 - 4.4 LOW RISK 4.4 - 7.1 AVERAGE RISK 7.1 - 11.0 MODERATE RISK >11.0 HIGH RISK 12/14/2024 10:1 8 AM EDT 12/14/2024 10:22 AM EDT Narrative CL[facility] - 12/14/2024 11:10 AM EDT us Do Solis NP CLINISYNC Final Result [facility] * (ABNORMAL) ALL CBC WITH AUTO DIFF (12/14/2024 10:18 AM EDT) TB WBC 7.9 4.0 - 11.0 10 3/uL TBH TBH RBC 4.59(L) 4.70 - 6.10 10 6/uL TBH TBH HGB 12.8(L) 14.0 - 18.0 g/dL TBH TBH HCT 39.1(L) 42.0 - 54.0 % TBH TBH MCV 85.2 80.0 - 94.0 fL TBH TBH MCH 27.9 25.9 - 34.0 pg TBH TBH MCHC 32.7 29.9 - 35.2 g/dL TBH TBH RDW 12.9 11.0 - 15.0 % TBH TBH PLT 326 150 - 450 10 3/uL TBH TBH MPV 9.3(L) 9.5 - 13.5 fL TBH NEUTROPHILS PERCENT AUTO 68.6 43.0 - 75.0 % TBH LYMPHOCYTES PERCENT AUTO 22.8 20.5 - 60.0 % TBH MONOCYTES PERCENT AUTO 7.3 1.7 - 12.0 % TBH TBH EO % 0.6(L) 0.9 - 7.0 % TBH BASOPHILS PERCENT AUTO 0.6 0.2 - 2.0 % TBH IMMATURE GRANULOCYTES PCT AUTO 0.1 0.0 - 0.5 % TBH NEUTROPHILS ABSOLUTE AUTO 5.4 1.4 - 6.5 10 3/uL TBH LYMPHOCYTES ABSOLUTE AUTO 1.8 1.2 - 3.8 10 3/uL TBH MONOCYTES ABSOLUTE AUTO 0.6 0.3 - 0.8 10 3/uL TBH TBH EO # 0.1 0.0 - 0.7 10 3/uL TBH BASOPHILS ABSOLUTE AUTO 0.1 0.0 - 0.1 10 3/uL TBH IMMATURE GRANULOCYTES ABS AUTO 0.01 0.00 - 0.03 10 3/uL TBH 12/14/2024 10:1 8 AM EDT 12/14/2024 10:22 AM EDT Narrative CLINISYNC - 12/14/2024 11:13 AM EDT Do Solis NP CLINISYNC Final Result Performing Organization Address [facility] Co de Phone Number CL[facility]OK TB * (ABNORMAL) TBH URINE MICROSCOPIC ONLY (12/14/2024 10:11 AM EDT) TBH WBC NONE SEEN NONE SEEN #/HPF TBH TBH RBC 0-2 0 - 2 #/HPF TBH BACTERIA URINE TRACE(A) NONE SEEN #/HPF TBH MUCUS URINE NONE SEEN NONE SEEN TBH SQUAMOUS EPITHELIAL CELL URINE RARE NONE/RARE #/LPF TBH CRYSTALS SEEN? None Seen None Seen #/HPF TBH CAST SEEN? NONE SEEN NONE SEEN #/LPF TBH 12/14/2024 10:1 1 AM EDT 12/14/2024 10:21 AM EDT [facility] CLINISYNC - 12/14/2024 12:49 PM EDT Do Solis NP CLINISYNC Final Result Performing Organization Address [facility] Co de Phone Number CLINISYNC TB * TBH UA (CLEAN/CATCH) MICROSCOPIC IF INDICATE (12/14/2024 10:11 AM EDT) COLOR URINE LT. YELLOW YELLOW TBH CLARITY URINE CLEAR CLEAR TBH SPECIFIC GRAVITY URINE 1.025 1.005 - 1.025 TBH PH URINE 6.0 5.0 - 9.0 TBH PROTEIN URINE NEGATIVE NEG/TRACE mg/dL TBH GLUCOSE URINE UA NEGATIVE NEGATIVE mg/dL TBH BILIRUBIN URINE NEGATIVE NEGATIVE TBH KETONES URINE NEGATIVE NEGATIVE mg/dL TBH BLOOD URINE TRACE-I NEGATIVE TBH NITRITE URINE NEGATIVE NEGATIVE TBH UROBILINOGEN URINE 0.2 0.2 - 1.0 EU/dL TBH LEUKOCYTE ESTERASE URINE NEGATIVE NEGATIVE TBH URINE MICROSCOPIC INDICATED YES TBH 12/14/2024 10:1 1 AM EDT 12/14/2024 10:21 AM EDT Narrative CLINISYNC - 12/14/2024 12:49 PM EDT us Do Solis NP CLINISYNC Final Result CLINISYNC TB * TBH MICROALB CREAT RATIO RANDOM (12/14/2024 10:11 AM EDT) MICROALBUMIN URINE RANDOM <1.3 <=30.0 mg/dL TBH CREATININE URINE RANDOM 143.27 20.00 - 300.00 mg/dL TBH 12/14/2024 10:1 1 AM EDT 12/14/2024 10:21 AM EDT Narrative CL[facility] - 12/14/2024 11:02 AM EDT Do Solis NP CLINISYNC Final Result CLINISYNC TB * Cologuard?? colon cancer screening (08/25/2023 7:32 PM EST) Stool Shaikh Anupam [facility] ORDER JOEY Final Result from Last 3 Months or Most Recently Relevant to Health Maintenance Insurance [place]ICA[place] MEDIC[place] ADVANTAGE Care Teams Glaze Mixer Relationship Specialty Start Date End Date Buddy Harvey MD [address] [place] [phone] PCP - General Family Medicine 03/16/24 Nicole Robb NP [address] [place] [phone] Nurse Practitioner Family Medicine 03/16/24 Do Solis NP [address] [place] [address] Nurse Practitioner Family Medicine 01/19/25 Isidro Shipman DO [address] [place] [address] Otolaryngology 01/19/25
--- OUTSIDE RECORDS SUMMARY | 2025-02-10 09:31 | XMS_ITS | Encounter Summary ---
Author Organization [facility] Address [address] [place] [address] Care Team Providers Care Tariff Supervisor Name Role Phone Shaikh TAYA Bo Primary Care Provider [phone] Shaikh TAYA Bo Unavailable [phone] Shaikh TAYA Bo Primary Care Provider [phone] Buddy Harvey MD Primary Care Provider [phone] Nicole Robb SOFT SHOE DANCER Unavailable [phone] Do Solis SOFT SHOE DANCER Unavailable [phone] Isidro Shipman DO Unavailable [phone] Encounter Details Date Type Department Care Team (Late st Contact Info) Description 08/25/2023 Orders Only [facility] [address] [place] [address] Shaikh Bo MD [address] [place] [phone] Social History Tobacco Use Types Packs/Day Years [...] EDT Office Visit [facility] [place] [address] [place] [address] Isidro Shipman W, DO [address] [place] [address] 03/28/2025 9:20 AM EDT Office Visit [facility] [address] [place] [address] Do Solis, BASILIO [address] [place] [address] 12/29/2025 10:30 AM EDT Office Visit [facility] [address] [place] [address] Do Solis, BASILIO [address] [place] [address] documented as of this encounter Procedures Procedure Name Priority Date/Time Associated Diagnosis Comments LAB COLOGUARD COLON CANCER SCREEN Routine 08/25/2023 7:32 PM EST documented in this encounter Results * Cologuard?? colon cancer screening (08/25/2023 7:32 PM EST) Stool Shaikh Anupam [facility] ORDER JOEY Final Result documented in this encounter Visit Diagnoses Not on filedocumented in this encounter Additional Health Concerns Assessment Noted Time PHQ-9 Depression Total Score: 1 07/23/20 23 1:00 PM EST documented as of this encounter Care Teams Tariff Supervisor Relationship Specialty Start Date End Date Shaikh Bo MD PCP - General Internal Medicine 08/04/22 10/22/23 Shaikh Bo MD [address] [place] [address] PCP - Devoted 08/04/22 08/03/24 Shaikh Bo MD [address] [place] [address] PCP - General Internal Medicine 10/23/23 03/15/24 Buddy Harvey MD [address] [place] [address] PCP - General Family Medicine 03/16/24 Nicole Robb NP [address] [place] [address] Nurse Practitioner Family Medicine 03/16/24 Do Solis NP [address] [place] [phone] Nurse Practitioner Family Medicine 01/19/25 Isidro Shipman DO [address] [place] [address] Otolaryngology 01/19/25 documented as of this encounter
--- OUTSIDE RECORDS SUMMARY | 2025-02-10 09:31 | XMS_ITS | Encounter Summary ---
Author Organization [facility] Address [address] [place] [address] Care Team Providers Care Data Services Developer Name Role Phone Buddy Harvey MD Primary Care Provider Nicole Robb MACHINE WOOD SANDER Unavailable Do Solis MACHINE WOOD SANDER Unavailable [phone] Isidro Shipman DO Unavailable Encounter Details Date Type Department Care Team ([facility] Contact Info) Description 01/31/2025 External Result Encounter [facility] External Department Unsolicited Isidro Shipman, DO [address] [place] [address] Social History Tobacco Use Types Packs/Day Years [...] Upcoming Encounters Date Type Department Care Team ([facility] Contact Info) Description 02/21/2025 2:15 PM EDT Office Visit [facility] [place] [address] [place] [address] Isidro Shipman, DO [address] [place] [address] 03/28/2025 9:20 AM EDT Office Visit [facility] [address] [place] [address] Do Solis, BASILIO [address] [place] [address] 12/29/2025 10:30 AM EDT Office Visit [facility] [address] [place] [phone] Do Solis, BASILIO [address] [place] [address] documented as of this encounter Procedures Procedure Name Priority Date/Time Associated Diagnosis Comments ECG 12-LEAD 01/31/2025 1:20 PM EDT documented in this encounter Results * ECG 12 lead (01/31/2025 1:20 PM EDT) 01/31/2025 1:20 PM EDT Narrative [facility] - 02/01/2025 5:01 PM EDT [facility] [address] Electrocardiograph Report Signed Patient: Nicholas Lovelace MR#: [id number] : 1965 Acct:[id number] Age/Sex: 60 / M ADM Date: 01/31/25 Loc: Room: Type: [facility] Attending Dr: Isidro Shipman DO Ordering Provider: [...] ECG No previous ECGs available Confirmed by AMANDA HINSON MD, FACC ([id number]) on 02/01/2025 5:01:21 PM Referred By: Electronically Signed By: AMANDA HINSON MD [facility] Transcribed By: MUS Signed By Amanda Hinson MD, [facility] 02/01/25 1701 Procedure Note Amanda Hinson MD - 02/01/2025 [facility] [place] [address] [place] [address] Electrocardiograph Report Signed Patient: Nicholas Lovelace#: [id number] : 1965Acct:[id number] Age/Sex: 60 / MADM Date: 01/31/25 Loc: [place] Room:Type: [facility] Attending Dr: Isidro Shipman DO Ordering Provider: [...] ECG No previous ECGs available Confirmed by YANELIS BAIN [facility], AMANDA ([id number]) on 02/01/2025 5:01:21 PM Referred By: Electronically Signed By: AMANDA HINSON MD [facility] Transcribed By: MUS Signed By Amanda Hinson MD, [facility] 02/01/25 170 us Isidro Shipman DO ECG ORDERABLES Final Resul t Performing Organization Address City/State/[facility] Co de Phone Number [address] [address], documented in this encounter Visit Diagnoses Not on filedocumented in this encounter Additional Health Concerns Assessment Noted Time PHQ-9 Depression Total Score: 0 12/24/19 25 10:14 AM EDT documented as of this encounter Care Teams Data Services Developer Relationship Specialty Start Date End Date Buddy Harvey MD [address] [place] [address] PCP - General Family Medicine 03/16/24 Nicole Robb NP [address] [place] [address] Nurse Practitioner Family Medicine 03/16/24 Do Solis NP [address] [place] [address] Nurse Practitioner Family Medicine 01/19/25 Isidor Shipman DO [address] [place] [address] Otolaryngology 01/19/25 documented as of this encounter
--- OUTSIDE RECORDS SUMMARY | 2025-02-10 09:31 | XMS_ITS | Encounter Summary ---
Author Organization [facility] Address [address] [place] [address] Care Team Providers Care Chemist Physical Name Role Phone Buddy Harvey MD Primary Care Provider [phone] Nicole Robb ENVIRONMENTAL CONFLICT MANAGER Unavailable Do [facility]is ENVIRONMENTAL CONFLICT MANAGER Unavailable [phone] Isidro Shipman DO Unavailable [phone] Encounter Details Date Type Department Care Team ([facility] Contact Info) Description 01/31/2025 External Result Encounter [facility] External Department Unsolicited Isidro Shipman, DO [address] [place] [address] Social History Tobacco Use Types Packs/Day Years [...] Upcoming Encounters Date Type Department Care Team ([facility] Contact Info) Description 02/21/2025 2:15 PM EDT Office Visit [facility] [place] [address] [place] [address] Isidro Shipman, DO [address] [place] [address] 03/28/2025 9:20 AM EDT Office Visit [facility] [address] [place] [address] Do Solis, BASILIO [address] [place] [address] 12/29/2025 10:30 AM EDT Office Visit [facility] [address] [place] [address] Do Solis, ENVIRONMENTAL CONFLICT MANAGER [address] [place] [address] documented as of this encounter Procedures Procedure Name Priority Date/Time Associated Diagnosis Comments PTH, INTACT WITHOUT CALCIUM Routine 01/31/2025 1:40 PM EDT documented in this encounter Results * (ABNORMAL) PTH, intact (01/31/2025 1:40 PM EDT) PARATHYROID HORMONE INTACT 114.4(H) 12 - 88 pg/mL 01/31/2025 2:59 PM EDT [facility] Other Topography unknown / Unknown 01/31/2025 1:40 PM EDT 01/31/2025 1:42 PM EDT Narrative [facility] - 01/31/2025 2:59 PM EDT Comment PST Isidro Shipman DO LAB BLOOD ORDERABLES Final Result [facility] [address] [place] [address], [facility] [address] [place] [address] documented in this encounter Visit Diagnoses Not on filedocumented in this encounter Additional Health Concerns Assessment Noted Time PHQ-9 Depression Total Score: 0 12/24/19 25 10:14 AM EDT documented as of this encounter Care Teams Chemist Physical Relationship Specialty Start Date End Date Buddy Harvey MD [address] [place] [address] PCP - General Family Medicine 03/16/24 Nicole Robb NP [address] [place] [address] Nurse Practitioner Family Medicine 03/16/24 Do Solis NP [address] [place] [address] Nurse Practitioner Family Medicine 01/19/25 Isidro Shipman DO [address] [place] [address] Otolaryngology 01/19/25 documented as of this encounter
--- NOTE | 2025-02-10 10:10 | PM.CN ---
Consult Note: HPI Data of Consult Patient: known to practice within the last 3 years Requesting Physician: Aida Montero NP Primary Care Provider: Do Solis NP Consult Narrative Reason for consult: f/u Narrative: Boby Lovelace a pleasant 60 year old male presents for evaluation and management of low back pain. Today rating pain 3/10 stabbing/ache without radiculopathy, increasing to moderate to severe spontaneously. hx of lumbar fusion at l4-5 Unfortunately patient continues to have low back pain unresponsive to conservative medications and PT/HEP. Patient SANJU today 50%. Patient does find significant improvement in low back pain with percocet 5-325mg BID-TID PRN patient denies side effects. Utilizes baclofen 10mg TID PRN with benefit. no longer utilizing gabapentin as not beneficial. Patient reports pain is well controlled with current medication regimen, SANJU remains stable. cc:: CC: Aida Montero NP Review of Systems ROS Status of ROS 10 or more systems reviewed and unremarkable except as noted in history and below Musculoskeletal Reports: back pain; Denies: extremity pain Meds Home Medications and Allergies Home Medications ?Medication ?Instructions ?Recorded ?Confirmed ?Type atorvastatin 80 mg tablet 80 mg PO DAILY 06/11/23 06/11/23 History baclofen 10 mg tablet 10 mg PO TID 06/11/23 06/11/23 History dulaglutide 4.5 mg/0.5 mL 4.5 mg subcut QWEEK 06/11/23 06/11/23 History subcutaneous pen injector (Trulicity) ezetimibe 10 mg tablet 10 mg PO DAILY 06/11/23 06/11/23 History gabapentin 600 mg tablet 600 mg PO TID 06/11/23 06/11/23 History ibuprofen 800 mg tablet 800 mg PO TID 06/11/23 06/11/23 History insulin degludec 200 unit/mL (3 200 unit subcut DAILY 06/11/23 06/11/23 History mL) subcutaneous pen (Tresiba FlexTouch U-200 insulin) oxycodone-acetaminophen 5 mg-325 1 tab PO TID PRN pain #90 tabs 03/08/24 Rx mg tablet (Percocet) baclofen 10 mg tablet 10 mg PO TID PRN muscle spasm #90 08/12/24 Rx tabs oxycodone-acetaminophen 5 mg-325 See Rx Instructions .Route 09/06/24 Rx mg tablet (Percocet) .COMPLEX PRN pain #75 tabs oxycodone-acetaminophen 5 mg-325 See Rx Instructions .Route 10/05/24 Rx mg tablet (Percocet) .COMPLEX PRN pain #75 tabs oxycodone-acetaminophen 5 mg-325 See Rx Instructions .Route 11/11/24 Rx mg tablet (Percocet) .COMPLEX PRN pain #75 tabs oxycodone-acetaminophen 5 mg-325 See Rx Instructions .Route 12/08/24 Rx mg tablet (Percocet) .COMPLEX PRN pain #75 tabs oxycodone-acetaminophen 5 mg-325 See Rx Instructions .Route 01/10/25 Rx mg tablet (Percocet) .COMPLEX PRN pain #75 tabs Allergies Allergy/AdvReac Type Severity Reaction Status Date / Time No Known Drug Allergies Allergy Verified 06/11/23 10:58 Exam Constitutional Documenting provider has reviewed patient's vital signs: yes Common normals: no apparent distress, oriented x3, healthy appearing, alert and well nourished General appearance: cooperative Orientation/consciousness: Yes awake, Yes oriented to person, Yes oriented to place and Yes oriented to time HENMT Common normals: normocephalic, hearing grossly normal bilaterally and moist oral mucous membranes Head and scalp: normocephalic Eye Common normals: PERRL Pupil: PERRL Neck & C-Spine Common normals: full ROM General: normal visual inspection Chest Common normals: inspection of chest normal Respiratory Common normals: normal respiratory effort, no retractions and no use of accessory muscles Effort & inspection: able to speak in complete sentences and symmetric chest movement Back & Pelvis Lumbar spine/lower back: ROM limited, pain with ROM and lumbar spinal tenderness Lumbar spinal tenderness location: L3 and L5 Other: positive facet load pain right>left muscle strength 5/5 bilat LE with intact sensation Extremity Common normals: normal to inspection, full ROM, normal capillary refill and no pedal edema Neuro Common normals: oriented x3, CN's II-XII intact bilaterally, moves all extremities, no focal motor deficits, no sensory deficits noted and deep tendon reflexes 2+ bilaterally Sensorium/orientation: alert Motor exam: strength 5/5 throughout and no movement abnormalities noted Psych Common normals: mental status grossly normal, thought process normal, cooperative, affect normal, speech normal and activity/motor behavior normal Speech: normal speech Thought process: normal thought process Results Additional Findings Additional findings: If on a controlled substance or opioids, I have checked an [place] report on this patient and there are no aberrancies noted in the prescribing history.??If on a controlled substance or opioid a drug screen was completed and reviewed within the last year, and if there has not been a drug screen completed we ordered one today to monitor higher risk, state monitored pain medication use. As part of providing excellent, safe, comprehensive care, the following was completed at our patient's visit: 1. A medication reconciliation and review to ensure accurate knowledge of current/active medications, including asking our patients to inform us about any [id number] medications or herbal remedies/nutritional supplements/alternative remedies. 2. A review to specifically ensure our patients have had annual screening for screening for depression, screening for tobacco use, and screening for unhealthy alcohol use. For concerning screenings had a discussion with the patient, provided patient education, and recommended follow-up with primary care provider when appropriate. If patient noted with a risk of falling, they received education on strength, gait, and balance training to prevent future risk of falling. Assessment and Plan Assessment and Plan (1) Lumbar spondylosis: (2) Muscle spasm: (3) Chronic prescription opiate use: Assessment and Plan: I feel these medications are improving the patient's quality of life and allow them to tolerate activities of daily living as well as participate in recreational activity.? The patient does not report intolerable side effects. The patient is NOT opioid naive and non-pharmacologic and non-opioid treatment has failed to significantly relieve the patient's pain and improve functionality. The patient has a diagnosis that is related to a somatic or visceral pain etiology. ? ?? I reviewed with the patient the potential risks and side effects with the use of? opioid medications including but not limited to respiratory depression,? sedation, and even . I verified the patient has access to naloxone should? these effects occur. I advised the patient to avoid the use of any other? sedation substances including alcohol, THC, and benzodiazepines while? taking opioid medications due to the risk of compounding side effects and? detrimental outcomes. I reviewed the [employer], pain treatment agreement, urine? drug screen, and opioid start talking forms. The patient was advised to let? their family know they had Naloxone in case they would need to administer? the medication.? ?? A drug screen was completed within the last year, and no aberrancies were noted regarding their use of controlled substances. The patient understands they are subject to the terms and conditions of the pain contract that they have signed. ? ?? I have checked an [place] report on this patient today and there are no aberrancies noted in the prescribing history.? (4) Failed back syndrome: Plan continue percocet 5/325 to BID-TID PRN moderate to severe pain 75 tablets per month continue baclofen 10mg TID PRN pain/spasms narcan discussed and prescribed previously declining interventional therapy as pain is well controlled f/u 3 months, sooner if needed
== END 2025-02-10 09:27 | disposition home or self-care (01) ==
PROVIDERS: PCP Nurse Practitioner; Visit Provider Nurse Practitioner
DX: M47.816 Spondylosis without myelopathy or radiculopathy, lumbar region (principal); M62.838 Other muscle spasm; Z79.891 Long term (current) use of opiate analgesic; M96.1 Postlaminectomy syndrome, not elsewhere classified
CPT/HCPCS: G0463

== ENCOUNTER 2025-05-12 09:52 | Outpatient (OUT) | payer MEDICARE, MEDICAID, SELFPAY ==
--- NOTE | 2025-05-12 10:11 | PM.CN ---
Consult Note: HPI Data of Consult Patient: known to practice within the last 3 years Requesting Physician: Aida Motnero NP Primary Care Provider: Do Solis NP Consult Narrative Reason for consult: f/u Narrative: Boby Lovelace a pleasant 60 year old male presents for evaluation and management of low back pain. Today rating pain 3/10 ache without radiculopathy, increasing to moderate to severe spontaneously. hx of lumbar fusion at l4-5 Unfortunately patient continues to have low back pain unresponsive to conservative medications and PT/HEP. Patient SANJU today 50%. Patient does find significant improvement in low back pain with percocet 5-325mg BID-TID PRN patient denies side effects. Utilizes baclofen 10mg TID PRN with benefit. failed gabapentin, tylenol, motrin. Patient reports pain is well controlled with current medication regimen, SANJU remains stable. cc:: CC: Aida Montero NP Review of Systems ROS Status of ROS 10 or more systems reviewed and unremarkable except as noted in history and below Musculoskeletal Reports: back pain; Denies: extremity pain Meds Home Medications and Allergies Home Medications ?Medication ?Instructions ?Recorded ?Confirmed ?Type atorvastatin 80 mg tablet 80 mg PO DAILY 06/11/23 06/11/23 History baclofen 10 mg tablet 10 mg PO TID 06/11/23 06/11/23 History dulaglutide 4.5 mg/0.5 mL 4.5 mg subcut QWEEK 06/11/23 06/11/23 History subcutaneous pen injector (Trulicity) ezetimibe 10 mg tablet 10 mg PO DAILY 06/11/23 06/11/23 History ibuprofen 800 mg tablet 800 mg PO TID 06/11/23 06/11/23 History insulin degludec 200 unit/mL (3 200 unit subcut DAILY 06/11/23 06/11/23 History mL) subcutaneous pen (Tresiba FlexTouch U-200 insulin) naloxone 4 mg/actuation nasal 4 mg intranasal Q2M PRN opioid 05/12/25 Rx spray (Narcan) overdose #2 ea oxycodone-acetaminophen 5 mg-325 1 tab PO BID PRN pain #60 tabs 05/12/25 Rx mg tablet (Percocet) Allergies Allergy/AdvReac Type Severity Reaction Status Date / Time No Known Drug Allergies Allergy Verified 06/11/23 10:58 Exam Constitutional Documenting provider has reviewed patient's vital signs: yes Common normals: no apparent distress, oriented x3, healthy appearing, alert and well nourished General appearance: cooperative Orientation/consciousness: Yes awake, Yes oriented to person, Yes oriented to place and Yes oriented to time HENAZ Common normals: normocephalic, hearing grossly normal bilaterally and moist oral mucous membranes Head and scalp: normocephalic Eye Common normals: PERRL Pupil: PERRL Neck & C-Spine Common normals: full ROM General: normal visual inspection Chest Common normals: inspection of chest normal Respiratory Common normals: normal respiratory effort, no retractions and no use of accessory muscles Effort & inspection: able to speak in complete sentences and symmetric chest movement Back & Pelvis Lumbar spine/lower back: ROM limited, pain with ROM, lumbar spinal tenderness Lumbar spinal tenderness location: L3 and L5 and straight leg raise negative bilaterally Other: positive facet load pain right>left muscle strength 5/5 bilat LE with intact sensation Extremity Common normals: normal to inspection, full ROM, normal capillary refill and no pedal edema Neuro Common normals: oriented x3 Sensorium/orientation: alert Motor exam: strength 5/5 throughout and no movement abnormalities noted Psych Common normals: mental status grossly normal, thought process normal, cooperative, affect normal, speech normal and activity/motor behavior normal Speech: normal speech Thought process: normal thought process Results Additional Findings Additional findings: If on a controlled substance or opioids, I have checked an OARRS report on this patient and there are no aberrancies noted in the prescribing history.??If on a controlled substance or opioid a drug screen was completed and reviewed within the last year, and if there has not been a drug screen completed we ordered one today to monitor higher risk, state monitored pain medication use. As part of providing excellent, safe, comprehensive care, the following was completed at our patient's visit: 1. A medication reconciliation and review to ensure accurate knowledge of current/active medications, including asking our patients to inform us about any vtfh-kjo-wqkmdds medications or herbal remedies/nutritional supplements/alternative remedies. 2. A review to specifically ensure our patients have had annual screening for screening for depression, screening for tobacco use, and screening for unhealthy alcohol use. For concerning screenings had a discussion with the patient, provided patient education, and recommended follow-up with primary care provider when appropriate. If patient noted with a risk of falling, they received education on strength, gait, and balance training to prevent future risk of falling. Portions of this note may have been carried over from the previous visit and updated as appropriate. Please note this office utilizes paper charting in addition to the electronic medical record. A list of current medications, vitals, and PMH is available there as the clinical staff outside of myself do not have access to [employer] charting during the clinic day operations. As part of providing quality comprehensive care the current medications, vitals, and PMH were reviewed in the paper chart. Assessment and Plan Assessment and Plan (1) Lumbar spondylosis: (2) Muscle spasm: (3) Chronic prescription opiate use: Assessment and Plan: I feel these medications are improving the patient's quality of life and allow them to tolerate activities of daily living as well as participate in recreational activity.? The patient does not report intolerable side effects. The patient is NOT opioid naive and non-pharmacologic and non-opioid treatment has failed to significantly relieve the patient's pain and improve functionality. The patient has a diagnosis that is related to a somatic or visceral pain etiology. ? ?? I reviewed with the patient the potential risks and side effects with the use of? opioid medications including but not limited to respiratory depression,? sedation, and even . I verified the patient has access to naloxone should? these effects occur. I advised the patient to avoid the use of any other? sedation substances including alcohol, THC, and benzodiazepines while? taking opioid medications due to the risk of compounding side effects and? detrimental outcomes. I reviewed the COUNTER PROFESSIONAL, pain treatment agreement, urine? drug screen, and opioid start talking forms. The patient was advised to let? their family know they had Naloxone in case they would need to administer? the medication.? ?? A drug screen was completed within the last year, and no aberrancies were noted regarding their use of controlled substances. The patient understands they are subject to the terms and conditions of the pain contract that they have signed. ? ?? I have checked an OARRS report on this patient today and there are no aberrancies noted in the prescribing history.? (4) Failed back syndrome: Plan decrease percocet 5/325 to BID PRN moderate to severe pain 60 tablets per month continue baclofen 10mg TID PRN pain/spasms narcan discussed and prescribed previously declining interventional therapy as pain is well controlled f/u 3 months, sooner if needed
--- OUTSIDE RECORDS SUMMARY | 2025-05-12 10:11 | XMS_ITS | CCD ---
Author Organization [facility] CliniSyny Care Team Providers Care Rib Trim Separator Name Role Phone LAKSHMIPATHY ., NARENDRANATH Admitting [...] vailable LAKSHMIPATHY ., NARENDRANATH Consulting Savita vailable Shaikh Bo MD Unavailable Candice BAIN, Buddy Primary Care Provider Cezar FIRE ASSISTANT, Kelly Unavailable [phone] Anupam BAIN, Santana Unavailable Cezar FIRE ASSISTANT, Kelly Unavailable Will FIRE ASSISTANT, Do Unavailable Isidro Shipman DO W Unavailable Isidro Shipman DO Attending Provider Do Solis Primary Care Provider Cheyanne Juarez MD Attending Provider Isidro Shipman DO Referring Provider DO SOLIS Attending Unavailable DO SOLIS Attending Unavailable KELLY ROBB Attending UnavailISIDRO Wray Attending Unavailable DO SOLIS Referring Unavailable ISIDRO SHIPMAN Attending Unavailable DO SOLIS Referring Unavailable DO SOLIS Attending Unavailable KELLY ROBB Attending Unavailrenetta Solis FIRE ASSISTANT-CDo Primary Care Provider [phone] Isidro Shipman DO Attending Provider Michelle Palma DO Primary Care Provider Do Solis Primary Care Unavailable Isdiro Shipman Admitting Unavailable Isidro Shipman Attending Unavailable Cheyanne Juarez Admitting Unavailable Cheyanne Juarez Attending Unavailable Do Solis Primary Care Unavailable Isidro Shipman Admitting Unavailable Isidro Shipman Attending Unavailable Do Solis Primary Care Unavailable Isidro Shipman Admitting Unavailable Isidro Shipman Attending Unavailable Michelle Palma Primary Care Unavailable Allergies Allergy Classification Reported Allergen(s) Allergy Type Date of Onset Reaction(s) Facility (20 sources) Penicillins Propensity to adverse reactions 3 Rash [facility] Healthcare (1 source) Penicillins Drug allergy (disorder) 5 [facility] Repository Medications Current Medications Medication Drug Class(es) Dates Sig (Normalized) Sig (Original) acetaminophen 325 mg / oxyCODONE hydrochloride 5 mg oral tablet (20 sources) Opioid Agonist Start: 01-31-2025 take 1 tablet by yancy th every eight hours as needed for pain oxyCODONE-acetaminophen (Percocet) 5-325 MG tablet Take 1 tablet by mouth every 8 (eight) hours if needed for severe pain Active aspirin 81 mg delayed release oral tablet (18 sources) Platelet Aggregation Inhibitor, Nonsteroidal Anti-inflammatory Drug Start: 12-23-2024 End: 06-26-2025 take 1 tablet by mouth once daily at bedtime atorvastatin 80 mg oral tablet (20 sources) HMG-CoA Reductase Inhibitor Start: 01-26-2024 End: 06-26-2025 take 1 tablet by mouth once daily at bedtime baclofen 10 mg oral tablet (18 sources) gamma-Aminobutyric Acid-ergic Agonist Start: 08-12-2024 take 1 tablet by mouth in the morning, then take 1 tablet by mouth in the evening, then take 1 tablet by mouth at bedtime baclofen (Lioresal) 10 MG tablet Take 10 mg by mouth in the morning and 10 mg in the evening and 10 mg before bedtime. 08/12/2024 Active Dulaglutide (8 sources) GLP-1 Receptor Agonist Start: 01-31-2025 Start: 01-26-2024 End: 05-04-2024 inject 1.5 mg by subcutaneous injection every week dulaglutide (Trulicity) 1.5 MG/0.5ML solution pen-injector Indications: Type 2 diabetes mellitus without complication, without long-term current use of insulin ([facility]) Inject 1.5 mg under the skin 1 (one) time per week 12 pen 01/26/2024 05/04/2024 Discontinued (Therapy completed) Dulaglutide (Trulicity) 4.5 MG/0.5ML solution auto-injector (20 sources) Start: 03-28-2025 End: 06-20-2025 inject 4.5 mg by subcutaneous injection every week Dulaglutide (Trulicity) 4.5 MG/0.5ML solution auto-injector Indications: Type 2 diabetes mellitus without complication, with long-term current use of insulin ([facility]) Inject 4.5 mg under the skin 1 (one) time per week 6 mL 03/28/2025 06/20/2025 Active Start: 11-09-2024 End: 03-28-2025 inject 4.5 mg by subcutaneous injection every week Dulaglutide (Trulicity) 4.5 MG/0.5ML solution auto-injector Indications: Type 2 diabetes mellitus without complication, with long-term current use of insulin (HCC) Inject 4.5 mg under the skin 1 (one) time per week 6 mL 1 11/09/2024 03/28/2025 Discontinued (Reorder) Start: 11-09-2024 inject 4.5 mg by sub cutaneous injection every week Dulaglutide (Trulicity) 4.5 MG/0.5ML solution auto-injector Indications: Type 2 diabetes mellitus without complication, with long-term current use of insulin (HCC) Inject 4.5 mg under the skin 1 (one) time per week 6 mL 1 11/09/2024 Active Start: 11-09-2024 End: 02-01-2025 inject 4.5 mg by subcutaneous injection every week Dulaglutide (Trulicity) 4.5 MG/0.5ML solution auto-injector Indications: Type 2 diabetes mellitus without complication, with long-term current use of insulin (HCC) Inject 4.5 mg under the skin 1 (one) time per week 6 mL 1 11/09/2024 02/01/2025 Active Start: 11-09-2024 End: 11-09-2024 inject 4.5 mg [...] esomeprazole 20 mg delayed release oral capsule (20 sources) Proton Pump Inhibitor Start: 01-26-2024 End: 06-26-2025 take 1 capsule by mouth once daily in the morning ezetimibe 10 mg oral tablet (20 sources) Dietary Cholesterol Absorption Inhibitor Start: 01-26-2024 End: 09-24-2025 take 1 tablet by mouth once daily at bedtime ibuprofen 600 mg oral tablet (20 sources) Nonsteroidal Anti-inflammatory Drug Start: 01-31-2025 take 1 tablet by mouth every six hours as needed for pain Start: 04-12-2024 End: 02-07-2025 take 1 tablet [...] Discontinued (Reorder) 3 ml insulin degludec 200 un t/ml pen injector (20 sources) Insulin Analog Start: 01-31-2025 Start: 10-23-2023 End: 06-26-2025 insulin degludec (Tresiba Fl exTouch) 200 UNIT/ML injection Indications: Type 2 diabetes mellitus without complication, without long-term current use of insulin (HCC) Inject 36 Units under the skin at bedtime 18 mL 03/28/2025 06/26/2025 Active 24 hr oxybutynin chloride 5 mg extended release oral tablet (2 sources) Cholinergic Muscarinic Antagonist Start: 03-28-2025 End: 04-27-2025 take 1 tablet by mouth once daily oxybutynin XL (Ditropan-XL) 5 MG 24 hr tablet Indications: OAB (overactive bladder) Take 1 tablet (5 mg) by mouth Daily Do not crush, chew, or split. 30 tablet 1 03/28/2025 04/27/2025 Active polyethylene glycol 3350 88538 mg powder for oral solution (2 sources) Osmotic Laxative Start: 08-10-2024 End: 08-20-2024 take 17 g by mouth once daily polyethylene glycol, PEG, 3350 (Miralax) 17 g packet Indications: Drug-induced constipation Take 17 g by mouth Daily for 10 days 10 each 08/10/2024 08/20/2024 Active Completed/Discontinued Medications Medication Drug Class(es) Dates Sig (Normalized) Sig (Original) dulaglutide (Trulicity) 4.5 MG/0.5ML solution pen-injector (5 [...] complication, without long-term current use of insulin ([facility]) Inject 4.5 mg under the skin 1 (one) time per week 6 mL 1 03/04/2024 08/19/2024 Active Problems Active Problems Problem Classification Problem Date Documented Da te Episodic/Chronic Diabetes mellitus without complication (20 sources) Type 2 diabetes mellitus without complications; Translations: [Type 2 diabetes mellitus without complication] Onset: Chronic Disorders of lipid metabolism (20 sources) Hyperlipidemia, unspecified; Translations: [Hyperlipidemia] Onset: 3 Resolved: 5 07-23-2023 Chronic Esophageal disorders (4 sources) Gastroesophageal reflux disease without esophagitis; Translations: [Gastro-esophageal reflux disease without esophagitis] 11-09-2024 Chronic Nonspecific chest pain (4 sources) Chest pain; Translations: [Chest pain, unspecified] 03-03-2025 Episodic Other diseases of bladder and urethra (4 sources) Overactive bladder; Translations: [Overactive bladder] Onset: 5 03-28-2025 Chronic Other endocrine disorders (20 sources) Hyperparathyroidism; Translations: [Hyperparathyroidism, unspecified] Onset: 5 12-15-2024 Chronic Other endocrine disorders (2 sources) Primary hyperparathyroidism; Translations: [Primary hyperparathyroidism] 01-19-2025 Chronic Other gastrointestinal disorders (2 sources) Drug-induced constipation; Translations: [Drug induced constipation] 08-10-2024 Episodic Other nervous system disorders (1 source) Other chronic pain; Translations: [OTHER CHRONIC PAIN] Onset: 3 Chronic Other nervous system disorders (20 sources) Chronic pain syndrome; Translations: [Chronic pain syndrome] Onset: 4 10-23-2023 Chronic Other nutritional; endocrine; and metabolic disorders (20 sources) Hypercalcemia; Translations: [Hypercalcemia] Onset: 5 11-09-2024 Chronic Other nutritional; endocrine; and metabolic disorders (1 source) Hypercalcemia; Translations: [Hypercalcemia] Onset: Chronic Other skin disorders (2 sources) Disorder of pigmentation, unspecified; Translations: [Dyschromia, unspecified] 05-04-2024 Episodic Spondylosis; intervertebral disc disorders; other back problems (20 sources) Spondylosis without myelopathy or radiculopathy, lumbar region; Translations: [Postlaminectomy syndrome, not elsewhere classified] Onset: 3 Chronic Unclassified (2 sources) LOW BACK PAIN, UNSPECIFIED; Translations: [LOW BACK PAIN, UNSPECIFIED] Onset: 3 Past or Other Problems Problem Classification Problem Date Documented Da te Episodic/Chronic Deficiency and other anemia (20 sources) Nutritional anemia; Translations: [Nutritional anemia, unspecified] Onset: 11-09-2024 11-09-2024 Episodic Essential hypertension (20 sources) Essential hypertension; Translations: [Essential (primary) hypertension] Onset: 07-23-2023 Resolved: 07-23-2023 07-23-2023 Chronic Mood disorders (20 sources) Mood disorders Onset: 07-23-2023 Resolved: 12-23-2024 07-23-2023 Other gastrointestinal disorders (20 sources) Constipation; Translations: [Constipation, unspecified] Onset: 08-10-2024 08-10-2024 Episodic Other screening for suspected conditions (not mental [...] Test Name Value Interpretation Reference Range Facility HbA1c (Bld) [Mass fraction]o n 03-28-2025 Interpretation and review of laboratory results Abnormal [facility] - Hematology and Cell countson 03-28-2025 HbA1c (Bld) [Mass fraction] 6.5 % [facility] FPG ECG *CARDIOLOGY ONLY*on 03-03-2025 FPG ECG *CARDIOLOGY ONLY* [facility] [place] [address] [place], [place] [id number] Electrocardiograph Report Signed Patient: Nicholas Lovelace MR#: [id number] : 1965 Acct:[id number] Age/Sex: 60 / M ADM Date: 03/03/25 Loc: EKGCARDIO Room: Type: [facility] Attending Dr: Cheyanne Juarez MD Ordering Provider: Cheyanne Juarez MD Date of Service: 03/03/25 ECG/FPG ECG *CARDIOLOGY ONLY*: E78.5 - Hyperlipidemia, unspecified Copies to: Test Reason : Blood Pressure : */* mmHG Vent. Rate : 73 BPM Atrial Rate : 73 BPM P-R Int : 192 ms QRS Dur : 82 ms QT Int : 348 ms P-R-T Axes : 29 50 57 degrees QTcB Int : 383 ms Normal sinus rhythm Early repolarization Normal ECG Confirmed by Cheyanne Juarez ([id number]) on 03/03/2025 1:59:24 PM Referred By: Electronically Signed By: Cheyanne Juarez Transcribed By: MUS Signed By Cheyanne Juarez MD 5 1359 Normal [facility] Basic Metabolic Panelon 01-04 GFR/1.73 sq M.predicted MDRD (S/P/Bld) [Vol rate/Area] mL/min/{1.73_m2} Normal [facility] Comment on above: Order Comment: Comme nt PST Performed By: #### T 3T, T4T, PTH, BMP, TSH3, [id number] #### [facility] [address] [place] [address] [place] Basophils [#/volume] in Bloo d by Automated countOrdered By: Isidro Shipman on 01-31-2025 Basophils (Bld) [#/Vol] 0.1 10*3/uL Normal 0.0-0.2 [facility] Comment on above: Result Comment: PERF ORMED BY: [place] [address] PATHOLOGIST CONE TREATER ROSEMARY COLEMAN M.D. Performed By: #### C BC #### [facility] [address] [place] [address] [place] Basophils/100 leukocytes in Blood by Automated countOrdered By: Isidro Shipman on 01-31-2025 Basophils/100 WBC (Bld) 1.2 % Normal . [facility] Comment on above: Performed By: #### C BC #### [facility] [address] CBC W Auto Differential pane l (Bld)on 01-31-2025 Basophils (Bld) [#/Vol] 0.1 10*3/uL 0.0 - 0.2 10*3/uL [facility] Basophils/100 WBC Manual cnt (Syn fld) 1.2 % . [facility] Eosinophils (Bld) [#/Vol] 0.2 10*3/uL 0.0 - 0.45 10*3/uL [facility] Eosinophils/100 WBC Manual cnt (Syn fld) 2 % . [facility] Erythrocyte distribution width (RBC) [Ratio] 13.7 % 12.0 - 14.8 % [facility] Hematocrit (Bld) [Volume fraction] 36.9 % Low 38.8 - 50.0 % [facility] Hemoglobin (Bld) [Mass/Vol] 12.5 g/dL Low 13.0 - 17.0 g/dL [facility] Interpretation and review of laboratory results Abnormal [facility] Lymphocytes (Bld) [#/Vol] 2 10*3/uL 1.00 - 4.8 10*3/uL [facility] Lymphocytes/100 WBC Manual cnt (Syn fld) 23.7 % . [facility] MCH (RBC) [Entitic mass] 28.1 pg 27. 5 - 35.2 pg [facility] MCHC (RBC) [Mass/Vol] 33.8 g/dL 32.5 - 35.6 g/dL [facility] MCV (RBC) [Entitic vol] 83.2 fL Low 83.5 - 101 fL [facility] Monocytes (Bld) [#/Vol] 0.7 10*3/uL 0.0 - 0.8 10*3/uL [facility] Monocytes+Macrophages/10 0 WBC Manual cnt (Syn fld) 7.9 % . [facility] Neutrophils (Bld) [#/Vol] 5.5 10*3/uL 1.8 - 7.7 10*3/uL [facility] Neutrophils/100 WBC Manual cnt (Syn fld) 65.2 % . [facility] NRBC 0.1 /100{WBC} 0 - 0.5 /100{WBC} [facility] Platelet mean volume (Bld) [Entitic vol] 7.2 fL 6.6 - 10.1 fL [facility] Platelets (Bld) [#/Vol] 299 10*3/uL 150 - 450 10*3/uL [facility] RBC LM.HPF (Urine sed) [#/Area] 4.44 10*6/uL 3.90 - 5.60 10*6/uL [facility] WBC (Bld) [#/Vol] 8.4 10*3/uL 4.1 - 10.5 10*3/uL [facility] WBC LM.HPF (Urine sed) [#/Area] 8.4 [CFU]/mL 4.1 - 10.5 [CFU]/mL [facility] Calcium [Mass/volume] in Ser um or PlasmaOrdered By: Isidro Shipman on 01-31-2025 Calcium [Mass/Vol] 10.2 mg/dL Normal 8.6-10.3 [facility] Comment on above: Order Comment: Comme nt PST Performed By: #### T 3T, T4T, PTH, BMP, TSH3, [id number] #### [facility] [address] [place] [address] Carbon dioxide, total [Moles /volume] in Serum or PlasmaOrdered By: Isidro Shipman on 01-31-2025 CO2 [Moles/Vol] 27.8 mmol/L Normal 21.0-31.0 [facility] Comment on above: Order Comment: Comme nt PST Performed By: #### T 3T, T4T, PTH, BMP, TSH3, [id number] #### [facility] [address] [place] [address] [place] Chloride [Moles/volume] in S rosette or PlasmaOrdered By: Isidro Shipman on 01-31-2025 Chloride [Moles/Vol] 108 mmol/L High 98-107 [facility] Comment on above: Order Comment: Comme nt PST Performed By: #### T 3T, T4T, PTH, BMP, TSH3, [id number] #### [facility] [address] [place], [place] [id number] [facility] Complete Blood Count Auto Di ffon 01-31-2025 Mean Corpuscular HGB Conc 33.8 g/dL Normal 32.5-35.6 [facility] Comment on above: Performed By: #### C BC #### [address] NRBC% 0.1 /100{WBC} Normal 0-0.5 [facility] Comment on above: Performed By: #### C BC #### [address] White Blood Count 8.4 [CFU]/mL Normal 4.1-10.5 [facility] Comment on above: Performed By: #### C BC #### [address] Creatinine [Mass/volume] in Serum or PlasmaOrdered By: Isidro Shipman on 01-31-2025 Creatinine [Mass/Vol] 1.00 mg/dL Normal 0.70-1.30 [facility] Comment on above: Order Comment: Comme nt PST Performed By: #### T 3T, T4T, PTH, BMP, TSH3, [id number] #### [address] ECG 12 lead ECGon 01-31-2025 ECG 12 lead ECG [facility] [place] [address] [place] [address] Electrocardiograph Report Signed Patient: Nicholas Lovelace MR#: [id number] : 1965 Acct:[id number] Age/Sex: 60 / M ADM Date: 01/31/25 Loc: Room: Type: [facility] Attending Dr: Isidro Shipman DO Ordering [...] previous ECGs available Confirmed by YANELIS BAIN [facility], AMANDA ([id number]) on 02/01/2025 5:01:21 PM Referred By: Electronically Signed By: AMANDA HINSON MD [facility] Transcribed By: MUS Signed By Amanda Hinson MD, [facility] 02/01/25 1701 Normal [facility] Eosinophils [#/volume] in Bl ood by Automated countOrdered By: Isidro Shipman on 01-31-2025 Eosinophils (Bld) [#/Vol] 0.2 10*3/uL Normal 0.0-0.45 [facility] Comment on above: Performed By: #### C BC #### [address] Eosinophils/100 leukocytes i n Blood by Automated countOrdered By: Isidro Shipman on 01-31-2025 Eosinophils/100 WBC (Bld) 2.0 % Normal . [facility] Comment on above: Performed By: #### C BC #### [address] Erythrocyte distribution wid th [Ratio] by Automated countOrdered By: Isidro Shipman on 01-31-2025 Erythrocyte distribution width (RBC) [Ratio] 13.7 % Normal 12.0-14.8 [facility] Comment on above: Performed By: #### C BC #### [address] Erythrocytes [#/volume] in B lood by Automated countOrdered By: Isidro Shipman on 01-31-2025 RBC (Bld) [#/Vol] 4.44 10*6/uL Normal 3.90-5.60 [facility] Comment on above: Performed By: #### C BC #### [address] Glucose [Mass/volume] in Ser um or PlasmaOrdered By: Isidro Shipman on 01-31-2025 Glucose [Mass/Vol] 107 mg/dL High 70-100 [facility] Comment on above: ADA recommended refe rence rangeRandom Glucose Reference Range is dependent on time and content of last meal. Glucose of more than 200 mg/dL in a nonstressed, ambulatory subject supports the diagnosis of Diabetes Mellitus. Order Comment: Comme nt PST Result Comment: [place] Glucose Reference Range is dependent on time and content of last meal. Glucose of more than 200 mg/dL in a nonstressed, ambulatory subject supports the diagnosis of Diabetes Mellitus. ADA recommended reference range Performed By: #### T 3T, T4T, PTH, BMP, TSH3, [id number] #### [address] Hematocrit [Volume Fraction] of Blood by Automated countOrdered By: Isidro Shipman on 01-31-2025 Hematocrit (Bld) [Volume fraction] 36.9 % Low 38.8-50.0 [facility] Comment on above: Performed By: #### C BC #### [address] Hemoglobin [Mass/volume] in BloodOrdered By: Isidro Shipman on 01-31-2025 Hemoglobin (Bld) [Mass/Vol] 12.5 g/dL Low 13.0-17.0 [facility] Comment on above: Performed By: #### C BC #### [address] Leukocytes [#/volume] correc liane for nucleated erythrocytes in Blood by Automated counOrdered By: Isidro Shipman on 01-31-2025 WBC corrected for nucl RBC Auto (Bld) [#/Vol] 8.4 10*3/uL 4.1-10.5 [facility] Leukocytes [#/volume] in Blo od by Automated countOrdered By: Isidro Shipman on 01-31-2025 WBC (Bld) [#/Vol] 8.4 10*3/uL Normal 4.1-10.5 [facility] Comment on above: Performed By: #### C BC #### [address] Lymphocytes [#/volume] in Bl ood by Automated countOrdered By: Isidro Shipman on 01-31-2025 Lymphocytes (Bld) [#/Vol] 2.0 10*3/uL Normal 1.00-4.8 [facility] Comment on above: Performed By: #### C BC #### [address] Lymphocytes/100 leukocytes i n Blood by Automated countOrdered By: Isidro Shipman on 01-31-2025 Lymphocytes/100 WBC (Bld) 23.7 % Normal . [facility] Comment on above: Performed By: #### C BC #### [address] MCH [Entitic mass] by Automa liane countOrdered By: Isidro Shipman on 01-31-2025 MCH (RBC) [Entitic mass] 28.1 pg Normal 27.5-35.2 [facility] Comment on above: Performed By: #### C BC #### [address] MCHC Auto (RBC) [Mass/Vol]Or dered By: Isidro Shipman on 01-31-2025 MCHC (RBC) [Mass/Vol] 33.8 g/dL 32.5-35.6 [facility] MCV [Entitic volume] by Auto mated countOrdered By: Isidro Shipman on 01-31-2025 MCV (RBC) [Entitic vol] 83.2 fL Low 83.5-101 [facility] Comment on above: Performed By: #### C BC #### [place] [address] [place] Monocytes [#/volume] in Bloo d by Automated countOrdered By: Isidro Shipman on 01-31-2025 Monocytes (Bld) [#/Vol] 0.7 10*3/uL Normal 0.0-0.8 [facility] Comment on above: Performed By: #### C BC #### [place] [address] [place] Monocytes/100 leukocytes in Blood by Automated countOrdered By: Isidro Shipman on 01-31-2025 Monocytes/100 WBC (Bld) 7.9 % Normal . [facility] Comment on above: Performed By: #### C BC #### [facility] [address] Neutrophils [#/volume] in Bl ood by Automated countOrdered By: Isidro Shipman on 01-31-2025 Neutrophils (Bld) [#/Vol] 5.5 10*3/uL Normal 1.8-7.7 [facility] Comment on above: Performed By: #### C BC #### [facility] [address] [place] [address] Neutrophils/100 leukocytes i n Blood by Automated countOrdered By: Isidro Shipman on 01-31-2025 Neutrophils/100 WBC (Bld) 65.2 % Normal . [facility] Comment on above: Performed By: #### C BC #### [address] No Panel InformationOrdered By: Isidro Shipman on 01-31-2025 Estimated GFR (CKD-EPI) > 60.0 mL/Min [facility] Creatinine Clearance (Chem N/A [facility] Nucleated erythrocytes [Pres ence] in Blood by Automated countOrdered By: Isidro Shipman on 01-31-2025 Nucleated RBC Auto Ql (Bld) 0.1 /100{WBC} 0-0.5 [facility] Parathyrin.intact [Mass/Vol] on 01-31-2025 Interpretation and review of laboratory results Abnormal [facility] PARATHYROID HORMONE INTACT 114.4 pg/mL High 12 - 88 pg/mL [facility] Healthcare Comment PST [facility] Parathyrin.intact [Mass/volu me] in Serum or PlasmaOrdered By: Isidro Shipman on 01-31-2025 Parathyrin.intact [Mass/Vol] 114.4 pg/mL High 12-88 [facility] Parathyroid Hormone Intacton 01-31-2025 Parathyroid Hormone Intact 114.4 pg/mL High 12-88 [facility] Comment on above: Order Comment: Comme nt PST Result Comment: PERF ORMED BY: [place] [address] PATHOLOGIST CONE TREATER ROSEMARY COLEMAN M.D. Performed By: #### T 3T, T4T, PTH, BMP, TSH3, [id number] #### [facility] [address] [place] [address] Platelet mean volume [Entiti c volume] in Blood by Automated countOrdered By: Isidro Shipman on 01-31-2025 Platelet mean volume (Bld) [Entitic vol] 7.2 fL Normal 6.6-10.1 [facility] Comment on above: Performed By: #### C BC #### [facility] [address] [place] [address] Platelets [#/volume] in Bloo d by Automated countOrdered By: Isidro Shipman on 01-31-2025 Platelets (Bld) [#/Vol] 299 10*3/uL Normal 150-450 [facility] Comment on above: Performed By: #### C BC #### [address] Potassium [Moles/volume] in Serum or PlasmaOrdered By: Isidro Shipman on 01-31-2025 Potassium [Moles/Vol] 4.3 mmol/L Normal 3.5-5.1 [facility] Comment on above: Order Comment: Comme nt PST Performed By: #### T 3T, T4T, PTH, BMP, TSH3, [id number] #### [address] Serum or plasma anion gap de terminationOrdered By: Isidro Shipman on 01-31-2025 Anion gap [Moles/Vol] 7.5 mmol/L Normal 6.0-15.0 [facility] Comment on above: Order Comment: Comme nt PST Performed By: #### T 3T, T4T, PTH, BMP, TSH3, [id number] #### [facility] [address] [place] [address] [place] Sodium [Moles/volume] in Ser um or PlasmaOrdered By: Isidro Shipman on 01-31-2025 Sodium [Moles/Vol] 139 mmol/L Normal 136-145 [facility] Comment on above: Order Comment: Comme nt PST Performed By: #### T 3T, T4T, PTH, BMP, TSH3, [id number] #### [facility] [address] Thyrotropin [Units/volume] i n Serum or PlasmaOrdered By: Isidro Shipman on 01-31-2025 TSH Qn 3.47 m[IU]/L Normal 0.45-5.33 [facility] Comment on above: Order Comment: Comme nt PST Performed By: #### T 3T, T4T, PTH, BMP, TSH3, [id number] ####[id number] Thyroxine (T4) [Mass/volume] in Serum or PlasmaOrdered By: Isidro Shipman on 01-31-2025 T4 [Mass/Vol] 8.46 ug/dL Normal 5.39-11.82 [facility] Comment on above: Order Comment: Comme nt PST Performed By: #### T 3T, T4T, PTH, BMP, TSH3, [id number] #### [facility] [address] [place] [address] Triiodothyronine (T3) Totalo n 01-31-2025 Triiodothyronine (T3) Total 1.22 ng/mL Normal 0.87-1.78 [facility] Comment on above: Order Comment: Comme nt PST Performed By: #### T 3T, T4T, PTH, BMP, TSH3, [id number] #### [facility] [address] [place] [address] Triiodothyronine (T3) [Mass/ volume] in Serum or PlasmaOrdered By: Isidro Shipman on 01-31-2025 T3 [Mass/Vol] 1.22 ng/mL 0.87-1.78 [facility] Urea nitrogen [Mass/volume] in Serum or PlasmaOrdered By: Isidro Shipman on 01-31-2025 Urea nitrogen [Mass/Vol] 15 mg/dL Normal 7-25 [facility] Comment on above: Order Comment: Comme nt PST Performed By: #### T 3T, T4T, PTH, BMP, TSH3, [id number] #### [facility] [address] [place] [address] Vitamin D 25 Hydroxy Totalon 01-31-2025 Vitamin D 25 Hydroxy Total 30.0 ng/mL Normal 30-100 [facility] Comment on above: Order Comment: Comme nt PST Result Comment: JC MIN D STATUS 25(OH)VITAMIN D RANGE (ng/mL) Deficient <20 Insufficient 20 to <30 Sufficient 30 to 100 Reference: Amanda Castillo, Shaina LAMB, et al. Evaluation,treatment, and prevention of vitamin D deficiency; an Endocrine Society clinical practice guideline. JCEM. 2010; 96(7):1911-. PERFORMED BY: [facility] [address] [place] [address] PATHOLOGIST [employer]ATER ROSEMARY COLEMAN M.D. Performed By: #### T 3T, T4T, PTH, BMP, TSH3, [id number] ####[facility] [address] [place] [address] [facility] Vitamin D+Metabolites [Mass/ volume] in Serum or PlasmaOrdered By: Isidro Shipman on 01-31-2025 Vitamin D+Metabolites [Mass/Vol] 30.0 ng/mL 30-100 [facility] Comment on above: VITAMIN D STATUS 25( [place])VITAMIN D RANGE (ng/mL) Deficient <20 Insufficient 20 to <30Sufficient 30 to 100Reference: Amanda Castillo, Shaina LAMB, et al. Evaluation,treatment, and prevention of vitamin D deficiency; an Endocrine Society clinical practice guideline. JCEM. 2010; 96(7):1911-. CT neck 4D parathyroidon CT neck 4D parathyroid [facility] [place] [id number] Scan Report Signed Patient: Nicholas Lovelace MR#: [id number] : 1965 Acct:[id number] Age/Sex: 60 / M ADM Date: 01/14/25 Loc: [place] Room: Type: [facility] Attending Dr: Isidro Shipman DO Copies [...] Membreno M.D. 01/14/2025 1:18 PM Dictation Location: [place] [address] Transcribed By: GWEN 01/14/25 0552 Dictated By: Sary Membreno MD 01/14/25 1301 Signed By: 01/14/25 1318 Normal [facility] ISTAT XRAY CREon 01-14-2025 Creatinine [Mass/Vol] 1.1 mg/dL 0.6 - 1.3 mg/dL [facility] Comment on above: ER/ESD physician is notified/shown all ISTAT results. Critical values may be confirmed by laboratory testing if deemed necessary by ER attending doctor. ISTAT GFR [facility] ISTAT XRay CREon 01-14-2025 ISTAT GFR >60.0 Normal [facility] Comment on above: Result Comment: PERF ORMED BY: [place] [address] PATHOLOGIST [employer] TREATER ROSEMARY COLEMAN M.D. Performed By: #### I SCRE #### [address] [place] parathyroidon 01-14-2025 NM parathyroid [facility] [place] [address] [place] [address] Nuclear Medicine Report Signed Patient: Nicholas Lovelace MR#: [id number] : 1965 Acct:[id number] Age/Sex: 60 / M ADM Date: 01/14/25 Loc: [place] Room: Type: [facility] Attending Dr: Isidro Shipman DO Copies to: DO Sary Shen MD Ordering Provider: Isidro Shipman DO Date of Service: 01/14/25 MA/MA parathyroid: E83.52 PARATHYROID SCAN CLINICAL DATA: Hypercalcemia [...] Membreno M.D. 01/14/2025 1:01 PM Dictation Location: [place] [address] Transcribed By: [facility] 01/14/25 1301 Dictated By: Sary Membreno MD 01/14/25 1259 Signed By: 01/14/25 1301 Normal [facility] No Panel InformationOrdered By: Isidro Shipman on 01-14-2025 Bedside Estimated GFR (eGFR) > 60.0 [facility] Whole blood creatinine measu rementOrdered By: Isidro Shipman on 01-14-2025 Creatinine [Mass/Vol] 1.1 mg/dL Normal 0.6-1.3 [facility] [place] Comment on above: ER/ESD physician is notified/shown all ISTAT results.Critical values may be confirmed by laboratory testing ifdeemed necessary by ER attending doctor. Result Comment: ER/E SD physician is notified/shown all ISTAT results. Critical values may be confirmed by laboratory testing if deemed necessary by ER attending doctor. Performed By: #### I SCRE #### [address] MLR HEMOGLOBIN A1Con 025 Glucose [Mass/Vol] 146 mg/dL [facility] HbA1c (Bld) [Mass fraction] 6.7 % High 4.5 - 6.2 % [facility] Comment on above: ADA RECOMMENDED LIMI T 4.0 - 6.0 ADA THERAPEUTIC TARGET < 7.0 ACTION SUGGESTED > 7.0 Interpretation and review of laboratory results Abnormal [facility] ALL CBC WITH AUTO DIFFon BASOPHILS ABSOLUTE AUTO 0.1 [facility] Basophils/100 WBC (Bld) 0.7 % 0.2 - 2.0 % [facility] Eosinophils/100 WBC (Bld) 2.8 % 0.9 - 7.0 % [facility] Erythrocyte distribution width (RBC) [Ratio] 13 % 11.0 - 15.0 % [facility] Hematocrit (Bld) [Volume fraction] 41 % Low 42.0 - 54.0 % [facility] Hemoglobin (Bld) [Mass/Vol] 13.7 g/dL Low 14.0 - 18.0 g/dL [facility] IMMATURE GRANULOCYTES ABS AUTO 0.02 [facility] Immature granulocytes/100 WBC (Bld) 0.3 % 0.0 - 0.5 % [facility] Interpretation and review of laboratory results Abnormal [facility] LYMPHOCYTES ABSOLUTE AUTO 2.6 [facility] Lymphocytes/100 WBC (Bld) 34.4 % 20.5 - 60.0 % [facility] MCH (RBC) [Entitic mass] 28.4 pg 25. 9 - 34.0 pg [facility] MCHC (RBC) [Mass/Vol] 33.4 g/dL 29.9 - 35.2 g/dL [facility] MCV (RBC) [Entitic vol] 85.1 fL 80.0 - 94.0 fL [facility] MONOCYTES ABSOLUTE AUTO 0.6 [facility] Monocytes/100 WBC (Bld) 7.9 % 1.7 - 12.0 % [facility] NEUTROPHILS ABSOLUTE AUTO 4.1 [facility] Neutrophils/100 WBC (Bld) 53.9 % 43.0 - 75.0 % [facility] Platelet mean volume (Bld) [Entitic vol] 9.2 fL Low 9.5 - 13.5 fL [facility] TBH EO # 0.2 [facility] TBH PLT 306 [facility] TB RBC 4.82 [facility] TB WBC 7.6 [facility] MRI LSPINE WO W CONon 2022 MRI LSCHARLESTON WO W CON EXAMINATION: MRI LSCHARLESTON WO W CON HISTORY: Post-laminectomy syndrome ; [...] ARMANDO ZAYAS Date: 2022-11-19 14:15 Normal [facility] [place] [facility] US SINGLE QUAD RT UPPERon US [...] BEN ZUNIGA Date: 2022-11-19 09:51 Normal [facility] [place] [facility] CBC AUTO DIFFon 11-11-2022 BASO # 0.0 103/ul Normal 0.0-0.1 [facility] Comment on above: Performed By: #### C BC #### [facility] [place] [facility] [address] [address] [address] Irving Hale Basophils/100 WBC (Bld) 0.5 % Normal 0.2-2.0 [facility] Comment on above: Performed By: #### C BC #### [facility] [place] [facility] [address] [address] [address] Irving Hale EO # 0.1 103/ul Normal 0.0-0.7 [facility] Comment on above: Performed By: #### C BC #### [facility] [place] [facility] [address] [place] [address] Dr. Irving Hale Eosinophils/100 WBC (Bld) 1.9 % Normal 0.9-7.0 [facility] Comment on above: Performed By: #### C BC #### [facility] [place] [facility] [address] [place] [address] Dr. Irving Hale Erythrocyte distribution width (RBC) [Ratio] 13.4 % Normal 11.0-15.0 [facility] Comment on above: Performed By: #### C BC #### [facility] [place] [facility] [address] [place] [address] Dr. Irving Hale Hematocrit (Bld) [Volume fraction] 40.6 % Critically low 42.0-54.0 [facility] Comment on above: Performed By: #### C BC #### [facility] [place] [facility] [address] [place] [address] Dr. Irving Hale Hemoglobin (Bld) [Mass/Vol] 13.6 g/dL Critically low 14.0-18.0 [facility] Comment on above: Performed By: #### C BC #### [facility] [place] [facility] [address] [place] [address] Dr. Irving Hale IG # 0.01 10e3/ul Normal 0.00-0.03 [facility] Comment on above: Performed By: #### C BC #### [facility] [place] [facility] [address] [place] [address] Dr. Irving Hale IG % 0.2 % Normal 0.0-0.5 [facility] [place] [facility] Comment on above: Performed By: #### C BC #### [facility] [place] [facility] [address] [place] [address] Dr. Irving Hale LYMPH # 2.1 103/ul Normal 1.2-3.8 [facility] [place] [facility] Comment on above: Performed By: #### C BC #### [facility] [place] [facility] [address] [place] [address] Dr. Irving Hale Lymphocytes/100 WBC (Bld) 32.9 % Normal 20.5-60.0 [facility] Comment on above: Performed By: #### C BC #### [facility] [place] [facility] [address] [place] [address] Dr. Irving Hale MANUAL DIFF REQ NO Normal [facility] Comment on above: Performed By: #### C BC #### [facility] [place] [facility] [address] [place] [address] Dr. Irving Hale MCH (RBC) [Entitic mass] 28.2 pg Normal 25.9-34.0 [facility] Comment on above: Performed By: #### C BC #### [facility] [place] [facility] [address] [place] [address] Dr. Irving Hale MCHC (RBC) [Mass/Vol] 33.5 g/dL Normal 29.9-35.2 [facility] Comment on above: Performed By: #### C BC #### [facility] [place] [facility] [address] [place] [address] Dr. Irving Hale MCV (RBC) [Entitic vol] 84.1 fL Normal 80.0-94.0 [facility] Comment on above: Performed By: #### C BC #### [facility] [place] [facility] [address] [place] [address] Dr. Irving Hale MONO # 0.6 103/ul Normal 0.3-0.8 [facility] Comment on above: Performed By: #### C BC #### [facility] [place] [facility] [address] [place] [address] Dr. Irving Hale Monocytes/100 WBC (Bld) 9.3 % Normal 1.7-12.0 [facility] Comment on above: Performed By: #### C BC #### [facility] [place] [facility] [address] [place] [address] Dr. Irving Hale NEUT # 3.4 103/ul Normal 1.4-6.5 [facility] Comment on above: Performed By: #### C BC #### [facility] [place] [facility] [address] [place] [address] Dr. Irving Hale Neutrophils/100 WBC (Bld) 55.2 % Normal 43.0-75.0 [facility] Comment on above: Performed By: #### C BC #### [facility] [place] [facility] [address] [address] [address] Irving Hale Platelet mean volume (Bld) [Entitic vol] 9.1 fL Critically low 9.5-13.5 [facility] Comment on above: Performed By: #### C BC #### [facility] [place] [facility] [address] [place] [address] [address] Irving Hale PLT 302 103/ul Normal 150-450 [facility] [place] [facility] Comment on above: Performed By: #### C BC #### [facility] [place] [facility] [address] [address] [address] Irving Hale RBC 4.83 106/ul Normal 4.70-6.10 [facility] Comment on above: Performed By: #### C BC #### [facility] [place] [facility] [address] [place] [address] Dr. Irving Hale WBC 6.2 103/ul Normal 4.0-11.0 [facility] Comment on above: Performed By: #### C BC #### [facility] [place] [facility] [address] [place] [address] Dr. Irving Hale GLYCOHEMOGLOBIN A1Con 2022 ADA RECOMMENDATION SEE BELOW Normal [facility] Comment on above: Result Comment: ADA RECOMMENDED LIMIT 4.0 - 6.0 ADA THERAPEUTIC TARGET < 7.0 ACTION SUGGESTED > 7.0 Performed By: #### A 1C #### [facility] [place] [facility] [address] [place] [address] Dr. Irving Hale Glucose [Mass/Vol] 143 mg/dL Normal [facility] Comment on above: Performed By: #### A 1C #### [facility] [place] [facility] [address] [place] [address] Dr. Irving Hale HbA1c (Bld) [Mass fraction] 6.6 % Critically high 4.5-6.2 [facility] Comment on above: Performed By: #### A 1C #### [facility] [place] [facility] [address] [place] [address] Dr. Irving Hale LIPID PROFILEon 11-11-2022 CHOL-HDL RATIO NORM SEE BELOW Normal [facility] Comment on above: Result Comment: 3.3 - 4.4 LOW RISK 4.4 - 7.1 AVERAGE RISK 7.1 - 11.0 MODERATE RISK >11.0 HIGH RISK Performed By: #### C MP, LIPID #### [facility] [place] [facility] [address] [address] [address] Irving Hale Cholesterol [Mass/Vol] 124 mg/dL Normal <=200 Th [facility] Comment on above: Performed By: #### C MP, LIPID #### [facility] [place] [facility] [address] [address] [address] Irving Hale Cholesterol in HDL [Mass/Vol] 41 mg/dL Normal 40-60 [facility] Comment on above: Performed By: #### C MP, LIPID #### [facility] [place] [facility] [address] [place] [address] Dr. Irving Hale Cholesterol in LDL [Mass/Vol] 66.4 mg/dL Normal [facility] Comment on above: Performed By: #### C MP, LIPID #### [facility] [place] [facility] [address] [place] [address] Dr. Irving Hale Cholesterol.total/Choles terol in HDL [Mass ratio] 3.0 {ratio} Normal [facility] Comment on above: Performed By: #### C MP, LIPID #### [facility] [place] [facility] [address] [place] [address] Dr. Irving Hale HDL NORMAL > or = 60 mg/dl - LOW CARDIOVASCULAR RISK <40 mg/dl - HIGH CARDIOVASCULAR RISK Normal [facility] Comment on above: Performed By: #### C MP, LIPID #### [facility] [place] [facility] [address] [place] [address] Dr. Irving Hale LDL CALC NORMAL SEE BELOW Normal [facility] Comment on above: Result Comment: <100 mg/dl OPTIMAL 100 - 129 mg/dl NEAR OR ABOVE OPTIMAL 130 - 159 mg/dl BORDERLINE HIGH 160 - 189 mg/dl HIGH >190 mg/dl VERY HIGH Performed By: #### C MP, LIPID #### [facility] [place] [facility] [address] [place] [address] Dr. Irving Hale Triglyceride [Mass/Vol] 83 mg/dL Normal <=150 T [facility] Comment on above: Performed By: #### C MP, LIPID #### [facility] [place] [facility] [address] [address] [address] Irving Hale VLDL CALC 16.6 mg/dL Normal [facility] Comment on above: Performed By: #### C MP, LIPID #### [facility] [place] [facility] [address] [address] [address] Irving Hale MICROALB CREAT RATIO RANDOMo n 11-11-2022 mALB <1.3 Normal <=30.0 [facility] Comment on above: Performed By: #### M CRR #### [facility] [place] [facility] [address] [place] [address] Dr. Irving Hale MALB CR RATIO 8.4 mg/g Normal 0.0-29.9 [facility] Comment on above: Performed By: #### M CRR #### [facility] [place] [facility] [address] [place] [address] Dr. Irving Hale MALB CR RATIO RANGE SEE BELOW Normal [facility] Comment on above: Result Comment: NO M ICROALBUMINURIA 0-29 MG/G CLINICAL MICROALBUMINURIA 30-300 MG/G MACROALBUMINURIA >300 MG/G Performed By: #### M CRR #### [facility] [place] [facility] [address] [place] [address] Dr. Irving Hale URINE CREAT 155.10 mg/dL Normal 20.00-300.00 [facility] Comment on above: Performed By: #### M CRR #### [facility] [place] [facility] [address] [place] [address] Dr. Irving Hale PROF 14(COMP METB)on 023 Albumin [Mass/Vol] 3.9 g/dL Normal 3.4-5.0 [facility] Comment on above: Performed By: #### C MP, LIPID #### [facility] [place] [facility] [address] [place] [address] Dr. Irving Hale Albumin/Globulin [Mass ratio] 1.0 {ratio} Normal [facility] Comment on above: Performed By: #### C MP, LIPID #### [facility] [place] [facility] [address] [place] [address] Dr. Irving Hale ALP [Catalytic activity/Vol] 96 U/L Normal 46-116 [facility] Comment on above: Performed By: #### C MP, LIPID #### [facility] [place] [facility] [address] [address] [address] Irving Hale ALT [Catalytic activity/Vol] 95 U/L Critically high 16-63 [facility] Comment on above: Performed By: #### C MP, LIPID #### [facility] [place] [facility] [address] [address] [address] Irvnig Hale Anion gap [Moles/Vol] 11.5 mmol/L Normal Th [facility] Comment on above: Performed By: #### C MP, LIPID #### [facility] [place] [facility] [address] [place] [address] Dr. Irving Hale AST [Catalytic activity/Vol] 39 U/L Critically high 15-37 [facility] Comment on above: Performed By: #### C MP, LIPID #### [facility] [place] [facility] [address] [address] [address] Irving Hale Bilirubin [Mass/Vol] 0.4 mg/dL Normal 0.2-1.0 [facility] Comment on above: Performed By: #### C MP, LIPID #### [facility] [place] [facility] [address] [address] [address] Irving Hale Calcium [Mass/Vol] 10.4 mg/dL Critically high 8.5-10.1 [facility] Comment on above: Performed By: #### C MP, LIPID #### [facility] [place] [facility] [address] [place] [address] Dr. Irving Hale Chloride [Moles/Vol] 103 mmol/L Normal 98-107 [facility] Comment on above: Performed By: #### C MP, LIPID #### [facility] [place] [facility] [address] [place] [address] Dr. Irving Hale CO2 [Moles/Vol] 30.0 mmol/L Normal 21.0-32.0 [facility] Comment on above: Performed By: #### C MP, LIPID #### [facility] [place] [facility] [address] [place] [address] Dr. Irving Hale Creatinine [Mass/Vol] 1.04 mg/dL Normal 0.70-1.30 [facility] Comment on above: Performed By: #### C MP, LIPID #### [facility] [place] [facility] [address] [address] [address] Irving Hale EGFR-AF [place] >60 Normal >=60 [facility] Comment on above: Performed By: #### C MP, LIPID #### [facility] [place] [facility] [address] [address] [address] Irving Hale EGFR-NON AF [place] >60 Normal >=60 [facility] Comment on above: Performed By: #### C MP, LIPID #### [facility] [place] [facility] [address] [place] [address] Dr. Irving Hale Globulin (S) [Mass/Vol] 3.9 g/dL Normal [facility] Comment on above: Performed By: #### C MP, LIPID #### [facility] [place] [facility] [address] [place] [address] Dr. Irving Hale Glucose [Mass/Vol] 123 mg/dL Critically high 74-106 [facility] Comment on above: Performed By: #### C MP, LIPID #### [facility] [place] [facility] [address] [place] [address] Dr. Irving Hale Potassium [Moles/Vol] 4.5 mmol/L Normal 3.5-5.1 [facility] Comment on above: Performed By: #### C MP, LIPID #### [facility] [place] [facility] [address] [place] [address] Dr. Irving Hlae Protein [Mass/Vol] 7.8 g/dL Normal 6.4-8.2 [facility] Comment on above: Performed By: #### C MP, LIPID #### [facility] [place] [facility] [address] [place] [address] Dr. Irving Hale Sodium [Moles/Vol] 140 mmol/L Normal 136-145 [facility] Comment on above: Performed By: #### C MP, LIPID #### [facility] [place] [facility] [address] [place] [address] Dr. Irving Hale Urea nitrogen [Mass/Vol] 23.0 mg/dL Critically high 7.0-18 .0 [facility] Comment on above: Performed By: #### C MP, LIPID #### [facility] [place] [facility] [address] [place], [place] [address] Dr. Irving Hale Urea nitrogen/Creatinine [Mass ratio] 22.1 mg/mg Normal [facility] Comment on above: Performed By: #### C MP, LIPID #### [facility] [place] [facility] [id number] Irving Hale XR LSPINE MIN 4 [...] LUIS ARMANDO ZAYAS Date: 2022-11-11 15:14 Normal [facility] Vital Signs Date Time Vital Sign Value Performing Clinician Mathieu bynum 03-28-2025 09:15-0400 Body mass index (BMI) [Ratio] 26.79 kg/m2 Do [employer]is FI[employer] ASSISTANT Work Phone: [facility] 03-28-2025 09:15-040 Body temperature 97.81 [degF] Do [employer] ASSISTANT Work Phone: [facility] 03-28-2025 09:15-040 Body weight 79.92 kg Do [employer] FI[employer] ASSISTANT Work Phone: [facility] 03-28-2025 09:15-0400 Diastolic blood pressure 70 mm[Hg] Do [employer] FI[employer] ASSISTANT Work Phone: [facility] 03-28-2025 09:15-0400 Heart rate 74 /min Do Aichholz FIRE ASSISTANT Work Phone: [facility] 03-28-2025 09:15-0400 Respiratory rate 18 /min Do Aichholz FIRE ASSISTANT Work Phone: [facility] 03-28-2025 09:15-0400 SaO2% (BldA) [Mass fraction] 95 % Do Aichholz FIRE ASSISTANT Work Phone: [facility] 03-28-2025 09:15-0400 Systolic blood pressure 104 mm[Hg] Do Aichholz FI[employer] ASSISTANT Work Phone: [facility] 03-03-2025 09:17-0400 Body height 175.26 cm Do Aichholz Work Phone: [facility] 03-03-2025 09:17-0400 Body mass index (BMI) [Ratio] 26.1 kg/m2 Do Aichholz Work Phone: [facility] 03-03-2025 09:17-0400 Body weight 80.28 kg Do Aichholz Work Phone: [facility] 03-03-2025 09:17-0400 Diastolic blood pressure 72 mm[Hg] Do Aichholz Work Phone: [facility] 03-03-2025 09:17-0400 Heart rate 75 /min Do Aichholz Work Phone: [facility] 03-03-2025 09:17-0400 Respiratory rate 16 /min Do Aichholz Work Phone: [facility] 03-03-2025 09:17-0400 SaO2% (BldA) [Mass fraction] 98 % Do Aichholz Work Phone: [facility] 03-03-2025 09:17-0400 Systolic blood pressure 110 mm[Hg] Do Aichholz Work Phone: [facility] 01-31-2025 13:08-0400 Body height 175.26 cm Do Aichholz FIRE ASSISTANT-C Work Phone: [facility] 01-31-2025 13:08-0400 Body temperature 98 [degF] Do Aichholz FIRE ASSISTANT-C Work Phone: [facility] 01-31-2025 13:08-0400 Body weight 81 kg Do Aichholz FIRE ASSISTANT-C Work Phone: [facility] 01-31-2025 13:08-0400 Diastolic blood pressure 70 mm[Hg] Do Aichholz FIRE ASSISTANT-C Work Phone: [facility] 01-31-2025 13:08-0400 Heart rate 76 /min Do Aichholz FIRE ASSISTANT-C Work Phone: [facility] 01-31-2025 13:08-0400 SaO2% (BldA) [Mass fraction] 97 % Do Aichholz FIRE ASSISTANT-C Work Phone: [facility] 01-31-2025 13:08-0400 Systolic blood pressure 115 mm[Hg] Do Aichholz FIRE ASSISTANT-C Work Phone: [facility] 01-19-2025 14:16-0400 Body height 172.7 cm Isidro Ledbettercek DO Work Phone: [facility] 01-19-2025 14:16-0400 Body mass index (BMI) [Ratio] 26.91 kg/m2 Isidro Murcek DO Work Phone: [facility] 01-19-2025 14:16-0400 Body weight 80.29 kg Isidro Murcek DO Work Phone: [facility] 12-29-2024 13:30-0400 Body height 172.7 cm Isidro Murcek DO Work Phone: [facility] [facility] 12-29-2024 13:30-0400 Body mass index (BMI) [Ratio] 26.91 kg/m2 Isidro Shipman DO Work Phone: [facility] 12-29-2024 13:30-0400 Body weight 80.29 kg Isidro Shipman DO Work Phone: [facility] 11-09-2024 10:05-0400 Body mass index (BMI) [Ratio] 27.34 kg/m2 Do Tierneyflex FIRE ASSISTANT Work Phone: [facility] 11-09-2024 10:05-0400 Body temperature 98.1 [degF] Do Vetoz FIRE ASSISTANT Work Phone: [facility] 11-09-2024 10:05-0400 Body weight 81.56 kg Do Tierneyflex FIRE ASSISTANT Work Phone: [facility] 11-09-2024 10:05-0400 Diastolic blood pressure 70 mm[Hg] Do Lawsz FIRE ASSISTANT Work Phone: [facility] 11-09-2024 10:05-0400 Heart rate 93 /min Doaltagracia Tierneyfeleciaz FIRE ASSISTANT Work Phone: [facility] 11-09-2024 10:05-0400 Respiratory rate 18 /min Do Solis FIRE ASSISTANT Work Phone: [facility] 11-09-2024 10:05-0400 SaO2% (BldA) [Mass fraction] 97 % Do Tierneyfeleciaz FIRE ASSISTANT Work Phone: [facility] 11-09-2024 10:05-0400 Systolic blood pressure 108 mm[Hg] Do Vetoz FIRE ASSISTANT Work Phone: [facility] 08-10-2024 09:13-0500 Body mass index (BMI) [Ratio] 27.13 kg/m2 Kelly Weinsteinzpatrick FIRE ASSISTANT Work Phone: [facility] 08-10-2024 09:13-0500 Body weight 80.92 kg Kelly Robb FIRE ASSISTANT Work Phone: [facility] 08-10-2024 09:13-0500 Diastolic blood pressure 62 mm[Hg] Kelly Robb FIRE ASSISTANT Work Phone: [facility] 08-10-2024 09:13-0500 Heart rate 74 /min Kelly Robb FIRE ASSISTANT Work Phone: [facility] 08-10-2024 09:13-0500 Respiratory rate 16 /min Kelly Robb FIRE ASSISTANT Work Phone: [facility] 08-10-2024 09:13-0500 SaO2% (BldA) [Mass fraction] 95 % Kelly Robb FIRE ASSISTANT Work Phone: [facility] 08-10-2024 09:13-0500 Systolic blood pressure 110 mm[Hg] Kelly Robb FIRE ASSISTANT Work Phone: [facility] 05-04-2024 08:54-0400 Body height 172.7 cm Kelly Robb FIRE ASSISTANT Work Phone: [facility] 05-04-2024 08:54-0400 Body mass index (BMI) [Ratio] 27.55 kg/m2 Kelly Robb FIRE ASSISTANT Work Phone: [facility] 05-04-2024 08:54-0400 Body temperature 97.5 [degF] Kelly Robb FIRE ASSISTANT Work Phone: [facility] 05-04-2024 08:54-0400 Body weight 82.19 kg Kelly Robb FIRE ASSISTANT Work Phone: [facility] 05-04-2024 08:54-0400 Diastolic blood pressure 68 mm[Hg] Kelly Robb FIRE ASSISTANT Work Phone: [facility] 05-04-2024 08:54-0400 Heart rate 67 /min Kelly Robb FIRE ASSISTANT Work Phone: [facility] 05-04-2024 08:54-0400 Respiratory rate 16 /min Kelly Vidalpatrick FIRE ASSISTANT Work Phone: [facility] 05-04-2024 08:54-0400 SaO2% (BldA) [Mass fraction] 94 % Kelly Vidalpatrick FIRE ASSISTANT Work Phone: [facility] 05-04-2024 08:54-0400 Systolic blood pressure 118 mm[Hg] Kelly Weinsteinzpatrick FIRE ASSISTANT Work Phone: [facility] Encounters Encounter Date Encounter Type Care Provider Facility Start: 03-28-2025 End: 03-28-2025 Bamboo flowsheet Do Will FIRE ASSISTANT Work Phone: [facility] Start: 03-28-2025 End: 03-28-2025 Bamboo flowsheet Do Aichholz FIRE ASSISTANT Work Phone: [facility] Start: 03-28-2025 End: 03-28-2025 Office outpatient visit 25 minutes Do Vetoz FIRE ASSISTANT Work Phone: [facility] Comment on above: Type 2 diabetes clemente itus without complication, with long-term current use of insulin (HCC) (Primary Dx); Hyperparathyroidism (HCC); Mixed hyperlipidemia ; Other hyperlipidemia ; Gastroesophageal reflux disease without esophagitis; Type 2 diabetes mellitus without complication, without long-term current use of insulin (HCC); OAB (overactive bladder) Start: 03-28-2025 End: 03-28-2025 ambulatory DO AICHHOLZ Not Available Start: 03-03-2025 End: 03-03-2025 ambulatory Do J Remihfeleciaz Work Phone: [facility] Work Phone: Start: 03-03-2025 End: 03-03-2025 Patient encounter procedure Cheyanne Juarez MD -[facility] Work Phone: Start: 02-14-2025 End: 02-14-2025 ambulatory Do J Remihflex FIRE ASSISTANT-C Work Phone: [facility] Work Phone: Start: 02-14-2025 End: 02-14-2025 Departed Referred Isidro Markell Ramonita DO -[facility] [place] Start: 01-31-2025 End: 01-31-2025 External Result Encounter Isidro Guillaume Ramonita DO Work Phone: [facility] External Department Unsolicited Start: 01-31-2025 End: 01-31-2025 External Result Encounter Isidro Guillaume Deonteleandro DO Work Phone: [facility] External Department Unsolicited Start: 01-31-2025 End: 01-31-2025 Patient encounter procedure Isidro Guillaume Ramonita DO -Pre-Surgic al Testing Work Phone: Start: 01-31-2025 End: 01-31-2025 ambulatory Do Solis Work Phone: [facility] Work Phone: Start: 01-31-2025 Encounter for prepro cedural laboratory examination Isidro Shipman [facility] Start: 01-19-2025 End: 01-19-2025 Office outpatient visit 25 minutes Isidro Shipman DO Work Phone: [facility] Comment on above: Primary hyperparathy roidism (HCC) (Primary Dx) Start: 01-19-2025 End: 01-19-2025 ambulatory ISIDRO Markell SHIPMAN Not Available Start: 01-19-2025 End: 01-19-2025 Bamboo flowsheet Isidro Shipman DO Work Phone: [facility] [place] Start: 01-19-2025 End: 01-19-2025 Bamboo flowsheet Isidro Shipman DO Work Phone: [facility] Start: 01-14-2025 End: 01-14-2025 External Result Encounter Isidro Markell Shipman DO Work Phone: [facility] External Department Unsolicited Start: 01-14-2025 End: 01-14-2025 External Result Encounter Isidro Shipman DO Work Phone: [facility] External Department Unsolicited Start: 01-14-2025 End: 01-14-2025 Patient encounter procedure Isidro Shipman DO -[facility] [place] Work Phone: Start: 01-14-2025 End: 01-14-2025 ambulatory Do Solis Facility:[facility] Start: 12-29-2024 End: 12-29-2024 Bamboo flowsheet Isidro Shipman DO Work Phone: [facility] [place] Start: 12-29-2024 End: 12-29-2024 Bamboo flowsheet Isidro Shipman DO Work Phone: [facility] Start: 12-29-2024 End: 12-29-2024 Office outpatient new 45 minutes Isidro Shipman DO Work Phone: [facility] Comment on above: Hypercalcemia; Hyperparathyroidism (CMS/HCC) Start: 12-29-2024 End: 12-29-2024 ambulatory ISIDRO SHIPMAN Not Available Start: 12-23-2024 End: 12-23-2024 ambulatory DO SOLIS Not Available Start: 12-15-2024 End: 12-15-2024 Orders Only Do Solis FIRE ASSISTANT Work Phone: [facility] Comment on above: Hypercalcemia (Prima ry Dx); Hyperparathyroidism (CMS/HCC) Start: 12-14-2024 End: 12-14-2024 Clinisync Result Encounter Do Solis FIRE ASSISTANT Work Phone: [facility] External Department Unsolicited Start: 12-14-2024 End: 12-14-2024 Clinisync Result Encounter Do Solis FIRE ASSISTANT Work Phone: [facility] External [facility] Unsolicited Start: 11-09-2024 End: 11-09-2024 Bamboo flowsheet Do Solis FIRE ASSISTANT Work Phone: [facility] Start: 11-09-2024 End: 11-09-2024 Bamboo flowsheet Do Niallholz FIRE ASSISTANT Work Phone: [facility] Start: 11-09-2024 End: 11-09-2024 Office outpatient visit 25 minutes Do Vetoz FIRE ASSISTANT Work Phone: [facility] Comment on above: Type 2 diabetes clemente itus without complication, with long-term current use of insulin (Primary Dx); Chronic pain syndrome; Constipation, unspecified constipation type; Mixed hyperlipidemia (CMS/[facility]); Screening for prostate cancer; Hypercalcemia; Anemia associated with nutritional deficiency; Other hyperlipidemia; Type 2 diabetes mellitus without complication, without long-term current use of insulin; Gastroesophageal reflux disease without esophagitis; Chronic right-sided low back pain with right-sided sciatica Start: 11-09-2024 End: 11-09-2024 ambulatory DO VETOZ Not Available Start: 08-10-2024 End: 08-10-2024 Bamboo flowsheet Kelly Robb FIRE ASSISTANT Work Phone: [facility] Start: 08-10-2024 End: 08-10-2024 Bamboo flowsheet Kelly Robb FIRE ASSISTANT Work Phone: [facility] Start: 08-10-2024 End: 08-10-2024 Office outpatient visit 15 minutes Kelly Robb FIRE ASSISTANT Work Phone: [facility] Comment on above: Type 2 diabetes clemente itus without complication, with long-term current use of insulin ([facility]) (Primary Dx); Chronic pain syndrome; Drug-induced constipation; Type 2 diabetes mellitus without complication, without long-term current use of insulin ([facility]) Start: 08-10-2024 End: 08-10-2024 ambulatory KELLY ROBB Not Available Start: 08-06-2024 End: 08-09-2024 Refill Kelly Robb FIRE ASSISTANT Work Phone: [facility] Comment on above: Type 2 diabetes clemente itus without complication, without long- term current use of insulin ([facility]) Start: 08-02-2024 End: 08-02-2024 Clinisync Result Encounter Kelly Robb FIRE ASSISTANT Work Phone: [facility] External Department Unsolicited Start: 08-02-2024 End: 08-02-2024 Clinisync Result Encounter Kelly Robb FIRE ASSISTANT Work Phone: [facility] External Department Unsolicited Start: 07-14-2024 End: 07-14-2024 Refill Adilia Butcher MA [facility] Comment on above: Chronic right-sided low back pain with right-sided sciatica Start: 06-14-2024 End: 06-14-2024 Refill Adilia Butcher MA [facility] Comment on above: Type 2 diabetes clemente itus without complication, without long- term current use of insulin ([facility]) Start: 06-14-2024 End: 06-14-2024 Refill Kelly Robb FIRE ASSISTANT Work Phone: [facility] Comment on above: Type 2 diabetes clemente itus without complication, without long- term current use of insulin ([facility]) Start: 05-24-2024 End: 05-24-2024 Refill Mendy Brink [facility] Comment on above: Type 2 diabetes clemente itus without complication, without long- term current use of insulin ([facility]); Chronic right-sided low back pain with right-sided sciatica Start: 05-04-2024 End: 05-04-2024 Bamboo flowsheet Kelly Chavesk FIRE ASSISTANT Work Phone: [facility] Start: 05-04-2024 End: 05-04-2024 Bamboo flowsheet Kelly Duboistrick FIRE ASSISTANT Work Phone: [facility] Start: 05-04-2024 End: 05-04-2024 Office outpatient visit 15 minutes Kelly Robb FIRE ASSISTANT Work Phone: [facility] Comment on above: Type 2 diabetes clemente itus without complication, with long-term current use of insulin (CMS/HCC) (Primary Dx); Other hyperlipidemia (CMS/HCC); Pigmented skin lesion of uncertain behavior of head Start: 05-04-2024 End: 05-04-2024 ambulatory KELLY ROBB Not Available Start: 04-09-2024 End: 04-12-2024 Refill Kelly Cezar FIRE ASSISTANT Work Phone: [facility] Comment on above: Chronic right-sided low back pain with right-sided sciatica Start: 07-23-2023 Patient encounter procedure Br nirmal Cezar FIRE ASSISTANT Work Phone: [facility] Start: 03-06-2023 ambulatory TONIO Vallejo Facili ty:[facility]1 Start: 12-06-2022 End: 12-07-2022 ambulatory SHAIKH Андрей BO Facility: Start: 11-19-2022 End: 11-20-2022 ambulatory BEN ZUNIGA Facility:[facility] Start: 11-11-2022 End: 11-12-2022 ambulatory NARENDRANATH LAKSHMIPATHY . Facility:[facility] Start: 11-05-2022 End: 11-06-2022 ambulatory NARENDRANATH LAKSHMIPATHY . Facility: Procedures Date Procedure Procedure Detail Performing Clinician Start: 03-28-2025 Hemoglobin glycosyla liane a1c Do Will FIRE ASSISTANT Work Phone: Start: 01-31-2025 Assay of parathormone B enjamin Markell Shipman DO Work Phone: Start: 01-31-2025 Complete blood count with white cell differential, automated Isidro Shipman DO Work Phone: Start: 01-14-2025 ISTAT XRAY CRE Isidro Shipman DO Work Phone: Start: 01-14-2025 CT of soft tissues o f neck with contrast Do Will Work Phone: Start: 12-14-2024 MLR HEMOGLOBIN A1C Do Remihholz FIRE ASSISTANT Work Phone: Start: 08-02-2024 ALL CBC WITH AUTO DIFF Kelly Robb FIRE ASSISTANT Work Phone: Start: 08-04-2022 Colonoscopy Kelly coronado NP Work Phone: Plan of Treatment Date Care Activity Detail Author Start: 08-04-2032 Screening for malignant neoplasm of colon [facility] Start: 08-25-2026 Screening for malignant neoplasm of colon FIT-DNA [facility] Start: 12-29-2025 End: 12-29-2025 Patient encounter procedure 12/29/2025 10:30 AM EDT [facility] [address] [place] [id number] Do Solis NP [address] [place] [id number] [facility] Start: 12-23-2025 Medicare Annual Wellness (AWV) Medicare Annual Wellness (AWV) [facility] Start: 12-14-2025 Urine screening for protein Diabetes: Urine Protein Screening [facility] Start: 09-28-2025 Hemoglobin A1c measurement Diabetes: Hemoglobin A1C [facility] Start: 06-16-2025 Hemoglobin A1c measurement Diabetes: Hemoglobin A1C [facility] Start: 04-04-2025 Influenza vaccination Influenza Vaccine (#1) [facility] Start: 03-28-2025 End: 03-28-2025 Patient encounter procedure [facility] Comment on above: Type 2 diabetes mellitus without complic ation, with long-term current use of insulin (HCC) (Primary Dx); Hyperparathyroidism (HCC); Mixed hyperlipidemia Start: 03-03-2025 [facility] Start: 02-21-2025 End: 02-21-2025 Patient encounter procedure 02/21/2025 2:15 PM EDT Office Visit [facility] [place] [address] [place] [address] Isidro Shipman, DO [address] [place] [address] [facility] Start: 02-14-2025 Lobectomy of thyroid gland OR Thyroidectomy/Hemithyroidect nnamdi (Not Applicable) [facility] Start: 01-19-2025 End: 01-19-2025 Patient encounter procedure [facility] Comment on above: Arrived Start: 01-12-2025 End: 01-12-2025 Patient encounter procedure 01/12/2025 1:00 PM EDT Office Visit [facility] [place] [address] [place] [phone] Isidro Shipman, DO [address] [place] [address] [facility] Start: 12-29-2024 End: 12-29-2025 CT Neck WO and W contrast IV CT 4D PARATHYROID Imaging Routine Hypercalcemia Hyperparathyroidism (CMS/HCC) Expected: 12/29/2024, Expires: 12/29/2025 [facility] Work Phone: Comment on above: Expected: 12/29/2024, Expires: Start: 12-29-2024 End: 12-29-2024 Patient encounter procedure 12/29/2024 2:00 PM EDT Office Visit [facility] [place] [address] [place] [phone] Isidro Shipman, DO [address] [place] [address] Hypercalcemia; Hyperparathyroidism (CMS/HCC) [facility] Comment on above: Hypercalcemia; Hyperparathyroidism (CMS/HCC) Start: 12-29-2024 End: 12-29-2025 SPECT Parathyroid gland NM parathyroid spect Imaging Routine Hypercalcemia Hyperparathyroidism (CMS/HCC) Expected: 12/29/2024, Expires: 12/29/2025 [facility] Comment on above: Expected: 12/29/2024, Expires: Start: 12-23-2024 End: 12-23-2024 Patient encounter procedure 12/23/2024 10:00 AM EDT Office Visit [facility] [address] [place] [address] Do Solis NP [address] [place] [address] [facility] Start: 11-09-2024 End: 11-09-2025 25-hydroxyvitamin D3 [Mass/volume] in Serum or Plasma Vitamin D 25 hydroxy Lab Routine Hypercalcemia Expected: 11/09/2024 (Approximate), Expires: 11/09/2025 [facility] Comment on above: Expected: 11/09/2024 (Approximate), Expi res: 11/09/2025 Start: 11-09-2024 End: 11-09-2025 CBC W Auto Differential panel - Blood CBC and differential Lab Routine Type 2 diabetes mellitus without complication, with long-term current use of insulin Expected: 11/09/2024 (Approximate), Expires: 11/09/2025 [facility] Comment on above: Expected: 11/09/2024 (Approximate), Expi res: 11/09/2025 Start: 11-09-2024 End: 11-09-2025 Cobalamin (Vitamin B12) [Mass/volume] in Serum or Plasma Vitamin B12 Lab Routine Anemia associated with nutritional deficiency Expected: 11/09/2024 (Approximate), Expires: 11/09/2025 [facility] Comment on above: Expected: 11/09/2024 (Approximate), Expi res: 11/09/2025 Start: 11-09-2024 End: 11-09-2025 Comprehensive metabolic 2000 panel - Serum or Plasma Comprehensive metabolic panel Lab Routine Type 2 diabetes mellitus without complication, with long-term current use of insulin Mixed hyperlipidemia (CMS/HCC) Expected: 11/09/2024 (Approximate), Expires: 11/09/2025 [facility] Comment on above: Expected: 11/09/2024 (Approximate), Expi res: 11/09/2025 Start: 11-09-2024 End: 11-09-2025 Ferritin [Mass/volume] in Serum or Plasma Ferritin Lab Routine Anemia associated with nutritional deficiency Expected: 11/09/2024 (Approximate), Expires: 11/09/2025 [facility] Comment on above: Expected: 11/09/2024 (Approximate), Expi res: 11/09/2025 Start: 11-09-2024 End: 11-09-2025 Iron + transferrin + TIBC Iron + transferrin + TIBC Lab Routine Anemia associated with nutritional deficiency Expected: 11/09/2024 (Approximate), Expires: 11/09/2025 [facility] Comment on above: Expected: 11/09/2024 (Approximate), Expi res: 11/09/2025 Start: 11-09-2024 End: 11-09-2025 Lipid 1996 panel - Serum or Plasma Lipid panel Lab Routine Mixed hyperlipidemia (CMS/HCC) Expected: 11/09/2024 (Approximate), Expires: 11/09/2025 [facility] Work Phone: Comment on above: Expected: 11/09/2024 (Approximate), Expi res: 11/09/2025 Start: 11-09-2024 End: 11-09-2025 Microalbumin/Creatinine panel in random Urine Microalbumin / creatinine, urine ratio Lab Routine Type 2 diabetes mellitus without complication, with long-term current use of insulin Expected: 11/09/2024 (Approximate), Expires: 11/09/2025 [facility] Comment on above: Expected: 11/09/2024 (Approximate), Expi res: 11/09/2025 Start: 11-09-2024 End: 11-09-2025 Parathyrin.intact [Mass/volume] in Serum or Plasma PTH, intact Lab Routine Hypercalcemia Expected: 11/09/2024 (Approximate), Expires: 11/09/2025 [facility] Comment on above: Expected: 11/09/2024 (Approximate), Expi res: 11/09/2025 Start: 11-09-2024 End: 11-09-2025 Prostate specific Ag [Mass/volume] in Serum or Plasma PSA Lab Routine Screening for prostate cancer Expected: 11/09/2024 (Approximate), Expires: 11/09/2025 [facility] Comment on above: Expected: 11/09/2024 (Approximate), Expi res: 11/09/2025 Start: 11-09-2024 End: 11-09-2025 Urinalysis complete panel - Urine Urinalysis with reflex microscopic (clean catch) Lab Routine Type 2 diabetes mellitus without complication, with long-term current use of insulin Expected: 11/09/2024 (Approximate), Expires: 11/09/2025 [facility] Comment on above: Expected: 11/09/2024 (Approximate), Expi res: 11/09/2025 Start: 11-09-2024 End: 11-09-2024 Patient encounter procedure [facility] Comment on above: Chronic pain syndrome (Primary Dx); Constipation, unspecified constipation type; Type 2 diabetes mellitus without complication, with long-term current use of insulin; Mixed hyperlipidemia (CMS/HCC); Screening for prostate cancer; Hypercalcemia; Anemia associated with nutritional deficiency Start: 10-05-2024 Influenza vaccination Influenza Vaccine (#1) [facility] Comment on above: Postponed from 04/04/2024 (Patient Refus ed) Start: 08-25-2024 Hemoglobin A1c measurement Diabetes: Hemoglobin A1C [facility] Start: 08-14-2024 Urine screening for protein Diabetes: Urine Protein Screening [facility] Start: 08-10-2024 End: 08-10-2024 Patient encounter procedure [facility] Comment on above: Arrived Start: 08-04-2024 End: 05-04-2025 CBC W Auto Differential panel - Blood CBC and differential Lab Routine Type 2 diabetes mellitus without complication, with long-term current use of insulin (CMS/HCC) Expected: 08/04/2024 (Approximate), Expires: 05/04/2025 [facility] Comment on above: Expected: 08/04/2024 (Approximate), Expi res: 05/04/2025 Start: 08-04-2024 End: 05-04-2025 Comprehensive metabolic 2000 panel - Serum or Plasma Comprehensive metabolic panel Lab Routine Type 2 diabetes mellitus without complication, with long-term current use of insulin (CMS/HCC) Expected: 08/04/2024 (Approximate), Expires: 05/04/2025 [facility] Comment on above: Expected: 08/04/2024 (Approximate), Expi res: 05/04/2025 Start: 08-04-2024 End: 05-04-2025 Hemoglobin A1c/Hemoglobin.total in Blood Hemoglobin A1c Lab Routine Type 2 diabetes mellitus without complication, with long-term current use of insulin ([facility]) Expected: 08/04/2024 (Approximate), Expires: 05/04/2025 [facility] Work Phone: Comment on above: Expected: 08/04/2024 (Approximate), Expi res: 05/04/2025 Start: 07-23-2024 Medicare Annual Wellness (AWV) Medicare Annual Wellness (AWV) [facility] Start: 05-04-2024 End: 05-04-2024 Patient encounter procedure [facility] Comment on above: Arrived Start: 04-04-2024 Influenza vaccination Influenza Vaccine (#1) [facility] Start: 1975 Glaucoma screening Diabetes: Retinopathy Screening [facility] Start: 1965 Screening for malignant neoplasm of colon [facility] Basic metabolic 1998 panel - Serum or Plasma Basic metabolic panel Lab Routine 01/31/2025 1:40 PM EDT [facility] Work Phone: [facility] Immunizations Immunization Date Immunization Notes Care Provider Fa cility 08-10-2024 influenza, seasonal, injectable Do Will FIRE ASSISTANT Work Phone: [facility] 08-10-2024 influenza virus vacc ine, unspecified formulation Do Aiczekez FIRE ASSISTANT Work Phone: [facility] Payers Date Payer Category Payer Self-pay 2024 Unknown [id number] 2024 Medicare MEDICARE [id number] 2024 Medicare [id number] 2022 Medicaid MEDICAID [facility] [id number] 2022 Medicaid [id number] 2022 Medicare (Managed Care) [id number]. [id number] 2022 Unknown [employer] [id number] 2022-Present [address] [place] [address] [id number] 2020 Unknown [id number] 1965 Unknown [id number] 2.16.840.1.987290.3.579.2. 593 1965 Unknown [id number] 2.16.840.1.839245.3.579.2. 593 1965 Unknown [id number] 2.16.840.1.660946.3.579.2. 593 1965 Unknown [id number] 2.16.840.1.402111.3.579.2. 593 1965 Unknown [id number] 2.16.840.1.004093.3.579.2. 593 1965 Unknown [id number] 2.16.840.1.832228.3.579.2. 593 1965 Unknown [id number] 2.16840.1.319041.3.579.2. 593 1965 Unknown [id number] 2.16840.1.515441.3.579.2. 1259 1965 Unknown [id number] 2.16840.1.869410.3.579.2. 1259 1965 Unknown [id number] 2.16840.1.581041.3.579.2. 1259 1965 Unknown [id number] 2.16840.1.902837.3.579.2. 9 1965 Unknown [id number] 2.840.1.886805.3.579.2. 1259 1965 Unknown [id number] 2.16840.1.317088.3.579.2. 1259 1965 Unknown [id number] 2.16840.1.735188.3.579.2. 1259 Unknown [id number] 2.16840.1.782805.3.579.2. 531 Unknown [id number] 2.16840.1.972307.3.579.2. 531 Unknown [id number] 2.16840.1.251485.3.579.2. 531 Unknown [id number] 2.840.1.120971.3.579.2. 531 Social History Date Type Detail Facility Start: 07-23-2023 End: 03-03-2025 Tobacco smoking status FLIS Never smoked tobacco [facility] Start: 07-23-2023 Tobacco use and exposure Smokeless tobacco non-user [facility] Start: 01-26-2024 End: 03-28-2025 Alcoholic beverage intake Ex-drinker (finding) [facility] Start: 01-26-2024 End: 12-23-2024 History of Social function [facility] Start: 01-26-2024 End: 12-23-2024 Tobacco use panel [facility] Start: 07-23-2023 Alcohol Comment [facility]ASSIONALLY [facility] Start: 1965 Sex assigned at Not on file [facility] Sex Male (finding) [facility] Start: 1965 Sex Assigned At Male [facility] NEGATED: Highlighted rowStart: NINF History of tobacco use Passive smoker [facility] Medical Equipment Procedure Code Equipment Code Equipment Origin al Text Equipment Identifier Dates [id number] Start: 01-26-2024 End: 07-24-2024 Once a day injection. Use as instructed [id number] Start: 12-23-2024 End: 03-28-2025 Once a day injection. Use as instructed [id number] Start: 03-28-2025 Clinical Notes 11-05-2022 to 03-28-2025 Do Solis NP - 03/28/2025 9:43 AM DOROTHY MURCIA - 03/28/2025 9:20 AM Yosvany Solis NP - 03/28/2025 9:20 AM Yosvany Solis NP - 03/28/2025 6:27 AM EDTPatient Instructions Note Date & Type Note Facility 03-28-2025 History of Presen t illness Narrative Associated Problem(s): OAB (overactive bladder) Cut back on caffeine Will trial oxybutynin 5mg ER once a day Advised of urine retention, dizziness, dry mouth Right arm pain on and off still Pt needs refills on medications Images from the original note were not included. Nicholas Lovelace is a 60 y.o. male presents with chief complaint of Diabetes HPI: Urinary freq: 10 times daily, 5 times at night, decreased stream, but does feel like he empties out bladder Also was to have parathyroid surgery, it got cancelled, did not get a return ca;; about rescheduling Diabetes He presents for his follow-up diabetic visit. He has type 2 diabetes mellitus. His disease course has been stable. There are no hypoglycemic associated symptoms. Pertinent negatives for hypoglycemia include no dizziness, nervousness/anxiousness, seizures or tremors. Associated symptoms include polyuria. Pertinent negatives for diabetes include no chest pain, no fatigue, no foot paresthesias, no polydipsia, no polyphagia, no visual change, no weakness and no weight loss. There are no hypoglycemic complications. Symptoms are stable. Risk factors for coronary artery disease include diabetes mellitus, dyslipidemia and male sex. Current diabetic treatment includes insulin injections (GLP 1). He is following a generally healthy diet. His overall blood glucose range is 90-110 mg/dl. He does not see a percussion tuner.Eye exam is not current. GERD He reports no abdominal pain, no chest pain, no dysphagia, no heartburn, no sore throat or no wheezing. This is a chronic problem. The current episode started more than 1 year ago. The problem occurs occasionally. The problem has been unchanged. Pertinent negatives include no fatigue or weight loss. The treatment provided significant relief. SUBJECTIVE: MEDICATIONS: Current Outpatient Medications Medication Instructions aspirin (ASPIR) 81 mg, Oral, Daily atorvastatin (LIPITOR) 80 mg, Oral, Nightly baclofen (LIORESAL) 10 mg, 3 times daily esomeprazole (NEXIUM) 20 mg, Oral, Daily before breakfast ezetimibe (ZETIA) 10 mg, Oral, Daily insulin pen needle (B-D UF III MINI PEN NEEDLES) 31G x 5 mm misc Once a day injection. Use as instructed oxybutynin XL (DITROPAN-XL) 5 mg, Oral, Daily, Do not crush, chew, or split. oxyCODONE-acetaminophen (Percocet) 5-325 MG tablet 1 tablet, Every 8 hours PRN Tresiba FlexTouch 36 Units, Subcutaneous, Nightly Trulicity 4.5 mg, Subcutaneous, Weekly ALLERGIES: Allergies Allergen Reactions Penicillins Rash REVIEW OF SYMPTOMS: Review of Systems Constitutional: Negative for activity change, appetite change, fatigue, unexpected weight change and weight loss. HENT: Negative for ear pain, nosebleeds, sneezing, sore throat, trouble swallowing and voice change. Eyes: Negative for pain, discharge and visual disturbance. Respiratory: Negative for apnea, chest tightness and wheezing. Cardiovascular: Negative for chest pain and leg swelling. Gastrointestinal: Negative for abdominal distention, abdominal pain, blood in stool, constipation, diarrhea, dysphagia and heartburn. Skin: Negative for color change. Neurological: Negative for dizziness, tremors, seizures and weakness. Psychiatric/Behavioral: Negative for agitation, decreased concentration, hallucinations, [...] DM II (diabetes mellitus, type II), controlled (HCC) Hypercalcemia Hyperlipidemia Past Surgical History: Procedure Laterality Date BACK SURGERY 2013 CARPAL TUNNEL RELEASE Bilateral family history includes Cancer in his father; Diabetes in his mother. OBJECTIVE: Visit Vitals BP 104/70 (BP Location: Left arm, Patient Position: Sitting, BP Cuff Size: Adult long) Pulse 74 Temp 97.8 F (Temporal) Resp 18 Wt 176 lb 3.2 oz SpO2 95% BMI 26.79 kg/m Smoking Status Never BSA 1.96 m Physical Exam Vitals and nursing note reviewed. Constitutional: Appearance: Normal appearance. HENT: Head: Normocephalic. Right Ear: External ear normal. Left Ear: External ear normal. Nose: Nose normal. Mouth/Throat: Mouth: Mucous membranes are moist. Pharynx: Oropharynx is clear. Eyes: Extraocular Movements: Extraocular movements intact. Conjunctiva/sclera: Conjunctivae normal. Neck: Vascular: No carotid bruit. Cardiovascular: Rate and Rhythm: Normal rate and regular rhythm. Pulses: Normal pulses. Heart sounds: Normal heart sounds. No murmur heard. Pulmonary: Effort: Pulmonary effort is normal. Breath sounds: Normal breath sounds. No wheezing or rhonchi. Abdominal: General: Bowel sounds are normal. Palpations: Abdomen is soft. Musculoskeletal: Cervical back: Neck supple. Right lower leg: No edema. Left lower leg: No edema. Lymphadenopathy: Cervical: No cervical adenopathy. Skin: General: Skin is warm and dry. Capillary Refill: Capillary refill takes 2 to 3 seconds. Neurological: General: No focal deficit present. Mental Status: He is alert. Psychiatric: Mood and Affect: Mood normal. Behavior: Behavior normal. Thought Content: Thought content normal. Judgment: Judgment normal. ASSESSMENT AND PLAN: Follow up in about 2 months (around 05/28/2025) for Recheck. Problem List Items Addressed This Visit Type 2 diabetes mellitus without complication, with long-term current use of insulin (HCC) - Primary Check blood sugars daily, notify if <70 [...] meds: trulicity, and tresiba, zetia, statin A1c 6.5% 03/28/25, 6.7% 12/14/24 Relevant Medications aspirin (ASPIR) 81 MG EC tablet Dulaglutide (Trulicity) 4.5 MG/0.5ML solution auto-injector insulin degludec (Tresiba FlexTouch) 200 UNIT/ML injection insulin pen needle (B-D UF III MINI PEN NEEDLES) 31G x 5 mm misc Other Relevant Orders POCT glycosylated hemoglobin (Hb A1C) docked device (Completed) Mixed hyperlipidemia On statin, and zetia Check labs yearly and prn dose changes Hyperparathyroidism (HCC) Noted on labs, was referred to ENT for evaluation Was scheduled to have surgery, it was cancelled, he reports has not heard anything about it being rescheduled I did contact ENT office at 09:55 am to see about this Spoke Binta, she stated the Nurse just printed the info on cardiac clearance and will be calling him OAB (overactive bladder) Cut back on caffeine Will trial oxybutynin 5mg ER once a day Advised of urine retention, dizziness, dry mouth Relevant Medications oxybutynin XL (Ditropan-XL) 5 MG 24 hr tablet Other Visit Diagnoses Other hyperlipidemia Relevant Medications atorvastatin (Lipitor) 80 MG tablet ezetimibe (Zetia) 10 MG tablet Gastroesophageal reflux disease without esophagitis Relevant Medications esomeprazole (NexIUM) [address] capsule Type 2 diabetes mellitus without complication, without long-term current use of insulin (HCC) Relevant Medications insulin degludec (Tresiba FlexTouch) 200 UNIT/ML injection Associated Problem(s): Mixed hyperlipidemia On statin, and zetia Check labs yearly and prn dose changes Associated Problem(s): Hyperparathyroidism (HCC) Noted on labs, was referred to ENT for evaluation Was scheduled to have surgery, it was cancelled, he reports has not heard anything about it being rescheduled I did contact ENT office at 09:55 am to see about this Spoke Binta, she stated the Nurse just printed the info on cardiac clearance and will be calling him Associated Problem(s): Type 2 diabetes mellitus without complication, with long-term current use of insulin (HCC) Check blood sugars daily, notify if <70 [...] meds: trulicity, and tresiba, zetia, statin A1c 6.5% 03/28/25, 6.7% 12/14/24 documented in this encounter [facility] 03-28-2025 Instructions Do Solis NP - 03/28/2025 9:20 AM EDT Oxybutinin ER 5mg once a day of freq urine symptoms This could cause drowsiness, dry mouth, constipation, if this happens let me know documented in this encounter [facility] 03-03-2025 Evaluation note Diagnosis Onset Date Resolution Chest pain acute March 03 9:11am Diabetes mellitus, type 2 acute March 03, 2025 9:11am Hyperlipidemia acute March 03, 2025 9:11am [facility] Work Phone: [phone] 283-578406-18-2025 History of Present illness Narrative* Isidro Shipman DO - 01/19/2025 2:45 PM EDT Allergies as of 01/19/2025 - Reviewed 12/29/2024 Allergen Reaction Noted Penicillins Rash 07/23/2023 Past Medical History: Diagnosis Date Abnormal liver function test Back pain Chronic low back pain DM II (diabetes mellitus, type II), controlled (HCC) Hypercalcemia Hyperlipidemia Current Outpatient Medications: aspirin (ASPIR) 81 MG EC tablet, Take 1 tablet (81 mg) by mouth Daily, Disp: 90 tablet, Rfl: 3 atorvastatin (Lipitor) 80 MG tablet, Take 1 tablet (80 mg) by mouth at bedtime, Disp: 90 tablet, Rfl: 1 baclofen (Lioresal) 10 MG tablet, Take 10 mg by mouth in the morning and 10 mg in the evening and 10 mg before bedtime., Disp: , Rfl: Dulaglutide (Trulicity) 4.5 MG/0.5ML solution auto-injector, Inject 4.5 mg under the skin 1 (one) time per week, Disp: 6 mL, Rfl: 1 esomeprazole (NexIUM) [address] capsule, Take 1 capsule (20 mg) by mouth in the morning. Take beforemeals., Disp: 90 capsule, Rfl: 1 ezetimibe (Zetia) 10 MG tablet, Take 1 tablet (10 mg) by mouth Daily, Disp: 90 tablet, Rfl: 1 ibuprofen 600 MG tablet, Take 1 tablet (600 mg) by mouth every 8 (eight) hours if needed for mild pain Take with food, Disp: 270 tablet, Rfl: 1 insulin pen needle (B-D UF III MINI PEN NEEDLES) 31G x 5 mm misc, Once a day injection. Use as instructed, Disp: 100 each, Rfl: 3 oxyCODONE-acetaminophen (Percocet) 5-325 MG tablet, Take 1 tablet by mouth every 8 (eight) hours ifneeded for severe pain, Disp: , Rfl: Tresiba FlexTouch 200 UNIT/ML injection, INJECT 36 UNITS SUBCUTANEOUSLY (UNDER THE SKIN) AT BEDTIME, Disp: 18 mL, Rfl: 1 Past Surgical History: Procedure Laterality Date BACK SURGERY 2013 CARPAL TUNNEL RELEASE Bilateral Social History Socioeconomic History Marital status: Spouse name: Not on file Number of children: Not on file Years of education: Not on file Highest education level: Not on file Occupational History Not on file Tobacco Use Smoking status: Never Passive exposure: Never Smokeless tobacco: Never Vaping Use Vaping status: Never Used Substance and Sexual Activity Alcohol use: Not Currently Comment: OCCASSIONALLY Drug use: Never Sexual activity: Defer Other Topics Concern Not on file Social History Narrative Not on file Social Drivers of Health Financial Resource Strain: Not on file Food Insecurity: Not on file Transportation Needs: Not on file Physical Activity: Not on file Stress: Not on file Social Connections: Not on file Intimate Partner Violence: Not on file Housing Stability: Not on file Subjective Patient ID: HPI Patient presents today following 4D CT scan. Apparently he could not tolerate laying on the table for the sestamibi so that was canceled. Radiologist seems to think there may be a tiny left inferior parathyroid adenoma. When I look at the CT scan I think possibly that is where the parathyroid adenoma is though I thought it was possibly on the right superior pole when I did his ultrasound. Review of Systems ROS The specialty specific review of systems is noncontributory except for that recorded in the intake questionnaire and /or described in the history of present illness. Objective ENT Physical Exam Physical Exam Constitutional: Appearance: Normal appearance. HENT: Head: Atraumatic. Ears: External ear shows no abnormality Bilateral ear canals are clear Tympanic membranes intact, no evidence of middle ear fluid or other pathology. Nose: External nose appears to be normal Nares patent. Septal deviation to the right No evidence of polyp, mass or pus bilaterally. Oral Cavity: No evidence of trismus Lips appear normal Dental poor Tongue of normal size and configuration, floor of mouth mucosa clear. Buccal mucosa shows no evidence of ulceration, mass or other abnormality Hard palate soft palate mucosa intact with no evidence of mass, ulceration or other abnormality Uvula of normal size and configuration Oropharynx: Tonsils small Posterior pharyngeal wall normal Neck: No evidence of palpable abnormality Thyroid without evidence of thyromegaly or mass. No cervical lymphadenopathy present. Cardiovascular: Rate and Rhythm: Normal rate and regular rhythm. . Skin: General: Skin is warm and dry. Neurological: General: No focal deficit present. Mental Status: alert and oriented to person, place, and time. FIBEROPTIC NASOPHARYNGOLARYNGOSCOPY A diagnostic flexible fiberoptic laryngoscopy was performed. The flexible fiberoptic laryngoscope was placed into the nose and advanced to the level of the tip of the epiglottis. Examination of the larynx including both surfaces of the epiglottis false and true vocal folds, arytenoids and surrounding mucosal surfaces show no evidence of lesion, ulceration or mass. Normal bilateral true vocal foldmotion is present. Bilateral piriform sinuses and base of tongue appear without lesion Assessment/Plan Nicholas was seen today for hypercalcemia. Diagnoses and all orders for this visit: Primary hyperparathyroidism (HCC) (Primary) Comments: I recommended parathyroidectomy. Start on the left side. The risks and benefits of parathyroidectomy were discussed with the patient. These include but are not inclusive of perioperative , infection, poor scarring,failure to find the adenoma, failure to control hyperparathyroidism, need for additional surgery, permanent RLN dysfx, permanent hypoparathyroidism, etc. The patient has consented to proceed. documented in this encounterJefferson Memorial [id number] History of Present illness Narrative* Isidro Shipman DO - 12/29/2024 2:00 PM EDT Subjective Patient ID: HPI Patient is a male referred for hypercalcemia and hyperparathyroidism. Patient is not a very great historian but apparently he has had noted hypercalcemia for a while. His most recent lab work shows acalcium of 10.7, PTH is elevated at 76 which is higher than the 67 of that labs high end of normal.No history of renal lithiasis, no family history of the same. Review of Systems ROS The specialty specific review of systems is noncontributory except for that recorded in the intake questionnaire and /or described in the history of present illness. Objective ENT Physical Exam Physical Exam Constitutional: Appearance: Normal appearance. HENT: Head: Atraumatic. Ears: External ear shows no abnormality Bilateral ear canals are clear Tympanic membranes intact, no evidence of middle ear fluid or other pathology. Nose: External nose appears to be normal Nares patent. Septal deviation to the right No evidence of polyp, mass or pus bilaterally. Oral Cavity: No evidence of trismus Lips appear normal Dental broken and carious teeth Tongue of normal size and configuration, floor of mouth mucosa clear. Buccal mucosa shows no evidence of ulceration, mass or other abnormality Hard palate soft palate mucosa intact with no evidence of mass, ulceration or other abnormality Uvula of normal size and configuration Oropharynx: Tonsils small Posterior pharyngeal wall normal Neck: No evidence of palpable abnormality Thyroid without evidence of thyromegaly or mass. No cervical lymphadenopathy present. Cardiovascular: Rate and Rhythm: Normal rate and regular rhythm. . Skin: General: Skin is warm and dry. Neurological: General: No focal deficit present. Mental Status: alert and oriented to person, place, and time. THYROID ULTRASOUND EXAMINATION Indication: Thyroid nodule After informed consent was obtained the patient was placed supine on the examining table. Patient was asked to extend the neck. Topical ultrasound jelly was used. The right lobe of the thyroid gland measures __ 4.8 cm in greatest dimension. Couple of very tiny subcentimeter hypoechoic nodules scattered throughout the parenchyma now with untoward ultrasound characteristics. Nothing the surrounding tissues suggestive of an enlarged parathyroid gland. The isthmus is unremarkable. The left lobe of the thyroid gland measures _ 4.9 cm greatest dimension. Cystically degenerated nodule in the superior pole measuring about just behind the superior pole there is a hypoechoic structure measure little over a cm in size right against the internal jugular vein. There is no adenopathy in the central compartment. There is no appreciable adenopathy in either lateral neck. Assessment/Plan Nicholas was seen today for hypercalcemia. Diagnoses and all orders for this visit: Hypercalcemia Comments: I am going to order a sestamibi scan and 4D CT scan to correlate with the ultrasound and I will seehim back following that Orders: - Ambulatory referral to ENT - CT 4D PARATHYROID; Future - NM parathyroid spect; Future - CT 4D PARATHYROID - NM parathyroid spect Hyperparathyroidism ([facility]/HCC) - Ambulatory referral to ENT - CT 4D PARATHYROID; Future - NM parathyroid spect; Future - CT 4D PARATHYROID - NM parathyroid spect Nicholas was seen today for hypercalcemia. Diagnoses and all orders for this visit: Hypercalcemia Comments: I am going to order a sestamibi scan and 4D CT scan to correlate with the ultrasound and I will seehim back following that Orders: - Ambulatory referral to ENT - CT 4D PARATHYROID; Future - NM parathyroid spect; Future - CT 4D PARATHYROID - NM parathyroid spect Hyperparathyroidism ([facility]/HCC) Comments: See above Orders: - Ambulatory referral to ENT - CT 4D PARATHYROID; Future - NM parathyroid spect; Future - CT 4D PARATHYROID - NM parathyroid spect documented in this [facility]04-08-2025 History of Present illness Narrative* Do Solis NP - 11/09/2024 10:00 AM EDT Images from the original note were not [...] or peripheral neuropathy. Risk factors for coronary arterydisease include dyslipidemia, diabetes mellitus, hypertension and sedentary lifestyle. Current diabetic treatment includes insulin injections (trulicity). He is compliant with treatment most of the time. He is following a diabetic diet. He participates in exercise intermittently. His overall blood glucose range is 110- 130 mg/dl. He does not see a percussion tuner.Eye exam is not current. Back Pain This is a chronic problem. The current episode started more than 1 year ago. The problem occurs daily. The problem has been waxing and waning since onset. The pain is present in the lumbar spine. Thequality of the pain is described as aching [...] MINI PEN NEEDLES 31G X 5 MM misc USE DIRECTED DAILY baclofen (LIORESAL) 10 mg, [...] feet frequently monitoring for open wounds , andalso recommend yearly eye exam. Pt should attempt [...] Low back Takes pain meds, nsaids, MR Constipation At last appt in 08/28, recommended [...] Medications esomeprazole (NexIUM) [address] capsule * Do Solis NP - 11/09/2024 6:39 AM EDTAssociated Problem(s): Anemia associated with nutritional deficiency Check labs * Do Solis NP - 11/09/2024 6:38 AM EDTAssociated Problem(s): Hypercalcemia Check vit d and PTH * Do Solis NP - 11/09/2024 6:35 AM EDTAssociated Problem(s): Mixed hyperlipidemia (CMS/HCC) On statin, and zetia Check labs yearly and prn dose changes * Do Solis NP - 11/09/2024 6:34 AM EDTAssociated Problem(s): Type 2 diabetes mellitus without complication, with long-term current use ofinsulin Check blood sugars daily, notify if <70 or >200. Take medications (pills or insulin) as directed. Monitor for s/s of hypoglycemia (sweaty, dizziness, nausea, vomiting, or shakiness). Watch for increase in thirst, urination, or appetite. Inspect feet frequently monitoring for open wounds , andalso recommend yearly eye exam. Pt should attempt to remain as physically active as chronic conditions allow, as well as trying to follow a diet low in carbohydrates, and simple sugars. Current meds: trulicity, and tresiba, zetia, statin a1c * Do Solis NP - 11/09/2024 6:33 AM EDTAssociated Problem(s): Constipation At last appt in 08/28, recommended to start on miralax resolved * Do Solis NP - 11/09/2024 6:32 AM EDTAssociated Problem(s): Chronic pain syndrome Does see pain mgmt for this Low back Takes pain meds, nsaids, MR documented in this encounterJefferson Memorial [id number] Instructions* Patient Instructions* Do Solis NP - 11/09/2024 10:00 AM EDT Please get labs completed, 8 hours fasting I would like you to call an eye doctor to get a diabetic eye exam Schedule a medicare wellness examination documented in this encounterJefferson Memorial [id number] History of Present illness Narrative* Kelly Robb NP - 08/10/2024 9:56 AM ESTAssociated Problem(s): Constipation Pt reports intermittent constipation, denies blood in stool, or abdominal pain. Is on opioids from PM for chronic pain, likely related to opoid use. Pt reports very limited water intake, but states he drinks tea frequently. Recommended increasing fluids, fiber, and prescribed Miralax to be used PRN. * Kelly Robb NP - 08/10/2024 9:30 AM EST Images from the original note were not [...] ALBUMIN GLOBULIN RATIO 1.1 1.0 Resulting Agency [facility] Review of Systems Constitutional: Negative for [...] Neurological: Negative for dizziness, tremors, syncope, weakness, light- headedness and headaches. Psychiatric/Behavioral: Negative for decreased concentration and suicidal ideas. The patient is notnervous/anxious. Hematological: Does not bruise/bleed easily. Endocrine: Negative [...] complication, with long-term current use of insulin ([facility]) - Primary Most recent labs: hemoglobin A1C [...] complication, without long-term current use of insulin ([facility]) Relevant Medications Dulaglutide (Trulicity) 4.5 MG/0.5ML solution auto-injector * Kelly Robb NP - 08/10/2024 9:18 AM ESTAssociated Problem(s): Chronic pain syndrome Follows with Pain Management- TB. Pt currently taking oxycodone 5-325mg. Feels symptoms are well controlled on current regimen. Continue current regimen as directed by PM. * Kelly Robb NP - 08/10/2024 9:17 AM ESTAssociated Problem(s): Type 2 diabetes mellitus without complication, with long-term current use ofinsulin ([facility]) Most recent labs: hemoglobin A1C 6.4% 07/2024 [...] glucose monitoring noted. DM Eye Exam: 05/04/2024 * Kelly Robb NP - 08/10/2024 9:16 AM ESTAssociated Problem(s): Other hyperlipidemia (CMS/HCC) Currently taking Atorvastatin 80mg Most recent Lipid Panel done 02/2024- WNL Denies any myalgias. Continue current regimen. documented in this encounterJefferson Memorial [id number] Instructions* Patient Instructions* Kelly Robb NP - 08/10/2024 9:30 AM EST Diet: Eat three meals per day. Breakfast, lunch, and dinner. Avoid snacking. Avoid eating after 5/6pm. Daily protein GOAL 35% of your intake; [...] to help relieve constipation. documented in this encounterJefferson Memorial [id number] Telephone encounter Note* Telephone Encounter - Adilia Butcher MA - 07/14/2024 11:31 AM EST CALU:05/04/2024 NOV:08/10/2024 [facility] [id number] Miscellaneous Notes* Telephone Encounter - Adilia Butcher MA - 07/14/2024 11:31 AM EST CLAU:05/04/2024 NOV:08/10/2024 documented in this encounterJefferson Memorial [id number] Telephone encounter Note* Telephone Encounter - Adilia Butcher MA - 06/14/2024 7:51 AM EST CLAU:05/04/2024 NOV:08/10/2024 [facility] [id number] Miscellaneous Notes* Telephone Encounter - Adilia Butcher MA - 06/14/2024 7:51 AM EST CLAU:05/04/2024 NOV:08/10/2024 documented in this [facility]10-01-2024 History of Present illness Narrative* Kelly Robb NP - 05/04/2024 4:31 PM EDTAssociated Problem(s): Other hyperlipidemia (CMS/HCC) Currently taking Atorvastatin 80mg Most recent Lipid Panel done 02/2024- WNL Denies any myalgias. Continue current regimen. * Kelly Robb NP - 05/04/2024 4:31 PM EDTAssociated Problem(s): Type 2 diabetes mellitus without complication, with long-term current use ofinsulin (CMS/HCC) Most recent labs: hemoglobin A1C 6.6% [...] Eye Exam: never done- Referral sent today * Kelly Robb NP - 05/04/2024 9:00 AM EDT Images from the original note were not [...] ALBUMIN GLOBULIN RATIO 1.1 1.0 Resulting Agency [facility] Review of Systems Constitutional: Negative for [...] Neurological: Negative for dizziness, tremors, syncope, weakness, light- headedness and headaches. Psychiatric/Behavioral: Negative for decreased concentration and suicidal ideas. The patient is notnervous/anxious. Hematological: Does not bruise/bleed easily. Endocrine: Negative [...] List Items Addressed This Visit Other hyperlipidemia ([facility]) Currently taking Atorvastatin 80mg Most recent Lipid Panel done 02/2024- WNL Denies any myalgias. Continue current regimen. Type 2 diabetes mellitus without complication, with long-term current use of insulin ([facility]) - Primary Most recent labs: hemoglobin A1C [...] Ambulatory referral to Dermatology documented in this encounterJefferson Memorial [id number] Instructions* Patient Instructions* Kelly Robb NP - 05/04/2024 9:00 AM EDT Repeat labs in 3 months Education: Check blood sugars daily, notify if <70 or >200. Take medications (pills or insulin) as directed. Monitor for s/s of hypoglycemia (sweaty, dizziness, nausea, vomiting, or shakiness). Watch for increase in thirst, urination, or appetite. Inspect feet frequently monitoring for open wounds , andalso recommend yearly eye exam. Pt should attempt to remain as physically active as chronic conditions allow, as well as trying to follow a diet low in carbohydrates, and simple sugars. Referral sent to Dermatology- they will call you! documented in this encounterJefferson Memorial [id number] NoteCONSULTATION CONSULTATION DATE: 11/05/2022 TO: Dr. Bo CHIEF COMPLAINT: Includes bilateral lower back pain, worse on the right side. HISTORY OF PRESENT ILLNESS: Review of systems, past medical/surgical history were obtained and documented on the health questionnaire and is available upon request. Patient is a poor historian. He reports being followed by a physician some place in [place]. He is unsure of the physician's name, [...] will await information regarding his physician in [place] and he is scheduled to return to our office in four weeks' time. As part of providing excellent, safe, comprehensive care, the following was completed at our patient's visit: 1. A medication reconciliation and review to ensure accurate knowledge of current/active medications, including asking our patients to inform us about any [id number] medications or herbal remedies/nutritional supplements/alternative remedies. 2. [...] and treatment options with their primary care provider.[facility] Diagnosis Type 2 diabetes mellitus without complication, with long-term current use of insulin (CMS/HCC)- Primary Other hyperlipidemia (CMS/HCC) Pigmented skin lesion of uncertain behavior of head documented in this encounter [facility] HealthcareEvaluation note* Diagnosis Encounter for screening [...] with right-sided sciatica documented in this encounter [facility]Evaluation note* Diagnosis Encounter for screening [...] of insulin (CMS/HCC) documented in this encounter [facility]* Diagnosis Encounter for screening [...] of insulin (CMS/HCC) documented in this encounter [facility]Evaluation note* Diagnosis Encounter for screening [...] with right-sided sciatica documented in this encounter [facility]Evaluation note* Diagnosis Chronic right-sided low back pain with right-sided sciatica documented in this encounter [facility]Evaluation note* Diagnosis Encounter for screening [...] of insulin (CMS/HCC) documented in this encounter [facility]Evaluation note* Diagnosis Encounter for screening [...] of insulin (CMS/HCC) documented in this encounter [facility] HealthcareEvaluation note* Diagnosis Encounter for screening [...] with right-sided sciatica documented in this encounter [facility] HealthcareEvaluation note* Diagnosis Encounter for screening [...] right-sided low back pain with right-sided sciatica Hypercalcemia- Primary Hyperparathyroidism (CMS/HCC) Hyperparathyroidism, unspecified documented in this encounter [facility] HealthcareEvaluation note* Diagnosis Encounter for screening [...] right-sided low back pain with right-sided sciatica Encounter for Medicare annual wellness exam- Primary Type 2 diabetes mellitus without complication, with long-term current use of insulin Hyperparathyroidism (CMS/HCC) Hyperparathyroidism, unspecified Hypercalcemia Hypercalcemia Hyperparathyroidism (CMS/HCC) Hyperparathyroidism, unspecified documented in this encounter [facility] HealthcareEvaluation note* Diagnosis Encounter for screening for malignant neoplasm of colon- Primary Primary hypertension Unspecified essential hypertension Chronic right-sided low back pain with right-sided sciatica Other hyperlipidemia Type 2 diabetes mellitus without complication, without long-term current use of insulin (HCC) Type 2 diabetes mellitus without complication, without long-term current use of insulin (HCC)- Primary Other hyperlipidemia Chronic right-sided low back pain with right-sided sciatica Type 2 diabetes mellitus without complication, with long-term current use of insulin (HCC)- Primary Other hyperlipidemia Type 2 diabetes mellitus without complication, without long-term current use of insulin (HCC) Gastroesophageal reflux disease without esophagitis Esophageal reflux Type 2 diabetes mellitus without complication, with long-term current use of insulin (HCC)- Primary Other hyperlipidemia Pigmented skin lesion of uncertain behavior of head Type 2 diabetes mellitus without complication, with long-term current use of insulin (HCC)- Primary Chronic pain syndrome Drug-induced constipation Other constipation Type 2 diabetes mellitus without complication, without long-term current use of insulin (HCC) Need for immunization against influenza Need for prophylactic vaccination and inoculation against influenza Type 2 diabetes mellitus without complication, with long-term current use of insulin (HCC)- Primary Chronic pain syndrome Constipation, unspecified constipation type Mixed hyperlipidemia Mixed hyperlipidemia Screening for prostate cancer Special screening for malignant neoplasm of prostate Hypercalcemia Anemia associated with nutritional deficiency Unspecified deficiency anemia Other hyperlipidemia Type 2 diabetes mellitus without complication, without long-term current use of insulin (HCC) Gastroesophageal reflux disease without esophagitis Esophageal reflux Chronic right-sided low back pain with right-sided sciatica Encounter for Medicare annual wellness exam- Primary Type 2 diabetes mellitus without complication, with long-term current use of insulin (HCC) Hyperparathyroidism (HCC) Hyperparathyroidism, unspecified Hypercalcemia Primary hyperparathyroidism (HCC)- Primary Primary hyperparathyroidism documented in this encounter [facility] HealthcareEvaluation noteNo assessment information availableDoctors Hospital Work Phone: Evaluation note* Diagnosis Onset Date Resolution Status Admit Date Diabetes mellitus, type 2 acute March 03, 2025 9:11am Hyperlipidemia acute March 03, 2025 9:11am [facility] Work Phone: Evaluation note* Diagnosis Encounter for screening for malignant neoplasm of colon- Primary Primary hypertension Unspecified essential hypertension Chronic right-sided low back pain with right-sided sciatica Other hyperlipidemia Type 2 diabetes mellitus without complication, without long-term current use of insulin (HCC) Type 2 diabetes mellitus without complication, without long-term current use of insulin (HCC)- Primary Other hyperlipidemia Chronic right-sided low back pain with right-sided sciatica Type 2 diabetes mellitus without complication, with long-term current use of insulin (HCC)- Primary Other hyperlipidemia Type 2 diabetes mellitus without complication, without long-term current use of insulin (HCC) Gastroesophageal reflux disease without esophagitis Esophageal reflux Type 2 diabetes mellitus without complication, with long-term current use of insulin (HCC)- Primary Other hyperlipidemia Pigmented skin lesion of uncertain behavior of head Type 2 diabetes mellitus without complication, with long-term current use of insulin (HCC)- Primary Chronic pain syndrome Drug-induced constipation Other constipation Type 2 diabetes mellitus without complication, without long-term current use of insulin (HCC) Need for immunization against influenza Need for prophylactic vaccination and inoculation against influenza Type 2 diabetes mellitus without complication, with long-term current use of insulin (HCC)- Primary Chronic pain syndrome Constipation, unspecified constipation type Mixed hyperlipidemia Mixed hyperlipidemia Screening for prostate cancer Special screening for malignant neoplasm of prostate Hypercalcemia Anemia associated with nutritional deficiency Unspecified deficiency anemia Other hyperlipidemia Type 2 diabetes mellitus without complication, without long-term current use of insulin (HCC) Gastroesophageal reflux disease without esophagitis Esophageal reflux Chronic right-sided low back pain with right-sided sciatica Encounter for Medicare annual wellness exam- Primary Type 2 diabetes mellitus without complication, with long-term current use of insulin (HCC) Hyperparathyroidism (HCC) Hyperparathyroidism, unspecified Hypercalcemia Type 2 diabetes mellitus without complication, with long-term current use of insulin (HCC)- Primary Hyperparathyroidism (HCC) Hyperparathyroidism, unspecified Mixed hyperlipidemia Mixed hyperlipidemia Other hyperlipidemia Gastroesophageal reflux disease without esophagitis Esophageal reflux Type 2 diabetes mellitus without complication, without long-term current use of insulin (HCC) OAB (overactive bladder) documented in this encounter [facility] (narrative)* Consultation (Routine) - Pending Review Specialty Diagnoses / Procedures Referred By Contac t Referred To Contact Dermatology Diagnoses Pigmented skin lesion of uncertain behavior of head Procedures MA OFFICE/OUTPATIENT NEW HIGH MDM 60 MINUTES Kelly Robb NP [address] [place] [address] Opal Zhong APRN-SENIOR ENGINEER [address] [address] Referral ID Status Reason Start Date Expiration Date Visits Requested Visits Authorized [id number] Pending Review Specialty Services Required 05/04/2024 10/31/2024 1 1 * Consultation (Routine) - Authorized Specialty Diagnoses / Procedures Referred By Contac t Referred To Contact Ophthalmology Diagnoses Type 2 diabetes mellitus without complication, with long-term current use of insulin ([facility]) Procedures [place] OFFICE/OUTPATIENT NEW HIGH [facility] 60 MINUTES Kelly Robb NP [address] [place] [address] Maggie Shukla MD [address] [place] [id number] Referral ID Status Reason Start Date Expiration Date Visits Requested Visits Authorized [id number] Authorized Specialty Services Required 05/04/2024 10/31/2024 1 1 [facility] HealthcareReason for referral (narrative)No reason for referral information availableWayne Hospital Ctr Work Phone: Summary Purpose Family History No Family History Records Found Relationship Condition Age at Onset Recorded Date/T jes mother Unknown Diabetes mellitus Unknown father Unknown Malignant neoplasm of throat Unknown brother Unknown Advance Directives No Advanced Directives Records Found Advance Directive Response Recorded Date/ Time Advance Directives No January 10 10:56am Chief Complaint and Reason for Visit Chief Complaint Admit Date E83.52 E21.3 January 14, 2025 8:48 am hyperparathyroidism January 31, 2025 12:5 9pm Chief Complaint Admit Date E83.52 E21.3 January 14, 2025 8:48 am hyperparathyroidism January 31, 2025 12:5 9pm Surgical clearance March 03, 2025 9:11 am Reason for Visit Admit Date Diabetes mellitus, type 2 March 03 9:11am Hyperlipidemia March 03, 2025 9:11 am Chief Complaint Admit Date E83.52 E21.3 January 14, 2025 8:48 am hyperparathyroidism January 31, 2025 12:5 9pm Surgical clearance March 03, 2025 9:11 am E78.5 March 03, 2025 9:14 am Reason for Visit Admit Date Chest pain March 03, 2025 9:11 am Diabetes mellitus, type 2 March 03 9:11am Hyperlipidemia March 03, 2025 9:11 am Chief Complaint Admit Date hyperparathyroidism January 31, 2025 12:5 9pm hyperparathyroidism February 14, 2025 8:00 am Surgical clearance March 03, 2025 9:11 am E78.5 March 03, 2025 9:14 am Additional Source Comments (unrecognized sect ion and content) No Status Records FoundNo Status Records FoundNo Status Records Found INFORMATION SOURCE (unrecogn ized section and content) DATE CREATED AUTHOR 12/13/2022 [facility] DATE CREATED AUTHOR AUTHOR'S ORGANIZ ATION 03/29/2025 [facility] EPIC DATE CREATED AUTHOR AUTHOR'S ORGANIZ ATION 04/17/2025 [facility] Care Teams (unrecognized sec tion and content) Rib Trim Separator Relationship Specialty Start Date End Date Shaikh oB MD [address] [place] [address] PCP - Devoted 08/04/22 Buddy Harvey MD [address] [place] [address] PCP - General Family Medicine 03/16/24 Kelly Robb NP [address] [place] [address] Nurse Practitioner Family Medicine 03/16/24 Rib Trim Separator Relationship Specialty Start Date End Date Shaikh Bo MD [address] [place] [address] PCP - Devoted 08/04/22 Buddy Harvey MD [address] [place] [address] PCP - General Family Medicine 03/16/24 Kelly Robb NP [address] [place] [address] Nurse Practitioner Family Medicine 03/16/24 Rib Trim Separator Relationship Specialty Start Date End Date Shaikh Bo MD [address] [place] [address] PCP - Devoted 08/04/22 Buddy Harvey MD [address] [place] [address] PCP - General Family Medicine 03/16/24 Kelly Robb, BASILIO [address] [place] [address] Nurse Practitioner Family Medicine 03/16/24 Rib Trim Separator Relationship Specialty Start Date End Date Shaikh Bo MD [address] [place] [address] PCP - Devoted 08/04/22 08/03/24 Buddy Harvey MD [address] [place] [address] PCP - General Family Medicine 03/16/24 Kelly Robb, BASILIO [address] [place] [address] Nurse Practitioner Family Medicine 03/16/24 Rib Trim Separator Relationship Specialty Start Date End Date Shaikh Bo MD [address] [place] [address] PCP - Devoted 08/04/22 08/03/24 Buddy Harvey MD [address] [place] [address] PCP - General Family Medicine 03/16/24 Kelly Robb NP [address] [place] [address] Nurse Practitioner Family Medicine 03/16/24 Rib Trim Separator Relationship Specialty Start Date End Date Shaikh Bo MD [address] [place] [address] PCP - Devoted 08/04/22 Buddy Harvey MD [address] [place] [address] PCP - General Family Medicine 03/16/24 Kelly Robb NP [address] [place] [address] Nurse Practitioner Family Medicine 03/16/24 Rib Trim Separator Relationship Specialty Start Date End Date Shaikh Bo MD [address] [place] [address] PCP - Devoted 08/04/22 08/03/24 Buddy Harvey MD [address] [place] [address] PCP - General Family Medicine 03/16/24 Kelly Robb NP [address] [place] [address] Nurse Practitioner Family Medicine 03/16/24 Rib Trim Separator Relationship Specialty Start Date End Date Buddy Harvey MD [address] [place] [address] PCP - General Family Medicine 03/16/24 Kelly Robb NP [address] [place] [address] Nurse Practitioner Family Medicine 03/16/24 Rib Trim Separator Relationship Specialty Start Date End Date Buddy Harvey MD [address] [place] [address] PCP - General Family Medicine 03/16/24 Kelly Robb NP [address] [place] [address] Nurse Practitioner Family Medicine 03/16/24 Rib Trim Separator Relationship Specialty Start Date End Date Buddy Harvey MD [address] [place] [address] PCP - General Family Medicine 03/16/24 Kelly Robb NP [address] [place] [address] Nurse Practitioner Family Medicine 03/16/24 Rib Trim Separator Relationship Specialty Start Date End Date Buddy Harvey MD [address] [place] [address] PCP - General Family Medicine 03/16/24 Kelly Robb NP [address] [place] [address] Nurse Practitioner Family Medicine 03/16/24 Rib Trim Separator Relationship Specialty Start Date End Date Buddy Harvey MD [address] [place] [address] PCP - General Family Medicine 03/16/24 Kelly Robb NP [address] [place] [address] Nurse Practitioner Family Medicine 03/16/24 Rib Trim Separator Relationship Specialty Start Date End Date Buddy Harvey MD [address] [place] [address] PCP - General Family Medicine 03/16/24 Kelly Robb NP [address] [place] [address] Nurse Practitioner Family Medicine 03/16/24 Rib Trim Separator Relationship Specialty Start Date End Date Buddy Harvey MD [address] [place] [address] PCP - General Family Medicine 03/16/24 eKlly Robb NP [address] [place] [address] Nurse Practitioner Family Medicine 03/16/24 Rib Trim Separator Relationship Specialty Start Date End Date Buddy Harvey MD [address] [place] [address] PCP - General Family Medicine 03/16/24 Kelly Robb NP [address] [place] [address] Nurse Practitioner Family Medicine 03/16/24 Rib Trim Separator Relationship Specialty Start Date End Date Buddy Harvey MD [address] [place] [address] PCP - General Family Medicine 03/16/24 Kelly Robb, BASILIO [address] [place] [address] Nurse Practitioner Family Medicine 03/16/24 Rib Trim Separator Relationship Specialty Start Date End Date Buddy Harvey MD [address] [place] [address] PCP - General Family Medicine 03/16/24 Kelly Robb, BASILIO [address] [place] [address] Nurse Practitioner Family Medicine 03/16/24 Rib Trim Separator Relationship Specialty Start Date End Date Buddy Harvey MD [address] [place] [address] PCP - General Family Medicine 03/16/24 Kelly Robb, BASILIO [address] [place] [address] Nurse Practitioner Family Medicine 03/16/24 Do Solis NP [address] [place] [address] Nurse Practitioner Family Medicine 01/19/25 Isidro Shipman DO [address] [place] [address] Otolaryngology 01/19/25 Rib Trim Separator Relationship Specialty Start Date End Date Buddy Harvey MD [address] [place] [address] PCP - General Family Medicine 03/16/24 Kelly Robb NP [address] [place] [address] Nurse Practitioner Family Medicine 03/16/24 Do Solis NP [address] [place] [address] Nurse Practitioner Family Medicine 01/19/25 Isidro Shipman DO [address] [place] [address] Otolaryngology 01/19/25 Rib Trim Separator Relationship Specialty Start Date End Date Buddy Harvey MD [address] [place] [address] PCP - General Family Medicine 03/16/24 Kelly Robb NP [address] [place] [address] Nurse Practitioner Family Medicine 03/16/24 oD Solis NP [address] [place] [address] Nurse Practitioner Family Medicine 01/19/25 Isidro Shipman DO [address] [place] [address] Otolaryngology 01/19/25 Team Status: Active Member Role Status Dates Do Solsi Primary Care Provider Active Team Status: Inactive Member Role Status Dates Isidro Shipman DO Attending Provider Active S tart: January 14, 2025 End: January 14, 2025 Doaltagracia Solis Primary Care Provider Active Sta rt: January 14, 2025 End: January 14, 2025 Team Status: Inactive Member Role Status Dates Do Solis Primary Care Provider Active Sta rt: January 31, 2025 End: January 31, 2025 Isidro Sihpman DO Attending Provider Active S tart: January 31, 2025 End: January 31, 2025 Team Status: Inactive Member Role Status Dates Do Solis Primary Care Provider Active Sta rt: March 03, 2025 End: March 03, 2025 Cheyanne Juarez MD Attending Provider Active Sta rt: March 03, 2025 End: March 03, 2025 Isidro Shipman DO Referring Provider Active S tart: March 03, 2025 End: March 03, 2025 Team Status: Active Member Role Status Dates Do Solis Primary Care Provider Active Sta rt: March 03, 2025 Cheyanne Juarez MD Attending Provider Active Sta rt: March 03, 2025 Team Status: Inactive Member Role Status Dates Do Solis Primary Care Provider Active Sta rt: March 03, 2025 End: March 03, 2025 Cheyanne Juarez MD Attending Provider Active Sta rt: March 03, 2025 End: March 03, 2025 Rib Trim Separator Relationship Specialty Start Date End Date Buddy Harvey MD [address] [place] [address] PCP - General Family Medicine 03/16/24 Kelly Robb NP [address] [place] [address] Nurse Practitioner Family Medicine 03/16/24 Do Solis NP [address] [place] [address] Nurse Practitioner Family Medicine 01/19/25 Isidro Shipman DO [address] [place] [address] Otolaryngology 01/19/25 Team Status: Active Member Role Status Dates Michelle Palma DO Primary Care Provider Active Team Status: Inactive Member Role Status Dates Do Solis NP-Justine Primary Care Provider Active Start: January 31, 2025 End: January 31, 2025 Isidro Shipman DO Attending Provider Active S tart: January 31, 2025 End: January 31, 2025 Team Status: Inactive Member Role Status Dates Isidro Shipman DO Attending Provider Active S tart: February 14, 2025 End: February 14, 2025 Michelle Palma DO Primary Care Provider Active S tart: February 14, 2025 End: February 14, 2025 Team Status: Inactive Member Role Status Dates Do Solis NP-C Primary Care Provider Active Start: March 03, 2025 End: March 03, 2025 Cheyanne Juarez MD Attending Provider Active Sta rt: March 03, 2025 End: March 03, 2025 Isidro Shipman DO Referring Provider Active S tart: March 03, 2025 End: March 03, 2025 Team Status: Inactive Member Role Status Dates Do Solis NP-C Primary Care Provider Active Start: March 03, 2025 End: March 03, 2025 Cheyanne Juarez MD Attending Provider Active Sta rt: March 03, 2025 End: March 03, 2025 Reason for Visit (unrecogniz ed section and content) Reason Comments Follow-up Back Pain Reason Onset Date Comments Med Refill 05/24/2024 Reason Onset Date Comments Med Refill 06/14/2024 Reason Comments Med Change Request Reason Onset Date Comments Med Refill 07/14/2024 Reason Onset Date Comments Med Refill 04/09/2024 Reason Onset Date Comments Med Refill 08/06/2024 Reason Comments Diabetes Reason Comments Hypercalcemia New Patient : Increa sed PTH / Calcium Specialty Diagnoses / Procedures Referred By Stuart t Referred To Contact Otolaryngology Diagnoses Hypercalcemia Hyperparathyroidism ([facility]) Procedures MA OFFICE/OUTPATIENT NEW HIGH MDM 60 MINUTES Do Solis, BASILIO [address] [place] [address] Phone: tel: fax: Isidro Shipman W, DO [address] [place] [address] Phone: tel: fax: Referral ID Status Reason Start Date Expiration Date V isits Requested Visits Authorized [id number] Closed Specialty Services Required 12/15/2024 06/13/2025 1 [address] Reason [address] results Goals (unrecognized section and content) Goals may be documented in a n alternate sectionGoals may be documented in an alternate sectionGoals may be documented in an alternate sectionGoals may be documented in an alternate section FOR RECORDS PERTAINING TO PATIENTS WHO ARE [...] BE BASED ON THE PRIMARY CLINICAL RECORDS. [employer] provides no warranty or guarantee of the accuracy or completeness of information in this document.
== END 2025-05-12 09:53 | disposition home or self-care (01) ==
LOC: PM 09:52
PROVIDERS: PCP Nurse Practitioner; Visit Provider Nurse Practitioner
DX: M47.816 Spondylosis without myelopathy or radiculopathy, lumbar region (principal); M62.838 Other muscle spasm; Z79.891 Long term (current) use of opiate analgesic
CPT/HCPCS: G0463

== ENCOUNTER 2025-06-15 10:59 | Outpatient (OUT) | payer MEDICARE, MEDICAID, SELFPAY ==
--- OUTSIDE RECORDS SUMMARY | 2025-06-15 11:04 | XMS_ITS | Clinical Summary ---
Author Organization [facility] Address [address] [place] [address] Care Team Providers Care Drip Molder Name Role Phone Buddy Harvey MD Primary Care Provider [phone] Nicole Robb ASSISTANT FINANCE MANAGER Unavailable Do Solis ASSISTANT FINANCE MANAGER Unavailable [phone] Isidro Shipman DO Unavailable [phone] Do Solis ASSISTANT FINANCE MANAGER Unavailable [phone] Allergies Active AllergyReactionsCriticalityNoted JpooIbbvmvahOqggwoobjfgHufyOek56/20/2023 Medications MedicationSigDispense QuantityRefillsLast FilledStart DateEnd DateStatus oxyCODONE-acetaminophen (Percocet) 5-325 MG tablet Take 1 tablet by mouth every 8 (eight) hours if needed for severe painActive baclofen (Lioresal) 10 MG tablet Take 10 mg by mouth in the morning and 10 mg in the evening and 10 mg before bedtime.5Active aspirin (ASPIR) 81 MG EC tablet Indications:Type 2 diabetes mellitus without complication, with long-term current use of insulin (HCC)Take 1 tablet (81 mg) by mouth Daily 90 tablet 5Active atorvastatin (Lipitor) 80 MG tablet Indications:Other hyperlipidemiaTake 1 tablet (80 mg) by mouth at bedtime 90 tablet 5Active Dulaglutide (Trulicity) 4.5 MG/0.5ML solution auto-injector Indications:Type 2 diabetes mellitus without complication, with long-term current use of insulin (HCC)Inject 4.5 mg under the skin 1 (one) time per week 6 mL 5Active esomeprazole (NexIUM) [address] capsule Indications:Gastroesophageal reflux disease without esophagitisTake 1 capsule (20 mg) by mouth in the morning. Take before meals. 90 capsule 5Active ezetimibe (Zetia) 10 MG tablet Indications:Other hyperlipidemiaTake 1 tablet (10 mg) by mouth Daily 90 tablet 506Active insulin degludec (Tresiba FlexTouch) 200 UNIT/ML injection Indications:Type 2 diabetes mellitus without complication, without long-term current use of insulin (HCC)Inject 36 Units under the skin at bedtime 18 mL 5Active insulin pen needle (B-D UF III MINI PEN NEEDLES) 31G x 5 mm misc Indications:Type 2 diabetes mellitus without complication, with long-term current use of insulin (HCC)Once a day injection. Use as instructed 100 each 5Active Active Problems ProblemNoted DateDiagnosed DateOAB (overactive bladder)03/28/2025 Assessment & Plan (03/28/2025 9:43 AM EDT): Cut back on caffeine Will trial oxybutynin 5mg ER once a day Advised of urine retention, dizziness, dry mouth Szofpnltlonkqslihkf28/14/2025 Assessment & Plan (03/28/2025 9:59 AM EDT): Noted on labs, was referred to ENT for evaluation Was scheduled to have surgery, it was cancelled, he reports has not heard anything about it being rescheduled I did contact ENT office at 09:55 am to see about this Spoke Binta, she stated the Nurse just printed the info on cardiac clearance and will be calling him Assessment & Plan (12/23/2024 6:34 AM EDT): Elevated calcium level 10.7 , checked PTH 76 this was on 12/14/24 Referred to ENT Mixed hsfbppdyogqhna22/08/2025 Assessment & Plan (03/28/2025 6:27 AM EDT): On statin, and zetia Check labs yearly and prn dose changes Assessment & Plan (11/09/2024 6:35 AM EDT): On statin, and zetia Check labs yearly and prn dose changes Screening for prostate scupdm0211/09/2024 Overview (12/15/2024): 12/14/24 psa 0.60 Qorktwzqvrfvg90/08/2025 Assessment & Plan (12/23/2024 6:36 AM EDT): Persistent elevation, and also now elevated PTH Referred to ENT Assessment & Plan (11/09/2024 6:38 AM EDT): Check vit d and PTH Anemia associated with nutritional /08/2025 Assessment & Plan (11/09/2024 6:39 AM EDT): Check labs Ncxsnjdfefby36/07/2025 Assessment & Plan (11/09/2024 10:59 AM EDT): [...] prescribed Miralax to be used PRN. Lumbosacral ucnwjxvhbzbmz91/21/2024hronic pain nybhajzk19/21/2024 Assessment & Plan (11/09/2024 10:43 AM EDT): Does see pain mgmt for this Low back Takes pain meds, nsaids, MR Assessment & Plan (08/10/2024 9:18 AM EST): Follows with Pain Management- [facility]. Pt currently taking oxycodone 5-325mg. Feels symptoms are well controlled on current regimen. Continue current regimen as directed by PM. Encounter for screening for malignant neoplasm of colon07/23/2023 Assessment & Plan (07/23/2023 3:11 PM EST): Had Colonoscopy 3 years ago that was suboptimal due to poor prep He is interested in getting Cologuard - ordered for him Chronic right-sided low back pain with right-sided xylwukdu22/20/2023 Assessment & Plan (10/23/2023 10:23 AM EDT): [...] dose previously prescribed. He has a follow upappointment in Aug. He is also on Ibuprofen and gabapentin. He was asked to discuss and bring this issue to his Pain Provider. Patient educated on risks associated with daily NSAIDS use and to limit use of motrin Encounter for Medicare annual wellness exam07/23/2023 Assessment & Plan (12/23/2024 6:33 AM EDT): [...] for the patient. Type 2 diabetes mellitus without complication, with long-term current use of hxmiszy8507/23/2023 Assessment & Plan (03/28/2025 9:45 AM EDT): Check blood sugars daily, notify if <70 or >200. Take medications (pills or insulin) as directed. Monitor for s/s of hypoglycemia (sweaty, dizziness, nausea, vomiting, or shakiness). Watch forincrease in thirst, urination, or appetite. Inspect feet frequently monitoring for open wounds , and also recommend yearly eye exam. Pt should attempt to remain as physically active as chronic conditions allow, as well as trying to follow a diet low in carbohydrates, and simple sugars. Current meds: trulicity, and tresiba, zetia, statin A1c 6.5% 03/28/25, 6.7% 12/14/24 Assessment & Plan (12/23/2024 6:33 AM EDT): [...] appt for Diabetic Eye Exam Lumbar post-laminectomy crzuppnl88/02/2015Lumbosacral spondylosis without /18/2013 Resolved Problems ProblemNoted DateDiagnosed DateResolved DateOther hkyoerocihrnkx69/20/2023 11/09/2024 Assessment & Plan (08/10/2024 9:16 AM EST): [...] Lipitor and Zetia Check Lipid panel Primary arnvrmkkueqh58 Assessment & Plan (07/23/2023 3:07 PM EST): BP well controlled. On average less than 130/90. Tolerating Anti hypertensive w/o adverse effects. Denies lightheadedness, dizziness, syncope, presyncope. Patient encouraged to continue with home BP monitoring and call office if he experiences orthostatic symptoms or persistently elevated BP. Being monitored without Essential fafvdjmpumwm80 Encounters DateTypeDepartmentCare IhewZfhktvdqybe29/25/2025 9:20 AM EDTOffice Visit [facility] [address] [place] [address] Do Solis NP Type 2 diabetes mellitus without complication, with long-term current use of insulin (HCC) (PrimaryDx); Hyperparathyroidism (HCC); Mixed hyperlipidemia ; Other hyperlipidemia ; Gastroesophageal reflux disease without esophagitis; Type 2 diabetes mellitus without complication, without long-term current use of insulin (HCC); OAB (overactive bladder)03/28/2025amboo flowsheet [facility] [address] [place] [address] Do Solis NP from Last 3 Months Immunizations ImmunizationAdministration DatesNext DueInfluenza, seasonal, injectable 08/10/2024 Family History Medical HistoryRelationNameCommentsCancerFatherDiabetesMotherRelationNameStatus CommentsFatherDeceasedMotherDeceased Social History Tobacco UseTypesPacks/DayYears UsedDateSmoking Tobacco: NeverPassive Smoke Exposure: NeverSmokeless Tobacco: Never Tobacco Cessation:Counseling Given: Not Answered Alcohol UseStandard Drinks/WeekCommentsNot Currently0 (1 standard drink = 0.6 oz pure alcohol)OCCASSIONALLYPHQ-2AnswerDate RecordedPatient Health Questionnaire-2 Uljja341Sex and Gender InformationValueDate RecordedSex Assigned at BirthNot on fileLegal NytYgsr0012/12/2022 8:35 AM EDTGender IdentityNot on file Sexual OrientationNot on file Last Filed Vital Signs Vital SignReadingTime TakenCommentsBlood Vyszrqec411/7008 9:15 AM EDT Zwutz869803/28/2025 9:15 AM JTNGtmkzwkywlr50.6 ??C (97.8 ??F)03/28/2025 9:15 AM EDTRespiratory Onjn481703/28/2025 9:15 AM EDTOxygen Zwoybnaimq22%03/28/2025 9:15 AM EDTInhaled Oxygen Concentration--Veiorg00.9 kg (176 lb 3.2 oz)03/28/2025 9:15 AM YTXDzmadn583.7 cm (5' 8 )01/19/2025 2:16 PM EDTBody Mass Index26.7901/19/2025 2:16 PM EDT Plan of Treatment Health MaintenanceDue DateLast DoneCommentsCT Byaxeppqaxzi1965FIT 1965FOBT1965 9331Miahcsykragdd1965Diabetes: Retinopathy Screening 1975Pneumococcal Vaccine: Pediatrics (0 to 5 Years) and At-Risk Patients (6 to 64 Years) (1 of 2 - PCV)01/05/1984COVID-19 Vaccine ( - ) 04/04/2025Influenza Vaccine (#1)Diabetes: Hemoglobin A1C , 12/14/2024, 02/23/2024, Additional history existsDiabetes: Urine Protein Wfttdczlr18/, 08/14/2023Medicare Annual Wellness (AWV), 07/23/2023, 07/23/2023FIT-DNA Loyuegcrbiq31/01/203301/olorectal Cancer Spqgyfjfx82/01/2033 Procedures Procedure NamePriorityDate/TimeAssociated DiagnosisCommentsPOCT GLYCOSYLATED HEMOGLOBIN (HGB A1C)Gdranhh5903/28/2025 9:36 AM EDT Type 2 diabetes mellitus without complication, with long-term current use of insulin (HCC) LAB COLOGUARD?? COLON CANCER BYDNFDHrbjpne54/22/2024 7:32 PM ESTfrom Last 3 Months or Most Recently Relevant to Health Maintenance Results * (ABNORMAL) POCT glycosylated hemoglobin (Hb A1C) docked device (03/28/2025 9:36 AM EDT)ComponentValueRef RangeTest MethodAnalysis TimePerformed At Pathologist SignatureHemoglobin A1C6.5Specimen (Source)Anatomical Location / LateralityCollection Method / VolumeCollection TimeReceived TimeBloodVenous blood specimen / Mtdfhsg4403/28/2025 9:36 AM EDT Narrative Authorizing ProviderResult TypeResult Romain Solis NPPOINT OF CARE TEST ENTER/EDIT ORDERABLESFinal Result * Cologuard?? colon cancer screening (08/25/2023 7:32 PM EST)Specimen (Source) Anatomical Location / LateralityCollection Method / VolumeCollection Time Received TimeStool Narrative Authorizing ProviderResult TypeResult StatusShaikh Anupam EPPS MOLECULAR DIAGNOSTICS ORDERABLESFinal Result from Last 3 Months or Most Recently Relevant to Health Maintenance Insurance Care Teams Team MemberRelationshipSpecialtyStart DateEnd Date Buddy Harvey MD PCP - GeneralFamily Medicine03/16/24 Do Solis NP [address] [place] [address] PCP - Surjit FERMIN03/04/25 Nicole Robb NP Nurse PractitionerFamily Medicine03/16/24 Do Solis NP Nurse PractitionerFamily Medicine01/19/25 Isidro Shipman, [address] [place] [address] Otolaryngology01/19/25
--- OUTSIDE RECORDS SUMMARY | 2025-06-15 11:23 | XMS_ITS | CCD ---
Author Organization [facility] CliniSyok Care Team Providers Care Oiling Machine Operator Name Role Phone LAKSHMIPATHY ., [...] vailable LAKSHMIPATHY ., NARENDRANATH Consulting Savita vailable Stu Bo MDikh Unavailable Candice BAIN, Buddy Primary Care Provider Cezar MAT MACHINE OPERATOR, Kelly Unavailable Anupam BAIN, Whatley Unavailable Cezar MAT MACHINE OPERATOR, Kelly Unavailable Will MAT MACHINE OPERATOR, Do Unavailable Isidro Shipman DO W Unavailable Ramonita PARRA, Isidro Attending Provider Do Solis Primary Care Provider Ann BAIN, Cheyanne Attending Provider [phone] Isidro Shipman DO Referring Provider DO SOLIS Attending Unavailable DO SOLIS Attending Unavailable KELLY ROBB Attending Unavailabl e ISIDRO SHIPMAN Attending Unavailable AICHHOLDO Rush Referring Unavailable MURCEKISIDRO W Attending Unavailable AICHHOLZDO Referring Unavailable AICHDO PETERS Attending Unavailable KELLY ROBB Attending Unavailabl e Remihholz MAT MACHINE OPERATOR-C, Do Diez Primary Care Provider Isidro Shipman DO Attending Provider [phone] Michelle Palma DO Primary Care Provider [phone] Do Solis Primary Care Unavailable Isidro Shipman Admitting Unavailable Isidro Shipman Attending Unavailable Cheyanne Juarez Admitting Unavailable Cheyanne Juarez Attending Unavailable Do Solis Primary Care Unavailable Isidro Shipman Admitting Unavailable Isidro Shipman Attending Unavailable Do Solis Primary Care Unavailable Isidro Shipman Admitting Unavailable MurIsidro morales Attending Unavailable Minerva, Michelle Primary Care Unavailable Aichholz MAT MACHINE OPERATOR-CDo Primary Care Provider MinervaMichelle saleem DO Primary Care Provider Minerva DO, Michelle Attending Provider Allergies Allergy ClassificationReported Allergen(s)Allergy TypeDate of OnsetReaction(s) Facility (20 sources)PenicillinsPropensity to adverse tzveygpwp17-77-7552BqrbYGHX Healthcare (1 source)PenicillinsDrug allergy (disorder)64-91-8074DspcvfrzrBerger [facility] Repository Medications Current Medications MedicationDrug Class(es)DatesSig (Normalized)Sig (Original)acetaminophen 325 mg / oxyCODONE hydrochloride 5 mg oral tablet (20 sources)Opioid AgonistStart: 43-51-6957Kjcbojxzv-Acetaminophen 5-325 mg tablet Active 1 TAB PO 2-3 TIMES DAILY as needed for pain January 31, 2025 12:00am Complies with drug therapytake 1 tablet by mouth every eight hours as needed for painoxyCODONE-acetaminophen (Percocet) 5-325 MG tablet Take 1 tablet by mouth every 8 (eight) hours if needed for severe pain Activeaspirin 81 mg delayed release oral tablet (19 sources)Platelet Aggregation Inhibitor, Nonsteroidal Anti-inflammatory Drug Start: 12-23-2024 End: 46-65-0494rhel 1 tablet by mouth once daily at bedtimeAspirin 81 mg tablet,delayed release (DR/EC) Active 81 MG PO Daily at bedtime January 31, 2025 12:00am Complies with drug therapyatorvastatin 80 mg oral tablet (20 sources)HMG-CoA Reductase InhibitorStart: 01-26-2024 End: 31-21-1831gmte 1 tablet by mouth once daily at bedtimeAtorvastatin 80 mg tablet Active 80 MG PO Daily at bedtime January 31, 2025 12:00am Complies with drug therapybaclofen 10 mg oral tablet (19 sources)gamma-Aminobutyric Acid-ergic AgonistStart: 47-21-1322akad 1 tablet by mouth three times dailyBaclofen 10 mg tablet Active 10 MG PO Three times daily May 25, 2025 12:00am Complies with drug therapyStart: 34-40-0519iony 1 tablet by mouth in the morning, then take 1 tablet by mouth in the evening, then take 1 tablet by mouth at bedtimebaclofen (Lioresal) 10 MG tablet Take 10 mg by mouth in the morning and 10 mg in the evening and 10mg before bedtime. 08/12/2024 ActiveDulaglutide (9 sources)GLP-1 Receptor AgonistStart: 49-06-7175Icwbwcoyatq (Trulicity) 4.5 mg/0.5 mL pen injector Active 4.5 MG SUBCUT .qsunday January 31, 2025 12:00am Complies with drug therapyStart: 18-67-1936Qvrro: 01-26-2024 End: 82-12-9670aupinc 1.5 mg by subcutaneous injection every weekdulaglutide (Trulicity) 1.5 MG/0.5ML solution pen-injector Indications: Type 2 diabetes mellitus without complication, without long-term current use of insulin (CMS/HCC) Inject 1.5 mg under the skin 1 (one) time per week 12 pen 01/26/2024 05/04/2024 Discontinued (Therapy completed)Dulaglutide (Trulicity) 4.5 MG/0.5ML solution auto-injector (20 sources)Start: 03-28-2025 End: 08-59-2798zepoyw 4.5 mg by subcutaneous injection every weekDulaglutide (Trulicity) 4.5 MG/0.5ML solution auto-injector Indications: Type 2 diabetes mellitus without complication, with long-term current use of insulin (HCC) Inject 4.5 mg under the skin 1 (one) time per week 6 mL 03/28/2025 06/20/2025 ActiveStart: 11-09-2024 End: 18-32-9998ysgufv 4.5 mg by subcutaneous injection every weekDulaglutide (Trulicity) 4.5 MG/0.5ML solution auto-injector Indications: Type 2 diabetes mellitus without complication, with long-term current use of insulin (HCC) Inject 4.5 mg under the skin 1 (one) time per week 6 mL 1 11/09/2024 03/28/2025 Discontinued (Reorder)Start: 19-40-8141rlttfn 4.5 mg by subcutaneous injection every weekDulaglutide (Trulicity) 4.5 MG/0.5ML solution auto-injector Indications: Type 2 diabetes mellitus without complication, with long-term current use of insulin (HCC) Inject 4.5 mg under the skin 1 (one) time per week 6 mL 1 11/09/2024 ActiveStart: 11-09-2024 End: 68-84-3675sglqkx 4.5 mg by subcutaneous injection every weekDulaglutide (Trulicity) 4.5 MG/0.5ML solution auto-injector Indications: Type 2 diabetes mellitus without complication, with long-term current use of insulin (HCC) Inject 4.5 mg under the skin 1 (one) time per week 6 mL 1 11/09/2024 02/01/2025 ActiveStart: 11-09-2024 End: 01-38-8729eptqxq 4.5 mg by subcutaneous injection every weekDulaglutide (Trulicity) 4.5 MG/0.5ML solution auto-injector Indications: Type 2 diabetes mellitus without complication, without long-term current use of insulin Inject 4.5 mg under the skin 1 (one) time per week 6 mL 1 11/09/2024 11/09/2024 Discontinued (Reorder)Start: 11-09-2024 End: 88-99-8629taftly 4.5 mg by subcutaneous injection every weekDulaglutide (Trulicity) 4.5 MG/0.5ML solution auto-injector Indications: Type 2 diabetes mellitus without complication, with long-term current use of insulin Inject 4.5 mg under the skin 1 (one) timeper week 6 mL 1 11/09/2024 02/01/2025 ActiveStart: 08-10-2024 End: 82-99-9128xadfza 4.5 mg by subcutaneous injection every weekDulaglutide (Trulicity) 4.5 MG/0.5ML solution auto-injector Indications: Type 2 diabetes mellitus without complication, without long-term current use of insulin Inject 4.5 mg under the skin 1 (one) time per week 6 mL 1 08/10/2024 11/09/2024 Discontinued (Reorder)Start: 08-10-2024 End: 53-37-2621xrutyx 4.5 mg by subcutaneous injection every weekDulaglutide (Trulicity) 4.5 MG/0.5ML solution auto-injector Indications: Type 2 diabetes mellitus without complication, without long-term current use of insulin Inject 4.5 mg under the skin 1 (one) time per week 6 mL 1 08/10/2024 01/25/2025 Active Start: 08-10-2024 End: 98-01-5315czusnl 4.5 mg by subcutaneous injection every weekDulaglutide (Trulicity) 4.5 MG/0.5ML solution auto-injector Indications: Type 2 diabetes mellitus without complication, without long-term current use of insulin (CMS/HCC) Inject 4.5 mg under the skin1 (one) time per week 6 mL 1 08/10/2024 01/25/2025 ActiveStart: 08-09-2024 End: 33-78-8944rccrnb 4.5 mg by subcutaneous injection every weekDulaglutide (Trulicity) 4.5 MG/0.5ML solution auto-injector Indications: Type 2 diabetes mellitus without complication, without long-term current use of insulin (CMS/HCC) Inject 4.5 mg under the skin1 (one) time per week 6 mL 1 08/09/2024 08/10/2024 Discontinued (Reorder)Start: 08-09-2024 End: 47-19-9078cbvgpc 4.5 mg by subcutaneous injection every weekDulaglutide (Trulicity) 4.5 MG/0.5ML solution auto-injector Indications: Type 2 diabetes mellitus without complication, without long-term current use of insulin (CMS/HCC) Inject 4.5 mg under the skin1 (one) time per week 6 mL 1 08/09/2024 01/24/2025 ActiveStart: 05-24-2024 End: 31-18-5014pttwxs 4.5 mg by subcutaneous injection every weekDulaglutide (Trulicity) 4.5 MG/0.5ML solution auto-injector Indications: Type 2 diabetes mellitus without complication, without long-term current use of insulin (CMS/HCC) Inject 4.5 mg under the skin1 (one) time per week 6 mL 1 05/24/2024 08/06/2024 Discontinued (Reorder)Start: 05-24-2024 End: 29-44-9543gltque 4.5 mg by subcutaneous injection every weekDulaglutide (Trulicity) 4.5 MG/0.5ML solution auto-injector Indications: Type 2 diabetes mellitus without complication, without long-term current use of insulin (CMS/HCC) Inject 4.5 mg under the skin1 (one) time per week 6 mL 1 05/24/2024 11/08/2024 Activeesomeprazole 20 mg delayed release oral capsule (20 sources)Proton Pump InhibitorStart: 01-26-2024 End: 05-06-8636skva 1 capsule by mouth once daily in the morningEsomeprazole Magnesium 20 mg capsule,delayed release(DR/EC) Active 20 MG PO Every morning January 31, 2025 12:00am Complies with drug therapyezetimibe 10 mg oral tablet (20 sources)Dietary Cholesterol Absorption InhibitorStart: 01-26-2024 End: 72-83-9673nprn 1 tablet by mouth once daily at bedtimeEzetimibe 10 mg tablet Active 10 MG PO Daily at bedtime January 31, 2025 12:00am Complies with drug therapyibuprofen 600 mg oral tablet (20 sources)Nonsteroidal Anti-inflammatory DrugStart: 78-10-6380yfxm 1 tablet by mouth every six hours as needed for painIbuprofen 600 mg tablet Active 600 MG PO Every 6 hours as needed for pain January 31, 2025 12:00am Complies with drug therapyStart: 04-12-2024 End: 06-06-7320obyk 1 tablet by mouth every eight hours for painibuprofen 600 MG tablet Indications: Chronic right-sided low back pain with right-sided sciatica Take 1 tablet (600 mg) by mouth every 8 (eight) hours if needed for mild pain Take with food 270 tablet 1 11/09/2024 02/07/2025 ActiveStart: 02-03-2024 End: 19-23-1407jkzm 1 tablet by mouth in the morning, then take 1 tablet by mouth in the evening, then take 1 tablet by mouth at bedtimeibuprofen 800 MG tablet Indications: Chronic right-sided low back pain with right-sided sciatica TAKE 1 TABLET BY MOUTH IN THE MORNING then ONE TABLET BY MOUTH IN THE EVENING, then ONE TABLET BY MOUTH BEFORE bedtime 90 tablet 02/03/2024 04/09/2024 Discontinued (Reorder)3 ml insulin degludec 200 unt/ml pen injector (20 sources)Insulin AnalogStart: 13-76-6022Arzeqdl Degludec (Tresiba Flextouch U-200) 200 unit/mL (3 mL) insulin pen Active 36 UNIT SUBCUT Daily at bedtime January 31, 2025 12:00am Complies with drug therapyStart: 10-23-2023 End: 92-46-8542haehfgw degludec (Tresiba FlexTouch) 200 UNIT/ML injection Indications: Type 2 diabetes mellitus without complication, without long-term current use of insulin (HCC) Inject 36 Units under the skin atbedtime 18 mL 03/28/2025 06/26/2025 Ksyqry98 hr oxybutynin chloride 5 mg extended release oral tablet (3 sources)Cholinergic Muscarinic AntagonistStart: 35-83-8797ioum 1 tablet by mouth once dailyOxybutynin Chloride 5 mg tablet extended release 24hr Active 5 MG PO Daily May 25, 2025 12:00am Complies with drug therapyStart: 03-28-2025 End: 23-26-8757joai 1 tablet by mouth once dailyoxybutynin XL (Ditropan-XL) 5 MG 24 hr tablet Indications: OAB (overactive bladder) Take 1 tablet (5 mg) by mouth Daily Do not crush, chew, or split. 30 tablet 1 03/28/2025 04/27/2025 Active polyethylene glycol 3350 99583 mg powder for oral solution (2 sources)Osmotic LaxativeStart: 08-10-2024 End: 20-11-8743yahi 17 g by mouth once dailypolyethylene glycol, PEG, 3350 (Miralax) 17 g packet Indications: Drug-induced constipation Take 17g by mouth Daily for 10 days 10 each 08/10/2024 08/20/2024 Active Completed/Discontinued Medications MedicationDrug Class(es)DatesSig (Normalized)Sig (Original)dulaglutide (Trulicity) 4.5 MG/0.5ML solution pen-injector (5 sources)Start: 03-04-2024 End: 81-94-3636pckqng 4.5 mg by subcutaneous injection every weekdulaglutide (Trulicity) 4.5 MG/0.5ML solution pen-injector Indications: Type 2 diabetes mellitus without complication, without long-term current use of insulin (CMS/HCC) Inject 4.5 mg under the skin 1 (one) time per week 6 mL 1 03/04/2024 05/24/2024 Discontinued (Reorder)Start: 03-04-2024 End: 62-42-8966vihknx 4.5 mg by subcutaneous injection every weekdulaglutide (Trulicity) 4.5 MG/0.5ML solution pen-injector Indications: Type 2 diabetes mellitus without complication, without long-term current use of insulin ([facility]) Inject 4.5 mg under the skin 1 (one) time per week 6 mL 1 03/04/2024 08/19/2024 Active Problems Active Problems Problem ClassificationProblemDateDocumented DateEpisodic/ChronicDiabetes mellitus without complication (20 sources)Type 2 diabetes mellitus without complications; Translations: [Type 2 diabetes mellitus without complication]Onset: 91-80-6949DwgvecpPlbawqzou of lipid metabolism (20 sources)Hyperlipidemia, unspecified; Translations: [Hyperlipidemia]Onset: 11-17-2022 Resolved: 090814-18-1678MekwlwbWzvegplhwa disorders (5 sources)Gastroesophageal reflux disease without esophagitis; Translations: [Gastro-esophageal reflux disease without esophagitis]94-34-5373Muzrwki Nonspecific chest pain (6 sources)Chest pain; Translations: [Chest pain, unspecified]51-41-8069Itfpdheg Other diseases of bladder and urethra (5 sources)Overactive bladder; Translations: [Overactive bladder]Onset: 544615-28-7956PctkyuzXvudo endocrine disorders (20 sources)Hyperparathyroidism; Translations: [Hyperparathyroidism, unspecified]Onset: 005800-09-3591WbktmjbFmyqh endocrine disorders (2 sources)Primary hyperparathyroidism; Translations: [Primary hyperparathyroidism]76-26-7137GdfgcadNytgw gastrointestinal disorders (2 sources)Drug-induced constipation; Translations: [Drug induced constipation] 94-31-9152UnxwckpyMcaug nervous system disorders (1 source)Other chronic pain; Translations: [OTHER CHRONIC PAIN]Onset: 36-95-5113QmcbltaQettr nervous system disorders (20 sources)Chronic pain syndrome; Translations: [Chronic pain syndrome]Onset: 732009-99-0790FxxalqfVveah nutritional; endocrine; and metabolic disorders (20 sources)Hypercalcemia; Translations: [Hypercalcemia]Onset: 11-09-2024 31-97-7908EepvsmvBryzp nutritional; endocrine; and metabolic disorders (1 source)Hypercalcemia; Translations: [Hypercalcemia]Onset: 99-27-5573Eorsmjt Other skin disorders (2 sources)Disorder of pigmentation, unspecified; Translations: [Dyschromia, unspecified]97-37-7980XaknptmpPneqaouskmz; intervertebral disc disorders; other back problems (20 sources)Spondylosis without myelopathy or radiculopathy, lumbar region; Translations: [Postlaminectomy syndrome, not elsewhere classified]Onset: 10-34-0561BvyqkisWjvzzopucjz; intervertebral disc disorders; other back problems (20 sources)Chronic low back pain; Translations: [Lumbago with sciatica, right side]Onset: 299566-95-9013MsuetqrkFbdbcfviwnch (2 sources)LOW BACK PAIN, UNSPECIFIED; Translations: [LOW BACK PAIN, UNSPECIFIED]Onset: 12-12-2022 Past or Other Problems Problem ClassificationProblemDateDocumented DateEpisodic/ChronicDeficiency and other anemia (20 sources)Nutritional anemia; Translations: [Nutritional anemia, unspecified] Onset: 519498-55-1795JbrwyateAtzwdfoem hypertension (20 sources)Essential hypertension; Translations: [Essential (primary) hypertension]Onset: 07-23-2023 Resolved: 137429-08-5972MzzofkwFrxh disorders (20 sources)Mood disordersOnset: 07-23-2023 Resolved: Other gastrointestinal disorders (20 sources)Constipation; Translations: [Constipation, unspecified]Onset: 760695-05-0105HmyqyxfeJeqeg screening for suspected conditions (not mental disorders or infectious disease) (20 sources)Other specified abnormal findings of blood chemistry; Translations: [Patient encounter status]Onset: 41-62-5130KbqbzfqqQuysxwmlvvor (1 source)LOW BACK PAIN, UNSPECIFIED; Translations: [LOW BACK PAIN, UNSPECIFIED] Onset: 12-06-2022 Results Test NameValueInterpretationReference PgaehJbamkdwlGcK5i (Bld) [Mass fraction]on 38-36-2530Ykrzklaoaxlrfu and review of laboratory resultsAbnoMUSC [facility] HealthcareLaboratory - Hematology and Cell countson 35-36-2880OuP9i (Bld) [Mass fraction]6.5 %[facility] HealthcareFPG ECG *CARDIOLOGY ONLY*on 17-72-0533XEE ECG *CARDIOLOGY ONLY*[facility] [address] [place] [address] Electrocardiograph Report Signed Patient: Nicholas Lovelace MR#: [id number] 789 : 1965 Acct:[id number] Age/Sex: 60 / M ADM Date: 03/03/25 Loc: EKGCARDIO Room: Type: [facility] Attending Dr: Cheyanne Juarez MD Ordering Provider: [...] repolarization Normal ECG Confirmed by Cheyanne Juarez ([id number]) on 03/03/2025 1:59:24 PM Referred By: Electronically Signed By: Cheyanne Juarez Transcribed By: MUS Signed By Cheyanne Juarez MD 5 1359[facility] Physician GroupBasic Metabolic Panelon 01-31-2025 GFR/1.73 sq M.predicted MDRD (S/P/Bld) [Vol rate/Area]mL/min/{1.73_m2}NormalThe [facility] Physician GroupComment on above:Order Comment: Comment PSTPerformed By: #### T3T, T4T, PTH, BMP, TSH3, [id number] #### [facility] [address] [place], [place] [id number] USABasophils [#/volume] in Blood by Automated countOrdered By: Isidro Shipman on 49-88-1132Nqtpsxxfw (Bld) [#/Vol]0.1 10*3/uLNormal0.0-0.2 [facility] HospitalComment on above:Result Comment: PERFORMED BY: [facility] [address] [place] [address] PATHOLOGIST HYDRAULIC ROCKBREAKER OPERATOR ROSEMARY COLEMAN M.D.Performed By: #### CBC #### [facility] [address] [place] [address] USABasophils/100 leukocytes in Blood by Automated count Ordered By: Isidro Shipman on 90-60-9849Hatpyvclc/100 WBC (Bld)1.2 %Normal. [facility] HospitalComment on above:Performed By: #### CBC #### [facility] [address] [place] [id number] USACBC W Auto Differential panel (Bld)on 99-54-3385Bazdrcnut (Bld) [#/Vol]0.1 10*3/uL0.0 - 0.2 10*3/uLNOMS HealthcareBasophils/100 WBC Manual cnt (Syn fld)1.2 %.[facility] HealthcareEosinophils (Bld) [#/Vol]0.2 10*3/uL0.0 - 0.45 10*3/uLNOMS HealthcareEosinophils/100 WBC Manual cnt (Syn fld)2 %.[facility] HospitalErythrocyte distribution width (RBC) [Ratio]13.7 %12.0 - 14.8 %[facility] HospitalHematocrit (Bld) [Volume fraction]36.9 %Low38.8 - 50.0 %[facility] HospitalHemoglobin (Bld) [Mass/Vol]12.5 g/dLLow13.0 - 17.0 g/dLPike County Memorial Hospital Interpretation and review of laboratory resultsAbnormalPike County Memorial Hospital Lymphocytes (Bld) [#/Vol]2 10*3/uL1.00 - 4.8 10*3/uLNONC Healthcare Lymphocytes/100 WBC Manual cnt (Syn fld)23.7 %.[facility] HospitalMCH (RBC) [Entitic mass]28.1 pg27.5 - 35.2 pgNORipley County Memorial HospitalHC (RBC) [Mass/Vol]33.8 g/dL32.5 - 35.6 g/dLPike County Memorial HospitalMCV (RBC) [Entitic vol]83.2 fLLow83.5 - 101 fLNOMS HealthcareMonocytes (Bld) [#/Vol]0.7 10*3/uL0.0 - 0.8 10*3/uLNOMS Healthcare Monocytes+Macrophages/100 WBC Manual cnt (Syn fld)7.9 %.[facility] Neutrophils (Bld) [#/Vol]5.5 10*3/uL1.8 - 7.7 10*3/uLNOMS Healthcare Neutrophils/100 WBC Manual cnt (Syn fld)65.2 %.NOMS HealthcareNRBC0.1 /100{WBC}0 - 0.5 /100{WBC}NOMS HealthcarePlatelet mean volume (Bld) [Entitic vol]7.2 fL6.6 - 10.1 fLNOMS HealthcarePlatelets (Bld) [#/Vol]299 10*3/uL150 - 450 10*3/uLNOMS HealthcareRBC LM.HPF (Urine sed) [#/Area]4.44 10*6/uL3.90 - 5.60 10*6/uLNOMS HealthcareWBC (Bld) [#/Vol]8.4 10*3/uL4.1 - 10.5 10*3/uLNOMS HealthcareWBC LM.HPF (Urine sed) [#/Area]8.4 [CFU]/mL4.1 - 10.5 [CFU]/mLNOMS HealthcareNOMS HealthcareCalcium [Mass/volume] in Serum or PlasmaOrdered By: Isidro Shipman on 38-54-5475Cxdgwht [Mass/Vol]10.2 mg/dLNormal8.6-10.3FWVUMedicine Harrison Community HospitalComment on above:Order Comment: Comment PSTPerformed By: #### T3T, T4T, PTH, BMP, TSH3, [id number] #### [place] [address] USACarbon dioxide, total [Moles/volume] in Serum or Plasma Ordered By: Isidro Shipman on 20-70-7779LW3 [Moles/Vol]27.8 mmol/LNormal 21.0-31.0Ber[facility] HospitalComment on above:Order Comment: Comment PSTPerformed By: #### T3T, T4T, PTH, BMP, TSH3, [id number] #### [facility] [address] [place] [address] USAChloride [Moles/volume] in Serum or PlasmaOrdered By: Isidro Shipman on 79-81-0735Zjejdyeq [Moles/Vol]108 mmol/NBjxx12-899IdkpxjhdnBerger HospitalComment on above:Order Comment: Comment PSTPerformed By: #### T3T, T4T, PTH, BMP, TSH3, [id number] #### [facility] [address] [place] [id number] USAComplete Blood Count Auto Diffon 78-63-4312Bfgs Corpuscular HGB Conc33.8 g/kFDgcblc84.5-35.6The [facility] Physician GroupComment on above:Performed By: #### CBC #### [place] [address] USANRBC%0.1 /100{WBC}Normal0-0.5[facility]ician [facility] Comment on above:Performed By: #### CBC #### [place] [address] USAWhite Blood Count8.4 [CFU]/mLNormal4.1-10.5The [facility] Physician GroupComment on above:Performed By: #### CBC #### [place] [address] USACreatinine [Mass/volume] in Serum or PlasmaOrdered By: Isidro Shipman on 32-28-7673Kepfzfylhh [Mass/Vol]1.00 mg/dLNormal0.70-1.30 [facility] HospitalComment on above:Order Comment: Comment PST Performed By: #### T3T, T4T, PTH, BMP, TSH3, [id number] #### [place] [id number] USAECG 12 lead ECGon 93-45-7608KPZ 12 lead ECGWH[facility] [address] [facility] [address] [place] [address] Electrocardiograph Report Signed Patient: Nicholas Lovelace MR#: [id number] 789 : 1965 Acct:[id number] Age/Sex: 60 / M ADM Date: 01/31/25 Loc: PS Room: Type: [facility] Attending Dr: Isidro Shipman DO Ordering [...] previous ECGs available Confirmed by YANELIS BAIN [facility], AMANDA ([id number]) on 02/01/2025 5:01:21 PM Referred By: Electronically Signed By: AMANDA HILARIO MD [facility] Transcribed By: MUS Signed By Amanda Hilario MD, FACC 02/01/25 1701[facility] Physician GroupEosinophils [#/volume] in Blood by Automated countOrdered By: Isidro Shipman on 08-40-9554Ysedkplviww (Bld) [#/Vol]0.2 10*3/uLNormal0.0-0.45[facility] HospitalComment on above:Performed By: #### CBC #### [facility] [address] [place] [address] USAEosinophils/100 leukocytes in Blood by Automated count Ordered By: Isidro Shipman on 08-78-8819Etmzgswnpdg/100 WBC (Bld)2.0 %Normal. [facility] HospitalComment on above:Performed By: #### CBC #### [facility] [address] [place] [address] USAErythrocyte distribution width [Ratio] by Automated count Ordered By: Isidro Shipman on 99-19-8295Utowfbctftx distribution width (RBC) [Ratio]13.7 %Fplwvp51.0-14.8Ber[facility] HospitalComment on above: Performed By: #### CBC #### [place] [address] USAErythrocytes [#/volume] in Blood by Automated countOrdered By: Isidro Shipman on 92-79-4732MCP (Bld) [#/Vol]4.44 10*6/uLNormal3.90-5.60 [facility] HospitalComment on above:Performed By: #### CBC #### [facility] [address] [place] [id number] USAGlucose [Mass/volume] in Serum or PlasmaOrdered By: Isidro Shipman on 18-34-2575Uqetfkq [Mass/Vol]107 mg/rMZros31-667TimnksxyuBerger HospitalComment on above:ADA recommended reference rangeRandom Glucose Reference Range is dependent on time and content of last meal. Glucose of more than 200 mg/dL in a nonstressed, ambulatory subject supports the diagnosisof Diabetes Mellitus.Order Comment: Comment PSTResult Comment: Random Glucose Reference Range is dependent on time and content of last meal. Glucose of more than 200 mg/dL in a nonstressed, ambulatory subject supports the diagnosis of Diabetes Mellitus. ADA recommended reference rangePerformed By: #### T3T, T4T, PTH, BMP, TSH3, [id number] #### [facility] [address] [place] [id number] USAHematocrit [Volume Fraction] of Blood by Automated count Ordered By: Isidro Shipman on 46-44-0607Hmuumhiyjf (Bld) [Volume fraction]36.9 %Low38.8-50.0Berger HospitalComment on above:Performed By: #### CBC #### [facility] [address] [place] [address] USAHemoglobin [Mass/volume] in BloodOrdered By: Isidro Shipman on 70-39-1559Nkfmybiphd (Bld) [Mass/Vol]12.5 g/dLLow13.0-17.0Berger HospitalComment on above:Performed By: #### CBC #### [facility] [address] [place] [address] USALeukocytes [#/volume] corrected for nucleated erythrocytes in Blood by Automated counOrdered By: Isidro Shipman on 58-07-4363KIQ corrected for nucl RBC Auto (Bld) [#/Vol]8.4 10*3/uL4.1-10.5FWVUMedicine Harrison Community HospitalLeukocytes [#/volume] in Blood by Automated countOrdered By: Isidro Shipman on 19-85-6976JOK (Bld) [#/Vol]8.4 10*3/uLNormal4.1-10.5FWVUMedicine Harrison Community HospitalComment on above:Performed By: #### CBC #### [facility] [address] [place] [address] USALymphocytes [#/volume] in Blood by Automated countOrdered By: Isidro Shipman on 15-02-1915Ddhqoaxwguv (Bld) [#/Vol]2.0 10*3/uLNormal 1.00-4.8Berger HospitalComment on above:Performed By: #### CBC #### [facility] [address] [place] [address] USALymphocytes/100 leukocytes in Blood by Automated count Ordered By: Isidro Shipman on 78-14-5345Qehcyolsyit/100 WBC (Bld)23.7 %Normal. Berger HospitalComment on above:Performed By: #### CBC #### [facility] [address] [Entitic mass] by Automated countOrdered By: Isidro Shipman on 08-62-0791FZV (RBC) [Entitic mass]28.1 jnXxjjqh83.5-35.2FWVUMedicine Harrison Community HospitalComment on above:Performed By: #### CBC #### [facility] [address] Auto (RBC) [Mass/Vol]Ordered By: Isidro Shipman on 32-33-2036WXHN (RBC) [Mass/Vol]33.8 g/dL32.5-35.6FWVUMedicine Harrison Community HospitalMCV [Entitic volume] by Automated countOrdered By: Isidro Shipman on 58-19-1858XMM (RBC) [Entitic vol]83.2 fLLow83.5-101Berger HospitalComment on above:Performed By: #### CBC #### [facility] [address] [place] [address] USAMonocytes [#/volume] in Blood by Automated countOrdered By: Isidro Shipman on 29-26-7431Igkcakwwr (Bld) [#/Vol]0.7 10*3/uLNormal0.0-0.8 Berger HospitalComment on above:Performed By: #### CBC #### [facility] [address] [place] [address] USAMonocytes/100 leukocytes in Blood by Automated count Ordered By: Isidro Shipman on 65-69-8627Aordptxbq/100 WBC (Bld)7.9 %Normal. Berger HospitalComment on above:Performed By: #### CBC #### [facility] [address] [place] [address] USANeutrophils [#/volume] in Blood by Automated countOrdered By: Isidro Shipman on 68-51-2820Nzoywxxmurn (Bld) [#/Vol]5.5 10*3/uLNormal 1.8-7.7FWVUMedicine Harrison Community HospitalComment on above:Performed By: #### CBC #### [facility] [address] [place] [id number] USANeutrophils/100 leukocytes in Blood by Automated count Ordered By: Isidro Shipman on 69-83-2405Yejobzirzco/100 WBC (Bld)65.2 %Normal. Berger HospitalComment on above:Performed By: #### CBC #### [facility] [address] [place] [id number] USANo Panel InformationOrdered By: Isidro Shipman on 42-64-8083Hhhgptusr GFR (CKD-EPI)> 60.0 mL/MinBerger Hospital Pharmacy Creatinine Clearance (ChemN/AFWVUMedicine Harrison Community HospitalNucleated erythrocytes [Presence] in Blood by Automated countOrdered By: Isidro Shipman on 66-63-9689Vckbzyxqt RBC Auto Ql (Bld)0.1 /100{WBC}0-0.5FWVUMedicine Harrison Community HospitalParathyrin.intact [Mass/Vol]on 83-07-1606Zhfnidsdfxzpbs and review of laboratory resultsAbnormalACADIA HEALTHCARE HealthcarePARATHYROID HORMONE XUGMKZ114.4 pg/gFNcaf06 - 88 pg/mLNOMS HealthcareComment PSTPeoples Hospital Parathyrin.intact [Mass/volume] in Serum or PlasmaOrdered By: Isidro Shipman on 55-30-6977Ydozgshtqx.intact [Mass/Vol]114.4 pg/nHLcuu15-22IgqhgmyspBerger HospitalParathyroid Hormone Intacton 49-76-6452Hjlswfvvpvk Hormone Intact 114.4 pg/pRPrrt86-59Kag [facility] Physician GroupComment on above:Order Comment: Comment PSTResult Comment: PERFORMED BY: [place] [address] PATHOLOGIST HYDRAULIC ROCKBREAKER OPERATOR ROSEMARY COLEMAN M.D.Performed By: #### T3T, T4T, PTH, BMP, TSH3, [id number] #### [place] [address] USAPlatelet mean volume [Entitic volume] in Blood by Automated countOrdered By: Isidro Shipman on 02-21-0749Eaqnggrd mean volume (Bld) [Entitic vol]7.2 fLNormal6.6-10.1FWVUMedicine Harrison Community HospitalComment on above:Performed By: #### CBC #### [place] [address] USAPlatelets [#/volume] in Blood by Automated countOrdered By: Isidro Shipman on 58-45-8802Wnofuwopu (Bld) [#/Vol]299 10*3/yXSdprln903-294 Berger HospitalComment on above:Performed By: #### CBC #### [place] [address] USAPotassium [Moles/volume] in Serum or PlasmaOrdered By: Isidro Shipman on 52-30-9781Garmsbsjw [Moles/Vol]4.3 mmol/LNormal3.5-5.1 Berger HospitalComment on above:Order Comment: Comment PST Performed By: #### T3T, T4T, PTH, BMP, TSH3, [id number] #### [facility] [address] [place] [address] USASerum or plasma anion gap determinationOrdered By: Isidro Shipman on 47-60-0495Baqbb gap [Moles/Vol]7.5 mmol/LNormal6.0-15.0 Berger HospitalComment on above:Order Comment: Comment PST Performed By: #### T3T, T4T, PTH, BMP, TSH3, [id number] #### [facility] [address] [place] [address] USASodium [Moles/volume] in Serum or PlasmaOrdered By: Isidro Shipman on 50-79-7092Plmsbf [Moles/Vol]139 mmol/DSffwsb589-232MpjztflkhBerger HospitalComment on above:Order Comment: Comment PSTPerformed By: #### T3T, T4T, PTH, BMP, TSH3, [id number] #### [address] [address] USAThyrotropin [Units/volume] in Serum or PlasmaOrdered By: Isidro Shipman on 98-21-2431THG Qn3.47 m[IU]/LNormal0.45-5.33Berger HospitalComment on above:Order Comment: Comment PSTPerformed By: #### T3T, T4T, PTH, BMP, TSH3, [id number] ####[facility] [address] [place] [address] USAThyroxine (T4) [Mass/volume] in Serum or Plasma Ordered By: Isidro Shipman on 55-50-6185Z9 [Mass/Vol]8.46 ug/dLNormal5.39-11.82 Berger HospitalComment on above:Order Comment: Comment PST Performed By: #### T3T, T4T, PTH, BMP, TSH3, [id number] #### [address] [address] USATriiodothyronine (T3) Totalon 97-59-8952Eewluyrqsybsmcxm (T3) Total1.22 ng/mLNormal0.87-1.78The [facility] Physician GroupComment on above:Order Comment: Comment PSTPerformed By: #### T3T, T4T, PTH, BMP, TSH3, [id number] #### [facility] [address] [place] [address] USATriiodothyronine (T3) [Mass/volume] in Serum or Plasma Ordered By: Isidro Shipman on 01-92-8599B9 [Mass/Vol]1.22 ng/mL0.87-1.78 Berger HospitalUrea nitrogen [Mass/volume] in Serum or Plasma Ordered By: Isidro Shipman on 65-00-1827Bxia nitrogen [Mass/Vol]15 mg/dLNormal 7-Berger HospitalComment on above:Order Comment: Comment PST Performed By: #### T3T, T4T, PTH, BMP, TSH3, [id number] #### [facility] [address] [place] [address] USAVitamin D 25 Hydroxy Totalon 75-20-2755Ozwwwad D 25 Hydroxy Total30.0 ng/cOJkxnre38-581Fis [facility] Physician GroupComment on above:Order Comment: Comment PSTResult Comment: VITAMIN D STATUS 25(OH)VITAMIN D RANGE (ng/mL) Deficient <20 Insufficient 20 to <30 Sufficient 30 to 100 Reference: Araceli MF,Amanda NC, Shaina LAMB, et al. Evaluation,treatment, and prevention of vitamin D deficiency; an Endocrine Society clinical practice guideline. JCEM. 2010; 96(7):1911-30. PERFORMED BY: [facility] [address] [place] [address] PATHOLOGIST HYDRAULIC ROCKBREAKER OPERATOR ROSEMARY COLEMAN M.D.Performed By: #### T3T, T4T, PTH, BMP, TSH3, [id number] ####[facility] [address] [place] [address] USAVitamin D+Metabolites [Mass/volume] in Serum or PlasmaOrdered By: Isidro Shipman on 14-12-7656Utltnuv D+Metabolites [Mass/Vol]30.0 ng/vP14-044TiwpealfjBerger HospitalComment on above:VITAMIN D STATUS 25(OH)VITAMIN D RANGE (ng/mL) Deficient <20 Insufficient 20 to <01Yfskwdfcdh87 to 100Reference: Araceli MF,Amanda SOLIS, Shaina LAMB, et al. Evaluation,treatment, and prevention of vitamin D deficiency; an Endocrine Society clinical practice guideline. JCEM. 2010; 96(7):1911-30.CT neck 4D parathyroidon 18-92-7230GR [facility] 4[facility]roidWH[facility] [place] [address] [place] [address] CT Scan Report Signed Patient: Nicholas Lovelace MR#: [id number] : 1965 Acct:[id number] Age/Sex: 60 / M ADM Date: 01/14/25 Loc: [place] Room: Type: [facility] Attending Dr: Isidro Shipman DO Copies [...] PARATHYROID SCAN FOR CORRELATION. Impression dictated by: Sayr Membreno M.D. 01/14/2025 1:18 PM Dictation Location: [place] [address] Transcribed By: [facility] 01/14/25 1318 Dictated By: Sary Membreno MD 01/14/25 1301 Signed By: 01/14/25 1318[facility] Physician GroupISTAT XRAY CREon 01-14-2025 Creatinine [Mass/Vol]1.1 mg/dL0.6 - 1.3 mg/dLPike County Memorial HospitalComment on above: ER/ESD physician is notified/shown all ISTAT results. Critical values may be confirmed by laboratory testing if deemed necessary by ER attending doctor. ISTAT GFRNOAscension Good Samaritan Health CenterISTAT XRay CREon 95-78-6101LNETI GFR>60.0 NormalThe [facility] Physician GroupComment on above:Result Comment: PERFORMED BY: [place] [address] PATHOLOGIST HYDRAULIC ROCKBREAKER OPERATOR ROSEMARY COLEMAN M.D.Performed By: #### ISCRE #### [place] [address] USANM parathyroidon 80-46-7629VE parathyroidWHITE HOSPITAL [facility] [place] [address] [place] [address] Nuclear Medicine Report Signed Patient: Nicholas Lovelace MR#: [id number] : 1965 Acct:[id number] Age/Sex: 60 / M ADM Date: 01/14/25 Loc: [place] Room: Type: [facility] Attending Dr: Isidro Shipman DO Copies [...] Membreno M.D. 01/14/2025 1:01 PM Dictation Location: [place] [address] Transcribed By: [facility] 01/14/25 1301 Dictated By: Sary Membreno MD 01/14/25 1259 Signed By: 01/14/25 1301[facility] Physician GroupNo Panel InformationOrdered By: Isidro Shipman on 42-22-5612Fpofjma Estimated GFR (eGFR)> 60.0Berger HospitalWhole blood creatinine measurementOrdered By: Isidro Shipman on 80-44-4583Endlxkpqap [Mass/Vol]1.1 mg/dLNormal0.6-1.3FWVUMedicine Harrison Community HospitalComment on above:ER/ESD physician is notified/shown all ISTAT results.Critical values may be confirmed by laboratorytesting ifdeemed necessary by ER attending doctor.Result Comment: ER/ESD physician is notified/shown all ISTAT results. Critical values may be confirmed by laboratory testing if deemed necessary by ER attending doctor.Performed By: #### ISCRE #### [facility] [address] [place] [address] USAMLR HEMOGLOBIN A1Con 74-12-2138Cvpxtkv [Mass/Vol]146 mg/dL [facility] HospitalHbA1c (Bld) [Mass fraction]6.7 %High4.5 - 6.2 %[facility] Comment on above:ADA RECOMMENDED LIMIT 4.0 - 6.0 ADA THERAPEUTIC TARGET < 7.0 ACTION SUGGESTED > 7.0 Interpretation and review of laboratory resultsAbnormalPike County Memorial HospitalCLINISYNC [facility] HospitalALL CBC WITH AUTO DIFFon 50-27-4367HHWPOTKWI ABSOLUTE AUTO0.1NOMS HealthcareBasophils/100 WBC (Bld)0.7 %0.2 - 2.0 %NOM HealthcareEosinophils/100 WBC (Bld)2.8 %0.9 - 7.0 %[facility] HospitalErythrocyte distribution width (RBC) [Ratio]13 %11.0 - 15.0 %[facility] HospitalHematocrit (Bld) [Volume fraction]41 %Low 42.0 - 54.0 %[facility] HospitalHemoglobin (Bld) [Mass/Vol]13.7 g/dLLow14.0 - 18.0 g/dLPike County Memorial HospitalIMMATURE GRANULOCYTES ABS AUTO0.02NOMercy Hospital JoplinImmature granulocytes/100 WBC (Bld)0.3 %0.0 - 0.5 %[facility] HospitalInterpretation and review of laboratory resultsAbnormUPMC Magee-Womens HospitalLYMPHOCYTES ABSOLUTE AUTO2.6 NOMResearch Medical Center-Brookside CampusLymphocytes/100 WBC (Bld)34.4 %20.5 - 60.0 %[facility] HospitalH (RBC) [Entitic mass]28.4 pg25.9 - 34.0 pgCedar County Memorial HospitalHC (RBC) [Mass/Vol] 33.4 g/dL29.9 - 35.2 g/dLCedar County Memorial HospitalV (RBC) [Entitic vol]85.1 fL80.0 - 94.0 fLPike County Memorial HospitalMONOCYTES ABSOLUTE AUTO0.6NOMercy Hospital JoplinMonocytes/100 WBC (Bld)7.9 %1.7 - 12.0 %[facility] HospitalNEUTROPHILS ABSOLUTE AUTO4.1NOM[facility] Healthcare Neutrophils/100 WBC (Bld)53.9 %43.0 - 75.0 %[facility] Memorial HospitalPlatelet mean volume (Bld) [Entitic vol]9.2 fLLow9.5 - 13.5 fLNOExcelsior Springs Medical Center EO #0.2NOMS [facility] OKX212GNUK [facility] RBC4.82NOMS [facility] WBC7.6NOMS HealthcareCLINISYNCNOMS HealthcareMRI LSPINE WO W CONon 74-29-8699XVM LSPINE WO W CONEXAMINATION: MRI LSPINE WO W CON HISTORY: Post-laminectomy [...] authenticated by: LUIS ARMANDO ZAYAS Date: 2022-11-19 14:15NormalOhio State East Hospital SINGLE QUAD RT UPPERon 16-79-6518WK SINGLE QUAD RT UPPER EXAM: US SINGLE [...] Electronically authenticated by: BEN ZUNIGA Date: 2022-11-19 09:51NormalThFayette County Memorial Hospital AUTO DIFFon 48-85-2323ZQNF #0.0 103/ulNormal0.0-0.1Brecksville Va / Crille HospitalComment on above:Performed By: #### CBC #### [facility] [address] [place] [address] Dr. Irving HaleBasophils/100 WBC (Bld)0.5 %Normal0.2-2.0[facility] Comment on above:Performed By: #### CBC #### [facility] [address] [place] [address] Dr. Irving Zee #0.1 103/ulNormal0.0-0.7The [facility] CenterComment on above: Performed By: #### CBC #### [facility] [address] [place] [address] Dr. Irving Fultonosinophils/100 WBC (Bld)1.9 %Normal0.9-7.0[facility] Comment on above:Performed By: #### CBC #### [facility] [address] [place] [address] Dr. Irving Fultonrythrocyte distribution width (RBC) [Ratio]13.4 %Kutwie27.0-15.0 [facility] / Crille HospitalComment on above:Performed By: #### CBC #### [facility] [address] [place] [address] Dr. Irving HaleHematocrit (Bld) [Volume fraction]40.6 %Critically low42.0-54.0 [facility] / Crille HospitalComment on above:Performed By: #### CBC #### [facility] [address] [place] [address] Dr. Irving HaleHemoglobin (Bld) [Mass/Vol]13.6 g/dLCritically low14.0-18.0The [facility] on above:Performed By: #### CBC #### [facility] [address] [place] [address] Dr. Irving Matthews #0.01 10e3/ulNormal0.00-0.03The [facility] CenterComment on above:Performed By: #### CBC #### [facility] [address] [place] [address] Dr. Irving Matthews %0.2 %Normal0.0-0.5The [facility] CenterComment on above: Performed By: #### CBC #### [facility] [address] [place] [address] Dr. Irving Lopez #2.1 103/ulNormal1.2-3.8The [facility] CenterComment on above:Performed By: #### CBC #### [facility] [address] [place] [address] Dr. Irving Warehocytes/100 WBC (Bld)32.9 %Zhtlua36.5-60.0The [facility] CenterComment on above:Performed By: #### CBC #### [facility] [address] [place] [address] Dr. Irving PollardUAL DIFF REQNONormalThe [facility] CenterComment on above: Performed By: #### CBC #### [facility] [address] [place] [address] Dr. Irving Masters (RBC) [Entitic mass]28.2 cnCgjrwt05.9-34.0The [facility] CenterComment on above:Performed By: #### CBC #### [facility] [address] [place] [address] Dr. Irving Masters (RBC) [Mass/Vol]33.5 g/yFGyvhaw58.9-35.2The [facility] CenterComment on above:Performed By: #### CBC #### [facility] [address] [place] [address] [address] Irving MastersV (RBC) [Entitic vol]84.1 gANadhsm84.0-94.0The [facility] CenterComment on above:Performed By: #### CBC #### [facility] [address] [place] [address] Dr. Irving Scott #0.6 103/ulNormal0.3-0.8The [facility] CenterComment on above:Performed By: #### CBC #### [facility] [address] [place] [address] Dr. Irving Vegaocytes/100 WBC (Bld)9.3 %Normal1.7-12.0The [facility] Comment on above:Performed By: #### CBC #### [facility] [address] [place] [address] Dr. Irving Fenton #3.4 103/ulNormal1.4-6.5The [facility] CenterComment on above:Performed By: #### CBC #### [facility] [address] [place] [address] Dr. Irving Lewisutrophils/100 WBC (Bld)55.2 %Lawlnw50.0-75.0The [facility] CenterComment on above:Performed By: #### CBC #### [facility] [address] [place] [address] Dr. Irving Bestlet mean volume (Bld) [Entitic vol]9.1 fLCritically low 9.5-13.5The [facility] CenterComment on above:Performed By: #### CBC #### [facility] [address] [place] [address] Dr. Irving HalePLT302 103/ggTayemj804-544Rby [facility] CenterComment on above: Performed By: #### CBC #### [facility] [address] [place] [address] Dr. Irving HaleRBC4.83 106/ulNormal4.70-6.10The [facility] CenterComment on above:Performed By: #### CBC #### [facility] [address] [place] [address] [address] Irving HaleWBC6.2 103/ulNormal4.0-11.0The [facility] on above: Performed By: #### CBC #### [facility] [address] [place] [address] Dr. Irving HaleGLYCOHEMOGLOBIN A1Con 92-84-9761BQH RECOMMENDATIONSEE BELOWMercy Health Anderson HospitalComment on above:Result Comment: ADA RECOMMENDED LIMIT 4.0 - 6.0 ADA THERAPEUTIC TARGET < 7.0 ACTION SUGGESTED > 7.0Performed By: #### A1C #### [facility] [address] [place] [address] Dr. Irving HaleGlucose [Mass/Vol]143 mg/dLNoAdams County HospitalComment on above:Performed By: #### A1C #### [facility] [address] [place] [address] Dr. Irving HaleHbA1c (Bld) [Mass fraction]6.6 %Critically high4.5-6.2The [facility] CenterComment on above:Performed By: #### A1C #### [facility] [address] [place] [address] Dr. Irving HaleLIPID PROFILEon 42-67-7594ZCMT-HDL RATIO NORMSEE [facility] HospitalComcorewell health pennock hospital on above:Result Comment: 3.3 - 4.4 LOW RISK 4.4 - 7.1 AVERAGE RISK 7.1 - 11.0 MODERATE RISK >11.0 HIGH RISKPerformed By: #### CMP, LIPID #### [facility] [address] [place] [address] Dr. Irving HaleCholesterol [Mass/Vol]124 mg/dLNormal<=200The [facility] Comment on above:Performed By: #### CMP, LIPID #### [facility] [address] [place] [address] Dr. Irving HaleCholesterol in HDL [Mass/Vol]41 mg/lBZrhdse05-54Lub [facility] CenterComment on above:Performed By: #### CMP, LIPID #### [facility] [address] [place] [address] [address] Irving HaleCholesterol in LDL [Mass/Vol]66.4 mg/dLAdena Pike Medical CenterComment on above:Performed By: #### CMP, LIPID #### [facility] [address] [place] [address] [address] Irving Taylorestertasneem.total/Cholesterol in HDL [Mass ratio]3.0 {ratio} NormalThe [facility] CenterComment on above:Performed By: #### CMP, LIPID #### [facility] [address] [place] [address] [address] Irving Nagel NORMAL> or = 60 mg/dl - LOW CARDIOVASCULAR RISK <40 mg/dl - HIGH CARDIOVASCULAR RISKAdena Pike Medical CenterComcorewell health pennock hospital on above:Performed By: #### CMP, LIPID #### [facility] [address] [place] [address] Dr. Irving HaleLDL CALC NORMALSEE BELOWAdena Pike Medical CenterComment on above:Result Comment: <100 mg/dl OPTIMAL 100 - 129 mg/dl NEAR OR ABOVE OPTIMAL 130 - 159 mg/dl BORDERLINE HIGH 160 - 189 mg/dl HIGH >190 mg/dl VERY HIGH Performed By: #### CMP, LIPID #### [facility] [address] [place] [address] [address] Irving HaleTriglyceride [Mass/Vol]83 mg/dLNormal<=150The [facility] Comment on above:Performed By: #### CMP, LIPID #### [facility] [address] [place] [address] Dr. Irving ChavezLDL CALC16.6 mg/dLNoAdams County HospitalComcorewell health pennock hospital on above: Performed By: #### CMP, LIPID #### [facility] [address] [place] [address] Dr. Irving HaleMICROALB CREAT RATIO RANDOMon 86-58-1621iKTM<1.3Normal<=30.0The [facility] on above:Performed By: #### MCRR #### [facility] [address] [place] [address] [address] Irving Caraballo CR RATIO8.4 mg/gNormal0.0-29.9The [facility] CenterComment on above:Performed By: #### MCRR #### [facility] [address] [place] [address] Dr. Irving Caraballo CR RATIO RANGESEE BELOWNormalThe [facility] CenterComment on above:Result Comment: NO MICROALBUMINURIA 0-29 MG/G CLINICAL MICROALBUMINURIA 30-300 MG/G MACROALBUMINURIA >300 MG/GPerformed By: #### MCRR #### [facility] [address] [place] [address] Dr. Irving Rolon CHVFT015.10 mg/yABbnsbi35.00-300.00The [facility] Comment on above:Performed By: #### MCRR #### [facility] [address] [place] [address] Dr. Irving Mason 14(COMP METB)on 94-10-7781Sqzlaag [Mass/Vol]3.9 g/dLNormal 3.4-5.0The [facility] CenterComment on above:Performed By: #### CMP, LIPID #### [facility] [address] [place] [address] Dr. Irving HaleAlbumin/Globulin [Mass ratio]1.0 {ratio}NormalThe [facility] CenterComment on above:Performed By: #### CMP, LIPID #### [facility] [address] [place] [address] Dr. Irving Bell [Catalytic activity/Vol]96 U/LRtmdue40-861Hqv [facility] CenterComment on above:Performed By: #### CMP, LIPID #### [facility] [address] [place] [address] Dr. Irving Benson [Catalytic activity/Vol]95 U/LCritically nyvq76-28Oci [facility] CenterComment on above:Performed By: #### CMP, LIPID #### [facility] [address] [place] [address] Dr. Irving Peck gap [Moles/Vol]11.5 mmol/LNormalBrecksville Va / Crille Hospital Comment on above:Performed By: #### CMP, LIPID #### [facility] [address] [place] [address] Dr. Irving HaleAST [Catalytic activity/Vol]39 U/LCritically xgpn24-94LkdBrecksville Va / Crille HospitalComment on above:Performed By: #### CMP, LIPID #### [facility] [address] [place] [address] Dr. Irving HaleBilirubin [Mass/Vol]0.4 mg/dLNormal0.2-1.0[facility] Comment on above:Performed By: #### CMP, LIPID #### [facility] [address] [place] [address] Dr. Irving HaleCalcium [Mass/Vol]10.4 mg/dLCritically high8.5-10.1The [facility] CenterComment on above:Performed By: #### CMP, LIPID #### [facility] [address] [place] [address] Dr. Irving HaleChloride [Moles/Vol]103 mmol/KEjjtzf64-636YztBrecksville Va / Crille Hospital Comment on above:Performed By: #### CMP, LIPID #### [facility] [address] [place] [address] Dr. Irving HaleCO2 [Moles/Vol]30.0 mmol/YBzdlhz51.0-32.0[facility] Comment on above:Performed By: #### CMP, LIPID #### [facility] [address] [place] [address] Dr. Irving HaleCreatinine [Mass/Vol]1.04 mg/dLNormal0.70-1.30The [facility] CenterComment on above:Performed By: #### CMP, LIPID #### [facility] [address] [place] [address] Dr. Irving FultonGFR-AF BANGLADESHI>60Normal>=60The [facility] CenterComment on above:Performed By: #### CMP, LIPID #### [facility] [address] [place] [address] Dr. Irving FultonGFR-NON AF BANGLADESHI>60Normal>=60[facility] CenterComment on above:Performed By: #### CMP, LIPID #### [facility] [address] [place] [address] Dr. Irving HaleGlobulin (S) [Mass/Vol]3.9 g/dLNormOhio State Harding HospitalComment on above:Performed By: #### CMP, LIPID #### [facility] [address] [place] [address] Dr. Irving HaleGlucose [Mass/Vol]123 mg/dLCritically yezg40-310Rtr [facility] CenterComment on above:Performed By: #### CMP, LIPID #### [facility] [address] [place] [address] Dr. Irving HalePotassium [Moles/Vol]4.5 mmol/LNormal3.5-5.1[facility] Comment on above:Performed By: #### CMP, LIPID #### [facility] [address] [place] [address] Dr. Irving HaleProtein [Mass/Vol]7.8 g/dLNormal6.4-8.2[facility] Comment on above:Performed By: #### CMP, LIPID #### [facility] [address] [place] [address] Dr. Irving HaleSodium [Moles/Vol]140 mmol/ESdsweb663-649Jth [facility] Comment on above:Performed By: #### CMP, LIPID #### [facility] [address] [place] [address] Dr. Irving HaleUrea nitrogen [Mass/Vol]23.0 mg/dLCritically high7.0-18.0The [facility] CenterComment on above:Performed By: #### CMP, LIPID #### [facility] [address] [place] [address] Dr. Irving Caruso nitrogen/Creatinine [Mass ratio]22.1 mg/mgNoAdams County HospitalComment on above:Performed By: #### CMP, LIPID #### [facility] [address] [place] [address] Dr. Irving HaleXR LSPINE MIN 4 VIEWSon 86-19-3942ZJ LSPINE MIN 4 VIEWS EXAMINATION: XR LSPINE [...] authenticated by: LUIS ARMANDO ZAYAS Date: 2022-11-11 15:14[facility] Vital Signs Date TimeVital SignValuePerforming EfsctqryuWzvwgqhr53-85-6003 09:24-0400Body ajxhlh413.26 cmLisa Aichholz MAT MACHINE OPERATOR-C Work Phone: [facility]10-23-2025 09:24-0400 Body mass index (BMI) [Ratio]26.1 kg/m2Lisa Aichholz MAT MACHINE OPERATOR-C Work Phone: [facility]10-23-2025 09:24-0400 Body tpwfeh62.28 kgLisa Aichholz MAT MACHINE OPERATOR-C Work Phone: [facility]10-23-2025 09:24-0400 Diastolic blood uhcoewwa18 mm[Hg]Do Aichholz MAT MACHINE OPERATOR-C Work Phone: [facility]10-23-2025 09:24-0400 Heart rate75 /minLisa Aichholz MAT MACHINE OPERATOR-C Work Phone: [facility]10-23-2025 09:24-0400 Respiratory rate16 /minLisa Aichholz MAT MACHINE OPERATOR-C Work Phone: 1(419)547-[address] [place], [place] 2614110-23-2025 09:24-0400 SaO2% (BldA) [Mass fraction]97 %Do Khalilangela MAT MACHINE OPERATOR-C Work Phone: 1([phone])477-[facility]10-23-2025 09:24-0400 Systolic blood mm[Hg]Do Tierneyflex MAT MACHINE OPERATOR-C Work Phone: 1(846)379-[address] [place], [place] 26[address]108-25-2025 09:15-0400 Body mass index (BMI) [Ratio]26.79 kg/m2Do Remityflex MAT MACHINE OPERATOR Work Phone: 1([phone])467-[address] [place], [place] [address]Ufawcvpbqa77-68-1171 09:15-0400Body temperature 97.81 [degF]Do Vetoz MAT MACHINE OPERATOR Work Phone: [facility] HospitalMtdrwvclxk97-28-1126 09:15-0400Body oqggkq36.92 kgDo Remityfeleciaz MAT MACHINE OPERATOR Work Phone: [facility] HospitalVvvubhcyia59-07-2497 09:15-0400Diastolic blood oqwwapsu83 mm[Hg]Do Niallfeleciaz MAT MACHINE OPERATOR Work Phone: [facility] HospitalMfcotuetwz75-59-1014 09:15-0400Heart rate74 /min Do Niallholz MAT MACHINE OPERATOR Work Phone: [facility] HospitalPmssufznfo64-35-6495 09:15-0400Respiratory rate18 /minLi Remityfeleciaz MAT MACHINE OPERATOR Work Phone: [facility] HospitalYorpezqxis04-35-3747 09:15-1717HjX8% (BldA) [Mass fraction]95 %Do Niallholz MAT MACHINE OPERATOR Work Phone: [facility] HospitalYmrpizxdki10-56-8152 09:15-0400Systolic blood ancnetkg081 mm[Hg]Do Remihholz MAT MACHINE OPERATOR Work Phone: [facility] HospitalVkkxlpnemi27-32-2602 09:17-0400Body dofgox074.26 Jasperisa Remihfeleciaz Work Phone: [facility]07-31-2025 09:17-0400 Body mass index (BMI) [Ratio]26.1 kg/m2Lisa Aichholz Work Phone: 1(788)542-[address] [place], [place] 5826707-31-2025 09:17-0400 Body hpauye17.28 kgLisa Aichholz Work Phone: 1(154)196-[address] [place], [place] 5826707-31-2025 09:17-0400 Diastolic blood qurkqyhf70 mm[Hg]Do Aichholz Work Phone: 1(009)146-[address] [place], [place] [address]26707-31-2025 09:17-0400 Heart rate75 /minLisa Aichholz Work Phone: [phone])[address]07-31-2025 09:17-0400 Respiratory rate16 /minLisa Aichholz Work Phone: [phone])13731 [address]07-31-2025 09:17-0400 SaO2% (BldA) [Mass fraction]98 %Do Aichholz Work Phone: 1(596)694-[address] [place], [place] 5826707-31-2025 09:17-0400 Systolic blood xeogrjlh419 mm[Hg]Do Aichholz Work Phone: [phone])[address]06-30-2025 13:08-0400 Body .26 cmLisa Aichholz MAT MACHINE OPERATOR-C Work Phone: 1(768)144-[address] [place], [place] 5826706-30-2025 13:08-0400 Body zlonjschsoe76 [degF]Do Aichholz MAT MACHINE OPERATOR-C Work Phone: 1(878)739-[address] [place], [place] 5826706-30-2025 13:08-0400 Body adsnbb99 kgLisa Aichholz MAT MACHINE OPERATOR-C Work Phone: 1(181)152-[address] [place], [place] 5826706-30-2025 13:08-0400 Diastolic blood wypdtcnt57 mm[Hg]Do Aichholz MAT MACHINE OPERATOR-C Work Phone: 1(707)488-[address] [place], [place] 5826706-30-2025 13:08-0400 Heart rate76 /minLisa Aichholz MAT MACHINE OPERATOR-C Work Phone: [facility]06-30-2025 13:08-0400 SaO2% (BldA) [Mass fraction]97 %Do Tierneyflex MAT MACHINE OPERATOR-C Work Phone: [facility]06-30-2025 13:08-0400 Systolic blood bljsibfl584 mm[Hg]Do Tierneyflex MAT MACHINE OPERATOR-C Work Phone: [facility]06-18-2025 14:16-0400 Body yduerf438.7 cmBenjamin Murcek DO Work Phone: [facility] HospitalFjzccxqxhn46-38-5616 14:16-0400Body mass index (BMI) [Ratio]26.91 kg/y4Qicobwxa Murcek DO Work Phone: [facility] HospitalYeyhzgjcno54-95-0881 14:16-0400Body bryrya81.29 kgBenjamin Murcek DO Work Phone: [facility] HospitalNywmdfqfgv45-61-8616 13:30-0400Body xitsdf624.7 cmBenjamin Murcek DO Work Phone: [facility] HospitalSbtrebcllv09-56-6222 13:30-0400Body mass index (BMI) [Ratio]26.91 kg/a0Ayezgaaj Murcek DO Work Phone: [facility] HospitalGppglsxrmy26-07-9025 13:30-0400Body .29 kgBenjamin Murcek DO Work Phone: [facility] HospitalBydxzcdbna71-09-2106 10:05-0400Body mass index (BMI) [Ratio]27.34 kg/m2Do Remityflex MAT MACHINE OPERATOR Work Phone: [facility] HospitalYmgdeeusgf78-00-8530 10:05-0400Body temperature 98.1 [degF]Do Tierneyflex MAT MACHINE OPERATOR Work Phone: [facility] HospitalUksxxmrgsl41-79-8723 10:05-0400Body .56 kgDo Solis MAT MACHINE OPERATOR Work Phone: [facility] HospitalNsucddimai39-63-6808 10:05-0400Diastolic blood imrmizmm75 mm[Hg]Do Solis MAT MACHINE OPERATOR Work Phone: [facility] HospitalLhdgeqgobr59-68-3802 10:05-0400Heart rate93 /min Do Solis MAT MACHINE OPERATOR Work Phone: [facility] HospitalEoaveinkgo82-31-6566 10:05-0400Respiratory rate18 /minDo Solis MAT MACHINE OPERATOR Work Phone: [facility] HospitalVghaxpcjpd24-43-4903 10:05-1979JcF6% (BldA) [Mass fraction]97 %Do Solis MAT MACHINE OPERATOR Work Phone: [facility] HospitalTnvdetsmtv75-22-5503 10:05-0400Systolic blood jogknupb743 mm[Hg]Do Solis MAT MACHINE OPERATOR Work Phone: [facility] HospitalJkmfahozdw14-53-9928 09:13-0500Body mass index (BMI) [Ratio]27.13 kg/d0Ssjpdvsm Robb MAT MACHINE OPERATOR Work Phone: [facility] HospitalIiwnjxvqvl94-73-4279 09:13-0500Body ljubhr97.92 kgKelly Vidalpatrick MAT MACHINE OPERATOR Work Phone: [facility] HospitalTtucmfvcyg79-68-8898 09:13-0500Diastolic blood yhisuces33 mm[Hg]Kelly Robb MAT MACHINE OPERATOR Work Phone: [facility] HospitalDgrtesnqcb51-39-6470 09:13-0500Heart rate74 /min Kelly Robb MAT MACHINE OPERATOR Work Phone: [facility] HospitalLxkqmyukln85-71-8798 09:13-0500Respiratory rate16 /minBrnirmal Robb MAT MACHINE OPERATOR Work Phone: [facility] HospitalEacfgppuki02-85-0847 09:13-0286ClD8% (BldA) [Mass fraction]95 %Kelly Robb MAT MACHINE OPERATOR Work Phone: [facility] HospitalIwtydftfko45-51-6045 09:13-0500Systolic blood ewruqfug791 mm[Hg]Kelly Vidalpatrick MAT MACHINE OPERATOR Work Phone: [facility] HospitalTmdwumvkbo26-01-5931 08:54-0400Body vehhtn707.7 cmKelly Vidalpatrick MAT MACHINE OPERATOR Work Phone: [facility] HospitalGsxtiwekfj62-98-5809 08:54-0400Body mass index (BMI) [Ratio]27.55 kg/e7AesrrzsaKelly Vidalpatrick MAT MACHINE OPERATOR Work Phone: [facility] HospitalAglmvkvbcy33-61-9761 08:54-0400Body temperature 97.5 [degF]Kelly Vidalpatrick MAT MACHINE OPERATOR Work Phone: [facility] HospitalRwzvaxifws70-78-2654 08:54-0400Body .19 kgBrnirmal Duboistrick MAT MACHINE OPERATOR Work Phone: [facility] HospitalKwpokmuvoa14-91-1871 08:54-0400Diastolic blood isxnjanq11 mm[Hg]Kelly Weinsteinzpatrick MAT MACHINE OPERATOR Work Phone: [facility] HospitalHigovqecbn73-96-4216 08:54-0400Heart rate67 /min Kelly Vidalpatrick MAT MACHINE OPERATOR Work Phone: [facility] HospitalTfbwoxncar16-50-3691 08:54-0400Respiratory rate16 /minKelly Duboistrick MAT MACHINE OPERATOR Work Phone: [facility] HospitalTcjtlldmvc68-63-4321 08:54-8153VuA5% (BldA) [Mass fraction]94 %Kelly Vidalpatrick MAT MACHINE OPERATOR Work Phone: [facility] HospitalRxhfaauxyg45-05-8676 08:54-0400Systolic blood gzixuewc278 mm[Hg]Kelly Robb MAT MACHINE OPERATOR Work Phone: [facility] Encounters Encounter DateEncounter TypeCare ProviderFacilityStart: 05-26-2025 End: 39-69-0247manfqrhbirWeqc J Aichholz MAT MACHINE OPERATOR-C Work Phone: -[facility] ClydeStart: 05-26-2025 End: 28-23-9130Qgavocz encounter procedureMichelle Palma DO-[facility] Work Phone: Start: 03-28-2025 End: 82-06-0800Gbrjlb flowsheetDo Solis MAT MACHINE OPERATOR Work Phone: noms CWM FMStart: 03-28-2025 End: 46-73-4278Pfmefu flowsheetLisa Will MAT MACHINE OPERATOR Work Phone: noms CWM FMStart: 03-28-2025 End: 81-37-3087Snznqd outpatient visit 25 minutesLisa Will MAT MACHINE OPERATOR Work Phone: noms CWM FMComment on above:Type 2 diabetes mellitus without complication, with long-term current use of insulin (HCC) (PrimaryDx); Hyperparathyroidism (HCC); Mixed hyperlipidemia ; Other hyperlipidemia ; Gastroesophageal reflux disease without esophagitis; Type 2 diabetes mellitus without complication, without long-term current use of insulin (HCC); OAB (overactive bladder)Start: 03-28-2025 End: 10-06-6729rhuhzrxaawISOV AICHHOLZNot AvailableStart: 03-03-2025 End: 66-18-8862ljjhhemebcIyfz J Aichholz Work Phone: [facility] Work Phone: Start: 03-03-2025 End: 15-86-4811Rmhocyt encounter procedureCheyanne Juarez [facility]DPerson [facility] Work Phone: Start: 02-14-2025 End: 13-81-0054apbtnrdriqKkur J Aichholz MAT MACHINE OPERATOR-C Work Phone: [facility] Work Phone: Start: 02-14-2025 End: 22-52-1270Coqotgsz Bradly Shipman [facility] [place] Start: 01-31-2025 End: 82-50-6777Trrgyhfq Result EncounterBenrosales Ledbettercek DO Work Phone: noms External Department UnsolicitedStart: 01-31-2025 End: 30-97-2866Flvjxsty Result EncounterBenrosales Guillaume Murcek DO Work Phone: noms External Department UnsolicitedStart: 01-31-2025 End: 53-86-6327Hwsqnve encounter procedureBenrosales Ledbetterceleandro IF-Nwv-Fizszhfu Testing Work Phone: Start: 01-31-2025 End: 61-80-0812almnjoulamZukl J Aicflex Work Phone: [facility] Work Phone: Start: 31-99-1207Ntipwhpiz for preprocedural laboratory examinationBejordy Valdes [facility] GroupStart: 01-19-2025 End: 85-14-6982Erwzco outpatient visit 25 minutesBenrosales Ledbettercek DO Work Phone: noms ENT SANDUSKYComment on above:Primary hyperparathyroidism (HCC) (Primary Dx)Start: 01-19-2025 End: 48-10-4223uehmihudzkCOGYHJUL W MURCEKNot AvailableStart: 01-19-2025 End: 25-47-6075Angper flowsheetBenjamin Markell Murcek DO Work Phone: [facility] ENT SANDUSKYStart: 01-19-2025 End: 97-39-3965Upoaxt flowsheetBenjamin W Murcek DO Work Phone: [facility] E[facility] SANDUSKYStart: 01-14-2025 End: 13-02-7211Mwskxukh Result EncounterBenrosales Ledbettercek DO Work Phone: noms External Department UnsolicitedStart: 01-14-2025 End: 81-63-1562Vfosxksp Result EncounterBenjamin Markell Murcek DO Work Phone: noms External Department UnsolicitedStart: 01-14-2025 End: 97-79-4577Pmlgmas encounter procedureBenjamin W Murcek DO-[facility] [place] Work Phone: Start: 01-14-2025 End: 98-97-1825imnfxkneueOqqm J AichholzFacility:[facility] Centertart: 12-29-2024 End: 54-88-1580Tsoxlf flowsheetBenjamin W Murcek DO Work Phone: n[facility] ENT SANDUSKYStart: 12-29-2024 End: 12-30-7191Xpkzuq flowsheetBenjamin W Murcek DO Work Phone: [facility] ENT SANDUSKYStart: 12-29-2024 End: 94-57-5493Uzpcvg outpatient new 45 minutesBenjamin W Murcek DO Work Phone: noms ENT SANDUSKYComment on above:Hypercalcemia; Hyperparathyroidism (CMS/HCC)Start: 12-29-2024 End: 81-46-6213untmhqzmmiEIFSXSLV W MURCEKNot AvailableStart: 12-23-2024 End: 82-82-3757cemjsztpdlHAZS AICHHOLZNot AvailableStart: 12-15-2024 End: 13-08-9206Lymfby OnlyLisa Aichholz MAT MACHINE OPERATOR Work Phone: noms CWM FMComment on above:Hypercalcemia (Primary Dx); Hyperparathyroidism (CMS/HCC)Start: 12-14-2024 End: 21-08-8377Sycxbemmj Result EncounterLisa Aichholz MAT MACHINE OPERATOR Work Phone: noms External Department UnsolicitedStart: 12-14-2024 End: 52-75-7405Hmdstgzzl Result EncounterLisa Aichholz MAT MACHINE OPERATOR Work Phone: noms External Department UnsolicitedStart: 11-09-2024 End: 47-85-0915Ywhmep flowsheetLisa Aichholz MAT MACHINE OPERATOR Work Phone: noms CWM FMStart: 11-09-2024 End: 74-54-0414Atmiyx flowsMary Solis MAT MACHINE OPERATOR Work Phone: NOZO CWM FMStart: 11-09-2024 End: 97-10-4931Kjuwiw outpatient visit 25 minutesLi Will MAT MACHINE OPERATOR Work Phone: noms CWM FMComment on above:Type 2 diabetes mellitus without complication, with long-term current use of insulin (Primary Dx); Chronic pain syndrome; Constipation, unspecified constipation type; Mixed hyperlipidemia (CMS/HCC); Screening for prostate cancer; Hypercalcemia; Anemia associated with nutritional deficiency; Other hyperlipidemia; Type 2 diabetes mellitus without complication, without long-term current use of insulin; Gastroesophageal reflux disease without esophagitis; Chronic right-sided low back pain with right-sided sciaticaStart: 11-09-2024 End: 00-51-7967mxbbrfckvpBVGC AICHHOLZNot AvailableStart: 08-10-2024 End: 12-86-4827Nhjhts flowsheetBrittany Robb MAT MACHINE OPERATOR Work Phone: NOLP CWM FMStart: 08-10-2024 End: 21-76-7904Ybpdwn flowsheetBrittany Robb MAT MACHINE OPERATOR Work Phone: NOSR CWM FMStart: 08-10-2024 End: 51-96-9816Hskcru outpatient visit 15 minutesKelly Duboistrick MAT MACHINE OPERATOR Work Phone: NOQJ CWM FMComment on above:Type 2 diabetes mellitus without complication, with long-term current use of insulin (CMS/HCC) (Primary Dx); Chronic pain syndrome; Drug-induced constipation; Type 2 diabetes mellitus without complication, without long-term current use of insulin (CMS/HCC)Start: 08-10-2024 End: 97-76-1325mrymkgzgrdOLHXXXPP FITZPATRICKNot AvailableStart: 08-06-2024 End: 02-39-0573WtqvxvRljbwxul Robb MAT MACHINE OPERATOR Work Phone: NOKP CWM FMComment on above:Type 2 diabetes mellitus without complication, without long-term current use of insulin ([facility])Start: 08-02-2024 End: 04-90-9726Hqppddmgj Result EncounterKelly Robb MAT MACHINE OPERATOR Work Phone: noms External Department UnsolicitedStart: 08-02-2024 End: 84-85-4148Xrpmdgdxb Result EncounterKelly Robb MAT MACHINE OPERATOR Work Phone: noms External Department UnsolicitedStart: 07-14-2024 End: 70-14-8412DpnmsrUqwi Howard MANOMS CWM FMComment on above:Chronic right- sided low back pain with right-sided sciaticaStart: 06-14-2024 End: 08-99-4310KftbdfRqys Hadley CHIANG CWM FMComment on above:Type 2 diabetes mellitus without complication, without long-term current use of insulin ([facility])Start: 06-14-2024 End: 51-71-4164CfbgebOzxfsuzo Robb MAT MACHINE OPERATOR Work Phone: noMS CWM FMComment on above:Type 2 diabetes mellitus without complication, without long-term current use of insulin ([facility])Start: 05-24-2024 End: 38-33-8306UfcghpOhyzzed LykinsNOMS CWM FMComment on above:Type 2 diabetes mellitus without complication, without long-term current use of insulin ([facility]); Chronic right-sided low back pain with right-sided sciaticaStart: 05-04-2024 End: 45-07-1702Izhbyq flowsPam Duboistrick MAT MACHINE OPERATOR Work Phone: NOMS CWM FMStart: 05-04-2024 End: 58-73-2251Qdputy flowsheetKelly Duboistrick MAT MACHINE OPERATOR Work Phone: NOMS CWM FMStart: 05-04-2024 End: 58-98-1979Aezwhs outpatient visit 15 minutesKelly Chavesk MAT MACHINE OPERATOR Work Phone: NOMS CWM FMComment on above:Type 2 diabetes mellitus without complication, with long-term current use of insulin (CMS/HCC) (Primary Dx); Other hyperlipidemia (CMS/HCC); Pigmented skin lesion of uncertain behavior of headStart: 05-04-2024 End: 91-29-0427nlsbdjqwrtTARRSLRR FITZPATRICKNot AvailableStart: 04-09-2024 End: 31-88-5012TebkmyIfylqkgf Robb MAT MACHINE OPERATOR Work Phone: NOLZ CWM FMComment on above:Chronic right-sided low back pain with right-sided sciaticaStart: 72-62-5524Xyijrkm encounter procedure Kelly Weinsteinzpatrick MAT MACHINE OPERATOR Work Phone: [facility] HealthcareStart: 18-04-4531flhbkslzluEDXIIFH HALKER .Facility:C2Nyrvt: 12-06-2022 End: 83-46-8811eqvmoshotvMPBHXD H FAWWADFacility:W3Hbgsv: 11-19-2022 End: 90-06-3686dnczxkoknaQOPLR BROWNFacility:B5Duzoa: 11-11-2022 End: 05-38-4802eubfyqqtgcCBSLNYURSURT LAKSHMIPATHY .Facility:K7Jncwr: 11-05-2022 End: 34-42-2278osknutxmauZXIXBKZFKRJQ LAKSHMIPATHY .Facility: Procedures DateProcedureProcedure DetailPerforming ClinicianStart: 07-67-6194Vwvbeeepei glycosylated r5aAxbr Remiflex MAT MACHINE OPERATOR Work Phone: Start: 31-66-8739Btjmp of parathormoneBenjamin W Murcek DO Work Phone: start: 28-55-8203Ofiragmv blood count with white cell differential, automatedBenjamin W Murcek DO Work Phone: start: 88-70-1991ZULWW XRAY CREBenjamin W Murcek DO Work Phone: start: 31-10-6169DH of soft tissues of neck with contrastLisa Aichholz Work Phone: Start: 96-64-0206HSI HEMOGLOBIN B1MRdoo Will MAT MACHINE OPERATOR Work Phone: Start: 31-87-5896CWR CBC WITH AUTO DIFFBrittany Robb MAT MACHINE OPERATOR Work Phone: Start: 82-08-1662AbshbiszrbbQxqqaqxk Robb MAT MACHINE OPERATOR Work Phone: Plan of Treatment DateCare ActivityDetailAuthorStart: 61-25-2333Hgvduxqvd for malignant neoplasm of colonNOMS HealthcareStart: 24-63-8882Xktmbzrbv for malignant neoplasm of colonFIT-DNANOMS HealthcareStart: 12-29-2025 End: 81-47-7876Egwyvtx encounter naxewqcgl51/28/2026 10:30 AM EDT Office Visit [facility] [address] [place] [phone] Do Solis, BASILIO [address] [place] [phone] [facility] FMStart: 05-22-2026Medicare Annual Wellness (AWV) Medicare Annual Wellness (AWV)[facility] HealthcareStart: 05-61-8314Qorvz screening for proteinDiabetes: Urine Protein ScreeningACADIA HEALTHCARE HealthcareStart: 09-28-2025 Hemoglobin A1c measurementDiabetes: Hemoglobin U9XYKBA HealthcareStart: 29-79-5993Dsphngqwmm A1c measurementDiabetes: Hemoglobin X7KLCQB Healthcare Start: 05-51-5037Jloejnili vaccinationInfluenza Vaccine (#1)[facility] Healthcare Start: 03-28-2025 End: 41-02-7728Abglmtc encounter procedureNOEASTERN [facility] FMComment on above:Type 2 diabetes mellitus without complication, with long-term current use of insulin (HCC) (PrimaryDx); Hyperparathyroidism (HCC); Mixed hyperlipidemiaStart: 28-35-0260WpojwxndhUniversity Hospitals Samaritan Medical Centertart: 02-21-2025 End: 43-43-8755Tezrwci encounter ygdqwcwer76/21/2025 2:15 PM EDT Office Visit [facility] [place] [address] [place] [phone] Isidro Shipman, DO [address] [place] [address] [facility] ENT SANDVIVIENNEYStart: 64-84-7657Xdkdmlgrq of thyroid glandOR Thyroidectomy/Hemithyroidectomy (Not Applicable)[facility] Centertart: 01-19-2025 End: 98-17-2978Vgdcylp encounter procedureNOMS ENT SANDVIVIENNEYComment on above: ArrivedStart: 01-12-2025 End: 52-46-9757Dkkmsjk encounter kykcgvtlt53/11/2025 1:00 PM EDT Office Visit YRN [place] [address] [place] [phone] Isidro Shipman, DO [address] [place] [address] N[facility] ENT SANDVIVIENNEYStart: 12-29-2024 End: 06-45-6444WH Neck WO and W contrast IVCT 4D PARATHYROID Imaging Routine Hypercalcemia Hyperparathyroidism (CMS/HCC) Expected: 12/29/2024,Expires: 12/29/2025[facility] Work Phone: comment on above:Expected: 12/29/2024, Expires: 12/29/2025Start: 12-29-2024 End: 79-12-0475Ytkmoqp encounter avpmfvyec06/28/2025 2:00 PM EDT Office Visit NOMJorge [place] [address] [place] [phone] Isidro Shipman, DO [address] [place] [address] Hypercalcemia; Hyperparathyroidism (CMS/HCC)NOMS ENT SANDUSKYComment on above:Hypercalcemia; Hyperparathyroidism (CMS/HCC)Start: 12-29-2024 End: 12-06-6745SEQMN Parathyroid glandNM parathyroid spect Imaging Routine Hypercalcemia Hyperparathyroidism ([facility]) Expected: 12/29/2024, Expires: 12/29/2025[facility] HealthcareComment on above:Expected: 12/29/2024, Expires: 12/29/2025Start: 12-23-2024 End: 67-70-2824Hjyynln encounter gsueoaamm41/22/2025 10:00 AM EDT Office Visit [facility] [address] [place] [address] Do Solis, MAT MACHINE OPERATOR [address] [address] NOMJorge AREVALO FMStart: 11-09-2024 End: 065306-pszalgzwwmvkrc D3 [Mass/volume] in Serum or PlasmaVitamin D 25 hydroxy Lab Routine Hypercalcemia Expected: 11/09/2024 (Approximate), Expires: 11/09/2025[facility] HealthcareComment on above:Expected: 11/09/2024 (Approximate), Expires: 11/09/2025Start: 11-09-2024 End: 85-23-8103ANR W Auto Differential panel - BloodCBC and differential Lab Routine Type 2 diabetes mellitus without complication, with long-term current use of insulin Expected: 11/09/2024 (Approximate), Expires: 11/09/2025[facility] HealthcareComment on above:Expected: 11/09/2024 (Approximate), Expires: 11/09/2025Start: 11-09-2024 End: 74-20-0695Kkjnbvwcn (Vitamin B12) [Mass/volume] in Serum or PlasmaVitamin B12 Lab Routine Anemia associated with nutritional deficiency Expected: 11/09/2024 (Approximate), Expires: 11/09/2025[facility] HealthcareComment on above: Expected: 11/09/2024 (Approximate), Expires: 11/09/2025Start: 11-09-2024 End: [id number] metabolic 2000 panel - Serum or PlasmaComprehensive metabolic panel Lab Routine Type 2 diabetes mellitus without complication, with long-term current use of insulin Mixed hyperlipidemia (CMS/HCC) Expected: 11/09/2024 (Approximate), Expires: 11/09/2025[facility] HealthcareComment on above: Expected: 11/09/2024 (Approximate), Expires: 11/09/2025Start: 11-09-2024 End: 60-27-7825Ydczyznu [Mass/volume] in Serum or PlasmaFerritin Lab Routine Anemia associated with nutritional deficiency Expected: 11/09/2024 (Approximate ), Expires: 11/09/2025[facility] HealthcareComment on above:Expected: 11/09/2024 (Approximate), Expires: 11/09/2025Start: 11-09-2024 End: 36-23-2154Xqjy + transferrin + TIBCIron + transferrin + TIBC Lab Routine Anemia associated with nutritional deficiency Expected: 11/09/2024 (Approximate), Expires: 11/09/2025[facility] HealthcareComment on above:Expected: 11/09/2024 (Approximate), Expires: 11/09/2025Start: 11-09-2024 End: 14-96-2881Avbuh 1996 panel - Serum or PlasmaLipid panel Lab Routine Mixed hyperlipidemia ([facility]/HCC) Expected: 11/09/2024 (Approximate), Expires:11/09/2025 [facility] Work Phone: Comment on above:Expected: 11/09/2024 (Approximate), Expires: 11/09/2025Start: 11-09-2024 End: 23-11-5783Eyqzioanochl/Creatinine panel in random UrineMicroalbumin / creatinine, urine ratio Lab Routine Type 2 diabetes mellitus without complication, with long-term current use of insulin Expected: 11/09/2024 (Approximate), Expires: 11/09/2025[facility] HealthcareComment on above:Expected: 11/09/2024 (Approximate), Expires: 11/09/2025Start: 11-09-2024 End: 30-43-6681Wuyjjghqlj.intact [Mass/volume] in Serum or PlasmaPTH, intact Lab Routine Hypercalcemia Expected: 11/09/2024 (Approximate), Expires: 11/09/2025 [facility] HealthcareComment on above:Expected: 11/09/2024 (Approximate), Expires: 11/09/2025Start: 11-09-2024 End: 83-81-1823Carqrssq specific Ag [Mass/volume] in Serum or PlasmaPSA Lab Routine Screening for prostate cancer Expected: 11/09/2024 (Approximate), Expires: 11/09/2025[facility] HealthcareComment on above:Expected: 11/09/2024 (Approximate), Expires: 11/09/2025Start: 11-09-2024 End: 94-08-6601Zhuoockvkn complete panel - UrineUrinalysis with reflex microscopic (clean catch) Lab Routine Type 2 diabetes mellitus without compli cation, with long-term current use of insulin Expected: 11/09/2024 (Approximate), Expires: 11/09/2025[facility] HealthcareComment on above:Expected: 11/09/2024 (Approximate), Expires: 11/09/2025Start: 11-09-2024 End: 53-04-0410Tlmoati encounter procedureNOMS CWM FMComment on above:Chronic pain syndrome (Primary Dx); Constipation, unspecified constipation type; Type 2 diabetes mellitus without complication, with long-term current use of insulin; Mixed hyperlipidemia (CMS/HCC); Screening for prostate cancer; Hypercalcemia; Anemia associated with nutritional deficiencyStart: 21-09-3148Ftupqzeqb vaccinationInfluenza Vaccine (#1)[facility] HealthcareComment on above:Postponed from 04/04/2024 (Patient Refused)Start: 45-85-6460Mhsofgqbnn A1c measurementDiabetes: Hemoglobin A0IOTWR HealthcareStart: 53-33-8459Fafif screening for protein Diabetes: Urine Protein ScreeningNONC HealthcareStart: 08-10-2024 End: 52-40-2692Bllvbrl encounter procedureNOMS CWM FMComment on above:Arrived Start: 08-04-2024 End: 59-57-2498YNP W Auto Differential panel - BloodCBC and differential Lab Routine Type 2 diabetes mellitus without complication, with long-term current use of insulin (CMS/HCC) Expected: 08/04/2024 (Approximate), Expires: 05/04/2025 [facility] HealthcareComment on above:Expected: 08/04/2024 (Approximate), Expires: 05/04/2025Start: 08-04-2024 End: 37-79-7144Mkprdthjnkqbd metabolic 1999 panel - Serum or PlasmaComprehensive metabolic panel Lab Routine Type 2 diabetes mellitus without complication, with long-term current use of insulin ([facility]) Expected: 08/04/2024 (Approximate), Expires: 05/04/2025[facility] HealthcareComment on above:Expected: 08/04/2024 (Approximate), Expires: 05/04/2025Start: 08-04-2024 End: 24-66-9396Nsvuxlkjcx A1c/Hemoglobin.total in BloodHemoglobin A1c Lab Routine Type 2 diabetes mellitus without complication, with long-term current use of insulin ([facility]) Expected: 08/04/2024 (Approximate), Expires: 05/04/2025 [facility] Work Phone: Comment on above:Expected: 08/04/2024 (Approximate), Expires: 05/04/2025Start: 12-20-2024Medicare Annual Wellness (AWV)Medicare Annual Wellness (AWV)[facility] HealthcareStart: 05-04-2024 End: 68-21-2471Mgkvrqr encounter procedureNOMS CW FMComment on above:Arrived Start: 35-08-1599Iatjpthgd vaccinationInfluenza Vaccine (#1)[facility] Start: 14-18-2371Jhkdxjjj screeningDiabetes: Retinopathy ScreeningACADIA HEALTHCARE HealthcareStart: 68-55-6445Wthgrrtzx for malignant neoplasm of colonNONC HealthcareBasic metabolic 1997 panel - Serum or PlasmaBasic metabolic panel Lab Routine 01/31/2025 1:40 PM EDTACADIA HEALTHCARE Healthcare Work Phone: comprehensive metabolic 1999 panel - Serum or Plasma [facility] HospitalMicroalbumin [Mass/volume] in UrineBerger HospitalUS Heart TransthoracicTampa General Hospital Immunizations Immunization DateImmunizationNotesCare QllyanusDlhujlve98-17-9874yswcrmonf, seasonal, injectableLisa Will MAT MACHINE OPERATOR Work Phone: [facility] HospitalBdirlzrcge88-35-7531skfbjrynm virus vaccine, unspecified formulationLisa Aichholz MAT MACHINE OPERATOR Work Phone: [facility] Payers DatePayer CategoryPayerPolicy [id number] 2025MedicareMEDICARE [id number] [id number] 2023MedicaidMEDICAID [place] Member Subscriber Plan / Payer (Effective 2022-) Name: Jesus Lovelaceemeli Gimenez Relation to Subscriber: Self Name: Nicholas Lovelace Payer ID: Not on file Group ID: Not on file Type: Medicaid Address: [id number] [place] [id number] [id number] Medicare (Managed Care).[id number] Unknown[facility] xxSWYY 2022-Present [address] [place] [id number] [id number] 2.16.840.1.043055.3.579.2.30001-27-9174Rwuudjy [id number] 2.16840.1.353780.3.57[id number] 2.16840.1.730298.3.57[id number] 2.840.1.397154.3.57[id number] 2.840.1.555242.3.57[id number] 2.840.1.963066.3.57[id number] 2.16840.1.921236.3.579.[id number] 2.840.1.933991.3.579.[id number] 2.840.1.221462.3.57[id number] 2.840.1.908103.3.57[id number] 2.16840.1.541714.3.57[id number] 2.840.1.877839.3.57[id number] 2.840.1.704925.3.57[id number] 2.16.84.1.85[id number] 2.840.1.927946.3.579.2.531 [id number] 2.16.840.1.9[id number] 2.840.1.309[id number] 2.0.1.371460.3.579.2.531 Social History DateTypeDetailFacilityStart: 07-23-2023 End: 59-82-0420Muaggio smoking status NHISNever smoked tobaccoNOMS Healthcare Start: 98-29-0742Wpmfczz use and exposureSmokeless tobacco non-userNOMS HealthcareStart: 01-26-2024 End: 20-14-3150Dnbvdpqca beverage intakeEx-drinker (finding)[facility] Start: 01-26-2024 End: 58-18-0446Kwpooeb of Social functionNOMS HealthcareStart: 01-26-2024 End: 32-10-1116Nhgzbml use panelNOMS HealthcareStart: 42-84-8688Unrqwvf Comment OCCASSIONALLYNOMS HealthcareStart: 32-03-6071Pvt assigned at birthNot on file NOM HealthcareSexMale (finding)[facility] Medical Centertart: 72-10-1550Ipy Assigned At [facility] HospitalNEGATED: Highlighted rowStart: NINFHistory of tobacco usePassive smokerNOMS Healthcare Medical Equipment Procedure CodeEquipment CodeEquipment Original TextEquipment IdentifierDates [id number]: 01-26-2024 End: 32-23-7097Ifaj a day injection. Use as [id number]: 12-23-2024 End: 40-83-8005Zhuq a day injection. Use as [id number]: 03-28-2025 Clinical Notes 11-05-2022 to 03-28-2025 Note Date & YyjrBhztOboqiugn11-77-2919 History of Present illness Narrative* Do Solis NP - 03/28/2025 9:43 AM EDTAssociated Problem(s): OAB (overactive bladder) Cut back on caffeine Will trial oxybutynin 5mg ER once a day Advised of urine retention, dizziness, dry mouth * DOROTHY RAND - 03/28/2025 9:20 AM EDT Right arm pain on and off still Pt needs refills on medications * Do Solis NP - 03/28/2025 9:20 AM EDT Images from the original note were not included. Nicholas Lovelace is a 60 y.o. male presents with chief complaint of Diabetes HPI: Urinary freq: 10 times daily, 5 times at night, decreased stream, but does feel like he empties outbladder Also was to have parathyroid surgery, it got cancelled, did not get a return ca;; about rescheduling Diabetes He presents for his follow-up diabetic visit. He has type 2 diabetes mellitus. His disease course has been stable. There are no hypoglycemic associated symptoms. Pertinent negatives for hypoglycemia include no dizziness, nervousness/anxiousness, seizures or tremors. Associated symptoms include polyu kaushik. Pertinent negatives for diabetes include no chest [...] diet. His overall blood glucose range is 90- 110 mg/dl. He does not see a hook loader.Eye exam is not current. GERD He reports no abdominal pain, no chest pain, no dysphagia, no heartburn, no sore throat or no wheezing. This is a chronic problem. The current episode started more than 1 year ago. The problem occursoccasionally. The problem has been unchanged. Pertinent negatives [...] complication, with long-term current use of insulin ([facility]) - Primary Check blood sugars daily, notify [...] insulin degludec (Tresiba FlexTouch) 200 UNIT/ML injection * Do Solis NP - 03/28/2025 6:27 AM EDTAssociated Problem(s): Mixed hyperlipidemia On statin, and zetia Check labs yearly and prn dose changes * Do Solis NP - 03/28/2025 6:27 AM EDTAssociated Problem(s): Hyperparathyroidism (HCC) Noted on labs, was referred to ENT for evaluation Was scheduled to have surgery, it was cancelled, he reports has not heard anything about it being rescheduled I did contact ENT office at 09:55 am to see about this Spoke Binta, she stated the Nurse just printed the info on cardiac clearance and will be calling him * Do Solis NP - 03/28/2025 6:26 AM EDTAssociated Problem(s): Type 2 diabetes mellitus without complication, with long-term current use ofinsulin (HCC) Check blood sugars daily, notify if [...] 6.5% 03/28/25, 6.7% 12/14/24 documented in this [facility]08-25-2025 Instructions* Patient Instructions* Do Solis NP - 03/28/2025 9:20 AM EDT Oxybutinin ER 5mg once a day of freq urine symptoms This could cause drowsiness, dry mouth, constipation, if this happens let me know documented in this [facility]07-31-2025 Evaluation note* Diagnosis Onset Date Resolution Status Admit Date Chest pain acuteJuly 2024 9:11amDiabetes mellitus, type 2acuteJuly 2024 9:11am HyperlipidemiaacuteJuly 2024 9:11am [facility] Work Phone: [phone]) 297-614506-18-2025 History of Present illness Narrative* Isidro Shipman, - 01/19/2025 2:45 PM EDT Allergies as [...] BACK SURGERY 2014 CARPAL TUNNEL RELEASE Bilateral Social History Socioeconomic [...] has consented to proceed. documented in this encounterPike County Memorial HospitalNtuttlfjkf90-97-3550 History of Present illness Narrative* Isidro Shipman [...] 4D PARATHYROID - NM parathyroid spect Hyperparathyroidism ([facility]) - Ambulatory referral to ENT - CT [...] 4D PARATHYROID - NM parathyroid spect Hyperparathyroidism ([facility]) Comments: See above Orders: - Ambulatory referral to ENT - CT 4D PARATHYROID; Future - NM parathyroid spect; Future - CT 4D PARATHYROID - NM parathyroid spect documented in this encounterPike County Memorial HospitalEfgsimpcwi35-78-3355 History of Present illness Narrative* Do Solis [...] 130 mg/dl. He does not see a hook loader.Eye exam is not current. Back Pain This [...] MINI PEN NEEDLES 31G X [address] [facility] DAILY baclofen (LIORESAL) 10 mg, [...] pain meds, nsaids, MR documented in this encounterPike County Memorial HospitalCgagtkoscr08-69-0322 Instructions* Patient Instructions* Do Solis NP - 11/09/2024 10:00 AM EDT Please get labs completed, 8 hours fasting I would like you to call an eye doctor to get a diabetic eye exam Schedule a medicare wellness examination documented in this encounterPike County Memorial HospitalIupohyfxsv08-35-1867 History of Present illness Narrative* Kelly Robb [...] ALBUMIN GLOBULIN RATIO 1.1 1.0 Resulting Agency [facility] Review of Systems Constitutional: Negative for activity [...] complication, with long-term current use of insulin ([facility]) - Primary Most recent labs: hemoglobin [...] Chronic pain syndrome Follows with Pain Management- [facility]. Pt currently taking oxycodone 5-325mg. Feels [...] complication, without long-term current use of insulin ([facility]) Relevant Medications Dulaglutide (Trulicity) 4.5 MG/0.5ML solution [...] without complication, with long-term current use ofinsulin ([facility]) Most recent labs: hemoglobin A1C 6.4% [...] 08/10/2024 9:16 AM ESTAssociated Problem(s): Other hyperlipidemia ([facility]) Currently taking Atorvastatin 80mg Most recent Lipid Panel done 02/2024- WNL Denies any myalgias. Continue current regimen. documented in this [facility]01-07-2025 Instructions* Patient Instructions* Kelly Robb NP - [...] to help relieve constipation. documented in this [facility]12-11-2024 Telephone encounter Note* Telephone Encounter - Adilia Butcher MA - 07/14/2024 11:31 AM EST CLAU:05/04/2024 NOV:08/10/2024 [facility] Akdzamgceu76-27-3919 Miscellaneous Notes* Telephone Encounter - Adilia Butcher MA - 07/14/2024 11:31 AM EST CLAU:05/04/2024 NOV:08/10/2024 documented in this [facility]11-11-2024 Telephone encounter Note* Telephone Encounter - Adilia Butcher MA - 06/14/2024 7:51 AM EST CLAU:05/04/2024 NOV:08/10/2024 [facility] HospitalGygfeiitbe60-53-9548 Miscellaneous Notes* Telephone Encounter - Adilia Butcher MA - 06/14/2024 7:51 AM EST CLAU:05/04/2024 NOV:08/10/2024 documented in this encounterPike County Memorial HospitalDghvmbotdi38-61-6142 History of Present illness Narrative* Kelly Robb [...] ALBUMIN GLOBULIN RATIO 1.1 1.0 Resulting Agency [facility] Review of Systems Constitutional: Negative for activity [...] List Items Addressed This Visit Other hyperlipidemia ([facility]) Currently taking Atorvastatin 80mg Most recent Lipid Panel done 02/2024- WNL Denies any myalgias. Continue current regimen. Type 2 diabetes mellitus without complication, with long-term current use of insulin ([facility]) - Primary Most recent labs: hemoglobin [...] Ambulatory referral to Dermatology documented in this encounterPike County Memorial HospitalVshaubalre09-01-2798 Instructions* Patient Instructions* Kelly Robb NP - [...] they will call you! documented in this [facility]04-04-2023 NoteCONSULTATION CONSULTATION DATE: 11/05/2022 TO: Dr. Bo CHIEF COMPLAINT: Includes bilateral lower back pain, worse on the right side. HISTORY OF PRESENT ILLNESS: Review of systems, past medical/surgical history were obtained and documented on the health questionnaire and is available upon request. Patient is a poor historian. He reports being followed by a physician some place in [place]. He is unsure of the physician's name, [...] will await information regarding his physician in [place] and he is scheduled to return to our office in four weeks' time. As part of providing excellent, safe, comprehensive care, the following was completed at our patient's visit: 1. A medication reconciliation and review to ensure accurate knowledge of current/active medications, including asking our patients to inform us about any gqxq-dze-xqpsemx medications or herbal remedies/nutritional supplements/alternative remedies. 2. [...] treatment options with their primary care provider.[facility]* Diagnosis Type 2 diabetes mellitus without complication, with long-term current use of insulin (CMS/HCC)- Primary Other hyperlipidemia (CMS/HCC) Pigmented skin lesion of uncertain behavior of head documented in this encounter [facility] HealthcareEvaluation note* Diagnosis Encounter for screening for [...] with right-sided sciatica documented in this encounter [facility] HealthcareEvaluation note* Diagnosis Encounter for screening for [...] of insulin (CMS/HCC) [facility] in [facility] HealthcareEvaluation note* Diagnosis Encounter for screening [...] of insulin (CMS/HCC) documented in this encounter [facility] HealthcareEvaluation note* Diagnosis Encounter for screening [...] with right-sided sciatica documented in this encounter [facility] HealthcareEvaluation note* Diagnosis Chronic right-sided low back pain with right-sided sciatica documented in this encounter [facility] HealthcareEvaluation note* Diagnosis Encounter for screening for [...] of insulin (CMS/HCC) documented in this encounter [facility] HealthcareEvaluation note* Diagnosis Encounter for screening for [...] of insulin (CMS/HCC) documented in this encounter [facility] HealthcareEvaluation note* Diagnosis Encounter for screening for [...] with right-sided sciatica documented in this encounter [facility] HealthcareEvaluation note* Diagnosis Encounter for screening for [...] (CMS/HCC) Hyperparathyroidism, unspecified documented in this encounter [facility] HealthcareEvaluation note* Diagnosis Encounter for screening for [...] (CMS/HCC) Hyperparathyroidism, unspecified documented in this encounter [facility] HealthcareEvaluation note* Diagnosis Encounter for screening for [...] Primary Primary hyperparathyroidism documented in this encounter [facility] HealthcareEvaluation noteNo assessment information availableBluffton Hospital Work Phone: Evaluation note* Diagnosis Onset Date Resolution Status Admit Date Diabetes mellitus, type 2 acuteJuly 2024 9:11amHyperlipidemiaacuteJuly 2024 9:11am [facility] Work Phone: Evaluation note* Diagnosis Encounter for [...] complication, without long-term current use of insulin ([facility]) OAB (overactive bladder) documented in this encounter [facility] HealthcareReason for referral (narrative)* Consultation (Routine) - Pending ReviewSpecialtyDiagnoses / ProceduresReferred By ContactReferred To Contact Dermatology Diagnoses Pigmented skin lesion of uncertain behavior of head Procedures CT OFFICE/OUTPATIENT NEW HIGH MDM 60 MINUTES Kelly Robb NP [address] [place] [address] Opal Zhong, MATERIAL ATTENDANT-MAINTENANCE AND REPAIR WORKER [address] [address] Referral IDStatusReasonStart DateExpiration DateVisits RequestedVisits [id number] Review Specialty Services Required * Consultation (Routine) - AuthorizedSpecialtyDiagnoses / ProceduresReferred By ContactReferred To ContactOphthalmology Diagnoses Type 2 diabetes mellitus without complication, with long-term current use of insulin ([facility]) Procedures CT OFFICE/OUTPATIENT NEW HIGH MDM 60 MINUTES Kelly Robb NP [address] [place] [address] Maggie Shukla MD [address] [place] [address] Referral IDStatusReasonStart DateExpiration DateVisits RequestedVisits [id number] Specialty Services Required [facility] HealthcareRekate for referral (narrative)No reason for referral information availableBluffton Hospital Work Phone: Summary Purpose Family History Relationship Condition Age at Onset Recorded Date/T jes mother Unknown Diabetes mellitusUnknownfatherDeceasedUnknownMalignant neoplasm of throatUnknown brotherDeceasedUnknown Advance Directives Advance Directive Response Recorded Date/ Time Advance Directives No January 10 10:56am Chief Complaint and Reason for Visit Chief Complaint Admit Date Surgical clearance March 03, 2025 9:11 am [...] am E78.5 March 03, 2025 9:14 am Chief Complaint Admit Date Surgical clearance March 03, 2025 9:11 am E78.5 March 03, 2025 9:14 am Additional Source Comments (unrecognized sect ion and content) No Status Records FoundNo Status Records FoundNo Status Records Found INFORMATION SOURCE (unrecogn ized section and content) DATE CREATED AUTHOR 12/13/2022 [facility] DATE CREATED AUTHOR AUTHOR'S ORGANIZ ATION 03/29/2025 [facility] DATE CREATED AUTHOR AUTHOR'S ORGANIZ ATION 04/17/2025 [facility] Care Teams (unrecognized sec tion and content) Team MemberRelationshipSpecialtyStart DateEnd Date Shaikh Bo MD [address] [place] [address] PCP - [facility]08/04/22 Buddy Harvey MD [address] [place] [address] PCP - GeneralFami Medicine03/16/24 Kelly Robb NP [address] [place] [address] Nurse PractitionerB[facility] Medicine03/16/24Team MemberRelationshipSpecialtyStart DateEnd Date Shaikh Bo MD [address] [place] [address] PCP - [facility]08/04/22 Buddy Harvey MD [address] [place] [address] PCP - GeneralFamily Medicine03/16/24 Kelly Robb NP [address] [place], [place] [address] Nurse PractitionerMyrtue Medical Centerly Medicine03/16/24Team MemberRelationshipSpecialtyStart DateEnd Date Shaikh Bo MD [address] [place] [address] PCP - [facility]08/04/22 Buddy Harvey MD [address] [place] [address] PCP - [facility]03/16/24 Kelly Robb NP [address] [place] [address] Nurse Pract[facility]er[facility]03/16/24Team MemberRelationshipSpecialtyStart DateEnd Date Shaikh Bo MD [address] [place] [address] PCP - [facility]08/04/2311 Buddy Harvey MD [address] [place] [address] PCP - [facility]03/16/24 Kelly Robb, BASILIO [address] [place], [place] [address] Nurse PractitionerSouth [facility]03/16/24Team MemberRelationshipSpecialtyStart DateEnd Date Shaikh Bo MD [address] [place] [address] PCP - [facility]08/04/2311 Buddy Harvey MD [address] [place] [address] PCP - Generalmily Medicine03/16/24 Kelly Robb NP [address] [place] [address] Nurse Pract[facility]erB[facility] Hospital Medicine03/16/24Team MemberRelationshipSpecialtyStart DateEnd Date Shaikh Bo MD [address] [place] [address] PCP - [facility]08/04/22 Buddy Harvey MD [address] [place] [address] PCP - [facility]South [facility]03/16/24 Kelly Robb NP [address] [place] [address] Nurse PractitionerSouth [facility]03/16/24Team MemberRelationshipSpecialtyStart DateEnd Date Shaikh Bo MD [address] [place] [address] PCP - [facility]08/04/2311 Buddy Harvey MD [address] [place] [address] PCP - [facility]03/16/24 Kelly Robb NP [address] [place] [address] Nurse PractitionerSouth [facility]03/16/24Team MemberRelationshipSpecialtyStart DateEnd Date Buddy Harvey MD [address] [place] [address] PCP - [facility]03/16/24 Kelly Robb, BASILIO [address] [place] [address] Nurse PractitionerSouth [facility]03/16/24Team MemberRelationshipSpecialtyStart DateEnd Date Buddy Harvey MD [address] [place] [address] PCP - [facility]03/16/24 Kelly Robb, BASILIO [address] [place] [address] Nurse PractitionerSouth [facility]03/16/24Team MemberRelationshipSpecialtyStart DateEnd Date Buddy Harvey MD [address] [place] [address] PCP - [facility]03/16/24 Kelly Robb, BASILIO [address] [place] [address] Nurse [facility]03/16/24Team MemberRelationshipSpecialtyStart DateEnd Date Buddy Harvey MD [address] [place] [address] PCP - GeneralFamily Medicine03/16/24 Kelly Robb NP [address] [place] [address] Nurse PractitionerSouth [facility]03/16/24Team MemberRelationshipSpecialtyStart DateEnd Date Buddy Harvey MD [address] [place] [phone] [facility] - [facility] Kelly Robb NP [address] [place] [address] Nurse Pract[facility]er[facility]03/16/24Team MemberRelationshipSpecialtyStart DateEnd Date Buddy Harvey MD [address] [place], [place] [phone] [facility] - [facility]03/16/24 Kelly Robb NP [address] [place] [address] Nurse Pract[facility]er[facility]03/16/24Team MemberRelationshipSpecialtyStart DateEnd Date Buddy Harvey MD [address] [place], [place] [phone] [facility] - [facility]/24 Kelly Robb NP [address] [place], [place] [address] Nurse Pract[facility]03/16/24Team MemberRelationshipSpecialtyStart DateEnd Date Buddy Harvey MD [address] [place], [place] [phone] PCP - [facility]03/16/24 Kelly Robb NP [address] [place], [place] [address] Nurse Pract[facility]03/16/24Team MemberRelationshipSpecialtyStart DateEnd Date Buddy Harvey MD [address] [place], [place] [phone] [facility] - [facility]24 Kelly Robb NP [address] [place], [place] [phone] Nurse [facility]03/16/24Team MemberRelationshipSpecialtyStart DateEnd Date Buddy Harvey MD [address] [place], [place] [phone] P[facility] - [facility]03/[facility]/24 Kelly Robb NP [address] [place] [phone] Nurse Pract[facility]03/16/24Team MemberRelationshipSpecialtyStart DateEnd Date Buddy Harvey MD [address] [place], [place] [phone] P[facility] - [facility]/24 Kelly Robb NP [address] [place] [address]-1002 [facility]/16/24 Do Solis NP [address] [place] [address] [facility]01/19/25 Isidro Shipman, DO [address] [place] [address] Otolaryngology01/19/25Team MemberRelationshipSpecialtyStart DateEnd Date Buddy Harvey MD [address] [place] [phone] PCP - [facility]03/16/24 Kelly Robb NP [address] [place] [address]-1002 [facility]03/16/24 Do Solis NP [address] [place] [address] [facility]01/19/25 Isidro Shipman, DO [address] [place] [address] Otolarynlogy01/19/25Team MemberRelationshipSpecialtyStart DateEnd Date Buddy Harvey MD [address] [place] [phone] PCP - [facility]03/16/24 Kelly Robb NP [address] [place] [address]-1002 [facility]03/16/24 Do Solis NP [address] [place] [address] [facility]01/19/25 Isidro Shipman DO [address] [place] [address] Otolaryngology01/19/25 Team Status: Active Member Role Status Dates Do Solis Primary Care Provider Active Team Status: Inactive Member Role Status Dates Isidro Shipman DO Attending Provider Active S tart: January 14, 2025 End: January 14, 2025[facility] Care ProviderActiveStart: January 14, 2025 End: January 14, 2025 Team Status: Inactive Member Role Status Dates Do Solis Primary Care Provider Active Sta rt: January 31, 2025 End: January 31robb Shipman DOAttending ProviderActiveStart: January 31, 2025 End: January 31, 2025 Team Status: Inactive Member Role Status Dates Do Solis Primary Care Provider Active Sta rt: March 03, 2025 End: March 03, 2025Cheyanne Juarez MDAttending ProviderActiveStart: March 03, 2025 End: March 03CHRISTIANO Booneeferring ProviderActiveStart: March 03, 2025 End: March 03, 2025 Team Status: Active Member Role Status Dates Do Solis Primary Care Provider Active Sta rt: March 03, 2025 Cheyanne Juarez MDAttending ProviderActiveStart: March 03, 2025 Team Status: Inactive Member Role Status Dates Do Solis Primary Care Provider Active Sta rt: March 03, 2025 End: March 03, 2025Cheyanne Juarez MDAttending ProviderActiveStart: March 03, 2025 End: March 03, 2025Team MemberRelationshipSpecialtyStart DateEnd Date Buddy Harvey MD [address] [place] [phone] PCP - [facility]03/16/24 Kelly Robb NP [address] [place] [phone] Nurse [facility]03/16/24 Do Solis NP [address] [place] [phone] Nurse [facility]01/19/25 Isidro Shipman DO [address] [place] [address] Otolaryngology01/19/25 Team Status: Active Member Role Status Dates Michelle Palma DO Primary Care Provider Active Team Status: Inactive Member Role Status Dates Do Solis NP-C Primary Care Provider Active Start: January 31, 2025 End: January 31robb Shipman DOAttkenyatta ProviderActiveStart: January 31, 2025 End: January 31, 2025 Team Status: Inactive Member Role Status Dates Isidro Shipman DO Attending Provider Active S tart: February 14, 2025 End: February 14, 2025Fito Marmolejoy Care ProviderActiveStart: February 14, 2025 End: February 14, 2025 Team Status: Inactive Member Role Status Dates Do Solis NP-C Primary Care Provider Active Start: March 03, 2025 End: March 03, 2025Cheyanne Juarez MDAttkenyatta ProviderActiveStart: March 03, 2025 End: March 03enGenaro Wilder ProviderActiveStart: March 03, 2025 End: March 03, 2025 Team Status: Inactive Member Role Status Dates DOMENICA Dejesus Primary Care Provider Active Start: March 03, 2025 End: March 03, 2025Cheyanne Juarez MDAttending ProviderActiveStart: March 03, 2025 End: March 03, 2025 Team Status: Active Member Role/Relationship Status Dates Michelle Palma DO Primary Care Provider Active Team Status: Inactive Member Role/Relationship Status Dates DOMENICA Dejesus Primary Care Provider Active Start: March 03, 2025 End: March 03, 2025Cheyanne Juarez MDAttending ProviderActiveStart: March 03, 2025 End: March 03enGenaro Wilder ProviderActiveStart: March 03, 2025 End: March 03, 2025 Team Status: Inactive Member Role/Relationship Status Dates PRINCE DejesusC Primary Care Provider Active Start: March 03, 2025 End: March 03, 2025Cheyanne Juarez MDAttending ProviderActiveStart: March 03, 2025 End: March 03, 2025 Team Status: Inactive Member Role/Relationship Status Dates Michelle Palma DO Primary Care Provider Active S tart: May 26, 2025 End: May 26, 2025Michelle Palma DOAttkenyatta ProviderActiveStart: May 26, 2025 End: May 26, 2025 Reason for Visit (unrecogniz ed section and content) ReasonCommentsFollow-upBack PainReasonOnset DateCommentsMed Hrxsun5005/24/2024 ReasonOnset DateCommentsMed [id number] Change Request ReasonOnset DateCommentsMed Ltpbig0007/14/2024easonOnset DateCommentsMed Refill 4ReasonOnset DateCommentsMed Todnrx5808/06/2024ReasonCommentsDiabetes ReasonCommentsHypercalcemiaNew Patient : Increased PTH / CalciumSpecialty Diagnoses / ProceduresReferred By ContactReferred To ContactOtolaryngology Diagnoses Hypercalcemia Hyperparathyroidism (CMS/HCC) Procedures CT OFFICE/OUTPATIENT NEW HIGH MDM 60 MINUTES Do Solis NP [address] [place] [address] Phone: tel: fax: Isidro Shipman, DO [address] [place] [address] Phone: tel: fax: Referral IDStatusReasonStart DateExpiration DateVisits RequestedVisits [id number] Specialty Services Required [id number] results Goals (unrecognized section and content) Goals [...] BE BASED ON THE PRIMARY CLINICAL RECORDS. [employer] [facility]. provides no warranty or guarantee of the accuracy or completeness of information in this document.
[2025-06-15 11:46] LABS: Glucose Urine UA NEGATIVE (NEGATIVE)
[2025-06-15 12:02] LABS: Alanine Aminotransferase 35 U/L (16-63); Albumin Globulin Ratio 1.1; Albumin Level 3.8 g/dL (3.4-5.0); Alkaline Phosphatase 100 U/L (46-116); Anion Gap 7.2; Aspartate Amino Transferase 16 U/L (15-37); Blood Urea Nitrogen 19.0 mg/dL (7.0-18.0); Calcium 9.6 mg/dL (8.5-10.1); Carbon Dioxide 31.8 mmol/L (21.0-32.0); Chloride 103 mmol/L (98-107); Cholesterol 134 mg/dL (<=200); Estimated GFR (African America >60 (>=60 mL/min/1.73m^2); Estimated GFR (Non-African Ame >60 (>=60 mL/min/1.73m^2); Globulin 3.4 g/dL; Glucose 105 mg/dL (74-106); HDL Cholesterol 42 mg/dL (40-60); Potassium 4.0 mmol/L (3.5-5.1); Sodium 138 mmol/L (136-145); Total Protein 7.2 g/dL (6.4-8.2); Triglycerides 115 mg/dL (<=150); VLDL CHOLESTEROL 23.0 mg/dL
[2025-06-15 12:39] LABS: Hematocrit 40.8 % (42.0-54.0); Hemoglobin 13.6 g/dL (14.0-18.0); Immature Granulocytes Abs Auto 0.02 10^3/uL (0.00-0.03); Immature Granulocytes Pct Auto 0.2 % (0.0-0.5); Lymphocytes Absolute Auto 1.5 10^3/uL (1.2-3.8); Mean Corpuscular HGB Conc 33.3 g/dL (29.9-35.2); Mean Corpuscular Hemoglobin 28.6 pg (25.9-34.0); Mean Corpuscular Volume 85.9 fL (80.0-94.0); Platelet Count 310 10^3/uL (150-450); Red Blood Count 4.75 10^6/uL (4.70-6.10); White Blood Count 9.3 10^3/uL (4.0-11.0)
== END 2025-06-15 11:00 | disposition home or self-care (01) ==
LOC: LAB 11:01
PROVIDERS: PCP Family Medicine; Visit Provider Family Medicine
DX: E78.5 Hyperlipidemia, unspecified (principal); E11.9 Type 2 diabetes mellitus without complications; E21.3 Hyperparathyroidism, unspecified; E83.52 Hypercalcemia; Z12.5 Encounter for screening for malignant neoplasm of prostate
CPT/HCPCS: 36415; 80053; 80061; 81003; 82043; 83036; 85025; G0103